=== PATIENT | male | born 1960 | race Caucasian/White ===

== ENCOUNTER → 2016-12-01 | Outpatient (CLI) | payer BC ==
--- NOTE | 2016-12-01 11:49 | US ---
EXAMINATION TYPE: US venous doppler duplex LE DATE OF EXAM: 12/01/2016 11:38 AM COMPARISON: NONE CLINICAL HISTORY: Swelling R22.41,R22.42 R79.1 Elevated D Dimer. large habitus, sob, states prior dvt yrs ago in left leg, no prev here SIDE PERFORMED: bilateral TECHNIQUE: The lower extremity deep venous system is examined utilizing real time linear array sonog amanda with graded compression, doppler sonography and color-flow sonography. VESSELS IMAGED: External Iliac Vein (EIV) Common Femoral Vein Deep Femoral Vein Greater Saphenous Vein * Femoral Vein Popliteal Vein Small Saphenous Vein * Proximal Calf Veins (* superficial vessels) Exam limitations due to pt size and ability to compress deep vns. Right Leg: neg for RLE dvt Left Leg: neg for LLE dvt, no flow seen within left upper gsv/superficial, but otherwise wnl IMPRESSION: Grayscale, color doppler, spectral doppler imaging performed of the deep veins of the lo wer extremities. There is normal flow, compressibility, vascular waveforms bilaterally. The exam is limited technically. No deep venous thrombosis is evident. Possible superficial venous th rombosis within the left upper greater saphenous vein, there is lack of color flow noted
--- NOTE | 2016-12-01 15:34 | XR ---
EXAMINATION TYPE: XR chest 2V DATE OF EXAM: 12/01/2016 HISTORY: R79.1 inc d dimer. REFERENCE: NONE. FINDINGS: The heart is enlarged. There is minimal scarring or atelectasis in the right midlung. Lungs otherwise clear. Pleural spaces are clear. 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 IMPRESSION: 1. CARDIOMEGALY. 2. SCARRING VERSUS ATELECTASIS RIGHT MIDLUNG. 3. FORESTIER'S DISEASE.
--- NOTE | 2016-12-01 16:02 | CT ---
EXAMINATION TYPE: CT chest angio for PE DATE OF EXAM: 12/01/2016 COMPARISON: NONE HISTORY: Leg swelling and elevated d-dimer CT DLP: 764.90 mGycm Automated exposure control for dose reduction was used. CONTRAST: CT Chest for pulmonary embolism performed with IV Contrast, patient injected with 70 mL of Omnipaque 350. FINDINGS: There is a triangular-shaped 9.2 x 5 mm nodule within the right middle lobe, best seen on i mage 57. No other definite nodules are seen. No infiltrate is seen. There is no significant axillary, mediastinal or hilar adenopathy. There is no pleural or pericardial fluid. The heart is mildly enlarged. There is a suboptimal contrast bolus. There are no large pulmonary emboli. The aorta is normal in caliber without evidence of dissection. Within the abdomen, there is a large amount of ascites. There is a lap band in place. There is spleno megaly with the spleen measuring over 18 cm. There is diffuse hypertrophic spondylosis within the spine. IMPRESSION: 1. SUBOPTIMAL EXAMINATION DEMONSTRATING NO LARGE PULMONARY EMBOLI. 2. SOLITARY RIGHT PULMONARY NODULE. 3. MILD CARDIOMEGALY. 4. ASCITES. 5. SPLENOMEGALY. 6. DEGENERATIVE CHANGES WITHIN THE SPINE.
--- NOTE | 2016-12-01 16:08 | NM ---
EXAMINATION TYPE: NM pul vent and perfuse DATE OF EXAM: 12/01/2016 COMPARISON: Chest x-ray 12/01/2016 HISTORY: Elevated d-dimer TECHNIQUE: Utilizing inhalation of 64.5 mCi Tc 99m DTPA aerosol and intravenous injection of 4.85 mC i of Tc 99m MAA, ventilation and perfusion images are acquired post injection in multiple projections . FINDINGS: No moderate or large mismatched defects are evident. There is a large matched defect along the right posterior lateral chest. Smaller matched defects in the posterior lateral left lung base. IMPRESSION: A matched defect posterior right chest. Smaller posterior lateral left chest defect may be present. M ismatch defects not identified. This is a low probability for pulmonary embolism.
== END | disposition home or self-care (01) ==
LOC: RADUSWWP 11:06
PROVIDERS: ATTEND Internal Medicine
DX: I51.7 Cardiomegaly (principal); M95.4 Acquired deformity of chest and rib; M35.3 Polymyalgia rheumatica; R16.1 Splenomegaly, not elsewhere classified; R18.8 Other ascites; R91.1 Solitary pulmonary nodule
CPT/HCPCS: 71020; 93970; 71275; 78582; A9540; A9567; Q9967

== ENCOUNTER → 2019-11-01 | Outpatient (CLI) | payer BC | END | disposition home or self-care (01) | LOC: LABWHC1 11:12 | PROVIDERS: ATTEND Internal Medicine Gastroenterology | DX: Z11.59 Encounter for screening for other viral diseases (principal) | CPT/HCPCS: 87635 ==

== ENCOUNTER 2019-11-03 08:28 | Day surgery (SDC) | payer BC ==
[2019-11-03 09:15] LABS: Mean Platelet Volume 10.6; Platelet Count 162 k/uL (150-450)
[2019-11-03 09:23] LABS: INR 1.3 (<1.2); Prothrombin Time 12.6 sec (9.0-12.0)
[2019-11-03 09:33] VITALS: TEMP 98.1
[2019-11-03] MEDS: ALBUMIN HUMAN 25% 50 ML in EMPTY BAG 1 BAG IVPB SCH ×4 (10:50→11:37)
[2019-11-03 11:19] VITALS: RESP 14
[2019-11-03 12:37] VITALS: BP 120/58; PULSE 80
--- NOTE | 2019-11-03 13:06 | US ---
EXAMINATION TYPE: US paracentesis abd w/image DATE OF EXAM: 11/03/2019 COMPARISON: NONE HISTORY: Ascites. PROCEDURE: Maximal barrier technique was utilized. The skin overlying a suitable pocket of fluid was localized with ultrasound and the overlying skin was prepped and draped. Ultrasound was utilized with sterile technique. Lidocaine was used for local anesthesia and a skin felisa made with a scalpel. Catheter was advanced under direct ultrasound guidance into a suitable pocket of fluid and approximately 12.2 lite rs of serous fluid were removed. Catheter was withdrawn and hemostasis achieved. There is no immedi ate complication; the patient is discharged in stable condition. IMPRESSION: STATUS POST ULTRASOUND GUIDED PARACENTESIS FOR PALLIATION OF ASCITES. THIS PROCEDURE WA S PERFORMED BY THE UNDERSIGNED.
== END 2019-11-03 12:15 | disposition home or self-care (01) ==
LOC: RADPROMAIN 08:28 → MERGE 09:30 → RADPROMAIN 12:15
PROVIDERS: ATTEND Internal Medicine Gastroenterology
DX: R18.8 Other ascites (principal)
CPT/HCPCS: 82565; 82947; 85049; 85610; 36415; 49083; P9047

== ENCOUNTER → 2019-11-03 | Day surgery (SDC) | payer BC ==
[2019-11-02 10:17] VITALS: BMI 51.2
[~2019-11-03] MED LIST: KETAMINE 10 MG/ML 20 ML VIAL ONE; LACTATED RINGERS 1,000 ML IV SCH; LIDOCAINE 1% (10MG/ML) FOR IV START INTRADERMA PRN; LIDOCAINE 1% INJ 10MG/ML (20 ML MDV) ONE; MIDAZOLAM 2 MG/2 ML VIAL ONE; PROPOFOL 10 MG/ML 20 ML VIAL IV ONE
[2019-11-03 12:39] LABS: Glucose,Whole Blood 140 mg/dL (75-99)
[2019-11-03 12:40] VITALS: RESP 17; TEMP 97
--- NOTE | 2019-11-03 13:17 | P.PCN ---
Date of Procedure: 11/03/19 Procedure(s) Performed: BRIEF HISTORY: Patient is a 56-year-old, pleasant, white male with history of liver cirrhosis/nonalcoholic fatty liver disease is scheduled for an upper endoscopy as a part of evaluation of melena for the last 1 week duration. Last hemoglobin was 10 g/dL. PROCEDURE PERFORMED: Esophagogastroduodenoscopy. PREOPERATIVE DIAGNOSIS: Non alcoholic cirrhosis of the liver/melena. IV sedation per anesthesia. PROCEDURE: After informed consent was obtained, the patient was brought into the endoscopy unit. IV sedation was administered by Anesthesia under continuous monitoring. Initially the Olympus GIF-140 video endoscope was inserted into the mouth. Esophagus intubated without any difficulty. It was gradually advanced into the stomach and duodenum and carefully examined. The bulb and the second part of the duodenum appeared normal. The scope at this time was withdrawn to the stomach, adequately insufflated with air, and upon careful examination, mucosa of the antrum, body, cardia and the fundus had changes consistent with portal hypertensive gastropathy. No active bleeding seen. The scope was then withdrawn into the esophagus. The GE junction was located at 39 cm from the incisors. The esophagus appeared normal. There were no erosions or ulcerations seen . There where large mid/distal esophageal varices identified and the patient tolerated the procedure well. IMPRESSION: 1.. Mild portal hypertensive gastropathy 2. Large distal esophageal varices. RECOMMENDATIONS: The findings of this examination were discussed with the patient as well as his family. He'll be seen in office in 2 we Will consider starting him on nonselective beta giuseppe with Inderal 10 mg twice daily..
[2019-11-03 13:33] VITALS: BP 114/62; PULSE 79
== END ==
LOC: ORWHC2ENDO 12:14 → MERGE 12:30
PROVIDERS: ATTEND Internal Medicine Gastroenterology
DX: K74.69 Other cirrhosis of liver (principal); I85.10 Secondary esophageal varices without bleeding; K76.0 Fatty (change of) liver, not elsewhere classified; K76.6 Portal hypertension; K31.89 Other diseases of stomach and duodenum; E11.9 Type 2 diabetes mellitus without complications; E66.9 Obesity, unspecified; Z68.43 Body mass index [BMI] 50.0-59.9, adult; N28.9 Disorder of kidney and ureter, unspecified; Z79.84 Long term (current) use of oral hypoglycemic drugs; Z98.84 Bariatric surgery status; Z98.890 Other specified postprocedural states; Z88.2 Allergy status to sulfonamides
CPT/HCPCS: 43235; J2250; J2001; J2704

== ENCOUNTER 2019-11-20 08:16 | Inpatient (IN) | payer BC ==
[2019-11-20] MEDS ORDERED: SODIUM CHLORIDE 0.9% 1,000 ML IV STA (08:37)
[2019-11-20] MEDS ORDERED: MORPHINE SULFATE 4 MG/ML SYRINGE IV STA (08:37)
[2019-11-20] MEDS ORDERED: PANTOPRAZOLE 40 MG/10 ML VIAL IVP STA (08:37)
--- NOTE | 2019-11-20 08:40 | ED ---
Abdominal Pain HPI - General Source: patient, RN notes reviewed, old records reviewed Mode of arrival: wheelchair Limitations: no limitations <Malena Mccauley - Last Filed: 11/20/19 10:10> <Vince Gamble - Last Filed: 11/20/19 11:10> - General Chief Complaint: Abdominal Pain Stated Complaint: Recheck Time Seen by Provider: 11/20/19 08:24 - History of Present Illness Initial Comments: Patient is a 58-year-old male who presents emergency Department today for abdominal distention, difficulty in breathing was short distances and generalized weakness. He was sent by his PCP. Patient reports that he has history of ascites and had 12 L removed from his abdomen 2 weeks ago. He is scheduled for another paracentesis on the however he could not wait any longer. He reports lower extremity edema which is worsening. Patient states that he has had no recorded fevers or chills. He states is extremely winded w ith walking short distances. Patient also reports that he's been having dark tarry appearing stools for the past few weeks. He states that he's had some normal stools over the past 2 days. He states that he does see Dr. Rebolledo from GI. (Malena Mccauley) - Related Data Home Medications Medication Instructions Recorded Confirmed Furosemide [Lasix] 40 mg PO BID 11/20/19 11/20/19 Pioglitazone [Actos] 15 mg PO DAILY 11/20/19 11/20/19 Spironolactone [Aldactone] 25 mg PO BID-W/MEALS 11/20/19 11/20/19 Allergies Allergy/AdvReac Type Severity Reaction Status Date / Time Sulfa (Sulfonamide Allergy Unknown Verified 11/20/19 11:05 Antibiotics) Review of Systems ROS Other: All systems not noted in ROS Statement are negative. <Malena Mccauley - Last Filed: 11/20/19 10:10> ROS Other: All systems not noted in ROS Statement are negative. <Vince Gamble - Last Filed: 11/20/19 11:10> ROS Statement: Those systems with pertinent positive or pertinent negative responses have been documented in the HPI. Past Medical History Past Medical History: Diabetes Mellitus, Deep Vein Thrombosis (DVT) Additional Past Medical History / Comment(s): Pt states he has had increased abdominal size x 1.5 weeks. states has had 30lbs weight gain. DVT L leg, SOB with walking, ascites-states cause unknown History of Any Multi-Drug Resistant Organisms: None Reported Past Surgical History: Orthopedic Surgery Additional Past Surgical History / Comment(s): Rt club foot surgery as child, colonoscopy, paracentesis Past Anesthesia/Blood Transfusion Reactions: No Reported Reaction Past Psychological History: No Psychological Hx Reported Smoking Status: Never smoker Past Alcohol Use History: Occasional Past Drug Use History: None Reported - Past Family History Mother Family Medical History: No Reported History Additional Family Medical History / Comment(s): . Father History Unknown: Yes Additional Family Medical History / Comment(s): Pt does not know father's medical history. Father in his 60's. Brother(s) Family Medical History: Cancer <Malena Mccauley - Last Filed: 11/20/19 10:10> General Exam Limitations: no limitations General appearance: alert, in no apparent distress Head exam: Present: normocephalic Eye exam: Present: normal appearance, PERRL, EOMI. Absent: scleral icterus, conjunctival injection, periorbital swelling ENT exam: Present: normal exam, mucous membranes moist Neck exam: Present: normal inspection. Absent: tenderness, meningismus, lymphad enopathy Respiratory exam: Present: normal lung sounds bilaterally. Absent: respiratory distress, wheezes, rales, rhonchi, stridor Cardiovascular Exam: Present: regular rate, normal rhythm, normal heart sounds. Absent: systolic murmur, diastolic murmur, rubs, gallop, clicks GI/Abdominal exam: Present: distended (Asians abdomen is extremely distended.), normal bowel sounds. Absent: soft, tenderness, guarding, rebound, rigid Rectal exam: Present: heme (+) stool, black stool Extremities exam: Present: normal inspection, full ROM, normal capillary refill, pedal edema, other (Peripheral edema bilaterally.). Absent: tenderness, joint swelling, calf tenderness Back exam: Present: normal inspection, full ROM Neurological exam: Present: alert, oriented X3, CN II-XII intact Psychiatric exam: Present: normal affect, normal mood Skin exam: Present: warm, dry, intact, normal color. Absent: rash <Malena Mccauley - Last Filed: 11/20/19 10:10> - General Exam Comments Initial Comments: 58-year-old male. Morbidly obese. (Kiah Mccauleyily) Course Vital Signs 11/20/19 11/20/19 11/20/19 08:19 08:23 08:35 Temperature 97.9 F Pulse Rate 88 Respiratory 18 20 20 Rate Blood Pressure 136/88 O2 Sat by Pulse 100 Oximetry 11/20/19 11/20/19 09:23 10:23 Temperature Pulse Rate 69 Respiratory 20 20 Rate Blood Pressure 116/69 O2 Sat by Pulse 99 Oximetry Medical Decision Making - Lab Data Result diagrams: 11/20/19 08:45 11/20/19 08:45 <Malena Mccauley - Last Filed: 11/20/19 10:10> - Lab Data Result diagrams: 11/20/19 08:45 11/20/19 08:45 <Vince Gamble - Last Filed: 11/20/19 11:10> - Medical Decision Making Patient is a 58-year-old male history of cirrhosis and ascites presents today for abdominal distention and shortness of breath with exertion. Patient also reported he had a history of dark tarry stools for a few weeks but this is recently subsided became normal. Patient also reports at 12 L of fluid removed a few weeks ago and is scheduled to have paracentesis on the . At this ilda e patient's labwork was reviewed. His evidence of anemia with hemoglobin of 5.9. This is a dramatic change from last hemoglobin at 10. Discusses is likely from GI bleed. His occult is positive. Patient's is elevated BUN/creatinine with acute kidney injury. I discussed case with Dr. Gamble whom discussed case with Dr. Kimbrough. With having consultations GI and nephrology. (Malena Mccauley) Patient reevaluated and reexamined by myself, Dr. Gamble. Patient resting comfor tably in bed. No respiratory distress. Abdomen is distended. Results reviewed. Patient and family updated. Case discussed in detail with Dr. kimbrough, covering for Dr. Oconnell, who will admit. Consult for GI and nephrology. I do agree with the findings. This includes diagnostic interpretation and treatment plan. Case again discussed with Dr. Kimbrough who is reporting octreotide drip. Case al so discussed with Dr. Bolanos, who will consult for critical care. (Vince Gamble) - Lab Data Lab Results 11/20/19 11/20/19 11/20/19 Range/Units 08:45 08:45 08:45 WBC 7.0 (3.8-10.6) k/uL RBC 2.05 L (4.30-5.90) m/uL Hgb 5.9 L* D (13.0-17.5) gm/dL Hct 19.8 L* (39.0-53.0) % MCV 96.6 (80.0-100.0) fL MCH 28.8 (25.0-35.0) pg MCHC 29.8 L (31.0-37.0) g/dL RDW 17.1 H (11.5-15.5) % Plt Count 301 (150-450) k/uL Neutrophils % 80 % Lymphocytes % 9 % Monocytes % 9 % Eosinophils % 1 % Basophils % 0 % Neutrophils # 5.6 (1.3-7.7) k/uL Lymphocytes # 0.6 L (1.0-4.8) k/uL Monocytes # 0.6 (0-1.0) k/uL Eosinophils # 0.1 (0-0.7) k/uL Basophils # 0.0 (0-0.2) k/uL Hypochromasia Marked Poikilocytosis Slight Anisocytosis Slight Macrocytosis Slight PT (9.0-12.0) sec INR (<1.2) APTT (22.0-30.0) sec Sodium 134 L (137-145) mmol/L Potassium 5.2 H (3.5-5.1) mmol/L Chloride 100 (98-107) mmol/L Carbon Dioxide 20 L (22-30) mmol/L Anion Gap 14 mmol/L BUN 84 H (9-20) mg/dL Creatinine 6.73 H (0.66-1.25) mg/dL Est GFR (CKD-EPI)AfAm 10 (>60 ml/min/1.73 sqM) Est GFR (CKD-EPI)NonAf 8 (>60 ml/min/1.73 sqM) Glucose 186 H (74-99) mg/dL Plasma Lactic Acid Chun 3.9 H* (0.7-2.0) mmol/L Calcium 8.5 (8.4-10.2) mg/dL Total Bilirubin 1.2 (0.2-1.3) mg/dL AST 44 (17-59) U/L ALT 23 (4-49) U/L Alkaline Phosphatase 143 H (38-126) U/L Troponin I (0.000-0.034) ng/mL Total Protein 7.6 (6.3-8.2) g/dL Albumin 3.1 L (3.5-5.0) g/dL Amylase 65 (30-110) U/L Lipase 281 (23-300) U/L Stool Occult Blood (Negative) Serum Alcohol <10 mg/dL Blood Type Blood Type Confirm Blood Type Recheck Bld Type Recheck Status Antibody Screen Crossmatch Spec Expiration Date 11/20/19 11/20/19 11/20/19 Range/Units 08:45 09:37 09:37 WBC (3.8-10.6) k/uL RBC (4.30-5.90) m/uL Hgb (13.0-17.5) gm/dL Hct (39.0-53.0) % MCV (80.0-100.0) fL MCH (25.0-35.0) pg MCHC (31.0-37.0) g/dL RDW (11.5-15.5) % Plt Count (150-450) k/uL Neutrophils % % Lymphocytes % % Monocytes % % Eosinophils % % Basophils % % Neutrophils # (1.3-7.7) k/uL Lymphocytes # (1.0-4.8) k/uL Monocytes # (0-1.0) k/uL Eosinophils # (0-0.7) k/uL Basophils # (0-0.2) k/uL Hypochromasia Poikilocytosis Anisocytosis Macrocytosis PT 11.6 (9.0-12.0) sec INR 1.1 (<1.2) APTT 21.1 L (22.0-30.0) sec Sodium (137-145) mmol/L Potassium (3.5-5.1) mmol/L Chloride (98-107) mmol/L Carbon Dioxide (22-30) mmol/L Anion Gap mmol/L BUN (9-20) mg/dL Creatinine (0.66-1.25) mg/dL Est GFR (CKD-EPI)AfAm (>60 ml/min/1.73 sqM) Est GFR (CKD-EPI)NonAf (>60 ml/min/1.73 sqM) Glucose (74-99) mg/dL Plasma Lactic Acid Chun (0.7-2.0) mmol/L Calcium (8.4-10.2) mg/dL Total Bilirubin (0.2-1.3) mg/dL AST (17-59) U/L ALT (4-49) U/L Alkaline Phosphatase (38-126) U/L Troponin I <0.012 (0.000-0.034) ng/mL Total Protein (6.3-8.2) g/dL Albumin (3.5-5.0) g/dL Amylase (30-110) U/L Lipase (23-300) U/L Stool Occult Blood (Negative) Serum Alcohol mg/dL Blood Type A Positive Blood Type Confirm Blood Type Recheck No Previous Record Bld Type Recheck Status CABO Indicated Antibody Screen NEGATIVE Crossmatch See Detail Spec Expiration Date 11/23/2019 - 233611/20/19 11/20/19 Range/Units 09:50 10:10 WBC (3.8-10.6) k/uL RBC (4.30-5.90) m/uL Hgb (13.0-17.5) gm/dL Hct (39.0-53.0) % MCV (80.0-100.0) fL MCH (25.0-35.0) pg MCHC (31.0-37.0) g/dL RDW (11.5-15.5) % Plt Count (150-450) k/uL Neutrophils % % Lymphocytes % % Monocytes % % Eosinophils % % Basophils % % Neutrophils # (1.3-7.7) k/uL Lymphocytes # (1.0-4.8) k/uL Monocytes # (0-1.0) k/uL Eosinophils # (0-0.7) k/uL Basophils # (0-0.2) k/uL Hypochromasia Poikilocytosis Anisocytosis Macrocytosis PT (9.0-12.0) sec INR (<1.2) APTT (22.0-30.0) sec Sodium (137-145) mmol/L Potassium (3.5-5.1) mmol/L Chloride (98-107) mmol/L Carbon Dioxide (22-30) mmol/L Anion Gap mmol/L BUN (9-20) mg/dL Creatinine (0.66-1.25) mg/dL Est GFR (CKD-EPI)AfAm (>60 ml/min/1.73 sqM) Est GFR (CKD-EPI)NonAf (>60 ml/min/1.73 sqM) Glucose (74-99) mg/dL Plasma Lactic Acid Chun (0.7-2.0) mmol/L Calcium (8.4-10.2) mg/dL Total Bilirubin (0.2-1.3) mg/dL AST (17-59) U/L ALT (4-49) U/L Alkaline Phosphatase (38-126) U/L Troponin I (0.000-0.034) ng/mL Total Protein (6.3-8.2) g/dL Albumin (3.5-5.0) g/dL Amylase (30-110) U/L Lipase (23-300) U/L Stool Occult Blood Positive (Negative) Serum Alcohol mg/dL Blood Type Blood Type Confirm A Positive Blood Type Recheck Bld Type Recheck Status Antibody Screen Crossmatch Spec Expiration Date Disposition Is patient prescribed a controlled substance at d/c from ED?: No Time of Disposition: 10:14 <Malena Mccauley - Last Filed: 11/20/19 10:10> <Vince Gamble - Last Filed: 11/20/19 11:10> Clinical Impression: Ascites, Cirrhosis, GI bleed, Anemia, ANISH (acute kidney injury) Disposition: ADMITTED IP TO THIS HOSP Condition: Stable Referrals: Stephen Muñoz MD [Primary Care Provider] - 1-2 days
[2019-11-20 09:11] LABS: Anisocytosis Slight; Basophils % (A) 0 %; Eosinophils # (A) 0.1 k/uL (0-0.7); Eosinophils % (A) 1 %; Hypochromasia Marked; Lymphocytes # (A) 0.6 k/uL (1.0-4.8); Lymphocytes % (A) 9 %; MCH 28.8 pg (25.0-35.0); MCHC 29.8 g/dL (31.0-37.0); MCV 96.6 fL (80.0-100.0); Macrocytosis Slight; Mean Platelet Volume 8.5; Monocytes # (A) 0.6 k/uL (0-1.0); Monocytes % (A) 9 %; Neutrophils # (A) 5.6 k/uL (1.3-7.7); Neutrophils % (A) 80 %; Platelet Count 301 k/uL (150-450); Poikilocytosis Slight; RBC 2.05 m/uL (4.30-5.90); RDW 17.1 % (11.5-15.5)
--- NOTE | 2019-11-20 09:16 | XR ---
EXAMINATION TYPE: XR chest 2V DATE OF EXAM: 11/20/2019 COMPARISON: 12/07/2016 HISTORY: Abdominal pain and shortness of breath TECHNIQUE: Frontal and lateral views of the chest are obtained. FINDINGS: There are low lung volumes. There is no focal air space opacity, pleural effusion, or pneum othorax seen. The cardiac silhouette size is enlarged. The osseous structures are intact. Moderate m ultilevel degenerative change of the spine. IMPRESSION: Low lung volumes and persistently enlarged cardiomediastinal silhouette. No acute cardio pulmonary process.
[2019-11-20 09:22] LABS: ALT 23 U/L (4-49); AST 44 U/L (17-59); African American GFR (CKD) 10 (>60 ml/min/1.73 sqM); Albumin 3.1 g/dL (3.5-5.0); Alcohol <10 mg/dL; Alkaline Phosphatase 143 U/L (38-126); Amylase 65 U/L (30-110); Anion Gap 14 mmol/L; Blood Urea Nitrogen 84 mg/dL (9-20); Calcium 8.5 mg/dL (8.4-10.2); Carbon Dioxide 20 mmol/L (22-30); Chloride 100 mmol/L (98-107); Glucose 186 mg/dL (74-99); Non-African American GFR(CKD) 8 (>60 ml/min/1.73 sqM); Potassium 5.2 mmol/L (3.5-5.1); Sodium 134 mmol/L (137-145); Total Bilirubin 1.2 mg/dL (0.2-1.3); Total Protein 7.6 g/dL (6.3-8.2)
[2019-11-20 09:23] LABS: HCT 19.8 % (39.0-53.0); HGB 5.9 gm/dL (13.0-17.5)
[2019-11-20] MEDS ORDERED: SODIUM CHLORIDE 0.9% 1,000 ML IV ONE (09:41)
[2019-11-20 10:06] LABS: INR 1.1 (<1.2); Prothrombin Time 11.6 sec (9.0-12.0)
[2019-11-20 10:08] LABS: Partial Thromboplastin Time 21.1 sec (22.0-30.0)
[2019-11-20] MEDS ORDERED: NALOXONE 0.4 MG/ML 1 ML VIAL IV PRN (10:45)
[2019-11-20] MEDS ORDERED: MELATONIN 3 MG TABLET PO PRN (11:28)
[2019-11-20] MEDS ORDERED: ONDANSETRON 4 MG/2 ML VIAL IVP PRN (11:28)
[2019-11-20] MEDS ORDERED: ACETAMINOPHEN TAB 325 MG TAB PO PRN (11:28)
[2019-11-20] MEDS: OCTREOTIDE 500 MCG in SODIUM CHLORIDE 0.9% 250 ML IV SCH (11:30)
--- NOTE | 2019-11-20 11:34 | US ---
EXAMINATION TYPE: US abdomen limited DATE OF EXAM: 11/20/2019 COMPARISON: EXAMINATION TYPE: US abdomen limited DATE OF EXAM: 11/20/2019 COMPARISON: Paracentesis dated 11/03/2019 CLINICAL HISTORY: Ascites . Ascites TECHNIQUE/FINDINGS: Targeted grayscale ultrasound was performed of the abdomen and evaluation for asc ites only. Ascites visualized in the left upper quadrant, left lower quadrant, right upper quadrant a nd right lower quadrant. IMPRESSION: Ascites visualized in all 4 quadrants sufficient for paracentesis.
[2019-11-20 11:53] LABS: Glucose,Whole Blood 172 mg/dL (75-99)
--- NOTE | 2019-11-20 11:55 | P.NPCON ---
History of Present Illness - Reason for Consult acute renal failure - History of Present Illness Reason for consultation: Acute kidney injury History of present illness: Patient is a 58-year-old male seen in consultation for acute kidney injury. Patient has history of liver cirrhosis secondary to fatty liver. Patient's creatinine recently has been in the range of 1-1.2. However in October his renal function had worsened and his diuretics were discontinued. Patient states he had paracentesis done on 11/02/2018 with 12 L drained. I did a virtual visit the patient last week and resumed spironolactone as well as Lasix. However patient states his edema and ascites have been progressively getting worse. He also complains of lower extremity edema. He has been voiding. No hematuria or dysuria. He was having black stools last week but states the last 2-3 days his bowel movements have been normal. He did have episode of severe emesis about 2 weeks ago but none since. He denies use of nonsteroidals. Hemoglobin was 5.9 on admission. Creatinine 6.73. Lactic acid 3.9. Urinary received 1 L of normal saline bolus. He is currently maintained on normal saline at 1 30 mL an hour. Blood pressures controlled. He denies any active bleeding. Vital signs are stable. General: The patient appeared well nourished and normally developed. HEENT: Head exam is unremarkable. Neck is without jugular venous distension. LUNGS: Lungs are clear to auscultation and percussion. Breath sounds decreased. HEART: Rate and Rhythm are regular. ABDOMEN: Severely distended. Nontender. EXTREMITITES: 2+ edema. Past Medical History Past Medical History: Diabetes Mellitus, Deep Vein Thrombosis (DVT), GERD/Reflux, GI Bleed, Liver Disease, Osteoarthritis (OA), Renal Disease Additional Past Medical History / Comment(s): Ascities with paracentesis-last time approximately 2 weeks ago/liver cirrhosis/anasarca/portal htn pt states told d/t fatty liver, renal insuffiiciency, lower GI bleed, esophageal varices, gastritis, NIDDM type II but pt states taken off diabetic medication one week ago, DVT L leg, recent R foot 2nd/3rd toe fractured pt states are now healed, arthritis R foot History of Any Multi-Drug Resistant Organisms: None Reported Past Surgical History: Orthopedic Surgery Additional Past Surgical History / Comment(s): 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 Smoking Status: Light tobacco smoker Past Alcohol Use History: Occasional Additional Past Alcohol Use History / Comment(s): Pt states he will on rare occasion, smoke a cigar during [place]. He has never been much of a drinker Past Drug Use History: None Reported - Past Family History Mother Family Medical History: No Reported History Additional Family Medical History / Comment(s): Mother is healthy and is 85 yrs old. Father History Unknown: Yes Additional Family Medical History / Comment(s): Pt does not know father's medical history. Father in his 60's. Brother(s) Family Medical History: Cancer Additional Family Medical History / Comment(s): Prostate cancer. Medications and Allergies Home Medications Medication Instructions Recorded Confirmed Type Furosemide [Lasix] 40 mg PO BID 11/20/19 11/20/19 History Pioglitazone [Actos] 15 mg PO DAILY 11/20/19 11/20/19 History Spironolactone [Aldactone] 25 mg PO BID-W/MEALS 11/20/19 11/20/19 History Allergies Allergy/AdvReac Type Severity Reaction Status Date / Time Sulfa (Sulfonamide Allergy Unknown Verified 11/20/19 11:05 Antibiotics) Physical Exam Vitals: Vital Signs Temp Pulse Resp BP Pulse Ox 11/20/19 11:33 83 20 116/66 99 11/20/19 10:23 69 20 116/69 99 11/20/19 09:23 20 11/20/19 08:35 20 11/20/19 08:23 20 11/20/19 08:19 97.9 F 88 18 136/88 100 Intake and Output 11/19/19 11/20/19 11/20/19 22:59 06:59 14:59 Other: Weight 172.365 kg Results - Lab Results Most recent lab results Calcium 8.5 mg/dL (8.4-10.2) 11/20/19 08:45 11/20/19 08:45 11/20/19 08:45 Assessment and Plan Plan: Assessment: 1. Acute kidney injury secondary to ATN secondary to acute blood loss anemia. Also concern for hepatorenal syndrome as well as abdominal compartment syndrome due to the severe distention and ascites. Creatinine 6.73 today. 2. Metabolic acidosis secondary to acute kidney injury as well as lactic acidosis. 3. Acute GI bleed. Hemoglobin 5.9. Maintained on octreotide drip. 4. Hypervolemic hyponatremia. 5. Liver cirrhosis. 6. Volume overload. Plan: Hep-Lock IV fluids. Scheduled to receive blood transfusion today. I will also give him a dose of IV DDAVP. Insert Argueta catheter. Check bladder pressure. IR consulted for paracentesis - patient to receive 37-1/2 g of albumin pre-and post-paracentesis. Add lasix 80 mg bid. Check urinalysis and renal ultrasound. Continue to monitor renal function and urine output closely. Patient will be going to the intensive care unit. Thank you for the consultation. I will continue to follow the patient with you during his hospital stay.
--- NOTE | 2019-11-20 12:34 | P.HPIM ---
History of Present Illness H&P Date: 11/20/19 Chief Complaint: abdominal distension Patient is a 58-year-old with non-alcoholic cirrhosis requiring paracentesis, obesity, diabetes, GERD, prior blood clots, osteoarthritis, and newly developed renal disease who presented to the emergency department at the direction of Dr. Muñoz due to abdominal distention. On arrival to the ER he is noted to have gross abdominal distention. His initial vital signs were within normal limits. Laboratory analysis showed a hemoglobin of 5.9, hematocrit 19.8, sodium 134, potassium 5.2, carbon dioxide 20, anion gap 14, BUN 84, creatinine 6.73, lactic acid 3.9, and liver enzymes were within normal limits. Albumin was noted to be 3.1. Serum alcohol was negative and fecal occult blood was positive. In the ER he received IV fluids and Protonix. Arrangements are made for admission. Of note the patient began experiencing renal insufficiency at the beginning of October. He also at that time was having dark tarry looking stools as well as persistent nausea and vomiting. On 11/02 he underwent a paracentesis with removal of 12.3 L of fluid (his last before that was in August 2019). At that point in time he also underwent an EGD which showed large esophageal varices. His creatinine on 11/02 was 3.04. He was referred to Dr. Brady and had a telephone visit approximately 2 days ago. Initially GI had held his diuretics. However Dr. Brady had had him resume his Aldactone at half a tablet and Lasix once daily. He states he has been compliant with this regimen. Patient seen and examined at bedside. He reports progressive abdominal distention over the last several weeks. He is not having any overt pain but just feels like his fluid is pushing on his abdomen. He reports that he has had decreased exercise tolerance and can only be up for 1-2 hours before needing to lay flat. He reports increasing lower extremity edema. He also reports exertional dyspnea. He is no longer able to ambulate to his mailbox or do activ ities of daily living without taking significant rest. He denies any current nausea or vomiting, but had severe episode approximately 3 weeks ago requiring an EGD with Dr. Bonds. He is also been having intermittent dark tarry stools. He states her severe up until about 5 days ago and has sense lessened somewhat, however there is some debate between him and his brother as to whether his stools have returned to normal or whether they continue to be dark and tarry. He reports he has been seeing Dr. Bonds for the last 2 years. Apparently his [id number]-puo who was a nurse have been helping him with all of his appointments and medications however she in July 2019 and he has been having difficulties since that time. He denies any difficulty with concentration, he states he is not sleeping more but is laying flat often due to shortness of breath and cramping. Review of Systems Pertinent positives and negatives as discussed in HPI, a complete review of systems was performed and all other systems are negative. Past Medical History Past Medical History: Diabetes Mellitus, Deep Vein Thrombosis (DVT), GERD/Reflux, GI Bleed, Liver Disease, Osteoarthritis (OA), Renal Disease Additional Past Medical History / Comment(s): Ascities with paracentesis-last time approximately 2 weeks ago/liver cirrhosis/anasarca/portal htn pt states told d/t fatty liver, renal insuffiiciency, lower GI bleed, esophageal varices, gastritis, NIDDM type II but pt states taken off diabetic medication one week ago, DVT L leg, recent R foot 2nd/3rd toe fractured pt states are now healed, arthritis R foot History of Any Multi-Drug Resistant Organisms: None Reported Past Surgical History: Orthopedic Surgery Additional Past Surgical History / Comment(s): 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 Smoking Status: Light tobacco smoker Past Alcohol Use History: Occasional Additional Past Alcohol Use History / Comment(s): Pt states he will on rare occasion, smoke a cigar during bear/deer camp. He has never been much of a drinker Past Drug Use History: None Reported - Past Family History Mother Family Medical History: No Reported History Additional Family Medical History / Comment(s): Mother is healthy and is 85 yrs old. Father History Unknown: Yes Additional Family Medical History / Comment(s): Pt does not know father's m edical history. Father in his 60's. Brother(s) Family Medical History: Cancer Additional Family Medical History / Comment(s): Prostate cancer. Medications and Allergies Home Medications Medication Instructions Recorded Confirmed Type Furosemide [Lasix] 40 mg PO BID 11/20/19 11/20/19 History Pioglitazone [Actos] 15 mg PO DAILY 11/20/19 11/20/19 History Spironolactone [Aldactone] 25 mg PO BID-W/MEALS 11/20/19 11/20/19 History Allergies Allergy/AdvReac Type Severity Reaction Status Date / Time Sulfa (Sulfonamide Allergy Unknown Verified 11/20/19 11:05 Antibiotics) Physical Exam Osteopathic Statement: *. No significant issues noted on an osteopathic structural exam other than those noted in the History and Physical/Consult. Vitals: Vital Signs Temp Pulse Resp BP Pulse Ox 11/20/19 11:33 83 20 116/66 99 11/20/19 10:23 69 20 116/69 99 11/20/19 09:23 20 11/20/19 08:35 20 11/20/19 08:23 20 11/20/19 08:19 97.9 F 88 18 136/88 100 Intake and Output 11/19/19 11/20/19 11/20/19 22:59 06:59 14:59 Other: Weight 172.365 kg General: ill appearing , Moderate distress, appears at stated age, Obese Derm: no unusual rashes/lesions no unusual ecchymoses, warm, dry Head: atraumatic, normocephalic, symmetric Eyes: EOMI, no lid lag, anicteric sclera, pupils equal round reactive to light ENT: Nose and ears atraumatic, no thrush, no pharyngeal erythema Neck: No thyromegaly, no cervical lymphadenopathy, trachea midline, supple Mouth: no lip lesion, mucus membranes moist Cardiovascular: S1S2 reg, no murmur, positive posterior tibial pulse bilateral, 2+ pitting edema, capillary refill less than 2 seconds Lungs: Decreased bs bilateral, no rhonchi, no rales , no accessory muscle use Abdominal: soft, nontender to palpation, no guarding, no appreciable organomegaly, normal bowel sounds Ext: no gross muscle atrophy, muscle strength 4 out of 5 in all 4 extremities grossly, no contractures, Neuro: CN II-XI grossly intact, light touch intact all 4 extremities, Psych: Alert, oriented, appropriate affect Results CBC & Chem 7: 11/20/19 08:45 11/20/19 08:45 Labs: Abnormal Lab Results - Last 24 Hours (Table) 11/20/19 11/20/19 11/20/19 Range/Units 08:45 08:45 08:45 RBC 2.05 L (4.30-5.90) m/uL Hgb 5.9 L* D (13.0-17.5) gm/dL Hct 19.8 L* (39.0-53.0) % MCHC 29.8 L (31.0-37.0) g/dL RDW 17.1 H (11.5-15.5) % Lymphocytes # 0.6 L (1.0-4.8) k/uL APTT (22.0-30.0) sec Sodium 134 L (137-145) mmol/L Potassium 5.2 H (3.5-5.1) mmol/L Carbon Dioxide 20 L (22-30) mmol/L BUN 84 H (9-20) mg/dL Creatinine 6.73 H (0.66-1.25) mg/dL Glucose 186 H (74-99) mg/dL Plasma Lactic Acid Chun 3.9 H* (0.7-2.0) mmol/L Alkaline Phosphatase 143 H (38-126) U/L Albumin 3.1 L (3.5-5.0) g/dL Crossmatch 11/20/19 11/20/19 Range/Units 09:37 09:37 RBC (4.30-5.90) m/uL Hgb (13.0-17.5) gm/dL Hct (39.0-53.0) % MCHC (31.0-37.0) g/dL RDW (11.5-15.5) % Lymphocytes # (1.0-4.8) k/uL APTT 21.1 L (22.0-30.0) sec Sodium (137-145) mmol/L Potassium (3.5-5.1) mmol/L Carbon Dioxide (22-30) mmol/L BUN (9-20) mg/dL Creatinine (0.66-1.25) mg/dL Glucose (74-99) mg/dL Plasma Lactic Acid Chun (0.7-2.0) mmol/L Alkaline Phosphatase (38-126) U/L Albumin (3.5-5.0) g/dL Crossmatch See Detail Chest x-ray: report reviewed US - abdomen: report reviewed Thrombosis Risk Factor Assmnt - DVT/VTE Prophylaxis DVT/VTE Prophylaxis: Pharmacologic Prophylaxis ordered Assessment and Plan Assessment: Decompensated hepatic cirrhosis, nonalcoholic -Concern for possible abdominal compartment syndrome leading to acute renal failure secondary to amount of ascites. Plan is for paracentesis today. Will need albumin prior and post procedure. -Lasix (as ordered by GI). No potassium sparing diuretic secondary To potassium 5.2. -After paracentesis low salt diet -Consult GI Acute renal failure with anion gap metabolic acidosis and mild hyperkalemia -Possible abdominal compartment syndrome versus hepatorenal syndrome versus acute kidney injury secondary to prerenal causes such as acute blood loss -Nephrology recommendations appreciated -Lasix -Ensure albumin prior to paracentesis -Avoid additional nephrotoxic agents- repeat BMP in AM Acute blood loss anemia likely secondary to GI bleed -Patient with history of esophageal varices as seen on EGD 11/03/2019. We will proceed with octreotide drip. -IV Protonix twice daily -GI consultation -Nothing by mouth -DDAVP ordered by nephrology -With a history of esophageal varices, cirrhosis with ascites, and GI bleed will order Rocephin 1 g daily as prophylaxis Diabetes mellitus type 2 -Had already been taken off of metformin prior to admission -Sliding-scale insulin -Check hemoglobin A1c The patient is admitted with an anticipated greater than 2 midnight stay for evaluation of abdominal distension. Surrogate decision-maker: Sister in law CODE STATUS:Full DVT prophylaxis: SCDs Discussed with: Patient, nursing, ED physician, Dr. Brady, Vilma Skelton, SCARLET Anticipated discharge date: 5-[address]: Home health VS SNF A total of 65 minutes was spent on the care of this complex patient more than 50% of the time was spent in counseling and care coordination.
[2019-11-20] MEDS: FUROSEMIDE 10 MG/ML 10 ML VIAL IV SCH ×2 (12:54→20:44)
[2019-11-20] MEDS ORDERED: DESMOPRESSIN ACETATE IVPB ONE (13:00)
[2019-11-20] MEDS ORDERED: SODIUM CHLORIDE 0.9% IVPB ONE (13:00)
[2019-11-20 13:26] LABS: Glucose,Whole Blood 174 mg/dL (75-99)
[2019-11-20] MEDS: INSULIN ASPART (NovoLOG) 100 UNIT/ML VIAL SQ SCH ×3 (13:40→20:41)
--- NOTE | 2019-11-20 13:46 | P.CNPUL ---
History of Present Illness Consult date: 11/20/19 Requesting physician: Maggi Carlson Reason for consult: other (Severe anemia and ascites) Chief complaint: Abdominal distention History of present illness: This is a 58-year-old white male with history of nonalcoholic liver cirrhosis., Recent paracentesis on 11/03/19, this was done by interventional radiology, and 12.2 L of fluid was drained from the peritoneal cavity. Over the last few we eks, the patient has been gradually developing increased abdominal girth and abdominal distention. Patient was brought into the ER, and workup revealed a low hemoglobin of 5.9. Elevated BUN of 84. Creatinine 6.73, elevated lactic acid, hence the patient was advised to be admitted to the hospital, he will require blood transfusion, paracentesis and further workup of his nonalcoholic liver cirrhosis, I was asked to see the patient on consultation to admit to the intensive care unit. Patient is now scheduled for repeat paracentesis by interventional radiology, and he would be seen by gastroenterology for possible EGD. In the meantime I have recommended transfusing the patient to a hemoglobin of above 7. Patient has been complaining of black tarry stools and intermittent episodes of nausea and vomiting, but no hematemesis. Recent EGD on this patient showed this large esophageal varices, but no active bleeding. Patient was seen by a different consultants while in the ER, and he was placed on diuretics in the form of Aldactone and Lasix he will be seen by interventional radiology for paracentesis. Patient denies any shortness of breath, no cough, no wheezing. He does have some dyspnea on exertion only. Review of Systems Constitutional: Denies fever, chills, sweats, weight gain, or loss. HEENT: Negative for migraines, blurred vision or loss, earaches, drainage, tinnitus, oral mucosal lesions, dysphagia, or odynophagia. Cardiac: Negative for chest pain, arrhythmias, or palpitation. Respiratory: Negative for shortness of breath, hemoptysis, cough, or sputum production. Patient has some dyspnea on exertion. Gastrointestinal: As noted in HPI. Mostly increased abdominal girth, and dark stools. Genitourinary: Negative for hematuria, urgency, frequency, polyuria, dysuria, or penile discharge. Musculoskeletal: Negative for muscle aches, swelling, arthritis, and arthralgias. Neurologic: Negative for stroke or TIA. Endocrine: Diabetes. Negative for thyroid problems. Hematologic: History of DVT. Skin: Negative for rash or itching. Psychiatric: Negative history for depression and anxietyle Past Medical History Past Medical History: Diabetes Mellitus, Deep Vein Thrombosis (DVT), GERD/Reflux, GI Bleed, Liver Disease, Osteoarthritis (OA), Renal Disease Additional Past Medical History / Comment(s): Ascities with paracentesis-last time approximately 2 weeks ago/liver cirrhosis/anasarca/portal htn pt states told d/t fatty liver, renal insuffiiciency, lower GI bleed, esophageal varices, gastritis, NIDDM type II but pt states taken off diabetic medication one week ago, DVT L leg, recent R foot 2nd/3rd toe fractured pt states are now healed, arthritis R foot History of Any Multi-Drug Resistant Organisms: None Reported Past Surgical History: Orthopedic Surgery Additional Past Surgical History / Comment(s): 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 Smoking Status: Light tobacco smoker Past Alcohol Use History: Occasional Additional Past Alcohol Use History / Comment(s): Pt states he will on rare occasion, smoke a cigar during bear/deer camp. He has never been much of a drinker Past Drug Use History: None Reported - Past Family History Mother Family Medical History: No Reported History Additional Family Medical History / Comment(s): Mother is healthy and is 85 yrs old. Father History Unknown: Yes Additional Family Medical History / Comment(s): Pt does not know father's medical history. Father in his 60's. Brother(s) Family Medical History: Cancer Additional Family Medical History / Comment(s): Prostate cancer. Medications and Allergies Home Medications Medication Instructions Recorded Confirmed Type Furosemide [Lasix] 40 mg PO BID 11/20/19 11/20/19 History Pioglitazone [Actos] 15 mg PO DAILY 11/20/19 11/20/19 History Spironolactone [Aldactone] 25 mg PO BID-W/MEALS 11/20/19 11/20/19 History Allergies Allergy/AdvReac Type Severity Reaction Status Date / Time Sulfa (Sulfonamide Allergy Unknown Verified 11/20/19 11:05 Antibiotics) Physical Exam Vitals: Vital Signs Temp Pulse Resp BP Pulse Ox 11/20/19 13:19 97.7 F 82 16 102/51 96 11/20/19 11:33 83 20 116/66 99 11/20/19 10:23 69 20 116/69 99 11/20/19 09:23 20 11/20/19 08:35 20 11/20/19 08:23 20 11/20/19 08:19 97.9 F 88 18 136/88 100 Intake and Output 11/19/19 11/20/19 11/20/19 22:59 06:59 14:59 Intake Total 0 Balance 0 Intake: Blood Product 0 Rc As-1 Unit 0 [id number] Other: Weight 172.365 kg General appearance: The patient is alert, oriented, in no acute distress. HET: Head is normocephalic and atraumatic. Pupils are equal and reactive. Hilda pharynx is clear without lesions. Neck: Supple without lymphadenopathy. Trachea midline. Heart: S1 S2. Regular rate and rhythm. Lungs: No crackles or wheezes are heard. Abdomen: Soft, distended difficult to assess ascites secondary to large abdominal girth with bowel sounds. No peritoneal signs. No palpable organomegaly or masses. Extremities: +3 bilateral lower extremity edema. Neurological: No focal deficits. Strength and sensation are grossly intact. Psychiatric: Normal mood, affect and normal mental status examination. Results - Laboratory Findings CBC and BMP: 11/20/19 08:45 11/20/19 08:45 PT/INR, D-dimer PT 11.6 sec (9.0-12.0) 11/20/19 09:37 INR 1.1 (<1.2) 11/20/19 09:37 Abnormal lab findings: Abnormal Labs 11/20/19 11/20/19 11/20/19 08:45 08:45 08:45 RBC 2.05 L Hgb 5.9 L* D Hct 19.8 L* MCHC 29.8 L RDW 17.1 H Lymphocytes # 0.6 L APTT Sodium 134 L Potassium 5.2 H Carbon Dioxide 20 L BUN 84 H Creatinine 6.73 H Glucose 186 H POC Glucose (mg/dL) Plasma Lactic Acid Chun 3.9 H* Alkaline Phosphatase 143 H Albumin 3.1 L Crossmatch 11/20/19 11/20/19 11/20/19 09:37 09:37 11:51 RBC Hgb Hct MCHC RDW Lymphocytes # APTT 21.1 L Sodium Potassium Carbon Dioxide BUN Creatinine Glucose POC Glucose (mg/dL) 172 H Plasma Lactic Acid Chun Alkaline Phosphatase Albumin Crossmatch See Detail 11/20/19 13:25 RBC Hgb Hct MCHC RDW Lymphocytes # APTT Sodium Potassium Carbon Dioxide BUN Creatinine Glucose POC Glucose (mg/dL) 174 H Plasma Lactic Acid Chun Alkaline Phosphatase Albumin Crossmatch - Diagnostic Findings Chest x-ray: image reviewed (Low lung volumes and enlarged cardiomediastinal silhouette. No acute process otherwise) Additional studies: Ultrasound of abdomen showed significant ascites. Assessment and Plan Assessment: Impression: Severe ascites secondary to nonalcoholic hepatic cirrhosis. Anasarca secondary to above. Acute blood loss anemia suspect underlying upper GI bleeding, possibly esophageal varices. Acute kidney injury, being addressed by nephrology. Type 2 diabetes. Recommendation: Agree with the present treatment plan including diuretics, GI consultation Interventional radiology evaluation for paracentesis Low-salt diet Close monitoring of renal profile Avoid nephrotoxic agents. Transfused to a hemoglobin of over 7. Empiric antibiotics/Rocephin, for possible spontaneous bacterial peritonitis. Monitor sugars closely and treat accordingly. We'll continue to follow in the ICU. Time with Patient: Greater than 30
[2019-11-20] MEDS: ALBUMIN HUMAN 25% 50 ML in EMPTY BAG 1 BAG IVPB SCH ×6 (15:30→17:54)
[2019-11-20] MEDS: HYDROmorphone 0.5 MG/0.5 ML SYRINGE IVP PRN (16:30)
[2019-11-20 17:23] LABS: Appearance,Urine Cloudy (Clear); Bacteria,Urine Few /hpf; Bilirubin,Urine Negative (Negative); Blood,Urine Moderate (Negative); Color,Urine Yellow; Glucose,Urine (UA) Negative (Negative); Hyaline Casts,Urine 15 /lpf (0-2); Ketones,Urine Negative (Negative); Leukocyte Esterase,Urine Large (Negative); Mucus,Urine Rare /hpf; Nitrite,Urine Negative (Negative); Protein,Urine Trace (Negative); RBC,Urine 176 /hpf (0-5); Specific Gravity,Urine 1.013 (1.001-1.035); Squamous Epithelial Cell,Urine <1 /hpf (0-4); Urobilinogen,Urine <2.0 mg/dL (<2.0); WBC,Urine >182 /hpf (0-5)
[2019-11-20 17:31] LABS: Glucose,Whole Blood 163 mg/dL (75-99)
--- NOTE | 2019-11-20 19:49 | CONS ---
CONSULTATION DATE OF DICTATION: November 20, 2019. REQUESTING PHYSICIAN: Dr. Muñoz REASON FOR CONSULTATION: Severe symptomatic anemia and dark-colored stools. HISTORY OF PRESENT ILLNESS: The patient is a 58-year-old pleasant white male with history of nonalcoholic cirrhosis of the liver diagnosed approximately 3 years ago with gradual decompensation in the last few weeks. He has been requiring frequent paracentesis in the last one month. Last paracentesis was on November 02, approximately 10 L of fluid was removed at that time. The patient is being followed on an outpatient basis with me and he was complaining of intermittent black tarry stools and hence he underwent an upper endoscopy on November 02 that showed evidence of portal hypertensive gastropathy and large esophageal varices. After the procedure, the patient states that he continued to have intermittent dark- colored stools, but never had any coffee-grounds emesis or hematemesis. In fact for the last 2 weeks, he was having dark colored stools. He was noted to have elevated BUN and creatinine on outpatient basis and on November 02, creatinine was 3. Lasix and Aldactone was stopped and he was referred to Dr. Fletcher and he had televisit with him about 2 days ago. He was advised to restart back on Aldactone and Lasix at half the dose. In the meantime, he continues to have progressive abdominal distention and was feeling weak and tired with increasing lower extremity edema. Hence, came to the emergency room and was noted to have a hemoglobin of 5.9, admitted to the hospital for further evaluation. Also, his creatinine is up to 6.8. Presently in the intensive care unit. PAST MEDICAL HISTORY: Significant for CAD, diabetes mellitus, hypertension, hyperlipidemia, chronic kidney disease, gastroesophageal reflux disease and nonalcoholic cirrhosis of the liver diagnosed 3 years ago, history of recurrent ascites in the last one month requiring 2 paracentesis. PAST SURGICAL HISTORY: Recent EGD 2 weeks ago. MEDICATIONS: At home include Lasix 40 mg twice daily, Actos 50 mg daily and Aldactone 25 mg twice daily. ALLERGIES: SULFA. SOCIAL HISTORY: No smoking. No alcohol use. FAMILY HISTORY: Mother healthy. Father in his 50s. REVIEW OF SYSTEMS: CARDIOPULMONARY: No chest pain, shortness of breath. no dysuria or hematuria. MUSCULOSKELETAL unremarkable. SKIN unremarkable. ENDOCRINE unremarkable. PSYCHIATRIC unremarkable. NEUROLOGY unremarkable. ENT/VISION: Unremarkable. CONSTITUTIONAL: Overall weakness and fatigue. Worsening abdominal distention. No weight loss. PHYSICAL EXAMINATION: Appears comfortable in no apparent distress. Vital signs stable. Blood pressure is 102/51, pulse rate 80, temperature 97.7. HEENT examination unremarkable. Conjunctivae pink. Sclerae anicteric. Oral cavity no lesions. NECK no JVD or lymph node enlargement. CHEST was clear auscultation. HEART: Regular rate and rhythm. ABDOMEN was very distended. There was significant amount of free fluid noted. EXTREMITIES 2+ pedal edema. SKIN no rashes. NEURO he is awake, oriented x 3. LABS: From today WBC 7, hemoglobin 5.9, platelets normal. Basic metabolic panel, BUN is 84, creatinine 6.73, sodium 134, potassium 5.2, chloride 100, CO2 20. Stool occult blood is positive. Last hemoglobin on October 15 was 10.3 g/dL. IMPRESSION: 1. Severe symptomatic anemia and intermittent dark-colored stools. No significant active gastrointestinal bleed. He did have an upper endoscopy for melena on an outpatient basis on November 07 that showed large esophageal varices and mild portal hypertensive gastropathy. Anemia is multifactorial in etiology. Part of it from occult gastrointestinal blood loss but part of it could be related to chronic kidney disease and history of chronic liver disease. 2. Refractory ascites requiring frequent large volume paracentesis. Last one was November 02. 3. Acute kidney injury superimposed on chronic kidney injury. Nephrology has been consulted. RECOMMENDATIONS: 1. Agree with PRBC transfusion. 2. Monitor CBC on a close basis. 3. Continue with symptomatic and supportive care. 4. Appreciate Nephrology input. 5. Based on his clinical symptoms, I will consider proceeding with an upper endoscopy if he has any active bleeding. 6. We will follow with you closely. Thank you for this consultation. MMODL / IJN: [id number] /
[2019-11-20 20:11] LABS: Anisocytosis Slight; Hypochromasia Marked; MCH 28.8 pg (25.0-35.0); MCHC 29.9 g/dL (31.0-37.0); MCV 96.4 fL (80.0-100.0); Macrocytosis Slight; Mean Platelet Volume 8.4; Poikilocytosis Slight; RBC 1.92 m/uL (4.30-5.90); RDW 16.9 % (11.5-15.5); WBC 4.2 k/uL (3.8-10.6)
[2019-11-20 20:17] LABS: HCT 18.5 % (39.0-53.0); HGB 5.5 gm/dL (13.0-17.5); Platelet Count 137 k/uL (150-450)
[2019-11-20 20:39] LABS: Glucose,Whole Blood 133 mg/dL (75-99)
[2019-11-20] MEDS: PANTOPRAZOLE 40 MG/10 ML VIAL IVP SCH (20:44)
--- NOTE | 2019-11-20 21:17 | US ---
EXAMINATION TYPE: US renals and bladder DATE OF EXAM: 11/20/2019 COMPARISON: CT 2017 CLINICAL HISTORY: ascites. ANISH, history of kidney stones. EXAM MEASUREMENTS: Right Kidney: 10.0 x 4.8 x 5.1 cm Left Kidney: Approximately 6.0 cm in width Very limited exam diagnostically due to large patient body habitus, ascites, and bowel gas. Right Kidney: Limited. Free fluid seen. Left Kidney: Limited. Bladder: Not seen. FF seen. Patient has catheter in place. Bilateral Jets seen: No IMPRESSION: There is abdominal ascites. Limited visualization of the kidneys shows no sign of hydronephrosis. Uri nary bladder was not seen. The patient has a catheter in the bladder.
--- NOTE | 2019-11-20 21:53 | P.GSCN ---
History of Present Illness Consult date: 11/20/19 Reason for Consult: Urinary retention and difficult callahan placement History of present illness: Mr Casas is a 58 yo male with history of liver cirrhosis secondary to fatty liver. He is admitted to the hospital with GI bleed and ANISH. Urology is consulted for callahan placement. Multiple attempts to place a callahan catheter were unsuccessful secondary to resistance at the urethra. Callahan placement was required secondary to ANISH, and for accurate I/O. Additionally patient has not voided since admission, of note he has significant ascites thus bladder scan could not be obtained. Denies any voiding symptoms at baseline. Denies any previous hx of urinary retention, previous callahan placement or any voiding issues at baseline. No previous surgeries. He indicates there is positive family hx of prostate cancer Review of Systems - Constitutional Denies chills, Denies fatigue, Denies fever - Cardiovascular Reports edema, Denies chest pain - Respiratory Denies cough, Denies dyspnea - Gastrointestinal Denies abdominal pain, Denies nausea, Denies vomiting - Genitourinary Reports urinary retention, Denies dysuria, Denies flank pain Past Medical History Past Medical History: Diabetes Mellitus, Deep Vein Thrombosis (DVT), GERD/Reflux, GI Bleed, Liver Disease, Osteoarthritis (OA), Renal Disease Additional Past Medical History / Comment(s): Ascities with paracentesis-last time approximately 2 weeks ago/liver cirrhosis/anasarca/portal htn pt states told d/t fatty liver, renal insuffiiciency, lower GI bleed, esophageal varices, gastritis, NIDDM type II but pt states taken off diabetic medication one week ago, DVT L leg, recent R foot 2nd/3rd toe fractured pt states are now healed, arthritis R foot History of Any Multi-Drug Resistant Organisms: None Reported Past Surgical History: Orthopedic Surgery Additional Past Surgical History / Comment(s): 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 Smoking Status: Light tobacco smoker Past Alcohol Use History: Occasional Additional Past Alcohol Use History / Comment(s): Pt states he will on rare occasion, smoke a cigar during [place]. He has never been much of a drinker Past Drug Use History: None Reported - Past Family History Mother Family Medical History: No Reported History Additional Family Medical History / Comment(s): Mother is healthy and is 85 yrs old. Father History Unknown: Yes Additional Family Medical History / Comment(s): Pt does not know father's medical history. Father in his 60's. Brother(s) Family Medical History: Cancer Additional Family Medical History / Comment(s): Prostate cancer. Medications and Allergies Home Medications Medication Instructions Recorded Confirmed Type Furosemide [Lasix] 40 mg PO BID 11/20/19 11/20/19 History Pioglitazone [Actos] 15 mg PO DAILY 11/20/19 11/20/19 History Spironolactone [Aldactone] 25 mg PO BID-W/MEALS 11/20/19 11/20/19 History Allergies Allergy/AdvReac Type Severity Reaction Status Date / Time Sulfa (Sulfonamide Allergy Unknown Verified 11/20/19 11:05 Antibiotics) Surgical - Exam Vital Signs Temp Pulse Resp BP Pulse Ox 97.9 F 88 18 136/88 100 11/20/19 08:19 11/20/19 08:19 11/20/19 08:19 11/20/19 08:19 11/20/19 08:19 - General moderate distress, no pain - Respiratory normal expansion, normal respiratory effort - Abdomen Abdomen: soft, non tender, distended - Genitourinary uncircumcised phallus, narrowing at the meatus (+) scrotal edema testicles non-tender - Neurologic no combative, no confused - Psychiatric oriented to time, oriented to person, oriented to place, speech is normal Results - Labs 11/20/19 19:43 11/20/19 08:45 Abnormal Lab Results - Last 24 Hours (Table) 11/20/19 11/20/19 11/20/19 Range/Units 08:45 08:45 08:45 RBC 2.05 L (4.30-5.90) m/uL Hgb 5.9 L* D (13.0-17.5) gm/dL Hct 19.8 L* (39.0-53.0) % MCHC 29.8 L (31.0-37.0) g/dL RDW 17.1 H (11.5-15.5) % Plt Count (150-450) k/uL Lymphocytes # 0.6 L (1.0-4.8) k/uL APTT (22.0-30.0) sec Sodium 134 L (137-145) mmol/L Potassium 5.2 H (3.5-5.1) mmol/L Carbon Dioxide 20 L (22-30) mmol/L BUN 84 H (9-20) mg/dL Creatinine 6.73 H (0.66-1.25) mg/dL Glucose 186 H (74-99) mg/dL POC Glucose (mg/dL) (75-99) mg/dL Plasma Lactic Acid Chun 3.9 H* (0.7-2.0) mmol/L Alkaline Phosphatase 143 H (38-126) U/L Albumin 3.1 L (3.5-5.0) g/dL Urine Protein (Negative) Urine Blood (Negative) Ur Leukocyte Esterase (Negative) Urine RBC (0-5) /hpf Urine WBC (0-5) /hpf Urine WBC Clumps (None) /hpf Urine Bacteria (None) /hpf Hyaline Casts (0-2) /lpf Urine Mucus (None) /hpf Crossmatch 11/20/19 11/20/19 11/20/19 Range/Units 09:37 09:37 11:51 RBC (4.30-5.90) m/uL Hgb (13.0-17.5) gm/dL Hct (39.0-53.0) % MCHC (31.0-37.0) g/dL RDW (11.5-15.5) % Plt Count (150-450) k/uL Lymphocytes # (1.0-4.8) k/uL APTT 21.1 L (22.0-30.0) sec Sodium (137-145) mmol/L Potassium (3.5-5.1) mmol/L Carbon Dioxide (22-30) mmol/L BUN (9-20) mg/dL Creatinine (0.66-1.25) mg/dL Glucose (74-99) mg/dL POC Glucose (mg/dL) 172 H (75-99) mg/dL Plasma Lactic Acid Chun (0.7-2.0) mmol/L Alkaline Phosphatase (38-126) U/L Albumin (3.5-5.0) g/dL Urine Protein (Negative) Urine Blood (Negative) Ur Leukocyte Esterase (Negative) Urine RBC (0-5) /hpf Urine WBC (0-5) /hpf Urine WBC Clumps (None) /hpf Urine Bacteria (None) /hpf Hyaline Casts (0-2) /lpf Urine Mucus (None) /hpf Crossmatch See Detail 11/20/19 11/20/19 11/20/19 Range/Units 13:03 13:25 17:03 RBC (4.30-5.90) m/uL Hgb (13.0-17.5) gm/dL Hct (39.0-53.0) % MCHC (31.0-37.0) g/dL RDW (11.5-15.5) % Plt Count (150-450) k/uL Lymphocytes # (1.0-4.8) k/uL APTT (22.0-30.0) sec Sodium (137-145) mmol/L Potassium (3.5-5.1) mmol/L Carbon Dioxide (22-30) mmol/L BUN (9-20) mg/dL Creatinine (0.66-1.25) mg/dL Glucose (74-99) mg/dL POC Glucose (mg/dL) 174 H (75-99) mg/dL Plasma Lactic Acid Chun 2.6 H* (0.7-2.0) mmol/L Alkaline Phosphatase (38-126) U/L Albumin (3.5-5.0) g/dL Urine Protein Trace H (Negative) Urine Blood Moderate H (Negative) Ur Leukocyte Esterase Large H (Negative) Urine RBC 176 H (0-5) /hpf Urine WBC >182 H (0-5) /hpf Urine WBC Clumps Few H (None) /hpf Urine Bacteria Few H (None) /hpf Hyaline Casts 15 H (0-2) /lpf Urine Mucus Rare H (None) /hpf Crossmatch 11/20/19 11/20/19 11/20/19 Range/Units 17:29 19:43 20:37 RBC 1.92 L (4.30-5.90) m/uL Hgb 5.5 L* (13.0-17.5) gm/dL Hct 18.5 L* (39.0-53.0) % MCHC 29.9 L (31.0-37.0) g/dL RDW 16.9 H (11.5-15.5) % Plt Count 137 L D (150-450) k/uL Lymphocytes # (1.0-4.8) k/uL APTT (22.0-30.0) sec Sodium (137-145) mmol/L Potassium (3.5-5.1) mmol/L Carbon Dioxide (22-30) mmol/L BUN (9-20) mg/dL Creatinine (0.66-1.25) mg/dL Glucose (74-99) mg/dL POC Glucose (mg/dL) 163 H 133 H (75-99) mg/dL Plasma Lactic Acid Chun (0.7-2.0) mmol/L Alkaline Phosphatase (38-126) U/L Albumin (3.5-5.0) g/dL Urine Protein (Negative) Urine Blood (Negative) Ur Leukocyte Esterase (Negative) Urine RBC (0-5) /hpf Urine WBC (0-5) /hpf Urine WBC Clumps (None) /hpf Urine Bacteria (None) /hpf Hyaline Casts (0-2) /lpf Urine Mucus (None) /hpf Crossmatch Diabetes panel 11/20/19 Range/Units 08:45 Sodium 134 L (137-145) mmol/L Potassium 5.2 H (3.5-5.1) mmol/L Chloride 100 (98-107) mmol/L Carbon Dioxide 20 L (22-30) mmol/L BUN 84 H (9-20) mg/dL Creatinine 6.73 H (0.66-1.25) mg/dL Glucose 186 H (74-99) mg/dL Calcium 8.5 (8.4-10.2) mg/dL AST 44 (17-59) U/L ALT 23 (4-49) U/L Alkaline Phosphatase 143 H (38-126) U/L Total Protein 7.6 (6.3-8.2) g/dL Albumin 3.1 L (3.5-5.0) g/dL Calcium panel 11/20/19 Range/Units 08:45 Calcium 8.5 (8.4-10.2) mg/dL Albumin 3.1 L (3.5-5.0) g/dL Pituitary panel 11/20/19 Range/Units 08:45 Sodium 134 L (137-145) mmol/L Potassium 5.2 H (3.5-5.1) mmol/L Chloride 100 (98-107) mmol/L Carbon Dioxide 20 L (22-30) mmol/L BUN 84 H (9-20) mg/dL Creatinine 6.73 H (0.66-1.25) mg/dL Glucose 186 H (74-99) mg/dL Calcium 8.5 (8.4-10.2) mg/dL Adrenal panel 11/20/19 Range/Units 08:45 Sodium 134 L (137-145) mmol/L Potassium 5.2 H (3.5-5.1) mmol/L Chloride 100 (98-107) mmol/L Carbon Dioxide 20 L (22-30) mmol/L BUN 84 H (9-20) mg/dL Creatinine 6.73 H (0.66-1.25) mg/dL Glucose 186 H (74-99) mg/dL Calcium 8.5 (8.4-10.2) mg/dL Total Bilirubin 1.2 (0.2-1.3) mg/dL AST 44 (17-59) U/L ALT 23 (4-49) U/L Alkaline Phosphatase 143 H (38-126) U/L Total Protein 7.6 (6.3-8.2) g/dL Albumin 3.1 L (3.5-5.0) g/dL Assessment and Plan Assessment: Mr Casas is a 58 yo male He is admitted to the hospital with GI bleed and ANISH. Urology is consulted for callahan placement. Multiple attempts to place a callahan catheter were unsuccessful secondary to resistance at the urethra. Callahan placement was required secondary to ANISH, and for accurate I/O. Additionally patient has not voided since admission, of note he has significant ascites thus bladder scan could not be obtained Plan: -I attempted to placed catheter using 16 Fr and 18fr coude were unsuccessful. Catheter was placed over glidewire using the cystoscope. Signifcant false passage along the dorsal aspect of the bulbar urethra,narrowing of the true lumen. Catheter should stay in for 10 days to allow for false passage to heal. please call Urology prior to callahan removal. -Can f/u as an outpatient in 10 days for TOV Time with Patient: Greater than 30 (1 hour)
[2019-11-20 22:58] LABS: Appearance,BF Clear; Color,BF Yellow; Nucleated Cells, Body Fluid 93 /uL; RBC, Body Fluid 210 /uL
[2019-11-20 22:59] LABS: Mononuclear WBC,Body Fluid 96 %; Polynuclear WBC,Body Fluid 4 %; Total Cells Counted,Body Fluid 100
[2019-11-21 01:45] LABS: Anisocytosis Slight; Basophils % (A) 0 %; Eosinophils # (A) 0.1 k/uL (0-0.7); Eosinophils % (A) 1 %; HCT 20.9 % (39.0-53.0); Hypochromasia Marked; Lymphocytes # (A) 0.4 k/uL (1.0-4.8); Lymphocytes % (A) 6 %; MCH 29.3 pg (25.0-35.0); MCHC 30.8 g/dL (31.0-37.0); MCV 95.1 fL (80.0-100.0); Mean Platelet Volume 8.5; Monocytes # (A) 0.5 k/uL (0-1.0); Monocytes % (A) 8 %; Neutrophils % (A) 83 %; Platelet Count 125 k/uL (150-450); Poikilocytosis Slight; RBC 2.19 m/uL (4.30-5.90); RDW 16.8 % (11.5-15.5)
[2019-11-21 01:53] LABS: HGB 6.4 gm/dL (13.0-17.5)
[2019-11-21 04:35] LABS: Total Protein, Body Fluid 1180 mg/dL
[2019-11-21] MEDS: OCTREOTIDE 500 MCG in SODIUM CHLORIDE 0.9% 250 ML IV SCH (05:04)
[2019-11-21 07:00] LABS: Glucose,Whole Blood 160 mg/dL (75-99)
[2019-11-21] MEDS: INSULIN ASPART (NovoLOG) 100 UNIT/ML VIAL SQ SCH ×4 (07:01→21:39)
--- NOTE | 2019-11-21 08:00 | US ---
Ultrasound-guided paracentesis. DATE OF EXAM: 11/20/2019 CLINICAL HISTORY: Ascites The procedure was discussed with the patient. The risks, complications, benefits, and alternatives we re discussed and any questions were answered. Informed consent was obtained. The patient was placed s upine on the ultrasound table and prepped and draped in the usual sterile fashion. All elements of maximal barrier technique were utilized. Under ultrasound guidance, access into the right lower quadrant was obtained, via the paracentesis catheter system and direct ultrasound guidanc e. Approximately 12.2 liters of straw-colored fluid was removed. The patient was stable throughout the p rocedure and remained stable upon discharge from Department of Radiology. IMPRESSION: Successful paracentesis under ultrasound guidance.
[2019-11-21] MEDS: FUROSEMIDE 10 MG/ML 10 ML VIAL IV SCH ×2 (08:28→21:42)
[2019-11-21] MEDS: PANTOPRAZOLE 40 MG/10 ML VIAL IVP SCH ×2 (08:29→21:43)
[2019-11-21 09:01] LABS: INR 1.2 (<1.2); Prothrombin Time 12.5 sec (9.0-12.0)
[2019-11-21 09:04] LABS: Albumin 3.1 g/dL (3.5-5.0); Calcium 8.7 mg/dL (8.4-10.2); Potassium 5.4 mmol/L (3.5-5.1); Total Bilirubin 2.7 mg/dL (0.2-1.3); Total Protein 6.9 g/dL (6.3-8.2)
[2019-11-21 09:37] LABS: Anisocytosis Slight; Basophils % (A) 0 %; Eosinophils % (A) 0 %; HCT 24.5 % (39.0-53.0); HGB 7.4 gm/dL (13.0-17.5); Hypochromasia Marked; Lymphocytes # (A) 0.4 k/uL (1.0-4.8); Lymphocytes % (A) 8 %; MCH 28.6 pg (25.0-35.0); MCHC 30.3 g/dL (31.0-37.0); MCV 94.5 fL (80.0-100.0); Mean Platelet Volume 9.2; Monocytes # (A) 0.4 k/uL (0-1.0); Monocytes % (A) 6 %; Neutrophils # (A) 4.7 k/uL (1.3-7.7); Neutrophils % (A) 84 %; Platelet Count 121 k/uL (150-450); Poikilocytosis Moderate; RBC 2.59 m/uL (4.30-5.90); RDW 16.6 % (11.5-15.5); WBC 5.7 k/uL (3.8-10.6)
--- NOTE | 2019-11-21 10:10 | P.PN ---
Subjective Patient is seen in follow for acute kidney injury. Feels better today. Denies vomiting or diarrhea. No active bleeding. Hemoglobin 7.4 today. No chest pain or shortness of breath. Urine output 10-20 mL an hour. He is maintained on IV Lasix 80 mg twice daily. Vital signs are stable. General: The patient appeared well nourished and normally developed. HEENT: Head exam is unremarkable. Neck is without jugular venous distension. LUNGS: Lungs are clear to auscultation and percussion. Breath sounds decreased. HEART: Rate and Rhythm are regular. ABDOMEN: Soft, obese. Nontender. EXTREMITITES: 2+ edema. Objective - Vital Signs Vital signs: Vital Signs Temp 97.9 F 11/21/19 08:00 Pulse 70 11/21/19 08:00 Resp 15 11/21/19 08:00 BP 117/61 11/21/19 08:00 Pulse Ox 96 11/21/19 08:00 Intake & Output 11/20/19 11/21/19 11/21/19 18:59 06:59 18:59 Intake Total 1160.0 852.083 50 Output Total 60 205 45 Balance 1100.0 647.083 5 Weight 172.365 kg 164 kg Intake: IV 50 cefTRIAXone 1 gm In 50 Sodium Chloride 0.9% 50 ml @ 100 mls/hr IVPB Q24HR [facility] Rx#:[id number] Intake, IV Titration 230.0 232.083 Amount Albumin Human 25% 50 ml 150 In Empty Bag 1 bag @ 200 mls/hr IVPB Q15M [facility] Rx#: [id number] Desmopressin Acetate 52 5 mcg In Sodium Chloride 0. 9% 50 ml @ 200 mls/hr IVPB ONCE ONE Rx#: [id number] Octreotide 500 mcg In 25.0 232.083 Sodium Chloride 0.9% 250 ml @ 25 MCG/HR 12.5 mls/ hr IV .Q20H [facility] Rx#: [id number] cefTRIAXone 1 gm In 50 Sodium Chloride 0.9% 50 ml @ 100 mls/hr IVPB Q24HR [facility]IAN Rx#:[id number] Blood Product 930 620 Rc As-1 Unit 310 [id number] Rc As-1 Unit 310 [id number] Rc As-1 Unit 310 [id number] Rc As-1 Unit 310 [id number] Output: Urine 60 205 45 Other: Voiding Method Indwelling Catheter Indwelling Catheter - Labs CBC & Chem 7: 11/21/19 08:22 11/21/19 08:22 Labs: Abnormal Lab Results - Last 24 Hours (Table) 11/20/19 11/20/19 11/20/19 Range/Units 09:37 09:37 11:51 RBC (4.30-5.90) m/uL Hgb (13.0-17.5) gm/dL Hct (39.0-53.0) % MCHC (31.0-37.0) g/dL RDW (11.5-15.5) % Plt Count (150-450) k/uL Lymphocytes # (1.0-4.8) k/uL PT (9.0-12.0) sec INR (<1.2) APTT 21.1 L (22.0-30.0) sec Sodium (137-145) mmol/L Potassium (3.5-5.1) mmol/L BUN (9-20) mg/dL Creatinine (0.66-1.25) mg/dL Glucose (74-99) mg/dL POC Glucose (mg/dL) 172 H (75-99) mg/dL Plasma Lactic Acid Chun (0.7-2.0) mmol/L Total Bilirubin (0.2-1.3) mg/dL Albumin (3.5-5.0) g/dL Urine Protein (Negative) Urine Blood (Negative) Ur Leukocyte Esterase (Negative) Urine RBC (0-5) /hpf Urine WBC (0-5) /hpf Urine WBC Clumps (None) /hpf Urine Bacteria (None) /hpf Hyaline Casts (0-2) /lpf Urine Mucus (None) /hpf Crossmatch See Detail 11/20/19 11/20/19 11/20/19 Range/Units 13:03 13:25 17:03 RBC (4.30-5.90) m/uL Hgb (13.0-17.5) gm/dL Hct (39.0-53.0) % MCHC (31.0-37.0) g/dL RDW (11.5-15.5) % Plt Count (150-450) k/uL Lymphocytes # (1.0-4.8) k/uL PT (9.0-12.0) sec INR (<1.2) APTT (22.0-30.0) sec Sodium (137-145) mmol/L Potassium (3.5-5.1) mmol/L BUN (9-20) mg/dL Creatinine (0.66-1.25) mg/dL Glucose (74-99) mg/dL POC Glucose (mg/dL) 174 H (75-99) mg/dL Plasma Lactic Acid Chun 2.6 H* (0.7-2.0) mmol/L Total Bilirubin (0.2-1.3) mg/dL Albumin (3.5-5.0) g/dL Urine Protein Trace H (Negative) Urine Blood Moderate H (Negative) Ur Leukocyte Esterase Large H (Negative) Urine RBC 176 H (0-5) /hpf Urine WBC >182 H (0-5) /hpf Urine WBC Clumps Few H (None) /hpf Urine Bacteria Few H (None) /hpf Hyaline Casts 15 H (0-2) /lpf Urine Mucus Rare H (None) /hpf Crossmatch 11/20/19 11/20/19 11/20/19 Range/Units 17:29 19:43 20:37 RBC 1.92 L (4.30-5.90) m/uL Hgb 5.5 L* (13.0-17.5) gm/dL Hct 18.5 L* (39.0-53.0) % MCHC 29.9 L (31.0-37.0) g/dL RDW 16.9 H (11.5-15.5) % Plt Count 137 L D (150-450) k/uL Lymphocytes # (1.0-4.8) k/uL PT (9.0-12.0) sec INR (<1.2) APTT (22.0-30.0) sec Sodium (137-145) mmol/L Potassium (3.5-5.1) mmol/L BUN (9-20) mg/dL Creatinine (0.66-1.25) mg/dL Glucose (74-99) mg/dL POC Glucose (mg/dL) 163 H 133 H (75-99) mg/dL Plasma Lactic Acid Chun (0.7-2.0) mmol/L Total Bilirubin (0.2-1.3) mg/dL Albumin (3.5-5.0) g/dL Urine Protein (Negative) Urine Blood (Negative) Ur Leukocyte Esterase (Negative) Urine RBC (0-5) /hpf Urine WBC (0-5) /hpf Urine WBC Clumps (None) /hpf Urine Bacteria (None) /hpf Hyaline Casts (0-2) /lpf Urine Mucus (None) /hpf Crossmatch 11/21/19 11/21/19 11/21/19 Range/Units 01:34 06:59 08:22 RBC 2.19 L (4.30-5.90) m/uL Hgb 6.4 L* (13.0-17.5) gm/dL Hct 20.9 L (39.0-53.0) % MCHC 30.8 L (31.0-37.0) g/dL RDW 16.8 H (11.5-15.5) % Plt Count 125 L (150-450) k/uL Lymphocytes # 0.4 L (1.0-4.8) k/uL PT 12.5 H (9.0-12.0) sec INR 1.2 H (<1.2) APTT (22.0-30.0) sec Sodium (137-145) mmol/L Potassium (3.5-5.1) mmol/L BUN (9-20) mg/dL Creatinine (0.66-1.25) mg/dL Glucose (74-99) mg/dL POC Glucose (mg/dL) 160 H (75-99) mg/dL Plasma Lactic Acid Chun (0.7-2.0) mmol/L Total Bilirubin (0.2-1.3) mg/dL Albumin (3.5-5.0) g/dL Urine Protein (Negative) Urine Blood (Negative) Ur Leukocyte Esterase (Negative) Urine RBC (0-5) /hpf Urine WBC (0-5) /hpf Urine WBC Clumps (None) /hpf Urine Bacteria (None) /hpf Hyaline Casts (0-2) /lpf Urine Mucus (None) /hpf Crossmatch 11/21/19 11/21/19 Range/Units 08:22 08:22 RBC 2.59 L (4.30-5.90) m/uL Hgb 7.4 L (13.0-17.5) gm/dL Hct 24.5 L (39.0-53.0) % MCHC 30.3 L (31.0-37.0) g/dL RDW 16.6 H (11.5-15.5) % Plt Count 121 L (150-450) k/uL Lymphocytes # 0.4 L (1.0-4.8) k/uL PT (9.0-12.0) sec INR (<1.2) APTT (22.0-30.0) sec Sodium 134 L (137-145) mmol/L Potassium 5.4 H (3.5-5.1) mmol/L BUN 83 H (9-20) mg/dL Creatinine 6.85 H (0.66-1.25) mg/dL Glucose 144 H (74-99) mg/dL POC Glucose (mg/dL) (75-99) mg/dL Plasma Lactic Acid Chun (0.7-2.0) mmol/L Total Bilirubin 2.7 H (0.2-1.3) mg/dL Albumin 3.1 L (3.5-5.0) g/dL Urine Protein (Negative) Urine Blood (Negative) Ur Leukocyte Esterase (Negative) Urine RBC (0-5) /hpf Urine WBC (0-5) /hpf Urine WBC Clumps (None) /hpf Urine Bacteria (None) /hpf Hyaline Casts (0-2) /lpf Urine Mucus (None) /hpf Crossmatch Microbiology - Last 24 Hours (Table) 11/20/19 17:03 Urine Culture - Preliminary Urine,Voided Assessment and Plan Plan: Assessment: 1. Acute kidney injury secondary to ATN secondary to acute blood loss anemia. Also concern for hepatorenal syndrome. No improvement in renal function. Creatinine 6.85 today. Trace proteinuria on UA. No hydronephrosis noted on kidney ultrasound. 2. Metabolic acidosis secondary to acute kidney injury as well as lactic acidosis. Better. 3. Acute GI bleed. Status post 4 units of blood. Hemoglobin 7.4 today. Maintained on octreotide drip. Status post IV DDAVP yesterday. Scheduled for EGD this afternoon. 4. Hypervolemic hyponatremia. Stable. 5. Liver cirrhosis. 6. Volume overload. 7. Ascites status post paracentesis on November 19 with 12.2 L drained. He did receive albumin pre-and post procedure. Plan: Maintain IV Lasix 80 mg twice daily. Add midodrine 10 mg 3 times daily. To hold if systolic blood pressure greater than 120. Due to volume overload and oliguria, start renal replacement therapy. Consult vascular surgery for dialysis catheter placement. First treatment of hemodialysis today and second treatment tomorrow. Continue to monitor renal function and urine output. Patient in agreement with the above plan.
[2019-11-21 11:15] LABS: Appearance,Urine Cloudy (Clear); Bacteria,Urine Many /hpf; Bilirubin,Urine Negative (Negative); Blood,Urine Moderate (Negative); Color,Urine Yellow; Glucose,Urine (UA) Negative (Negative); Hyaline Casts,Urine 10 /lpf (0-2); Ketones,Urine Negative (Negative); Leukocyte Esterase,Urine Large (Negative); Mucus,Urine Rare /hpf; Nitrite,Urine Negative (Negative); Protein,Urine 1+ (Negative); RBC,Urine 73 /hpf (0-5); Specific Gravity,Urine 1.011 (1.001-1.035); Squamous Epithelial Cell,Urine <1 /hpf (0-4); Urobilinogen,Urine <2.0 mg/dL (<2.0); WBC,Urine >182 /hpf (0-5)
--- NOTE | 2019-11-21 11:26 | P.PN ---
Subjective Progress Note Date: 11/21/19 Principal diagnosis: GI bleeding Patient has not had any black or tarry stools since coming in. He still feeling weak. Argueta catheter was inserted by urology yesterday. He was transfused total of 4 units of blood, currently feeling stronger. No shortness of breath or chest pain. Objective - Vital Signs Vital signs: Vital Signs Temp 97.9 F 11/21/19 08:00 Pulse 66 11/21/19 10:00 Resp 14 11/21/19 10:00 BP 100/51 11/21/19 10:00 Pulse Ox 93 L 11/21/19 10:00 Intake & Output 11/20/19 11/21/19 11/21/19 18:59 06:59 18:59 Intake Total 1160.0 852.083 50 Output Total 60 205 45 Balance 1100.0 647.083 5 Weight 172.365 kg 164 kg Intake: IV 50 cefTRIAXone 1 gm In 50 Sodium Chloride 0.9% 50 ml @ 100 mls/hr IVPB Q24HR [facility] Rx#:[id number] Intake, IV Titration 230.0 232.083 Amount Albumin Human 25% 50 ml 150 In Empty Bag 1 bag @ 200 mls/hr IVPB Q15M [facility] Rx#: [id number] Desmopressin Acetate 52 5 mcg In Sodium Chloride 0. 9% 50 ml @ 200 mls/hr IVPB ONCE ONE Rx#: [id number] Octreotide 500 mcg In 25.0 232.083 Sodium Chloride 0.9% 250 ml @ 25 MCG/HR 12.5 mls/ hr IV .Q20H [facility] Rx#: [id number] cefTRIAXone 1 gm In 50 Sodium Chloride 0.9% 50 ml @ 100 mls/hr IVPB Q24HR [facility] Rx#:[id number] Blood Product 930 620 Rc As-1 Unit 310 [id number] Rc As-1 Unit 310 [id number] Rc As-1 Unit 310 [id number] Rc As-1 Unit 310 [id number] Output: Urine 60 205 45 Other: Voiding Method Indwelling Catheter Indwelling Catheter - Exam General: ill appearing , no acute distress, appears at stated age, Obese Derm: no unusual rashes/lesions no unusual ecchymoses, warm, dry Head: atraumatic, normocephalic, symmetric Eyes: EOMI, no lid lag, anicteric sclera, pupils equal round reactive to light ENT: Nose and ears atraumatic, no thrush, no pharyngeal erythema Neck: No thyromegaly, no cervical lymphadenopathy, trachea midline, supple Mouth: no lip lesion, mucus membranes moist Cardiovascular: S1S2 reg, no murmur, positive posterior tibial pulse bilateral, 2+ pitting edema, capillary refill less than 2 seconds Lungs: Decreased bs bilateral, no rhonchi, no rales , no accessory muscle use Abdominal: soft, nontender to palpation, no guarding, no appreciable organom egaly, normal bowel sounds Ext: no gross muscle atrophy, muscle strength 4 out of 5 in all 4 extremities grossly, no contractures, Neuro: CN II-XI grossly intact, light touch intact all 4 extremities, Psych: Alert, oriented, appropriate affect - Labs CBC & Chem 7: 11/21/19 08:22 11/21/19 08:22 Labs: Abnormal Lab Results - Last 24 Hours (Table) 11/20/19 11/20/19 11/20/19 Range/Units 09:37 11:51 13:03 RBC (4.30-5.90) m/uL Hgb (13.0-17.5) gm/dL Hct (39.0-53.0) % MCHC (31.0-37.0) g/dL RDW (11.5-15.5) % Plt Count (150-450) k/uL Lymphocytes # (1.0-4.8) k/uL PT (9.0-12.0) sec INR (<1.2) Sodium (137-145) mmol/L Potassium (3.5-5.1) mmol/L BUN (9-20) mg/dL Creatinine (0.66-1.25) mg/dL Glucose (74-99) mg/dL POC Glucose (mg/dL) 172 H (75-99) mg/dL Plasma Lactic Acid Chun 2.6 H* (0.7-2.0) mmol/L Total Bilirubin (0.2-1.3) mg/dL Albumin (3.5-5.0) g/dL Urine Protein (Negative) Urine Blood (Negative) Ur Leukocyte Esterase (Negative) Urine RBC (0-5) /hpf Urine WBC (0-5) /hpf Urine WBC Clumps (None) /hpf Urine Bacteria (None) /hpf Hyaline Casts (0-2) /lpf Urine Mucus (None) /hpf Crossmatch See Detail 11/20/19 11/20/19 11/20/19 Range/Units 13:25 17:03 17:29 RBC (4.30-5.90) m/uL Hgb (13.0-17.5) gm/dL Hct (39.0-53.0) % MCHC (31.0-37.0) g/dL RDW (11.5-15.5) % Plt Count (150-450) k/uL Lymphocytes # (1.0-4.8) k/uL PT (9.0-12.0) sec INR (<1.2) Sodium (137-145) mmol/L Potassium (3.5-5.1) mmol/L BUN (9-20) mg/dL Creatinine (0.66-1.25) mg/dL Glucose (74-99) mg/dL POC Glucose (mg/dL) 174 H 163 H (75-99) mg/dL Plasma Lactic Acid Chun (0.7-2.0) mmol/L Total Bilirubin (0.2-1.3) mg/dL Albumin (3.5-5.0) g/dL Urine Protein Trace H (Negative) Urine Blood Moderate H (Negative) Ur Leukocyte Esterase Large H (Negative) Urine RBC 176 H (0-5) /hpf Urine WBC >182 H (0-5) /hpf Urine WBC Clumps Few H (None) /hpf Urine Bacteria Few H (None) /hpf Hyaline Casts 15 H (0-2) /lpf Urine Mucus Rare H (None) /hpf Crossmatch 11/20/19 11/20/19 11/21/19 Range/Units 19:43 20:37 01:34 RBC 1.92 L 2.19 L (4.30-5.90) m/uL Hgb 5.5 L* 6.4 L* (13.0-17.5) gm/dL Hct 18.5 L* 20.9 L (39.0-53.0) % MCHC 29.9 L 30.8 L (31.0-37.0) g/dL RDW 16.9 H 16.8 H (11.5-15.5) % Plt Count 137 L D 125 L (150-450) k/uL Lymphocytes # 0.4 L (1.0-4.8) k/uL PT (9.0-12.0) sec INR (<1.2) Sodium (137-145) mmol/L Potassium (3.5-5.1) mmol/L BUN (9-20) mg/dL Creatinine (0.66-1.25) mg/dL Glucose (74-99) mg/dL POC Glucose (mg/dL) 133 H (75-99) mg/dL Plasma Lactic Acid Chun (0.7-2.0) mmol/L Total Bilirubin (0.2-1.3) mg/dL Albumin (3.5-5.0) g/dL Urine Protein (Negative) Urine Blood (Negative) Ur Leukocyte Esterase (Negative) Urine RBC (0-5) /hpf Urine WBC (0-5) /hpf Urine WBC Clumps (None) /hpf Urine Bacteria (None) /hpf Hyaline Casts (0-2) /lpf Urine Mucus (None) /hpf Crossmatch 11/21/19 11/21/19 11/21/19 Range/Units 06:59 08:22 08:22 RBC (4.30-5.90) m/uL Hgb (13.0-17.5) gm/dL Hct (39.0-53.0) % MCHC (31.0-37.0) g/dL RDW (11.5-15.5) % Plt Count (150-450) k/uL Lymphocytes # (1.0-4.8) k/uL PT 12.5 H (9.0-12.0) sec INR 1.2 H (<1.2) Sodium 134 L (137-145) mmol/L Potassium 5.4 H (3.5-5.1) mmol/L BUN 83 H (9-20) mg/dL Creatinine 6.85 H (0.66-1.25) mg/dL Glucose 144 H (74-99) mg/dL POC Glucose (mg/dL) 160 H (75-99) mg/dL Plasma Lactic Acid Chun (0.7-2.0) mmol/L Total Bilirubin 2.7 H (0.2-1.3) mg/dL Albumin 3.1 L (3.5-5.0) g/dL Urine Protein (Negative) Urine Blood (Negative) Ur Leukocyte Esterase (Negative) Urine RBC (0-5) /hpf Urine WBC (0-5) /hpf Urine WBC Clumps (None) /hpf Urine Bacteria (None) /hpf Hyaline Casts (0-2) /lpf Urine Mucus (None) /hpf Crossmatch 11/21/19 11/21/19 Range/Units 08:22 10:24 RBC 2.59 L (4.30-5.90) m/uL Hgb 7.4 L (13.0-17.5) gm/dL Hct 24.5 L (39.0-53.0) % MCHC 30.3 L (31.0-37.0) g/dL RDW 16.6 H (11.5-15.5) % Plt Count 121 L (150-450) k/uL Lymphocytes # 0.4 L (1.0-4.8) k/uL PT (9.0-12.0) sec INR (<1.2) Sodium (137-145) mmol/L Potassium (3.5-5.1) mmol/L BUN (9-20) mg/dL Creatinine (0.66-1.25) mg/dL Glucose (74-99) mg/dL POC Glucose (mg/dL) (75-99) mg/dL Plasma Lactic Acid Chun (0.7-2.0) mmol/L Total Bilirubin (0.2-1.3) mg/dL Albumin (3.5-5.0) g/dL Urine Protein 1+ H (Negative) Urine Blood Moderate H (Negative) Ur Leukocyte Esterase Large H (Negative) Urine RBC 73 H (0-5) /hpf Urine WBC >182 H (0-5) /hpf Urine WBC Clumps Many H (None) /hpf Urine Bacteria Many H (None) /hpf Hyaline Casts 10 H (0-2) /lpf Urine Mucus Rare H (None) /hpf Crossmatch Microbiology - Last 24 Hours (Table) 11/20/19 17:03 Urine Culture - Preliminary Urine,Voided Assessment and Plan Plan: Decompensated hepatic cirrhosis, nonalcoholic -Concern for possible abdominal compartment syndrome leading to acute renal failure secondary to amount of ascites. Plan is for paracentesis today. Will need albumin prior and post procedure. -Lasix 80 mg IV twice a day. No potassium sparing diuretic secondary To potassium 5.2. Acute renal failure with anion gap metabolic acidosis and mild hyperkalemia -Possible abdominal compartment syndrome versus hepatorenal syndrome versus acute kidney injury secondary to prerenal causes such as acute blood loss -Check urine sodium -Discussed with nephrology -Lasix -Ensure albumin prior to paracentesis -Avoid additional nephrotoxic agents- repeat BMP in AM Acute blood loss anemia likely secondary to GI bleed -IV Protonix twice daily, octreotide drip -EGD today -Nothing by mouth -DDAVP ordered by nephrology -With a history of esophageal varices, cirrhosis with ascites, continue on Rocephin 1 g daily as prophylaxis Diabetes mellitus type 2 -Sliding-scale insulin -Check hemoglobin A1c Surrogate decision-maker: Sister in law CODE STATUS:Full DVT prophylaxis: SCDs Discussed with: Patient, nursing, Dr. Brady Anticipated discharge date: 5-[address]: Home health VS SNF
[2019-11-21] MEDS: HYDROmorphone 0.5 MG/0.5 ML SYRINGE IVP PRN (11:34)
--- NOTE | 2019-11-21 13:05 | P.GSCN ---
History of Present Illness History of present illness: 58-year-old gentleman, consulted for urgent placement dialysis catheter. Patient has history of 40 obesity, history of liver disease, history of diabetes, patient has developed ascites and had a abdominal paracentesis done [place]hen has high BUN/creatinine. Patient was seen in his room neck is supple trachea central Chest chest is clear first and second sound present Abdomen abdomen is distended bowel sounds are present Vascular examination brachial radial femoral pulses are palpable Plan is placement for dialysis catheter risk and complete dictation discussed Past Medical History Past Medical History: Diabetes Mellitus, Deep Vein Thrombosis (DVT), GERD/Reflux, GI Bleed, Liver Disease, Osteoarthritis (OA), Renal Disease Additional Past Medical History / Comment(s): Ascities with paracentesis-last time approximately 2 weeks ago/liver cirrhosis/anasarca/portal htn pt states told d/t fatty liver, renal insuffiiciency, lower GI bleed, esophageal varices, gastritis, NIDDM type II but pt states taken off diabetic medication one week ago, DVT L leg, recent R foot 2nd/3rd toe fractured pt states are now healed, a rthritis R foot History of Any Multi-Drug Resistant Organisms: None Reported Past Surgical History: Orthopedic Surgery Additional Past Surgical History / Comment(s): 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 Smoking Status: Light tobacco smoker Past Alcohol Use History: Occasional Additional Past Alcohol Use History / Comment(s): Pt states he will on rare occasion, smoke a cigar during [place]. He has never been much of a drinker Past Drug Use History: None Reported - Past Family History Mother Family Medical History: No Reported History Additional Family Medical History / Comment(s): Mother is healthy and is 85 yrs old. Father History Unknown: Yes Additional Family Medical History / Comment(s): Pt does not know father's medic al history. Father in his 60's. Brother(s) Family Medical History: Cancer Additional Family Medical History / Comment(s): Prostate cancer. Medications and Allergies Home Medications Medication Instructions Recorded Confirmed Type Furosemide [Lasix] 40 mg PO BID 11/20/19 11/20/19 History Pioglitazone [Actos] 15 mg PO DAILY 11/20/19 11/20/19 History Spironolactone [Aldactone] 25 mg PO BID-W/MEALS 11/20/19 11/20/19 History Allergies Allergy/AdvReac Type Severity Reaction Status Date / Time Sulfa (Sulfonamide Allergy Unknown Verified 11/20/19 11:05 Antibiotics) Surgical - Exam Vital Signs Temp Pulse Resp BP Pulse Ox 97.9 F 88 18 136/88 100 11/20/19 08:19 11/20/19 08:19 11/20/19 08:19 11/20/19 08:19 11/20/19 08:19 Results - Labs 11/21/19 08:22 11/21/19 08:22 Abnormal Lab Results - Last 24 Hours (Table) 11/20/19 11/20/19 11/20/19 Range/Units 09:37 13:03 13:25 RBC (4.30-5.90) m/uL Hgb (13.0-17.5) gm/dL Hct (39.0-53.0) % MCHC (31.0-37.0) g/dL RDW (11.5-15.5) % Plt Count (150-450) k/uL Lymphocytes # (1.0-4.8) k/uL PT (9.0-12.0) sec INR (<1.2) Sodium (137-145) mmol/L Potassium (3.5-5.1) mmol/L BUN (9-20) mg/dL Creatinine (0.66-1.25) mg/dL Glucose (74-99) mg/dL POC Glucose (mg/dL) 174 H (75-99) mg/dL Plasma Lactic Acid Chun 2.6 H* (0.7-2.0) mmol/L Total Bilirubin (0.2-1.3) mg/dL Albumin (3.5-5.0) g/dL Urine Protein (Negative) Urine Blood (Negative) Ur Leukocyte Esterase (Negative) Urine RBC (0-5) /hpf Urine WBC (0-5) /hpf Urine WBC Clumps (None) /hpf Urine Bacteria (None) /hpf Hyaline Casts (0-2) /lpf Urine Mucus (None) /hpf Crossmatch See Detail 11/20/19 11/20/19 11/20/19 Range/Units 17:03 17:29 19:43 RBC 1.92 L (4.30-5.90) m/uL Hgb 5.5 L* (13.0-17.5) gm/dL Hct 18.5 L* (39.0-53.0) % MCHC 29.9 L (31.0-37.0) g/dL RDW 16.9 H (11.5-15.5) % Plt Count 137 L D (150-450) k/uL Lymphocytes # (1.0-4.8) k/uL PT (9.0-12.0) sec INR (<1.2) Sodium (137-145) mmol/L Potassium (3.5-5.1) mmol/L BUN (9-20) mg/dL Creatinine (0.66-1.25) mg/dL Glucose (74-99) mg/dL POC Glucose (mg/dL) 163 H (75-99) mg/dL Plasma Lactic Acid Chun (0.7-2.0) mmol/L Total Bilirubin (0.2-1.3) mg/dL Albumin (3.5-5.0) g/dL Urine Protein Trace H (Negative) Urine Blood Moderate H (Negative) Ur Leukocyte Esterase Large H (Negative) Urine RBC 176 H (0-5) /hpf Urine WBC >182 H (0-5) /hpf Urine WBC Clumps Few H (None) /hpf Urine Bacteria Few H (None) /hpf Hyaline Casts 15 H (0-2) /lpf Urine Mucus Rare H (None) /hpf Crossmatch 11/20/19 11/21/19 11/21/19 Range/Units 20:37 01:34 06:59 RBC 2.19 L (4.30-5.90) m/uL Hgb 6.4 L* (13.0-17.5) gm/dL Hct 20.9 L (39.0-53.0) % MCHC 30.8 L (31.0-37.0) g/dL RDW 16.8 H (11.5-15.5) % Plt Count 125 L (150-450) k/uL Lymphocytes # 0.4 L (1.0-4.8) k/uL PT (9.0-12.0) sec INR (<1.2) Sodium (137-145) mmol/L Potassium (3.5-5.1) mmol/L BUN (9-20) mg/dL Creatinine (0.66-1.25) mg/dL Glucose (74-99) mg/dL POC Glucose (mg/dL) 133 H 160 H (75-99) mg/dL Plasma Lactic Acid Chun (0.7-2.0) mmol/L Total Bilirubin (0.2-1.3) mg/dL Albumin (3.5-5.0) g/dL Urine Protein (Negative) Urine Blood (Negative) Ur Leukocyte Esterase (Negative) Urine RBC (0-5) /hpf Urine WBC (0-5) /hpf Urine WBC Clumps (None) /hpf Urine Bacteria (None) /hpf Hyaline Casts (0-2) /lpf Urine Mucus (None) /hpf Crossmatch 11/21/19 11/21/19 11/21/19 Range/Units 08:22 08:22 08:22 RBC 2.59 L (4.30-5.90) m/uL Hgb 7.4 L (13.0-17.5) gm/dL Hct 24.5 L (39.0-53.0) % MCHC 30.3 L (31.0-37.0) g/dL RDW 16.6 H (11.5-15.5) % Plt Count 121 L (150-450) k/uL Lymphocytes # 0.4 L (1.0-4.8) k/uL PT 12.5 H (9.0-12.0) sec INR 1.2 H (<1.2) Sodium 134 L (137-145) mmol/L Potassium 5.4 H (3.5-5.1) mmol/L BUN 83 H (9-20) mg/dL Creatinine 6.85 H (0.66-1.25) mg/dL Glucose 144 H (74-99) mg/dL POC Glucose (mg/dL) (75-99) mg/dL Plasma Lactic Acid Chun (0.7-2.0) mmol/L Total Bilirubin 2.7 H (0.2-1.3) mg/dL Albumin 3.1 L (3.5-5.0) g/dL Urine Protein (Negative) Urine Blood (Negative) Ur Leukocyte Esterase (Negative) Urine RBC (0-5) /hpf Urine WBC (0-5) /hpf Urine WBC Clumps (None) /hpf Urine Bacteria (None) /hpf Hyaline Casts (0-2) /lpf Urine Mucus (None) /hpf Crossmatch 11/21/19 Range/Units 10:24 RBC (4.30-5.90) m/uL Hgb (13.0-17.5) gm/dL Hct (39.0-53.0) % MCHC (31.0-37.0) g/dL RDW (11.5-15.5) % Plt Count (150-450) k/uL Lymphocytes # (1.0-4.8) k/uL PT (9.0-12.0) sec INR (<1.2) Sodium (137-145) mmol/L Potassium (3.5-5.1) mmol/L BUN (9-20) mg/dL Creatinine (0.66-1.25) mg/dL Glucose (74-99) mg/dL POC Glucose (mg/dL) (75-99) mg/dL Plasma Lactic Acid Chun (0.7-2.0) mmol/L Total Bilirubin (0.2-1.3) mg/dL Albumin (3.5-5.0) g/dL Urine Protein 1+ H (Negative) Urine Blood Moderate H (Negative) Ur Leukocyte Esterase Large H (Negative) Urine RBC 73 H (0-5) /hpf Urine WBC >182 H (0-5) /hpf Urine WBC Clumps Many H (None) /hpf Urine Bacteria Many H (None) /hpf Hyaline Casts 10 H (0-2) /lpf Urine Mucus Rare H (None) /hpf Crossmatch Microbiology - Last 24 Hours (Table) 11/20/19 17:03 Urine Culture - Preliminary Urine,Voided Diabetes panel 11/21/19 Range/Units 08:22 Sodium 134 L (137-145) mmol/L Potassium 5.4 H (3.5-5.1) mmol/L Chloride 101 (98-107) mmol/L Carbon Dioxide 22 (22-30) mmol/L BUN 83 H (9-20) mg/dL Creatinine 6.85 H (0.66-1.25) mg/dL Glucose 144 H (74-99) mg/dL Calcium 8.7 (8.4-10.2) mg/dL AST 29 (17-59) U/L ALT 18 (4-49) U/L Alkaline Phosphatase 91 (38-126) U/L Total Protein 6.9 (6.3-8.2) g/dL Albumin 3.1 L (3.5-5.0) g/dL Calcium panel 11/21/19 Range/Units 08:22 Calcium 8.7 (8.4-10.2) mg/dL Albumin 3.1 L (3.5-5.0) g/dL Pituitary panel 11/21/19 Range/Units 08:22 Sodium 134 L (137-145) mmol/L Potassium 5.4 H (3.5-5.1) mmol/L Chloride 101 (98-107) mmol/L Carbon Dioxide 22 (22-30) mmol/L BUN 83 H (9-20) mg/dL Creatinine 6.85 H (0.66-1.25) mg/dL Glucose 144 H (74-99) mg/dL Calcium 8.7 (8.4-10.2) mg/dL Adrenal panel 11/21/19 Range/Units 08:22 Sodium 134 L (137-145) mmol/L Potassium 5.4 H (3.5-5.1) mmol/L Chloride 101 (98-107) mmol/L Carbon Dioxide 22 (22-30) mmol/L BUN 83 H (9-20) mg/dL Creatinine 6.85 H (0.66-1.25) mg/dL Glucose 144 H (74-99) mg/dL Calcium 8.7 (8.4-10.2) mg/dL Total Bilirubin 2.7 H (0.2-1.3) mg/dL AST 29 (17-59) U/L ALT 18 (4-49) U/L Alkaline Phosphatase 91 (38-126) U/L Total Protein 6.9 (6.3-8.2) g/dL Albumin 3.1 L (3.5-5.0) g/dL
--- NOTE | 2019-11-21 13:09 | P.PCN ---
Description of Procedure: Preoperative diagnoses is acute chronic renal failure with ascites Procedure left groin was prepped and draped applied sterile manner. 1% lidocaine for infected and ultrasound-guided micropuncture introducer number vein and guidewires were passed after that we passed a regular guidewire without any resistance. Then weaned advanced the dilator on the top the guidewire after that we placed a 20 same dialysis catheter on the top of guidewire guidewire was removed flushed with heparin saline and Hep-Lock secured with 3-0 nylon dressing applied patient are to the procedure well
--- NOTE | 2019-11-21 13:23 | P.PN ---
Subjective Progress Note Date: 11/21/19 Principal diagnosis: Severe ascites secondary to nonalcoholic hepatic cirrhosis This is a 58-year-old white male with history of nonalcoholic liver cirrhosis., Recent paracentesis on 11/03/19, this was done by interventional radiology, and 12.2 L of fluid was drained from the peritoneal cavity. Over the last few weeks, the patient has been gradually developing increased abdominal girth and abdominal distention. Patient was brought into the ER, and workup revealed a low hemoglobin of 5.9. Elevated BUN of 84. Creatinine 6.73, elevated lactic acid, hence the patient was advised to be admitted to the hospital, he will require blood transfusion, paracentesis and further workup of his nonalcoholic liver cirrhosis, I was asked to see the patient on consultation to admit to the intensive care unit. Patient is now scheduled for repeat paracentesis by interventional radiology, and he would be seen by gastroenterology for possible EGD. In the meantime I have recommended transfusing the patient to a hemoglobin of above 7. Patient has been complaining of black tarry stools and intermittent episodes of nausea and vomiting, but no hematemesis. Recent EGD on this patient showed this large esophageal varices, but no active bleeding. Patient was seen by a different consultants while in the ER, and he was placed on diuretics in the form of Aldactone and Lasix he will be seen by interventional radiology for paracentesis. Patient denies any shortness of breath, no cough, no wheezing. He does have some dyspnea on exertion only. Patient was reevaluated today on 11/21/19. Remains in the ICU, patient is awaiting placement of a dialysis catheter since nephrology is deciding to start hemodialysis on this patient. Patient is also scheduled to have EGD today. And that is yet to be done sometime later today. Since admission the patient received a total of 4 units of packed RBCs. And his hemoglobin this morning is 7.4. No issues related to bleeding overnight. Patient had his paracentesis done yesterday, and over 12 L of fluid were drained. The fluid seems to be transudate of in nature. Total protein is 1180. No significant WBC count as noted in the fluid, it is likely not infected. Clinically the patient is feeling better, he is quite pleased that the fluid was drained from his abdominal cavity, and he is to undergo hemodialysis later today. And scheduled to have EGD. Objective - Vital Signs Vital signs: Vital Signs Temp 97.9 F 11/21/19 08:00 Pulse 66 11/21/19 10:00 Resp 14 11/21/19 10:00 BP 100/51 11/21/19 10:00 Pulse Ox 93 L 11/21/19 10:00 Intake & Output 11/20/19 11/21/19 11/21/19 18:59 06:59 18:59 Intake Total 1160.0 852.083 50 Output Total 60 205 45 Balance 1100.0 647.083 5 Weight 172.365 kg 164 kg Intake: IV 50 cefTRIAXone 1 gm In 50 Sodium Chloride 0.9% 50 ml @ 100 mls/hr IVPB Q24HR [facility] Rx#:[id number] Intake, IV Titration 230.0 232.083 Amount Albumin Human 25% 50 ml 150 In Empty Bag 1 bag @ 200 mls/hr IVPB Q15M [facility] Rx#: [id number] Desmopressin Acetate 52 5 mcg In Sodium Chloride 0. 9% 50 ml @ 200 mls/hr [facility] Rx#: [id number] Octreotide 500 mcg In 25.0 232.083 Sodium Chloride 0.9% 250 ml @ 25 MCG/HR 12.5 mls/ hr IV .Q20H [facility] Rx#: [id number] cefTRIAXone 1 gm In 50 Sodium Chloride 0.9% 50 ml @ 100 mls/hr IVPB Q24HR [facility] Rx#:[id number] Blood Product 930 620 Rc As-1 Unit 310 [id number] Rc As-1 Unit 310 [id number] As-1 Unit 310 [id number] As-1 Unit 310 [id number] Output: Urine 60 205 45 Other: Voiding Method Indwelling Catheter Indwelling Catheter - Exam General appearance: The patient is alert, oriented, in no acute distress. HET: Head is normocephalic and atraumatic. Pupils are equal and reactive. Oropharynx is clear without lesions. Neck: Supple without lymphadenopathy. Trachea midline. Heart: S1 S2. Regular rate and rhythm. Lungs: No crackles or wheezes are heard. Abdomen: Soft, less distended today. No rebound no guarding. Extremities: +2 bilateral lower extremity edema. Neurological: No focal deficits. Strength and sensation are grossly intact. Psychiatric: Normal mood, affect and normal mental status examination. - Labs CBC & Chem 7: 11/21/19 08:22 11/21/19 08:22 Labs: Abnormal Lab Results - Last 24 Hours (Table) 11/20/19 11/20/19 11/20/19 Range/Units 09:37 13:03 13:25 RBC (4.30-5.90) m/uL Hgb (13.0-17.5) gm/dL Hct (39.0-53.0) % MCHC (31.0-37.0) g/dL RDW (11.5-15.5) % Plt Count (150-450) k/uL Lymphocytes # (1.0-4.8) k/uL PT (9.0-12.0) sec INR (<1.2) Sodium (137-145) mmol/L Potassium (3.5-5.1) mmol/L BUN (9-20) mg/dL Creatinine (0.66-1.25) mg/dL Glucose (74-99) mg/dL POC Glucose (mg/dL) 174 H (75-99) mg/dL Plasma Lactic Acid Chun 2.6 H* (0.7-2.0) mmol/L Total Bilirubin (0.2-1.3) mg/dL Albumin (3.5-5.0) g/dL Urine Protein (Negative) Urine Blood (Negative) Ur Leukocyte Esterase (Negative) Urine RBC (0-5) /hpf Urine WBC (0-5) /hpf Urine WBC Clumps (None) /hpf Urine Bacteria (None) /hpf Hyaline Casts (0-2) /lpf Urine Mucus (None) /hpf Crossmatch See Detail 11/20/19 11/20/19 11/20/19 Range/Units 17:03 17:29 19:43 RBC 1.92 L (4.30-5.90) m/uL Hgb 5.5 L* (13.0-17.5) gm/dL Hct 18.5 L* (39.0-53.0) % MCHC 29.9 L (31.0-37.0) g/dL RDW 16.9 H (11.5-15.5) % Plt Count 137 L D (150-450) k/uL Lymphocytes # (1.0-4.8) k/uL PT (9.0-12.0) sec INR (<1.2) Sodium (137-145) mmol/L Potassium (3.5-5.1) mmol/L BUN (9-20) mg/dL Creatinine (0.66-1.25) mg/dL Glucose (74-99) mg/dL POC Glucose (mg/dL) 163 H (75-99) mg/dL Plasma Lactic Acid Chun (0.7-2.0) mmol/L Total Bilirubin (0.2-1.3) mg/dL Albumin (3.5-5.0) g/dL Urine Protein Trace H (Negative) Urine Blood Moderate H (Negative) Ur Leukocyte Esterase Large H (Negative) Urine RBC 176 H (0-5) /hpf Urine WBC >182 H (0-5) /hpf Urine WBC Clumps Few H (None) /hpf Urine Bacteria Few H (None) /hpf Hyaline Casts 15 H (0-2) /lpf Urine Mucus Rare H (None) /hpf Crossmatch 11/20/19 11/21/19 11/21/19 Range/Units 20:37 01:34 06:59 RBC 2.19 L (4.30-5.90) m/uL Hgb 6.4 L* (13.0-17.5) gm/dL Hct 20.9 L (39.0-53.0) % MCHC 30.8 L (31.0-37.0) g/dL RDW 16.8 H (11.5-15.5) % Plt Count 125 L (150-450) k/uL Lymphocytes # 0.4 L (1.0-4.8) k/uL PT (9.0-12.0) sec INR (<1.2) Sodium (137-145) mmol/L Potassium (3.5-5.1) mmol/L BUN (9-20) mg/dL Creatinine (0.66-1.25) mg/dL Glucose (74-99) mg/dL POC Glucose (mg/dL) 133 H 160 H (75-99) mg/dL Plasma Lactic Acid Chun (0.7-2.0) mmol/L Total Bilirubin (0.2-1.3) mg/dL Albumin (3.5-5.0) g/dL Urine Protein (Negative) Urine Blood (Negative) Ur Leukocyte Esterase (Negative) Urine RBC (0-5) /hpf Urine WBC (0-5) /hpf Urine WBC Clumps (None) /hpf Urine Bacteria (None) /hpf Hyaline Casts (0-2) /lpf Urine Mucus (None) /hpf Crossmatch 11/21/19 11/21/19 11/21/19 Range/Units 08:22 08:22 08:22 RBC 2.59 L (4.30-5.90) m/uL Hgb 7.4 L (13.0-17.5) gm/dL Hct 24.5 L (39.0-53.0) % MCHC 30.3 L (31.0-37.0) g/dL RDW 16.6 H (11.5-15.5) % Plt Count 121 L (150-450) k/uL Lymphocytes # 0.4 L (1.0-4.8) k/uL PT 12.5 H (9.0-12.0) sec INR 1.2 H (<1.2) Sodium 134 L (137-145) mmol/L Potassium 5.4 H (3.5-5.1) mmol/L BUN 83 H (9-20) mg/dL Creatinine 6.85 H (0.66-1.25) mg/dL Glucose 144 H (74-99) mg/dL POC Glucose (mg/dL) (75-99) mg/dL Plasma Lactic Acid Chun (0.7-2.0) mmol/L Total Bilirubin 2.7 H (0.2-1.3) mg/dL Albumin 3.1 L (3.5-5.0) g/dL Urine Protein (Negative) Urine Blood (Negative) Ur Leukocyte Esterase (Negative) Urine RBC (0-5) /hpf Urine WBC (0-5) /hpf Urine WBC Clumps (None) /hpf Urine Bacteria (None) /hpf Hyaline Casts (0-2) /lpf Urine Mucus (None) /hpf Crossmatch 11/21/19 Range/Units 10:24 RBC (4.30-5.90) m/uL Hgb (13.0-17.5) gm/dL Hct (39.0-53.0) % MCHC (31.0-37.0) g/dL RDW (11.5-15.5) % Plt Count (150-450) k/uL Lymphocytes # (1.0-4.8) k/uL PT (9.0-12.0) sec INR (<1.2) Sodium (137-145) mmol/L Potassium (3.5-5.1) mmol/L BUN (9-20) mg/dL Creatinine (0.66-1.25) mg/dL Glucose (74-99) mg/dL POC Glucose (mg/dL) (75-99) mg/dL Plasma Lactic Acid Chun (0.7-2.0) mmol/L Total Bilirubin (0.2-1.3) mg/dL Albumin (3.5-5.0) g/dL Urine Protein 1+ H (Negative) Urine Blood Moderate H (Negative) Ur Leukocyte Esterase Large H (Negative) Urine RBC 73 H (0-5) /hpf Urine WBC >182 H (0-5) /hpf Urine WBC Clumps Many H (None) /hpf Urine Bacteria Many H (None) /hpf Hyaline Casts 10 H (0-2) /lpf Urine Mucus Rare H (None) /hpf Crossmatch Microbiology - Last 24 Hours (Table) 11/20/19 17:03 Urine Culture - Preliminary Urine,Voided Assessment and Plan Assessment: Impression: Severe ascites secondary to nonalcoholic hepatic cirrhosis. Anasarca secondary to above. Acute blood loss anemia suspect underlying upper GI bleeding, possibly esophageal varices. Awaiting EGD will be done today supposedly. Acute kidney injury, being addressed by nephrology. Patient is scheduled to start hemodialysis today. Type 2 diabetes. Recommendation: Agree with the present treatment plan including diuretics, Agree with plans for hemodialysis. Agree with EGD. Patient is status post paracentesis. Continue Low-salt diet Discussed his condition with nephrology on the case. Avoid nephrotoxic agents. Transfused to a hemoglobin of over 7. Empiric antibiotics/Rocephin, for possible spontaneous bacterial peritonitis. Initial preliminary report on the operative area fluid is reassuring. We'll continue to follow in the ICU. Time with Patient: Less than 30
[2019-11-21 13:36] LABS: Glucose,Whole Blood 152 mg/dL (75-99)
[2019-11-21] MEDS ORDERED: PROPOFOL 10 MG/ML 20 ML VIAL IV ONE (14:32)
[2019-11-21] MEDS ORDERED: SODIUM CHLORIDE 0.9% 500 ML 500 ML IV ONE (14:35)
--- NOTE | 2019-11-21 14:51 | P.PCN ---
Date of Procedure: 11/21/19 Procedure(s) Performed: BRIEF HISTORY: Patient is a 58-year-old, pleasant, white male with history of nonalcoholic cirrhosis of the liver diagnosed 2 years ago admitted hospital with hemoglobin of 5.6 g/dL. He received total of 4 units of transfusion and the last hemoglobin was 7.4 g/dL. His been having intermittent black tarry stools. He had an upper endoscopy to the that showed large esophageal varices. His and scheduled for an upper endoscopy for variceal ligation today. PROCEDURE PERFORMED: Esophagogastroduodenoscopy with variceal ligation PREOPERATIVE DIAGNOSIS: Severe symptomatic anemia and intermittent dark as well as. IV sedation per anesthesia. PROCEDURE: After informed consent was obtained, the patient was brought into the endoscopy unit. IV sedation was administered by Anesthesia under continuous monitoring. Initially the Olympus GIF-140 video endoscope was inserted into the mouth. Esophagus intubated without any difficulty. It was gradually advanced into the stomach and duodenum and carefully examined. The bulb and the second part of the duodenum appeared normal. The scope at this time was withdrawn to the stomach, adequately insufflated with air, and upon careful examination, mucosa of the antrum, body, cardia and the fundus had changes consistent with moderate portal hypertensive gastropathy but no active bleeding noted.. The scope was then withdrawn into the esophagus. The GE junction was located at 39 cm from the incisors. A very large distal esophageal varices seen. The esophagus appeared normal. There were no erosions or ulcerations seen. At this time the scope was removed esophageal variceal ligation equipment was introduced as the scope and esophagus reintubated without any difficulty and was gradually advanced into the distal esophagus and in a spiral fashion total of 5 bands were deployed in the distal and mid esophageal varices and the patient tolerated the procedure well. IMPRESSION: 1. Large mid and distal esophagus with no active bleeding status post variceal ligation as described above. 2. To moderate portal hypertensive gastropathy. RECOMMENDATIONS: The findings of this examination were discussed with the patient . He will remain on a liquid diet today. Monitor CBC on a daily basis..
[2019-11-21] MEDS: MIDODRINE 5 MG TAB PO SCH ×2 (15:20→17:37)
[2019-11-21 16:54] LABS: Glucose,Whole Blood 117 mg/dL (75-99)
[2019-11-21 18:39] LABS: Anisocytosis Slight; HCT 23.5 % (39.0-53.0); HGB 7.1 gm/dL (13.0-17.5); Hypochromasia Marked; MCH 29.1 pg (25.0-35.0); MCHC 30.3 g/dL (31.0-37.0); MCV 95.8 fL (80.0-100.0); Mean Platelet Volume 8.7; Platelet Count 104 k/uL (150-450); Poikilocytosis Moderate; RBC 2.45 m/uL (4.30-5.90); RDW 16.7 % (11.5-15.5); WBC 6.2 k/uL (3.8-10.6)
[2019-11-21 18:54] LABS: Hemoglobin A1C 5.1 % (4.0-6.0)
[2019-11-21 21:23] LABS: Glucose,Whole Blood 130 mg/dL (75-99)
[2019-11-22 00:38] LABS: Hepatitis B Surface AB- Quant 31.6 mIU/mL; Hepatitis B Surface Antibody Reactive (Non-Reactive); Hepatitis B Surface Antigen Non-Reactive (Non-Reactive)
[2019-11-22 05:24] LABS: Anisocytosis Slight; HGB 7.3 gm/dL (13.0-17.5); Hypochromasia Marked; MCH 29.4 pg (25.0-35.0); MCHC 30.6 g/dL (31.0-37.0); MCV 95.9 fL (80.0-100.0); Mean Platelet Volume 9.2; Platelet Count 100 k/uL (150-450); Poikilocytosis Slight; RDW 16.3 % (11.5-15.5); WBC 5.6 k/uL (3.8-10.6)
[2019-11-22 05:43] LABS: Calcium 8.3 mg/dL (8.4-10.2); Potassium 5.2 mmol/L (3.5-5.1)
[2019-11-22 07:06] LABS: Glucose,Whole Blood 167 mg/dL (75-99)
[2019-11-22] MEDS: INSULIN ASPART (NovoLOG) 100 UNIT/ML VIAL SQ SCH ×4 (07:06→21:19)
[2019-11-22] MEDS: MIDODRINE 5 MG TAB PO SCH ×3 (08:23→17:43)
[2019-11-22] MEDS: PANTOPRAZOLE 40 MG/10 ML VIAL IVP SCH ×2 (08:23→21:18)
[2019-11-22] MEDS: FUROSEMIDE 10 MG/ML 10 ML VIAL IV SCH ×2 (08:23→21:18)
[2019-11-22 12:37] LABS: Glucose,Whole Blood 131 mg/dL (75-99)
--- NOTE | 2019-11-22 13:48 | P.PN ---
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 Over the last few weeks, the patient has been gradually developing increased abdominal girth and abdominal distention. Patient was brought into the ER, and workup revealed a low hemoglobin of 5.9. Elevated BUN of 84. Creatinine 6.73, elevated lactic acid, hence the patient was advised to be admitted to the hospital, he will require blood transfusion, paracentesis and further workup of his nonalcoholic liver cirrhosis, I was asked to see the patient on consultation to admit to the intensive care unit. Patient is now scheduled for repeat paracentesis by interventional radiology, and he would be seen by gastroenterology for possible EGD. In the meantime I have recommended transfusing the patient to a hemoglobin of above 7. Patient has been complaining of black tarry stools and intermittent episodes of nausea and vomiting, but no hematemesis. Recent EGD on this patient showed this large esophageal varices, but no active bleeding. Patient was seen by a different consultants while in the ER, and he was placed on diuretics in the form of Aldactone and Lasix he will be seen by interventional radiology for paracentesis. Patient denies any shortness of breath, no cough, no wheezing. He does have some dyspnea on exertion only. Patient was reevaluated today on 11/21/19. Remains in the ICU, patient is awaiting placement of a dialysis catheter since nephrology is deciding to start hemodialysis on this patient. Patient is also scheduled to have EGD today. And that is yet to be done sometime later today. Since admission the patient received a total of 4 units of packed RBCs. And his hemoglobin this morning is 7.4. No issues related to bleeding overnight. Patient had his paracentesis done yesterday, and over 12 L of fluid were drained. The fluid seems to be transudate of in nature. Total protein is 1180. No significant WBC count as noted in the fluid, it is likely not infected. Clinically the patient is feeling better, he is quite pleased that the fluid was drained from his abdominal cavity, and he is to undergo hemodialysis later today. And scheduled to have EGD. The patient was seen and evaluated on 11/22/2019 in follow-up in the intensive care unit. He is currently awake and alert in no acute distress. He did undergo paracentesis this admission with 12.2 L of straw colored fluid removed. He is also undergone EGD with variceal ligation yesterday as well. He was found to have a large mid and distal esophagus with no active bleeding status post variceal ligation. Moderate portal hypertensive gastropathy. He is status post 4 units of packed red blood cells this admission. Current hemoglobin 7.3. He also received hemodialysis yesterday with 1.8 L removed. He is receiving dialysis again today. Creatinine 6.01. BUN 74. Potassium 5.2. Sodium 131. White count 5.6. Urine culture positive for gram-negative bacilli. He is currently on ceftriaxone. He remains on IV Lasix 80 mg every 12 hours. Protonix 40 mg IV P twice a day. Octreotide was discontinued. He denies any worsening shortness of breath cough or congestion. He's been maintaining O2 saturations in the 90s on room air. He's afebrile. Hemodynamically stable. Objective - Vital Signs Vital signs: Vital Signs Temp 97.8 F 11/22/19 13:24 Pulse 60 11/22/19 13:24 Resp 16 11/22/19 13:24 BP 130/52 11/22/19 13:24 Pulse Ox 98 11/22/19 12:00 Intake & Output 11/21/19 11/22/19 11/22/19 18:59 06:59 18:59 Intake Total 1130 180.417 590 Output Total 2019 259 2380 Balance -890 -78.583 -1790 Intake: IV 650 50 Sodium Chloride 0.9% 500 500 ml 500 ml @ 0 mls/hr IV . [facility] Rx#: [id number] cefTRIAXone 1 gm In 50 50 Sodium Chloride 0.9% 50 ml @ 100 mls/hr IVPB Q24HR [facility] Rx#:[id number] Intake, IV Titration 180.417 Amount Octreotide 500 mcg In 180.417 Sodium Chloride 0.9% 250 ml @ 25 MCG/HR 12.5 mls/ hr IV .Q20H [facility] Rx#: [id number] Oral 480 240 Hemodialysis 300 Output: Urine 220 259 80 Hemodialysis 1800 2300 Other: Voiding Method Indwelling Catheter Indwelling Catheter Indwelling Catheter - Exam GENERAL EXAM: Alert, active, pleasant 58-year-old gentleman, on room air, comfortable in no apparent distress. HEAD: Normocephalic. EYES: Normal reaction of pupils, equal size. NOSE: Clear with pink turbinates. THROAT: No erythema or exudates. NECK: No masses, no JVD. CHEST: No chest wall deformity. LUNGS: Equal air entry with no crackles, wheeze, rhonchi or dullness. CVS: S1 and S2 normal with no audible murmur, regular rhythm. ABDOMEN: Soft, less distended, normal bowel sounds, no guarding or rigidity. SPINE: No scoliosis or deformity SKIN: No rashes CENTRAL NERVOUS SYSTEM: No focal deficits, tone is normal in all 4 extremities. EXTREMITIES: Temporary hemodialysis catheter in the left groin. There is no peripheral edema. No clubbing, no cyanosis. Peripheral pulses are intact. - Labs CBC & Chem 7: 11/22/19 04:55 11/22/19 04:55 Labs: Abnormal Lab Results - Last 24 Hours (Table) 11/21/19 11/21/19 11/21/19 Range/Units 08:22 13:34 16:53 RBC (4.30-5.90) m/uL Hgb (13.0-17.5) gm/dL Hct (39.0-53.0) % MCHC (31.0-37.0) g/dL RDW (11.5-15.5) % Plt Count (150-450) k/uL Sodium (137-145) mmol/L Potassium (3.5-5.1) mmol/L BUN (9-20) mg/dL Creatinine (0.66-1.25) mg/dL Glucose (74-99) mg/dL POC Glucose (mg/dL) 152 H 117 H (75-99) mg/dL Calcium (8.4-10.2) mg/dL Hep Bs Antibody Reactive H (Non-Reactive) 11/21/19 11/21/19 11/22/19 Range/Units 18:20 21:22 04:55 RBC 2.45 L 2.50 L (4.30-5.90) m/uL Hgb 7.1 L 7.3 L (13.0-17.5) gm/dL Hct 23.5 L 24.0 L (39.0-53.0) % MCHC 30.3 L 30.6 L (31.0-37.0) g/dL RDW 16.7 H 16.3 H (11.5-15.5) % Plt Count 104 L 100 L (150-450) k/uL Sodium (137-145) mmol/L Potassium (3.5-5.1) mmol/L BUN (9-20) mg/dL Creatinine (0.66-1.25) mg/dL Glucose (74-99) mg/dL POC Glucose (mg/dL) 130 H (75-99) mg/dL Calcium (8.4-10.2) mg/dL Hep Bs Antibody (Non-Reactive) 11/22/19 11/22/19 11/22/19 Range/Units 04:55 07:04 12:36 RBC (4.30-5.90) m/uL Hgb (13.0-17.5) gm/dL Hct (39.0-53.0) % MCHC (31.0-37.0) g/dL RDW (11.5-15.5) % Plt Count (150-450) k/uL Sodium 131 L (137-145) mmol/L Potassium 5.2 H (3.5-5.1) mmol/L BUN 74 H (9-20) mg/dL Creatinine 6.01 H (0.66-1.25) mg/dL Glucose 139 H (74-99) mg/dL POC Glucose (mg/dL) 167 H 131 H (75-99) mg/dL Calcium 8.3 L (8.4-10.2) mg/dL Hep Bs Antibody (Non-Reactive) Microbiology - Last 24 Hours (Table) 11/20/19 17:03 Urine Culture - Preliminary Urine,Voided Gram Neg Bacilli Assessment and Plan Assessment: Severe ascites secondary to nonalcoholic hepatic cirrhosis. Status post paracentesis with 12.2 L of straw-colored fluid returned on 12/01/2019 Anasarca secondary to above. Acute blood loss anemia, status post 4 units of packed red blood cells this admission. Current hemoglobin 7.3. Status post EGD and found to have a large mid and distal esophagus with no active bleeding status post variceal ligation with 5 bands deployed. Moderate pulmonary hypertensive gastropathy. Acute kidney injury, received hemodialysis via left groin temporary catheter yesterday with 1.8 L of fluid removed and plans for hemodialysis again today. Current creatinine 6.0 Type 2 diabetes Plan: The patient was seen and evaluated by Dr. Bolanos He is status post variceal ligation Status post paracentesis No pulmonary complaints, on room air Continue to monitor hemoglobin Transfer out of the intensive care unit later today We will continue to follow I, the cosigning physician, performed a history & physical examination of the patient. Lungs sounds are clear. Maintaining good O2 saturations in the 90s on room air. I discussed the assessment and plan of care with my nurse practitioner, Karina Tinsley. I attest to the above note as dictated by her.
--- NOTE | 2019-11-22 14:24 | P.PN ---
Subjective Patient is seen in follow for acute kidney injury. Feels tired. Completed hemodialysis this morning with near 2 L ultrafiltration. Denies vomiting or diarrhea. No active bleeding. Hemoglobin 7.3 today. No chest pain or shortness of breath. Urine output 20-30 mL an hour. He is maintained on IV Lasix 80 mg twice daily. Vital signs are stable. General: The patient appeared well nourished and normally developed. HEENT: Head exam is unremarkable. Neck is without jugular venous distension. LUNGS: Lungs are clear to auscultation and percussion. Breath sounds decreased. HEART: Rate and Rhythm are regular. ABDOMEN: Soft, obese. Nontender. EXTREMITITES: 2+ edema. Objective - Vital Signs Vital signs: Vital Signs Temp 97.8 F 11/22/19 13:24 Pulse 60 11/22/19 13:24 Resp 16 11/22/19 13:24 BP 130/52 11/22/19 13:24 Pulse Ox 98 11/22/19 12:00 Intake & Output 11/21/19 11/22/19 11/22/19 18:59 06:59 18:59 Intake Total 1130 180.417 590 Output Total 2020 259 2380 Balance -890 -78.583 -1790 Intake: IV 650 50 Sodium Chloride 0.9% 500 500 ml 500 ml @ 0 mls/hr IV . [facility] Rx#: [id number] cefTRIAXone 1 gm In 50 50 Sodium Chloride 0.9% 50 ml @ 100 mls/hr IVPB Q24HR [facility] Rx#:[id number] Intake, IV Titration 180.417 Amount Octreotide 500 mcg In 180.417 Sodium Chloride 0.9% 250 ml @ 25 MCG/HR 12.5 mls/ hr IV .Q20H [facility] Rx#: [id number] Oral 480 240 Hemodialysis 300 Output: Urine 220 259 80 Hemodialysis 1800 2300 Other: Voiding Method Indwelling Catheter Indwelling Catheter Indwelling Catheter - Labs CBC & Chem 7: 11/22/19 04:55 11/22/19 04:55 Labs: Abnormal Lab Results - Last 24 Hours (Table) 11/21/19 11/21/19 11/21/19 Range/Units 08:22 16:53 18:20 RBC 2.45 L (4.30-5.90) m/uL Hgb 7.1 L (13.0-17.5) gm/dL Hct 23.5 L (39.0-53.0) % MCHC 30.3 L (31.0-37.0) g/dL RDW 16.7 H (11.5-15.5) % Plt Count 104 L (150-450) k/uL Sodium (137-145) mmol/L Potassium (3.5-5.1) mmol/L BUN (9-20) mg/dL Creatinine (0.66-1.25) mg/dL Glucose (74-99) mg/dL POC Glucose (mg/dL) 117 H (75-99) mg/dL Calcium (8.4-10.2) mg/dL Hep Bs Antibody Reactive H (Non-Reactive) 11/21/19 11/22/19 11/22/19 Range/Units 21:22 04:55 04:55 RBC 2.50 L (4.30-5.90) m/uL Hgb 7.3 L (13.0-17.5) gm/dL Hct 24.0 L (39.0-53.0) % MCHC 30.6 L (31.0-37.0) g/dL RDW 16.3 H (11.5-15.5) % Plt Count 100 L (150-450) k/uL Sodium 131 L (137-145) mmol/L Potassium 5.2 H (3.5-5.1) mmol/L BUN 74 H (9-20) mg/dL Creatinine 6.01 H (0.66-1.25) mg/dL Glucose 139 H (74-99) mg/dL POC Glucose (mg/dL) 130 H (75-99) mg/dL Calcium 8.3 L (8.4-10.2) mg/dL Hep Bs Antibody (Non-Reactive) 11/22/19 11/22/19 Range/Units 07:04 12:36 RBC (4.30-5.90) m/uL Hgb (13.0-17.5) gm/dL Hct (39.0-53.0) % MCHC (31.0-37.0) g/dL RDW (11.5-15.5) % Plt Count (150-450) k/uL Sodium (137-145) mmol/L Potassium (3.5-5.1) mmol/L BUN (9-20) mg/dL Creatinine (0.66-1.25) mg/dL Glucose (74-99) mg/dL POC Glucose (mg/dL) 167 H 131 H (75-99) mg/dL Calcium (8.4-10.2) mg/dL Hep Bs Antibody (Non-Reactive) Microbiology - Last 24 Hours (Table) 11/20/19 17:03 Urine Culture - Preliminary Urine,Voided Gram Neg Bacilli Assessment and Plan Plan: Assessment: 1. Acute kidney injury secondary to ATN secondary to acute blood loss anemia. Also concern for hepatorenal syndrome. Started on hemodialysis on November 20. Trace proteinuria on UA. No hydronephrosis noted on kidney ultrasound. 2. Metabolic acidosis secondary to acute kidney injury as well as lactic acidosis. Better. 3. Acute GI bleed. Status post 4 units of blood. Hemoglobin 7.3 today. S/p octreotide drip. Also received IV DDAVP on admission. He underwent EGD on November 20 with variceal ligation. 4. Hypervolemic hyponatremia. Stable. 5. Liver cirrhosis. 6. Volume overload. Improving with ultrafiltration. 7. Ascites status post paracentesis on November 19 with 12.2 L drained. He did receive albumin pre-and post procedure. Plan: Maintain IV Lasix 80 mg twice daily. Continue midodrine 10 mg 3 times daily. To hold if systolic blood pressure greater than 120. Hemodialysis again tomorrow. Continue to monitor renal function and urine output. Monitor hemoglobin.
--- NOTE | 2019-11-22 14:24 | P.PN ---
Subjective Progress Note Date: 11/22/19 Principal diagnosis: GI bleeding Patient has not had any bowel movement since he came in. He is on liquid diet. He just had varices banding yesterday. Has not been sleeping well. No pain, no nausea or vomiting. Objective - Vital Signs Vital signs: Vital Signs Temp 97.9 F 11/22/19 12:00 Pulse 60 11/22/19 12:00 Resp 12 11/22/19 12:00 BP 124/56 11/22/19 12:00 Pulse Ox 98 11/22/19 12:00 Intake & Output 11/21/19 11/22/19 11/22/19 18:59 06:59 18:59 Intake Total 1130 180.417 290 Output Total 2020 259 80 Balance -890 -78.583 210 Intake: IV 650 50 Sodium Chloride 0.9% 500 500 ml 500 ml @ 0 mls/hr IV . [facility] Rx#: [id number] cefTRIAXone 1 gm In 50 50 Sodium Chloride 0.9% 50 ml @ 100 mls/hr IVPB Q24HR [facility] Rx#:[id number] Intake, IV Titration 180.417 Amount Octreotide 500 mcg In 180.417 Sodium Chloride 0.9% 250 ml @ 25 MCG/HR 12.5 mls/ hr IV .Q20H [facility] Rx#: [id number] Oral 480 240 Output: Urine 220 259 80 Hemodialysis 1800 Other: Voiding Method Indwelling Catheter Indwelling Catheter Indwelling Catheter - Exam General: ill appearing , no acute distress, appears at stated age, Obese Derm: no unusual rashes/lesions no unusual ecchymoses, warm, dry Head: atraumatic, normocephalic, symmetric Eyes: EOMI, no lid lag, anicteric sclera, pupils equal round reactive to light ENT: Nose and ears atraumatic, no thrush, no pharyngeal erythema Neck: No thyromegaly, no cervical lymphadenopathy, trachea midline, supple Mouth: no lip lesion, mucus membranes moist Cardiovascular: S1S2 reg, no murmur, positive posterior tibial pulse bilateral, 2+ pitting edema, capillary refill less than 2 seconds Lungs: Decreased bs bilateral, no rhonchi, no rales , no accessory muscle use Abdominal: soft, nontender to palpation, no guarding, no appreciable organomegaly, normal bowel sounds Ext: no gross muscle atrophy, muscle strength 4 out of 5 in all 4 extremities grossly, no contractures, Neuro: CN II-XI grossly intact, light touch intact all 4 extremities, Psych: Alert, oriented, appropriate affect - Labs CBC & Chem 7: 11/22/19 04:55 11/22/19 04:55 Labs: Abnormal Lab Results - Last 24 Hours (Table) 11/21/19 11/21/19 11/21/19 Range/Units 08:22 13:34 16:53 RBC (4.30-5.90) m/uL Hgb (13.0-17.5) gm/dL Hct (39.0-53.0) % MCHC (31.0-37.0) g/dL RDW (11.5-15.5) % Plt Count (150-450) k/uL Sodium (137-145) mmol/L Potassium (3.5-5.1) mmol/L BUN (9-20) mg/dL Creatinine (0.66-1.25) mg/dL Glucose (74-99) mg/dL POC Glucose (mg/dL) 152 H 117 H (75-99) mg/dL Calcium (8.4-10.2) mg/dL Hep Bs Antibody Reactive H (Non-Reactive) 11/21/19 11/21/19 11/22/19 Range/Units 18:20 21:22 04:55 RBC 2.45 L 2.50 L (4.30-5.90) m/uL Hgb 7.1 L 7.3 L (13.0-17.5) gm/dL Hct 23.5 L 24.0 L (39.0-53.0) % MCHC 30.3 L 30.6 L (31.0-37.0) g/dL RDW 16.7 H 16.3 H (11.5-15.5) % Plt Count 104 L 100 L (150-450) k/uL Sodium (137-145) mmol/L Potassium (3.5-5.1) mmol/L BUN (9-20) mg/dL Creatinine (0.66-1.25) mg/dL Glucose (74-99) mg/dL POC Glucose (mg/dL) 130 H (75-99) mg/dL Calcium (8.4-10.2) mg/dL Hep Bs Antibody (Non-Reactive) 11/22/19 11/22/19 11/22/19 Range/Units 04:55 07:04 12:36 RBC (4.30-5.90) m/uL Hgb (13.0-17.5) gm/dL Hct (39.0-53.0) % MCHC (31.0-37.0) g/dL RDW (11.5-15.5) % Plt Count (150-450) k/uL Sodium 131 L (137-145) mmol/L Potassium 5.2 H (3.5-5.1) mmol/L BUN 74 H (9-20) mg/dL Creatinine 6.01 H (0.66-1.25) mg/dL Glucose 139 H (74-99) mg/dL POC Glucose (mg/dL) 167 H 131 H (75-99) mg/dL Calcium 8.3 L (8.4-10.2) mg/dL Hep Bs Antibody (Non-Reactive) Microbiology - Last 24 Hours (Table) 11/20/19 17:03 Urine Culture - Preliminary Urine,Voided Gram Neg Bacilli Assessment and Plan Plan: Decompensated hepatic cirrhosis, nonalcoholic -S/p paracentesis. Albumin given. Acute renal failure with anion gap metabolic acidosis and mild hyperkalemia -Possible abdominal compartment syndrome versus hepatorenal syndrome versus ac three affiliated kidney injury secondary to prerenal causes such as acute blood loss -Started on dialysis as he got edematous and not making enough urine -Lasix -Ensure albumin prior to paracentesis -Avoid additional nephrotoxic agents- repeat BMP in AM Acute blood loss anemia likely secondary to GI bleed -IV Protonix twice daily, -EGD on 11/20, s/p banding of varices -On clears -DDAVP given -Continue on Rocephin 1 g daily as prophylaxis Diabetes mellitus type 2 -Sliding-scale insulin -Check hemoglobin A1c Surrogate decision-maker: Sister in law CODE STATUS:Full DVT prophylaxis: SCDs Discussed with: Patient, nursing, Anticipated discharge date: [address]: Home health VS SNF
[2019-11-22 17:11] LABS: Glucose,Whole Blood 177 mg/dL (75-99)
--- NOTE | 2019-11-22 17:59 | P.PCN ---
Date of Procedure: 11/20/19 Preoperative Diagnosis: Urinary retention Postoperative Diagnosis: same Procedure(s) Performed: Cystoscopy, with catheter placement over wire Anesthesia: none Surgeon: Ayden Koch Estimated Blood Loss (ml): 5 Pathology: none sent Condition: stable Disposition: ICU Indications for Procedure: 58 yo male admitted to the hospital with GI bleed and ANISH. Urology is consulted for callahan placement. Multiple attempts to place a callahan catheter were unsuccessful secondary to resistance at the urethra. Callahan placement was required secondary to ANISH, and for accurate I/O. Additionally patient has not voided since admission, of note he has significant ascites thus bladder scan could not be obtained. Attempted callahan were unsuccessful at bedside Operative Findings: large false passage in dorsal aspect of bulbar urethra Description of Procedure: Flexible cystoscope was inserted per urethra, the scope was advanced up to the bulbar urethra. At this time a large false passage was noticed along the dorsal aspect of the bulbar urethra. A true lumen was visualized underneath the false passage. I attempted to pass the scope through the true lumen but was not able to. At this time a Glidewire was advanced through the scope and into the bladder. The scope was withdrawn with the wire in place. A 16-Luxembourger catheter was advanced over the wire moderate resistance was met at the bulbar urethra but then was able to advance the catheter up into the bladder with return of clear urine. The patient tolerated the procedure well, no complication during the procedure
[2019-11-22 20:42] LABS: Glucose,Whole Blood 134 mg/dL (75-99)
--- NOTE | 2019-11-23 03:45 | PN ---
PROGRESS NOTE DATE OF DICTATION: 11/22/2019 This patient is a 58-year-old pleasant white male with history of nonalcoholic cirrhosis of the liver, admitted to the hospital with severe symptomatic anemia and acute kidney injury and was started on hemodialysis yesterday. He is feeling much better today. He underwent large-volume paracentesis 2 days ago and 12 L of fluid were removed and he underwent an EGD yesterday and was noted to have large esophageal varices for which he underwent variceal ligation. No active bleeding noted. He is feeling much better. He still complains of abdominal distention. He denies any chest pain. No nausea, vomiting. PHYSICAL EXAMINATION: On physical examination, appears comfortable, in no apparent distress. Vital signs are stable. Blood pressure is 107/70, pulse rate 63, temperature 98.1. HEENT EXAMINATION: Unremarkable. Conjunctivae pink. Sclerae anicteric. Oral cavity, no lesions. NECK: No JVD or lymph node enlargement. CHEST: Clear to auscultation. HEART: Regular rate and rhythm. ABDOMEN: Soft. Bowel sounds are positive. It was distended. There was free fluid noted . EXTREMITIES: 2+ pedal edema SKIN: No rashes. NEURO: He is alert and oriented x3. No focal deficits. LABS: Labs from today: WBC 5.6, hemoglobin 7.3, platelets 100. BUN 74, creatinine 6.01. Potassium is 5.2. IMPRESSION: 1. Severe symptomatic anemia with intermittent black-colored stools, status post EGD yesterday that showed large nonbleeding esophageal varices, status post variceal ligation. 2. Acute kidney injury, possible hepatorenal syndrome. Patient started on hemodialysis yesterday. He is feeling much better. 3. Refractory ascites, status post large-volume paracentesis 2 days ago, 12 L removed. We will obtain repeat ultrasound of the abdomen and on paracentesis based on the findings. 4. History of diabetes mellitus. 5. Cirrhosis of the liver with gradual decompensation. RECOMMENDATIONS: 1. Continue with Protonix 40 mg twice daily. 2. Agree with stopping the Sandostatin. 3. Monitor CBC on a daily basis. 4. Monitor LFTs and kidney parameters. 5. Continue ceftriaxone 1 gram every 24 hours. 6. We will follow with you closely. Thank you for this consultation. MMODL / IJN: [id number] /
[2019-11-23 05:51] LABS: Albumin 2.5 g/dL (3.5-5.0); Calcium 8.3 mg/dL (8.4-10.2); Potassium 4.5 mmol/L (3.5-5.1); Total Bilirubin 1.3 mg/dL (0.2-1.3); Total Protein 5.9 g/dL (6.3-8.2)
[2019-11-23 06:31] LABS: Anisocytosis Slight; Basophils % (A) 0 %; Eosinophils # (A) 0.1 k/uL (0-0.7); Eosinophils % (A) 1 %; HCT 25.9 % (39.0-53.0); HGB 7.9 gm/dL (13.0-17.5); Hypochromasia Marked; Lymphocytes # (A) 0.6 k/uL (1.0-4.8); Lymphocytes % (A) 8 %; MCH 29.6 pg (25.0-35.0); MCHC 30.5 g/dL (31.0-37.0); MCV 97.1 fL (80.0-100.0); Macrocytosis Slight; Mean Platelet Volume 9.9; Monocytes # (A) 0.6 k/uL (0-1.0); Monocytes % (A) 8 %; Neutrophils # (A) 5.4 k/uL (1.3-7.7); Neutrophils % (A) 81 %; Poikilocytosis Slight; RBC 2.67 m/uL (4.30-5.90); RDW 16.1 % (11.5-15.5); WBC 6.7 k/uL (3.8-10.6)
[2019-11-23 06:32] LABS: Platelet Count 92 k/uL (150-450)
[2019-11-23 06:44] LABS: INR 1.3 (<1.2); Prothrombin Time 12.9 sec (9.0-12.0)
[2019-11-23 07:04] LABS: Glucose,Whole Blood 156 mg/dL (75-99)
[2019-11-23] MEDS: MIDODRINE 5 MG TAB PO SCH ×3 (07:09→18:33)
[2019-11-23] MEDS: INSULIN ASPART (NovoLOG) 100 UNIT/ML VIAL SQ SCH ×4 (07:09→21:44)
[2019-11-23] MEDS: PANTOPRAZOLE 40 MG/10 ML VIAL IVP SCH ×2 (09:42→21:43)
[2019-11-23] MEDS: FUROSEMIDE 10 MG/ML 10 ML VIAL IV SCH ×3 (09:42→20:37)
--- NOTE | 2019-11-23 10:26 | P.PN ---
Subjective Patient is seen in follow for acute kidney injury. Denies vomiting or diarrhea. Did complain of discoloration in his sputum this morning. No active bleeding. Hemoglobin 7.9 today. No chest pain or shortness of breath. Urine output still on the lower side. He is maintained on IV Lasix 80 mg twice daily. Tolerated 2.3 L ultrafiltration yesterday. Scheduled for another paracentesis today. Vital signs are stable. General: The patient appeared well nourished and normally developed. HEENT: Head exam is unremarkable. Neck is without jugular venous distension. LUNGS: Lungs are clear to auscultation and percussion. Breath sounds decreased. HEART: Rate and Rhythm are regular. ABDOMEN: Soft, obese. Nontender. EXTREMITITES: 2+ edema. Objective - Vital Signs Vital signs: Vital Signs Temp 98.4 F 11/23/19 07:00 Pulse 53 L 11/23/19 07:00 Resp 20 11/23/19 07:00 BP 104/55 11/23/19 07:00 Pulse Ox 95 11/23/19 07:00 Intake & Output 11/22/19 11/23/19 11/23/19 18:59 06:59 18:59 Intake Total 590 Output Total 2480 480 Balance -1890 -480 Weight 161.3 kg Intake: IV 50 cefTRIAXone 1 gm In 50 Sodium Chloride 0.9% 50 ml @ 100 mls/hr IVPB Q24HR [facility] Rx#:[id number] Oral 240 Hemodialysis 300 Output: Urine 180 480 Hemodialysis 2300 Other: Voiding Method Indwelling Catheter Indwelling Catheter - Labs CBC & Chem 7: 11/23/19 04:46 11/23/19 04:46 Labs: Abnormal Lab Results - Last 24 Hours (Table) 11/22/19 11/22/19 11/22/19 Range/Units 12:36 17:08 20:41 RBC (4.30-5.90) m/uL Hgb (13.0-17.5) gm/dL Hct (39.0-53.0) % MCHC (31.0-37.0) g/dL RDW (11.5-15.5) % Plt Count (150-450) k/uL Lymphocytes # (1.0-4.8) k/uL PT (9.0-12.0) sec INR (<1.2) Sodium (137-145) mmol/L BUN (9-20) mg/dL Creatinine (0.66-1.25) mg/dL Glucose (74-99) mg/dL POC Glucose (mg/dL) 131 H 177 H 134 H (75-99) mg/dL Calcium (8.4-10.2) mg/dL Total Protein (6.3-8.2) g/dL Albumin (3.5-5.0) g/dL 11/23/19 11/23/19 11/23/19 Range/Units 04:46 04:46 04:46 RBC 2.67 L (4.30-5.90) m/uL Hgb 7.9 L (13.0-17.5) gm/dL Hct 25.9 L (39.0-53.0) % MCHC 30.5 L (31.0-37.0) g/dL RDW 16.1 H (11.5-15.5) % Plt Count 92 L (150-450) k/uL Lymphocytes # 0.6 L (1.0-4.8) k/uL PT 12.9 H (9.0-12.0) sec INR 1.3 H (<1.2) Sodium 131 L (137-145) mmol/L BUN 57 H (9-20) mg/dL Creatinine 5.47 H (0.66-1.25) mg/dL Glucose 133 H (74-99) mg/dL POC Glucose (mg/dL) (75-99) mg/dL Calcium 8.3 L (8.4-10.2) mg/dL Total Protein 5.9 L (6.3-8.2) g/dL Albumin 2.5 L (3.5-5.0) g/dL 11/23/19 Range/Units 07:02 RBC (4.30-5.90) m/uL Hgb (13.0-17.5) gm/dL Hct (39.0-53.0) % MCHC (31.0-37.0) g/dL RDW (11.5-15.5) % Plt Count (150-450) k/uL Lymphocytes # (1.0-4.8) k/uL PT (9.0-12.0) sec INR (<1.2) Sodium (137-145) mmol/L BUN (9-20) mg/dL Creatinine (0.66-1.25) mg/dL Glucose (74-99) mg/dL POC Glucose (mg/dL) 156 H (75-99) mg/dL Calcium (8.4-10.2) mg/dL Total Protein (6.3-8.2) g/dL Albumin (3.5-5.0) g/dL Microbiology - Last 24 Hours (Table) 11/20/19 17:03 Urine Culture - Final Urine,Voided Escherichia coli Assessment and Plan Plan: Assessment: 1. Acute kidney injury secondary to ATN secondary to acute blood loss anemia. Also concern for hepatorenal syndrome. Started on hemodialysis on November 20. Trace proteinuria on UA. No hydronephrosis noted on kidney ultrasound. 2. Metabolic acidosis secondary to acute kidney injury as well as lactic acidosis. Better. 3. Acute GI bleed. Status post 4 units of blood. Hemoglobin 7.9 today. S/p octreotide drip. Also received IV DDAVP on admission. He underwent EGD on November 20 with variceal ligation. 4. Hypervolemic hyponatremia. Stable. 5. Liver cirrhosis. 6. Volume overload. Improving with ultrafiltration. 7. Ascites status post paracentesis on November 19 with 12.2 L drained. He did receive albumin pre-and post procedure. Potentially another paracentesis today. Plan: Currently seen while undergoing hemodialysis. Another treatment tomorrow. Maintain IV Lasix 80 mg twice daily. Add Aldactone 25 mg twice daily. Continue midodrine 10 mg 3 times daily. To hold if systolic blood pressure greater than 120. Continue to monitor renal function and urine output. Monitor hemoglobin. I will give him 37.5 g of albumin pre-and post paracentesis.
[2019-11-23] MEDS ORDERED: ALBUMIN HUMAN 25% 50 ML in EMPTY BAG 1 BAG IVPB SCH ×2 (10:30→16:00)
[2019-11-23] MEDS: SPIRONOLACTONE 25 MG TAB PO SCH ×2 (11:30→21:48)
[2019-11-23 11:50] LABS: Glucose,Whole Blood 112 mg/dL (75-99)
[2019-11-23] MEDS: ALBUMIN HUMAN 25% 50 ML in EMPTY BAG 1 BAG IVPB SCH ×6 (12:38→17:14)
--- NOTE | 2019-11-23 12:39 | P.PN ---
Subjective Progress Note Date: 11/23/19 Principal diagnosis: GI bleeding Patient had a small cup of coffee ground emesis this morning. Is currently feeling okay. No significant pain, no shortness of breath. No fevers or chills. Currently undergoing dialysis. Objective - Vital Signs Vital signs: Vital Signs Temp 98.1 F 11/23/19 11:51 Pulse 53 L 11/23/19 07:00 Resp 18 11/23/19 11:51 BP 117/61 11/23/19 11:51 Pulse Ox 95 11/23/19 07:00 Intake & Output 11/22/19 11/23/19 11/23/19 18:59 06:59 18:59 Intake Total 590 Output Total 2480 480 2500 Balance -1890 -480 -2500 Weight 161.3 kg Intake: IV 50 cefTRIAXone 1 gm In 50 Sodium Chloride 0.9% 50 ml @ 100 mls/hr IVPB Q24HR [facility] Rx#:[id number] Oral 240 Hemodialysis 300 Output: Urine 180 480 Hemodialysis 2300 2500 Other: Voiding Method Indwelling Catheter Indwelling Catheter Indwelling Catheter - Exam General: ill appearing , no acute distress, appears at stated age, Obese Derm: no unusual rashes/lesions no unusual ecchymoses, warm, dry Head: atraumatic, normocephalic, symmetric Eyes: EOMI, no lid lag, anicteric sclera, pupils equal round reactive to light ENT: Nose and ears atraumatic, no thrush, no pharyngeal erythema Neck: No thyromegaly, no cervical lymphadenopathy, trachea midline, supple Mouth: no lip lesion, mucus membranes moist Cardiovascular: S1S2 reg, no murmur, positive posterior tibial pulse bilateral, 2+ pitting edema, capillary refill less than 2 seconds Lungs: Decreased bs bilateral, no rhonchi, no rales , no accessory muscle use Abdominal: soft, nontender to palpation, no guarding, no appreciable organomegaly, normal bowel sounds Ext: no gross muscle atrophy, muscle strength 4 out of 5 in all 4 extremities grossly, no contractures, Neuro: CN II-XI grossly intact, light touch intact all 4 extremities, Psych: Alert, oriented, appropriate affect - Labs CBC & Chem 7: 11/23/19 04:46 11/23/19 04:46 Labs: Abnormal Lab Results - Last 24 Hours (Table) 11/22/19 11/22/1911/21/20 Range/Units 12:36 17:08 20:41 RBC (4.30-5.90) m/uL Hgb (13.0-17.5) gm/dL Hct (39.0-53.0) % MCHC (31.0-37.0) g/dL RDW (11.5-15.5) % Plt Count (150-450) k/uL Lymphocytes # (1.0-4.8) k/uL PT (9.0-12.0) sec INR (<1.2) Sodium (137-145) mmol/L BUN (9-20) mg/dL Creatinine (0.66-1.25) mg/dL Glucose (74-99) mg/dL POC Glucose (mg/dL) 131 H 177 H 134 H (75-99) mg/dL Calcium (8.4-10.2) mg/dL Total Protein (6.3-8.2) g/dL Albumin (3.5-5.0) g/dL 11/23/19 11/23/19 11/23/19 Range/Units 04:46 04:46 04:46 RBC 2.67 L (4.30-5.90) m/uL Hgb 7.9 L (13.0-17.5) gm/dL Hct 25.9 L (39.0-53.0) % MCHC 30.5 L (31.0-37.0) g/dL RDW 16.1 H (11.5-15.5) % Plt Count 92 L (150-450) k/uL Lymphocytes # 0.6 L (1.0-4.8) k/uL PT 12.9 H (9.0-12.0) sec INR 1.3 H (<1.2) Sodium 131 L (137-145) mmol/L BUN 57 H (9-20) mg/dL Creatinine 5.47 H (0.66-1.25) mg/dL Glucose 133 H (74-99) mg/dL POC Glucose (mg/dL) (75-99) mg/dL Calcium 8.3 L (8.4-10.2) mg/dL Total Protein 5.9 L (6.3-8.2) g/dL Albumin 2.5 L (3.5-5.0) g/dL 11/23/19 11/23/19 Range/Units 07:02 11:48 RBC (4.30-5.90) m/uL Hgb (13.0-17.5) gm/dL Hct (39.0-53.0) % MCHC (31.0-37.0) g/dL RDW (11.5-15.5) % Plt Count (150-450) k/uL Lymphocytes # (1.0-4.8) k/uL PT (9.0-12.0) sec INR (<1.2) Sodium (137-145) mmol/L BUN (9-20) mg/dL Creatinine (0.66-1.25) mg/dL Glucose (74-99) mg/dL POC Glucose (mg/dL) 156 H 112 H (75-99) mg/dL Calcium (8.4-10.2) mg/dL Total Protein (6.3-8.2) g/dL Albumin (3.5-5.0) g/dL Microbiology - Last 24 Hours (Table) 11/20/19 17:03 Urine Culture - Final Urine,Voided Escherichia coli Assessment and Plan Plan: Decompensated hepatic cirrhosis, nonalcoholic -S/p paracentesis. Albumin given. -Continue lasix and aldactone Acute renal failure with anion gap metabolic acidosis and mild hyperkalemia -Possible abdominal compartment syndrome versus hepatorenal syndrome versus acute kidney injury secondary to prerenal causes such as acute blood loss -Started on dialysis as he got edematous and not making enough urine -Lasix -Ensure albumin prior to paracentesis -Avoid additional nephrotoxic agents- repeat BMP in AM Acute blood loss anemia likely secondary to GI bleed -IV Protonix twice daily, -EGD on 11/20, s/p banding of varices -Diet advanced -DDAVP given -Continue on Rocephin 1 g daily as prophylaxis -Monitor hgb daily. UTI On ceftriaxone as above Growing e.coli in the urine Diabetes mellitus type 2 -Sliding-scale insulin Surrogate decision-maker: Sister in law CODE STATUS:Full DVT prophylaxis: SCDs Discussed with: Patient, nursing, Anticipated discharge date: [address]: Home health VS SNF
--- NOTE | 2019-11-23 13:08 | P.PN ---
Subjective Progress Note Date: 11/23/19 Principal diagnosis: Severe ascites secondary to nonalcoholic hepatic cirrhosis This is a 58-year-old white male with history of nonalcoholic liver cirrhosis., Recent paracentesis on 11/03/19, this was done by interventional radiology, and 12.2 L of fluid was drained from the peritoneal cavity. Over the last few weeks, the patient has been gradually developing increased abdominal girth and abdominal distention. Patient was brought into the ER, and workup revealed a low hemoglobin of 5.9. Elevated BUN of 84. Creatinine 6.73, elevated lactic acid, hence the patient was advised to be admitted to the hospital, he will require blood transfusion, paracentesis and further workup of his nonalcoholic liver cirrhosis, I was asked to see the patient on consultation to admit to the intensive care unit. Patient is now scheduled for repeat paracentesis by interventional radiology, and he would be seen by gastroenterology for possible EGD. In the meantime I have recommended transfusing the patient to a hemoglobin of above 7. Patient has been complaining of black tarry stools and intermittent episodes of nausea and vomiting, but no hematemesis. Recent EGD on this patient showed this large esophageal varices, but no active bleeding. Patient was seen by a different consultants while in the ER, and he was placed on diuretics in the form of Aldactone and Lasix he will be seen by interventional radiology for paracentesis. Patient denies any shortness of breath, no cough, no wheezing. He does have some dyspnea on exertion only. Patient was reevaluated today on 11/21/19. Remains in the ICU, patient is awaiting placement of a dialysis catheter since nephrology is deciding to start hemodialysis on this patient. Patient is also scheduled to have EGD today. And that is yet to be done sometime later today. Since admission the patient received a total of 4 units of packed RBCs. And his hemoglobin this morning is 7.4. No issues related to bleeding overnight. Patient had his paracentesis done yesterday, and over 12 L of fluid were drained. The fluid seems to be transudate of in nature. Total protein is 1180. No significant WBC count as noted in the fluid, it is likely not infected. Clinically the patient is feeling better, he is quite pleased that the fluid was drained from his abdominal cavity, and he is to undergo hemodialysis later today. And scheduled to have EGD. Patient was reevaluated today on 11/23/19, remains in the ICU, patient is unde rgoing hemodialysis today. Since admission the patient received a total of 4 units of packed RBCs for upper GI bleeding. To be related to dysphagia varices, status post banding by gastroenterology. Patient is having recurrent ascites, and he may undergo another paracentesis today. The plan is to remove 2 L of fluid today from hemodialysis, and the plan is to have paracentesis again today. Already-kennedy the patient is doing well, denies any cough wheezing or shortness of breath. However the patient continues to have recurrent ascites, and clearly has underlying acute kidney injury requiring hemodialysis. Hemoglobin today is 7.9. BUN is 57 creatinine 5.47 Objective - Vital Signs Vital signs: Vital Signs Temp 98.1 F 11/23/19 11:51 Pulse 53 L 11/23/19 07:00 Resp 18 11/23/19 11:51 BP 117/61 11/23/19 11:51 Pulse Ox 95 11/23/19 07:00 Intake & Output 11/22/19 11/23/19 11/23/19 18:59 06:59 18:59 Intake Total 590 Output Total 2480 480 2500 Balance -1890 -480 -2500 Weight 161.3 kg Intake: IV 50 [id number] 1 gm In 50 Sodium Chloride 0.9% 50 ml @ 100 mls/hr IVPB Q24HR [facility] Rx#:[id number] Oral 240 Hemodialysis 300 Output: Urine 180 480 Hemodialysis 2300 2500 Other: Voiding Method Indwelling Catheter Indwelling Catheter Indwelling Catheter - Exam General appearance: The patient is alert, oriented, in no acute distress. Very pleasant person. On room air. HET: Head is normocephalic and atraumatic. Neck: Supple without lymphadenopathy. Trachea midline. Heart: S1 S2. Regular rate and rhythm. Lungs: No crackles or wheezes are heard. Abdomen: Soft, positive distention and ascites noted. Extremities: +2 bilateral lower extremity edema. Neurological: No focal deficits. Strength and sensation are grossly intact. Psychiatric: Normal mood, affect and normal mental status examination. - Labs CBC & Chem 7: 11/23/19 04:46 11/23/19 04:46 Labs: Abnormal Lab Results - Last 24 Hours (Table) 11/22/19 11/22/19 11/23/19 Range/Units 17:08 20:41 04:46 RBC 2.67 L (4.30-5.90) m/uL Hgb 7.9 L (13.0-17.5) gm/dL Hct 25.9 L (39.0-53.0) % MCHC 30.5 L (31.0-37.0) g/dL RDW 16.1 H (11.5-15.5) % Plt Count 92 L (150-450) k/uL Lymphocytes # 0.6 L (1.0-4.8) k/uL PT (9.0-12.0) sec INR (<1.2) Sodium (137-145) mmol/L BUN (9-20) mg/dL Creatinine (0.66-1.25) mg/dL Glucose (74-99) mg/dL POC Glucose (mg/dL) 177 H 134 H (75-99) mg/dL Calcium (8.4-10.2) mg/dL Total Protein (6.3-8.2) g/dL Albumin (3.5-5.0) g/dL 11/23/19 11/23/19 11/23/19 Range/Units 04:46 04:46 07:02 RBC (4.30-5.90) m/uL Hgb (13.0-17.5) gm/dL Hct (39.0-53.0) % MCHC (31.0-37.0) g/dL RDW (11.5-15.5) % Plt Count (150-450) k/uL Lymphocytes # (1.0-4.8) k/uL PT 12.9 H (9.0-12.0) sec INR 1.3 H (<1.2) Sodium 131 L (137-145) mmol/L BUN 57 H (9-20) mg/dL Creatinine 5.47 H (0.66-1.25) mg/dL Glucose 133 H (74-99) mg/dL POC Glucose (mg/dL) 156 H (75-99) mg/dL Calcium 8.3 L (8.4-10.2) mg/dL Total Protein 5.9 L (6.3-8.2) g/dL Albumin 2.5 L (3.5-5.0) g/dL 11/23/19 Range/Units 11:48 RBC (4.30-5.90) m/uL Hgb (13.0-17.5) gm/dL Hct (39.0-53.0) % MCHC (31.0-37.0) g/dL RDW (11.5-15.5) % Plt Count (150-450) k/uL Lymphocytes # (1.0-4.8) k/uL PT (9.0-12.0) sec INR (<1.2) Sodium (137-145) mmol/L BUN (9-20) mg/dL Creatinine (0.66-1.25) mg/dL Glucose (74-99) mg/dL POC Glucose (mg/dL) 112 H (75-99) mg/dL Calcium (8.4-10.2) mg/dL Total Protein (6.3-8.2) g/dL Albumin (3.5-5.0) g/dL Microbiology - Last 24 Hours (Table) 11/20/19 17:03 Urine Culture - Final Urine,Voided Escherichia coli Assessment and Plan Assessment: Impression: Severe ascites secondary to nonalcoholic hepatic cirrhosis. Anasarca secondary to above. Acute blood loss anemia suspect underlying upper GI bleeding, possibly esophageal varices. Awaiting EGD will be done today supposedly. Acute kidney injury, being addressed by nephrology. Patient is scheduled to start hemodialysis today. Type 2 diabetes. Recommendation: Continue diuretics, Continue hemodialysis. Continue Protonix. Patient is being considered for repeat paracentesis today. Continue Low-salt diet Avoid nephrotoxic agents. Continue to monitor hemoglobin while inpatient. Empiric antibiotics/Rocephin, Transfer to a regular medical floor once a bed is available. Time with Patient: Less than 30
--- NOTE | 2019-11-23 15:55 | US ---
Ultrasound-guided paracentesis. DATE OF EXAM: 11/23/2019 CLINICAL HISTORY: Massive ascites The procedure was discussed with the patient. The risks, complications, benefits, and alternatives we re discussed and any questions were answered. Informed consent was obtained. The patient was placed s upine on the ultrasound table and prepped and draped in the usual sterile fashion. All elements of maximal barrier technique were utilized. Under ultrasound guidance, access into the right lower quadrant was obtained, via the paracentesis catheter system and direct ultrasound guidanc e. Approximately 12 liters of straw-colored fluid was removed. The patient was stable throughout the pro cedure and remained stable upon discharge from Department of Radiology. IMPRESSION: Successful paracentesis under ultrasound guidance.
[2019-11-23 17:20] LABS: Glucose,Whole Blood 178 mg/dL (75-99)
[2019-11-23 20:48] LABS: Glucose,Whole Blood 151 mg/dL (75-99)
--- NOTE | 2019-11-23 21:05 | PN ---
PROGRESS NOTE DATE OF DICTATION: 11/23/2019 This patient is a 58-year-old pleasant white male admitted to the hospital with severe anemia, acute kidney injury and refractory ascites. The patient was transferred from the intensive care unit today. He was started on hemodialysis 2 days ago. He had his third session of dialysis this morning. He is feeling somewhat tired. He also had large-volume paracentesis today, and 12 L of fluid was removed. He had another paracentesis 3 days ago. He underwent an EGD with esophageal variceal ligation yesterday and has been doing well so far. No abdominal pain. No rectal bleeding or melena. PHYSICAL EXAMINATION: Appears comfortable. No apparent distress. Vital signs are stable. Blood pressure 93/55, pulse rate 51, temperature 97.1. HEENT examination unremarkable. Conjunctivae pink. Sclerae anicteric. Oral cavity no lesions. NECK: No JVD or lymph node enlargement. CHEST: Clear to auscultation. HEART: Regular rate and rhythm. ABDOMEN: Soft. It was slightly distended but was . EXTREMITIES: Two plus pedal edema. SKIN: No rashes. NEUROLOGIC: Alert and oriented x3. No focal deficits. LABS: Labs from today show WBC 6.7, hemoglobin 7.9, platelets 92,000. INR 1.3. BUN is down to 57, creatinine 5.47. IMPRESSION: 1. Severe symptomatic anemia with intermittent dark-colored stools, status post esophagogastroduodenoscopy 2 days ago that showed non-bleeding esophageal varices, for which he underwent variceal ligation. Hemoglobin remains stable. Received 4 units of PRBC transfusion. No active bleeding. 2. Acute kidney injury. Nephrology is following the patient closely. Possibility of ATN versus hepatorenal syndrome is being considered. He was started on hemodialysis 3 days ago. He is doing much better. 3. 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 4. Severe metabolic acidosis, improving. RECOMMENDATIONS: 1. Continue with diuretics as per Nephrology. 2. Monitor CBC on a close basis. 3. Continue Protonix daily. 4. Monitor LFTs. 5. Symptomatic supportive care. 6. Will follow with you closely. Thank you for this consultation. MMODL / IJN: [id number] /
[2019-11-24 07:22] LABS: Albumin 2.2 g/dL (3.5-5.0); Magnesium 2.1 mg/dL (1.6-2.3); Potassium 4.3 mmol/L (3.5-5.1); Total Bilirubin 1.1 mg/dL (0.2-1.3); Total Protein 5.5 g/dL (6.3-8.2)
[2019-11-24 07:27] LABS: Glucose,Whole Blood 155 mg/dL (75-99)
[2019-11-24 07:39] LABS: Anisocytosis Slight; Basophils % (A) 0 %; Eosinophils # (A) 0.1 k/uL (0-0.7); Eosinophils % (A) 2 %; HCT 25.8 % (39.0-53.0); Hypochromasia Marked; Lymphocytes # (A) 0.9 k/uL (1.0-4.8); Lymphocytes % (A) 14 %; MCH 29.8 pg (25.0-35.0); MCV 96.4 fL (80.0-100.0); Mean Platelet Volume 10.1; Monocytes # (A) 0.5 k/uL (0-1.0); Monocytes % (A) 8 %; Neutrophils # (A) 4.7 k/uL (1.3-7.7); Neutrophils % (A) 74 %; Poikilocytosis Slight; RBC 2.67 m/uL (4.30-5.90); RDW 16.3 % (11.5-15.5); WBC 6.3 k/uL (3.8-10.6)
[2019-11-24 07:42] LABS: Platelet Count 82 k/uL (150-450)
[2019-11-24] MEDS: INSULIN ASPART (NovoLOG) 100 UNIT/ML VIAL SQ SCH ×4 (07:51→21:36)
[2019-11-24] MEDS: PANTOPRAZOLE 40 MG/10 ML VIAL IVP SCH ×2 (07:52→21:36)
[2019-11-24] MEDS: SPIRONOLACTONE 25 MG TAB PO SCH ×2 (07:52→21:36)
[2019-11-24] MEDS: MIDODRINE 5 MG TAB PO SCH ×3 (08:10→17:34)
[2019-11-24] MEDS: FUROSEMIDE 10 MG/ML 10 ML VIAL IV SCH ×2 (11:00→21:37)
[2019-11-24 11:42] LABS: Glucose,Whole Blood 221 mg/dL (75-99)
--- NOTE | 2019-11-24 11:49 | P.PN ---
Subjective Patient is seen in follow for acute kidney injury. Denies vomiting or diarrhea. No active bleeding. Hemoglobin 8 today. No chest pain or shortness of breath. Urine output still on the lower side. He is maintained on IV Lasix 80 mg twice daily and Aldactone. Tolerated 2.5 L ultrafiltration yesterday. Underwent another paracentesis yesterday with 12 L drained. Vital signs are stable. General: The patient appeared well nourished and normally developed. HEENT: Head exam is unremarkable. Neck is without jugular venous distension. LUNGS: Lungs are clear to auscultation and percussion. Breath sounds decreased. HEART: Rate and Rhythm are regular. ABDOMEN: Soft, obese. Nontender. EXTREMITITES: 2+ edema. Objective - Vital Signs Vital signs: Vital Signs Temp 97 F L 11/24/19 05:00 Pulse 60 11/24/19 11:16 Resp 18 11/24/19 07:52 BP 91/45 11/24/19 11:16 Pulse Ox 97 11/24/19 05:00 Intake & Output 11/23/19 11/24/19 11/24/19 18:59 06:59 18:59 Intake Total 220 Output Total 2500 250 Balance -2500 -30 Weight 144.5 kg Intake: Oral 220 Output: Urine 250 Hemodialysis 2500 Other: Voiding Method Indwelling Catheter Indwelling Catheter Indwelling Catheter # Bowel Movements 1 1 - Labs CBC & Chem 7: 11/24/19 06:27 11/24/19 06:27 Labs: Abnormal Lab Results - Last 24 Hours (Table) 11/23/19 11/23/19 11/23/19 Range/Units 11:48 17:19 20:47 RBC (4.30-5.90) m/uL Hgb (13.0-17.5) gm/dL Hct (39.0-53.0) % RDW (11.5-15.5) % Plt Count (150-450) k/uL Lymphocytes # (1.0-4.8) k/uL Sodium (137-145) mmol/L BUN (9-20) mg/dL Creatinine (0.66-1.25) mg/dL Glucose (74-99) mg/dL POC Glucose (mg/dL) 112 H 178 H 151 H (75-99) mg/dL Calcium (8.4-10.2) mg/dL Phosphorus (2.5-4.5) mg/dL Total Protein (6.3-8.2) g/dL Albumin (3.5-5.0) g/dL 11/24/19 11/24/19 11/24/19 Range/Units 06:27 06:27 07:19 RBC 2.67 L (4.30-5.90) m/uL Hgb 8.0 L (13.0-17.5) gm/dL Hct 25.8 L (39.0-53.0) % RDW 16.3 H (11.5-15.5) % Plt Count 82 L (150-450) k/uL Lymphocytes # 0.9 L (1.0-4.8) k/uL Sodium 132 L (137-145) mmol/L BUN 49 H (9-20) mg/dL Creatinine 5.04 H (0.66-1.25) mg/dL Glucose 143 H (74-99) mg/dL POC Glucose (mg/dL) 155 H (75-99) mg/dL Calcium 8.0 L (8.4-10.2) mg/dL Phosphorus 5.0 H (2.5-4.5) mg/dL Total Protein 5.5 L (6.3-8.2) g/dL Albumin 2.2 L (3.5-5.0) g/dL 11/24/19 Range/Units 11:22 RBC (4.30-5.90) m/uL Hgb (13.0-17.5) gm/dL Hct (39.0-53.0) % RDW (11.5-15.5) % Plt Count (150-450) k/uL Lymphocytes # (1.0-4.8) k/uL Sodium (137-145) mmol/L BUN (9-20) mg/dL Creatinine (0.66-1.25) mg/dL Glucose (74-99) mg/dL POC Glucose (mg/dL) 221 H (75-99) mg/dL Calcium (8.4-10.2) mg/dL Phosphorus (2.5-4.5) mg/dL Total Protein (6.3-8.2) g/dL Albumin (3.5-5.0) g/dL Assessment and Plan Plan: Assessment: 1. Acute kidney injury secondary to ATN secondary to acute blood loss anemia. Also concern for hepatorenal syndrome. Started on hemodialysis on November 20. Trace proteinuria on UA. No hydronephrosis noted on kidney ultrasound. 2. Metabolic acidosis secondary to acute kidney injury as well as lactic acidosis. Better. 3. Acute GI bleed. Status post 4 units of blood. Hemoglobin 8 today. S/p octreotide drip. Also received IV DDAVP on admission. He underwent EGD on November 20 with variceal ligation. 4. Hypervolemic hyponatremia. Stable. 5. Liver cirrhosis. 6. Volume overload. Improving with ultrafiltration. 7. Ascites status post paracentesis on November 19 with 12.2 L drained. Another paracentesis done November 22 with 12 L drained. He did receive albumin pre-and post procedure. Plan: Hemodialysis today and again tomorrow mostly for ultrafiltration. Maintain IV Lasix 80 mg twice daily. Increase Aldactone to 50 mg twice daily. Continue midodrine 10 mg 3 times daily. To hold if systolic blood pressure greater than 120. Continue to monitor renal function and urine output. Monitor hemoglobin. If no improvement in his renal function and urine output over the weekend, will need a permacath placed and outpatient dialysis set up prior to discharge.
[2019-11-24] MEDS ORDERED: HEPARIN SODIUM,PORCINE 5,000 UNIT/ML 1 ML VIAL ONE (12:00)
[2019-11-24] MEDS ORDERED: MIDODRINE 5 MG TAB PO PRN (12:30)
--- NOTE | 2019-11-24 13:47 | P.PN ---
Subjective Progress Note Date: 11/24/19 Patient is doing well today. He does not have any specific complaints or concerns. No acute events overnight. He is scheduled for dialysis later today. Objective - Vital Signs Vital signs: Vital Signs Temp 97 F L 11/24/19 05:00 Pulse 60 11/24/19 11:16 Resp 18 11/24/19 07:52 BP 91/45 11/24/19 11:16 Pulse Ox 97 11/24/19 05:00 Intake & Output 11/23/19 11/24/19 11/24/19 18:59 06:59 18:59 Intake Total 220 Output Total 2500 250 Balance -2500 -30 Weight 144.5 kg Intake: Oral 220 Output: Urine 250 Hemodialysis 2500 Other: Voiding Method Indwelling Catheter Indwelling Catheter Indwelling Catheter # Bowel Movements 1 1 - Exam General: The patient is awake and alert, in no distress Eye: there is normal conjunctiva bilaterally. Neck: The neck is supple, there is no JVD. Cardiovascular: Normal S1-S2, no S3-S4, no murmurs. Respiratory: Lungs clear to auscultation bilaterally Gastrointestinal: Abdomen is soft, nontender Musculoskeletal: There is +2-3 pedal edema. Neurological:. Speech is normal. Skin: Skin is warm and dry - Labs CBC & Chem 7: 11/24/19 06:27 11/24/19 06:27 Labs: Abnormal Lab Results - Last 24 Hours (Table) 11/23/19 11/23/19 11/24/19 Range/Units 17:19 20:47 06:27 RBC 2.67 L (4.30-5.90) m/uL Hgb 8.0 L (13.0-17.5) gm/dL Hct 25.8 L (39.0-53.0) % RDW 16.3 H (11.5-15.5) % Plt Count 82 L (150-450) k/uL Lymphocytes # 0.9 L (1.0-4.8) k/uL Sodium (137-145) mmol/L BUN (9-20) mg/dL Creatinine (0.66-1.25) mg/dL Glucose (74-99) mg/dL POC Glucose (mg/dL) 178 H 151 H (75-99) mg/dL Calcium (8.4-10.2) mg/dL Phosphorus (2.5-4.5) mg/dL Total Protein (6.3-8.2) g/dL Albumin (3.5-5.0) g/dL 11/24/19 11/24/19 11/24/19 Range/Units 06:27 07:19 11:22 RBC (4.30-5.90) m/uL Hgb (13.0-17.5) gm/dL Hct (39.0-53.0) % RDW (11.5-15.5) % Plt Count (150-450) k/uL Lymphocytes # (1.0-4.8) k/uL Sodium 132 L (137-145) mmol/L BUN 49 H (9-20) mg/dL Creatinine 5.04 H (0.66-1.25) mg/dL Glucose 143 H (74-99) mg/dL POC Glucose (mg/dL) 155 H 221 H (75-99) mg/dL Calcium 8.0 L (8.4-10.2) mg/dL Phosphorus 5.0 H (2.5-4.5) mg/dL Total Protein 5.5 L (6.3-8.2) g/dL Albumin 2.2 L (3.5-5.0) g/dL Assessment and Plan Assessment: This is a 58-year-old male with complex past medical history noted below who presented to the emergency room with worsening abdominal distention and ascites. Patient was evaluated in the ER and admitted to the hospital for further management of his medical problems noted below. 1. Large ascites, secondary to underlying liver cirrhosis. Status post paracentesis on 11/20 with approximately 12 L of fluid removed. 2. Acute kidney injury requiring hemodialysis, nephrology following closely. Secondary to ATN, acute blood loss anemia, and possible hepatorenal syndrome. Currently on hemodialysis started on November 20. No hydronephrosis on kidney ultrasound. 3. Variceal bleed, seen and evaluated by GI. Status post EGD with variceal medication 4. Nonalcoholic liver cirrhosis 5. Acute blood loss anemia status post 4 units of blood transfusion during this admission. Hemoglobin currently stable. 6. Anasarca Discharge planning awaiting final recommendation from nephrology regarding dialysis and improvement of kidney function over the weekend.
[2019-11-24 17:23] LABS: Glucose,Whole Blood 138 mg/dL (75-99)
--- NOTE | 2019-11-24 19:35 | PN ---
PROGRESS NOTE DATE OF DICTATION: 11/24/2019 This patient is a 58-year-old pleasant white male admitted to the hospital with acute kidney injury/ATN, on hemodialysis that started 3-4 days ago. He also was noted to have severe anemia, underwent an EGD with variceal ligation. No active bleeding. He denies any symptoms. Overall he is feeling better. He complains of some fatigue and weakness. PHYSICAL EXAMINATION: Appears comfortable. No apparent distress. Vital signs are stable. Blood pressure 117/63, pulse rate 98, and temperature 97.8. HEENT examination unremarkable. Conjunctivae pink. Sclerae anicteric. Oral cavity no lesions. NECK: No JVD or lymph node enlargement. CHEST: Clear to auscultation. HEART: Regular rate and rhythm. ABDOMEN: Soft. Slightly distended. EXTREMITIES: No pedal edema. NEUROLOGIC: Alert and oriented x3. No focal deficits. LABS: Labs done from today show WBC 6.3, hemoglobin 8, platelets 82,000. BUN and creatinine have improved to 49 and 5.04, respectively. IMPRESSION: 1. 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 2. Refractory ascites, status post large-volume paracentesis x2. The last one was 2 days ago and 12 L of fluid was removed. 3. Acute kidney injury/acute tubular necrosis, on hemodialysis . 4. Severe symptomatic anemia, status post esophagogastroduodenoscopy with variceal ligation. No active bleeding. Hemoglobin remains stable. RECOMMENDATIONS: 1. Continue with symptomatic and supportive care. 2. Monitor CBC daily. 3. Continue broad-spectrum antibiotics. 4. Continue diuretics with Lasix and spironolactone as per Nephrology. Will follow with you closely. Thank you for this consultation. MMODL / IJN: [id number] /
[2019-11-24 21:05] LABS: Glucose,Whole Blood 167 mg/dL (75-99)
[2019-11-25 07:30] LABS: Glucose,Whole Blood 134 mg/dL (75-99)
[2019-11-25 07:41] LABS: Calcium 7.9 mg/dL (8.4-10.2); Magnesium 1.9 mg/dL (1.6-2.3); Potassium 3.7 mmol/L (3.5-5.1)
[2019-11-25] MEDS: FUROSEMIDE 10 MG/ML 10 ML VIAL IV SCH ×2 (08:13→21:46)
[2019-11-25] MEDS: INSULIN ASPART (NovoLOG) 100 UNIT/ML VIAL SQ SCH ×4 (08:13→21:47)
[2019-11-25] MEDS: SPIRONOLACTONE 25 MG TAB PO SCH ×2 (08:14→21:47)
[2019-11-25] MEDS: PANTOPRAZOLE 40 MG/10 ML VIAL IVP SCH ×2 (08:15→21:47)
[2019-11-25] MEDS: MIDODRINE 5 MG TAB PO SCH ×3 (11:06→17:17)
[2019-11-25] MEDS ORDERED: SENNOSIDES 8.6 MG TAB PO PRN (11:20)
[2019-11-25 12:40] LABS: Glucose,Whole Blood 186 mg/dL (75-99)
--- NOTE | 2019-11-25 14:29 | P.PN ---
Subjective Progress Note Date: 11/25/19 Follow-up for acute kidney injury on dialysis. Objective - Vital Signs Vital signs: Vital Signs Temp 97.7 F 11/25/19 12:45 Pulse 65 11/25/19 12:45 Resp 16 11/25/19 08:00 BP 110/67 11/25/19 12:35 Pulse Ox 98 11/25/19 07:49 Intake & Output 11/24/19 11/25/19 11/25/19 18:59 06:59 18:59 Output Total 2125 0 Balance -2125 0 Weight 145.8 kg Output: Urine 125 0 Uretheral ([place]) 25 Hemodialysis 1999 Other: Voiding Method Indwelling Catheter Indwelling Catheter Indwelling Catheter # Voids 0 0 - Exam No acute distress S1-S2 heard Decreased breath sounds Abdomen distended Edema - Labs CBC & Chem 7: 11/24/19 06:27 11/25/19 06:51 Labs: Abnormal Lab Results - Last 24 Hours (Table) 11/24/19 11/24/19 11/25/19 Range/Units 17:07 20:54 06:51 Sodium 135 L (137-145) mmol/L BUN 34 H (9-20) mg/dL Creatinine 4.46 H (0.66-1.25) mg/dL Glucose 148 H (74-99) mg/dL POC Glucose (mg/dL) 138 H 167 H (75-99) mg/dL Calcium 7.9 L (8.4-10.2) mg/dL 11/25/19 11/25/19 Range/Units 07:27 12:39 Sodium (137-145) mmol/L BUN (9-20) mg/dL Creatinine (0.66-1.25) mg/dL Glucose (74-99) mg/dL POC Glucose (mg/dL) 134 H 186 H (75-99) mg/dL Calcium (8.4-10.2) mg/dL Assessment and Plan Assessment: #1 oliguric acute kidney injury secondary to ischemic ATN with a concern for HRS #2 metabolic acidosis secondary to acute kidney injury and lactic acidosis #3 acute GI bleed status post PRBC #4 hypervolemic hyponatremia #5 decompensated liver disease #6 volume overload Plan: #1 hemodialysis today for ultrafiltration #2 continue with Lasix 80 mg twice a day and Aldactone 50 mg twice a day. #3 midodrine for hemodynamic support as #4 outpatient dialysis placement after permacath on Wednesday.
--- NOTE | 2019-11-25 15:53 | P.PN ---
Subjective Patient was getting dialysis this morning. There is no acute events overnight. He is feeling well. Objective - Vital Signs Vital signs: Vital Signs Temp 98.2 F 11/25/19 14:30 Pulse 60 11/25/19 15:35 Resp 20 11/25/19 15:35 BP 121/61 11/25/19 14:30 Pulse Ox 98 11/25/19 07:49 Intake & Output 11/24/19 11/25/19 11/25/19 18:59 06:59 18:59 Output Total 2124 3000 Balance -2124 -2999 Weight 145.8 kg Output: Urine 125 0 Uretheral ([place]) 25 Hemodialysis 1999 3000 Other: Voiding Method Indwelling Catheter Indwelling Catheter Indwelling Catheter # Voids 0 0 - Exam General: The patient is awake and alert, in no distress Eye: there is normal conjunctiva bilaterally. Neck: The neck is supple, there is no JVD. Cardiovascular: Normal S1-S2, no S3-S4, no murmurs. Respiratory: Lungs clear to auscultation bilaterally Gastrointestinal: Abdomen is soft, nontender Musculoskeletal: There is +2-3 pedal edema. Neurological:. Speech is normal. Skin: Skin is warm and dry - Labs CBC & Chem 7: 11/24/19 06:27 11/25/19 06:51 Labs: Abnormal Lab Results - Last 24 Hours (Table) 11/24/19 11/24/19 11/25/19 Range/Units 17:07 20:54 06:51 Sodium 135 L (137-145) mmol/L BUN 34 H (9-20) mg/dL Creatinine 4.46 H (0.66-1.25) mg/dL Glucose 148 H (74-99) mg/dL POC Glucose (mg/dL) 138 H 167 H (75-99) mg/dL Calcium 7.9 L (8.4-10.2) mg/dL 11/25/19 11/25/19 Range/Units 07:27 12:39 Sodium (137-145) mmol/L BUN (9-20) mg/dL Creatinine (0.66-1.25) mg/dL Glucose (74-99) mg/dL POC Glucose (mg/dL) 134 H 186 H (75-99) mg/dL Calcium (8.4-10.2) mg/dL Assessment and Plan Assessment: This is a 58-year-old male with complex past medical history noted below who presented to the emergency room with worsening abdominal distention and ascites. Patient was evaluated in the ER and admitted to the hospital for further management of his medical problems noted below. 1. Large ascites, secondary to underlying liver cirrhosis. Status post paracentesis on 11/20 with approximately 12 L of fluid removed. 2. Acute kidney injury requiring hemodialysis, nephrology following closely. Secondary to ATN, acute blood loss anemia, and possible hepatorenal syndrome. Currently on hemodialysis started on November 20. No hydronephrosis on kidney ultrasound. 3. Variceal bleed, seen and evaluated by GI. Status post EGD with variceal medication 4. Nonalcoholic liver cirrhosis 5. Acute blood loss anemia status post 4 units of blood transfusion during this admission. Hemoglobin currently stable. 6. Anasarca Discharge planning awaiting final recommendation from nephrology regarding dialysis and improvement of kidney function over the weekend.
--- NOTE | 2019-11-25 16:52 | PN ---
PROGRESS NOTE DATE OF SERVICE: 11/25/2019 The patient is a 59-year-old pleasant white male with history of cirrhosis of the liver, admitted to the hospital with acute kidney injury and worsening BUN and creatinine as well as severe refractory ascites, undergoing hemodialysis that was started 5 days ago. He also is status post large-volume paracentesis x2. Since admission, he is feeling much better. He reports no new symptoms. No abdominal pain. No nausea, vomiting. PHYSICAL EXAMINATION: Blood pressure is 133/61, pulse rate 60, temperature 98.2. HEENT examination unremarkable. Conjunctivae pink. Sclerae anicteric. Oral cavity, no lesions. NECK: No JVD or lymph node enlargement. CHEST: Clear to auscultation. HEART: Regular rate and rhythm. ABDOMEN: Slightly distended but very soft. Bowel sounds are positive. No organomegaly. EXTREMITIES: No pedal edema. SKIN; No rashes. NEUROLOGIC: Alert and oriented x3. No focal deficits. LAB: BUN is 34, creatinine 4.46. IMPRESSION: 1. Acute renal failure, acute kidney injury secondary to acute tubular necrosis/hepatorenal syndrome. Patient started on dialysis 5 days ago. He is doing much better. 2. Refractory ascites status post large-volume paracentesis x2 over the last 5 days. 3. Anemia status post 4 units of PRBC transfusion. EGD with variceal banding performed 3 days ago. Hemoglobin stable. 4. Nonalcoholic cirrhosis of the liver with gradual decompensation. RECOMMENDATION: 1. Continue with symptomatic and supportive care. 2. Continue dialysis. 3. Monitor labs on a daily basis. 4. Continue diuretics as per Nephrology. 5. Protonix 40 mg q.12 hours. We will follow with you closely. Thank you for this consultation. MMODL / IJN: [id number] /
[2019-11-25 17:01] LABS: Glucose,Whole Blood 140 mg/dL (75-99)
[2019-11-25 20:09] LABS: Glucose,Whole Blood 210 mg/dL (75-99)
[2019-11-26 07:09] LABS: Glucose,Whole Blood 173 mg/dL (75-99)
[2019-11-26 07:16] LABS: Anisocytosis Slight; Basophils % (A) 1 %; Eosinophils # (A) 0.1 k/uL (0-0.7); Eosinophils % (A) 3 %; HCT 25.9 % (39.0-53.0); HGB 8.1 gm/dL (13.0-17.5); Hypochromasia Marked; Lymphocytes # (A) 0.8 k/uL (1.0-4.8); Lymphocytes % (A) 20 %; MCH 30.4 pg (25.0-35.0); MCHC 31.3 g/dL (31.0-37.0); MCV 97.1 fL (80.0-100.0); Macrocytosis Slight; Monocytes # (A) 0.4 k/uL (0-1.0); Monocytes % (A) 9 %; Neutrophils # (A) 2.5 k/uL (1.3-7.7); Neutrophils % (A) 64 %; Poikilocytosis Slight; RBC 2.67 m/uL (4.30-5.90); WBC 3.8 k/uL (3.8-10.6)
[2019-11-26 07:18] LABS: Platelet Count 49 k/uL (150-450)
[2019-11-26 07:24] LABS: Calcium 7.9 mg/dL (8.4-10.2)
[2019-11-26 07:40] LABS: Potassium 4.1 mmol/L (3.5-5.1)
[2019-11-26] MEDS: INSULIN ASPART (NovoLOG) 100 UNIT/ML VIAL SQ SCH ×4 (09:22→20:29)
[2019-11-26] MEDS: MIDODRINE 5 MG TAB PO SCH ×3 (09:23→17:40)
[2019-11-26] MEDS: SPIRONOLACTONE 25 MG TAB PO SCH ×2 (09:23→20:29)
[2019-11-26] MEDS: PANTOPRAZOLE 40 MG/10 ML VIAL IVP SCH ×2 (09:23→20:29)
[2019-11-26] MEDS: FUROSEMIDE 10 MG/ML 10 ML VIAL IV SCH ×2 (09:24→20:51)
[2019-11-26 11:18] LABS: Glucose,Whole Blood 213 mg/dL (75-99)
--- NOTE | 2019-11-26 13:12 | P.PN ---
Subjective Patient is doing well today. There is no acute events overnight. Objective - Vital Signs Vital signs: Vital Signs Temp 98.1 F 11/26/19 11:16 Pulse 71 11/26/19 11:16 Resp 16 11/26/19 11:16 BP 93/52 11/26/19 11:16 Pulse Ox 100 11/26/19 11:16 Intake & Output 11/25/19 11/26/19 11/26/19 18:59 06:59 18:59 Intake Total 240 500 Output Total 3000 75 Balance -2760 425 Weight 145.8 kg 147 kg Intake: Oral 240 500 Output: Urine 0 75 Hemodialysis 3000 Other: Voiding Method Indwelling Catheter Indwelling Catheter Indwelling Catheter # Voids 0 - Exam General: The patient is awake and alert, in no distress Eye: there is normal conjunctiva bilaterally. Neck: The neck is supple, there is no JVD. Cardiovascular: Normal S1-S2, no S3-S4, no murmurs. Respiratory: Lungs clear to auscultation bilaterally Gastrointestinal: Abdomen is soft, nontender Musculoskeletal: There is +2-3 pedal edema. Neurological:. Speech is normal. Skin: Skin is warm and dry - Labs CBC & Chem 7: 11/26/19 06:24 11/26/19 06:24 Labs: Abnormal Lab Results - Last 24 Hours (Table) 11/25/19 11/25/19 11/26/19 Range/Units 16:57 19:57 06:24 RBC 2.67 L (4.30-5.90) m/uL Hgb 8.1 L (13.0-17.5) gm/dL Hct 25.9 L (39.0-53.0) % RDW 17.0 H (11.5-15.5) % Plt Count 49 L (150-450) k/uL Lymphocytes # 0.8 L (1.0-4.8) k/uL Sodium (137-145) mmol/L BUN (9-20) mg/dL Creatinine (0.66-1.25) mg/dL Glucose (74-99) mg/dL POC Glucose (mg/dL) 140 H 210 H (75-99) mg/dL Calcium (8.4-10.2) mg/dL 11/26/19 11/26/19 11/26/19 Range/Units 06:24 07:08 11:16 RBC (4.30-5.90) m/uL Hgb (13.0-17.5) gm/dL Hct (39.0-53.0) % RDW (11.5-15.5) % Plt Count (150-450) k/uL Lymphocytes # (1.0-4.8) k/uL Sodium 132 L (137-145) mmol/L BUN 32 H (9-20) mg/dL Creatinine 4.32 H (0.66-1.25) mg/dL Glucose 156 H (74-99) mg/dL POC Glucose (mg/dL) 173 H 213 H (75-99) mg/dL Calcium 7.9 L (8.4-10.2) mg/dL Assessment and Plan Assessment: This is a 58-year-old male with complex past medical history noted below who presented to the emergency room with worsening abdominal distention and ascites. Patient was evaluated in the ER and admitted to the hospital for further management of his medical problems noted below. 1. Large ascites, secondary to underlying liver cirrhosis. Status post paracentesis on 11/20 with approximately 12 L of fluid removed. 2. Acute kidney injury requiring hemodialysis, nephrology following closely. Secondary to ATN, acute blood loss anemia, and possible hepatorenal syndrome. Currently on hemodialysis started on November 20. No hydronephrosis on kidney ultrasound. 3. Variceal bleed, seen and evaluated by GI. Status post EGD with variceal medication 4. Nonalcoholic liver cirrhosis 5. Acute blood loss anemia status post 4 units of blood transfusion during this admission. Hemoglobin currently stable. 6. Anasarca Discharge planning awaiting final recommendation from nephrology regarding dialysis and improvement of kidney function over the weekend.
--- NOTE | 2019-11-26 14:06 | P.PN ---
Subjective Progress Note Date: 11/26/19 Follow-up for acute kidney injury on dialysis. Objective - Vital Signs Vital signs: Vital Signs Temp 98.1 F 11/26/19 11:16 Pulse 71 11/26/19 11:16 Resp 16 11/26/19 11:16 BP 93/52 11/26/19 11:16 Pulse Ox 100 11/26/19 11:16 Intake & Output 11/25/19 11/26/19 11/26/19 18:59 06:59 18:59 Intake Total 240 500 Output Total 3000 75 Balance -2760 425 Weight 145.8 kg 147 kg Intake: Oral 240 500 Output: Urine 0 75 Hemodialysis 3000 Other: Voiding Method Indwelling Catheter Indwelling Catheter Indwelling Catheter # Voids 0 - Exam No acute distress S1-S2 heard Decreased breath sounds Abdomen distended Edema - Labs CBC & Chem 7: 11/26/19 06:24 11/26/19 06:24 Labs: Abnormal Lab Results - Last 24 Hours (Table) 11/25/19 11/25/19 11/26/19 Range/Units 16:57 19:57 06:24 RBC 2.67 L (4.30-5.90) m/uL Hgb 8.1 L (13.0-17.5) gm/dL Hct 25.9 L (39.0-53.0) % RDW 17.0 H (11.5-15.5) % Plt Count 49 L (150-450) k/uL Lymphocytes # 0.8 L (1.0-4.8) k/uL Sodium (137-145) mmol/L BUN (9-20) mg/dL Creatinine (0.66-1.25) mg/dL Glucose (74-99) mg/dL POC Glucose (mg/dL) 140 H 210 H (75-99) mg/dL Calcium (8.4-10.2) mg/dL 11/26/19 11/26/19 11/26/19 Range/Units 06:24 07:08 11:16 RBC (4.30-5.90) m/uL Hgb (13.0-17.5) gm/dL Hct (39.0-53.0) % RDW (11.5-15.5) % Plt Count (150-450) k/uL Lymphocytes # (1.0-4.8) k/uL Sodium 132 L (137-145) mmol/L BUN 32 H (9-20) mg/dL Creatinine 4.32 H (0.66-1.25) mg/dL Glucose 156 H (74-99) mg/dL POC Glucose (mg/dL) 173 H 213 H (75-99) mg/dL Calcium 7.9 L (8.4-10.2) mg/dL Assessment and Plan Assessment: #1 oliguric acute kidney injury secondary to ischemic ATN with a concern for HRS #2 metabolic acidosis secondary to acute kidney injury and lactic acidosis #3 acute GI bleed status post PRBC #4 hypervolemic hyponatremia #5 decompensated liver disease #6 volume overload Plan: #1 hemodialysis Yesterday for ultrafiltration plan again tomorrow. #2 continue with Lasix 80 mg twice a day and Aldactone 50 mg twice a day. #3 midodrine for hemodynamic support as #4 outpatient dialysis placement after permacath on Wednesday.
--- NOTE | 2019-11-26 17:06 | PN ---
PROGRESS NOTE DATE OF DICTATION: November 26, 2019 Patient is a 59 -year-old white male with history of advanced liver disease with non- alcoholic cirrhosis of the liver, portal hypertension, refractory ascites and acute kidney injury who was started on dialysis a week ago. Patient doing much better. He had 2 episodes of large volume paracentesis performed in the last one week and total of 24 L of fluid was removed. He denies any abdominal pain. No nausea, vomiting. Overall, he is feeling much better. PHYSICAL EXAMINATION: Vital signs are stable. Blood pressure is 112/82, pulse rate 88, afebrile. HEENT examination unremarkable. Conjunctivae pink. Sclerae anicteric. Oral cavity no lesions. NECK: No JVD or lymph node enlargement. CHEST: Clear to auscultation. HEART: Regular rate and rhythm. ABDOMEN: Soft. No free fluid noted. EXTREMITIES no pedal edema. SKIN no rashes. NEUROLOGIC: Alert and oriented x3. No focal deficits. LABS: WBC 2.8, hemoglobin 8.1, platelets 49,000. BUN 34, creatinine 4.32. IMPRESSION: 1. Non-alcoholic cirrhosis of the liver with portal hypertension and refractory ascites, gradual decompensation. LFTs are stable. 2. Acute kidney injury/acute tubular necrosis/hepatorenal syndrome on hemodialysis, doing much better. 3. History of morbid obesity. 4. Severe anemia, status post EGD with variceal ligation. No active bleeding currently. 5. Hyponatremia. RECOMMENDATIONS: 1. Continue with symptomatic and supportive care. 2. Continue dose of IV diuretics as per Nephrology. 3. Monitor CBC daily. 4. If the patient is discharged home tomorrow, he was advised to follow up on an outpatient basis in 2 weeks. Thank you for this consultation. MMODL / IJN: [id number] /
[2019-11-26 17:18] LABS: Glucose,Whole Blood 175 mg/dL (75-99)
[2019-11-26 19:34] LABS: Glucose,Whole Blood 144 mg/dL (75-99)
[2019-11-27 07:35] LABS: Glucose,Whole Blood 184 mg/dL (75-99)
[2019-11-27 08:04] LABS: Calcium 7.9 mg/dL (8.4-10.2); Potassium 4.1 mmol/L (3.5-5.1)
[2019-11-27 08:28] LABS: Anisocytosis Slight; Basophils % (A) 1 %; Eosinophils # (A) 0.2 k/uL (0-0.7); Eosinophils % (A) 4 %; HCT 23.7 % (39.0-53.0); HGB 7.3 gm/dL (13.0-17.5); Hypochromasia Marked; Lymphocytes # (A) 0.6 k/uL (1.0-4.8); Lymphocytes % (A) 16 %; MCH 30.1 pg (25.0-35.0); MCV 97.3 fL (80.0-100.0); Macrocytosis Slight; Mean Platelet Volume 9.6; Monocytes # (A) 0.4 k/uL (0-1.0); Monocytes % (A) 10 %; Neutrophils # (A) 2.3 k/uL (1.3-7.7); Neutrophils % (A) 67 %; Poikilocytosis Slight; RBC 2.43 m/uL (4.30-5.90); RDW 16.9 % (11.5-15.5); WBC 3.4 k/uL (3.8-10.6)
[2019-11-27] MEDS: FUROSEMIDE 10 MG/ML 10 ML VIAL IV SCH ×2 (08:31→20:46)
[2019-11-27] MEDS: PANTOPRAZOLE 40 MG/10 ML VIAL IVP SCH ×2 (08:35→20:46)
[2019-11-27] MEDS: INSULIN ASPART (NovoLOG) 100 UNIT/ML VIAL SQ SCH ×4 (08:35→20:45)
[2019-11-27 08:36] LABS: Platelet Count 40 k/uL (150-450)
[2019-11-27] MEDS: SPIRONOLACTONE 25 MG TAB PO SCH ×2 (08:37→20:46)
[2019-11-27] MEDS: MIDODRINE 5 MG TAB PO SCH ×3 (08:38→18:23)
--- NOTE | 2019-11-27 11:09 | P.PN ---
Subjective Patient is doing well today. There is no acute events overnight. Objective - Vital Signs Vital signs: Vital Signs Temp 97.6 F 11/27/19 05:45 Pulse 70 11/27/19 05:45 Resp 16 11/27/19 05:45 BP 100/62 11/27/19 05:45 Pulse Ox 96 11/27/19 05:45 Intake & Output 11/26/19 11/27/19 11/27/19 18:59 06:59 18:59 Intake Total 340 200 Output Total 225 100 Balance 115 100 Weight 149 kg Intake: IV 100 cefTRIAXone 1 gm In 100 Sodium Chloride 0.9% 50 ml @ 100 mls/hr IVPB Q24HR [facility] Rx#:[id number] Oral 240 200 Output: Urine 225 100 Other: Voiding Method Indwelling Catheter Indwelling Catheter # Voids 0 - Exam General: The patient is awake and alert, in no distress Eye: there is normal conjunctiva bilaterally. Neck: The neck is supple, there is no JVD. Cardiovascular: Normal S1-S2, no S3-S4, no murmurs. Respiratory: Lungs clear to auscultation bilaterally Gastrointestinal: Abdomen is soft, nontender Musculoskeletal: There is +2-3 pedal edema. Neurological:. Speech is normal. Skin: Skin is warm and dry - Labs CBC & Chem 7: 11/27/19 07:27 11/27/19 07:27 Labs: Abnormal Lab Results - Last 24 Hours (Table) 11/26/19 11/26/19 11/26/19 Range/Units 11:16 17:17 19:32 WBC (3.8-10.6) k/uL RBC (4.30-5.90) m/uL Hgb (13.0-17.5) gm/dL Hct (39.0-53.0) % RDW (11.5-15.5) % Plt Count (150-450) k/uL Lymphocytes # (1.0-4.8) k/uL Sodium (137-145) mmol/L BUN (9-20) mg/dL Creatinine (0.66-1.25) mg/dL Glucose (74-99) mg/dL POC Glucose (mg/dL) 213 H 175 H 144 H (75-99) mg/dL Calcium (8.4-10.2) mg/dL 0611/27/19 11/27/19 Range/Units 07:27 07:27 07:34 WBC 3.4 L (3.8-10.6) k/uL RBC 2.43 L (4.30-5.90) m/uL Hgb 7.3 L (13.0-17.5) gm/dL Hct 23.7 L (39.0-53.0) % RDW 16.9 H (11.5-15.5) % Plt Count 40 L (150-450) k/uL Lymphocytes # 0.6 L (1.0-4.8) k/uL Sodium 132 L (137-145) mmol/L BUN 39 H (9-20) mg/dL Creatinine 5.39 H (0.66-1.25) mg/dL Glucose 163 H (74-99) mg/dL POC Glucose (mg/dL) 184 H (75-99) mg/dL Calcium 7.9 L (8.4-10.2) mg/dL Assessment and Plan Assessment: This is a 58-year-old male with complex past medical history noted below who presented to the emergency room with worsening abdominal distention and ascites. Patient was evaluated in the ER and admitted to the hospital for further management of his medical problems noted below. 1. Large ascites, secondary to underlying liver cirrhosis. Status post paracentesis on 11/20 with approximately 12 L of fluid removed. 2. Acute kidney injury requiring hemodialysis, nephrology following closely. Secondary to ATN, acute blood loss anemia, and possible hepatorenal syndrome. Currently on hemodialysis started on November 20. No hydronephrosis on kidney ultrasound. 3. Variceal bleed, seen and evaluated by GI. Status post EGD with variceal medication 4. Nonalcoholic liver cirrhosis 5. Acute blood loss anemia status post 4 units of blood transfusion during this admission. Hemoglobin currently stable. 6. Anasarca Discharge planning tomorrow. Plan for them dialysis catheter today and dialysis treatment.
[2019-11-27 12:22] LABS: Glucose,Whole Blood 152 mg/dL (75-99)
[2019-11-27 14:32] VITALS: BMI 44.5
[2019-11-27] MEDS ORDERED: SODIUM CHLORIDE 0.9% 250 ML IV ONE (16:05)
[2019-11-27] MEDS ORDERED: MIDAZOLAM 2 MG/2 ML VIAL IV ONE ×2 (16:05→16:15)
[2019-11-27] MEDS ORDERED: fentaNYL (PF) 50 MCG/ML 2 ML AMP IV ONE (16:05)
[2019-11-27] MEDS: fentaNYL (PF) 50 MCG/ML 2 ML AMP IV ONE ×2 (16:15→16:30)
[2019-11-27] MEDS ORDERED: LIDOCAINE 1% INJ 10MG/ML (20 ML MDV) SQ ONE (16:17)
--- NOTE | 2019-11-27 17:30 | IR ---
Fluoroscopy HISTORY: Dialysis catheter placement 0.6 minutes fluoroscopy time supplied to the referring clinician. 393 intraoperative C-arm images do cument the procedure. See dictated report from vascular surgery.
--- NOTE | 2019-11-27 17:37 | XR ---
EXAMINATION TYPE: XR chest 1V confirm line cox monett DATE OF EXAM: 11/27/2019 COMPARISON: Prior chest 11/20/2019 HISTORY: Status post central venous catheter placement TECHNIQUE: frontal view of the chest is obtained on 2 images. FINDINGS: There is been placement of a right jugular fissure venous catheter, distal tip is overlyin g the right atrial caval junction. There is no pneumothorax or pleural effusion. Heart size is stable . IMPRESSION: No evident complication status post central venous catheter placement.
[2019-11-27 18:02] LABS: Glucose,Whole Blood 160 mg/dL (75-99)
--- NOTE | 2019-11-27 18:27 | PN ---
PROGRESS NOTE The patient is seen for followup for acute kidney injury, currently hemodialysis dependent. The patient was being dialyzed. However, his catheter was not working. Therefore, he was taken off the machine. He is scheduled for PermCath placement today. This is a left femoral catheter. He will continue with outpatient dialysis. Serum creatinine remains at around 5 mg/dL. Previous creatinine was as low as 1.19 in August of 2019. The patient has good urine output. The patient has fair urine. He currently has an indwelling Argueta catheter and 24 hour output is only about 325 mL. PHYSICAL EXAMINATION: On examination today, blood pressure was 125/68, heart rate 68 per minute. He is afebrile. Examination of the heart S1, S2. Examination of the lungs, decreased breath sounds at bases. Abdomen is morbidly obese, soft, nontender. Examination of lower extremities edema 1+ bilaterally. [employer] exam grossly intact. LABS: Show sodium 132, potassium 4.1, chloride 100, CO2 is 24, hemoglobin 7.3 g/dL. ASSESSMENT: 1. Acute kidney injury, possible hepatorenal versus acute tubular necrosis currently oliguric currently with an indwelling Argueta catheter and dialysis dependent. The patient is scheduled for hemodialysis as outpatient. 2. Metabolic acidosis from renal failure as well as lactic acidosis. 3. Acute gastrointestinal bleed, status post packed RBCs transfusion. 4. Decompensated liver disease. 5. Volume overload currently improved. PLAN: Continue with Lasix. We will arrange for hemodialysis in a.m. after his IJ PermCath is placed and we will DC his left femoral catheter. MMODL / IJN: [id number] /
[2019-11-27 20:38] LABS: Glucose,Whole Blood 166 mg/dL (75-99)
--- NOTE | 2019-11-28 01:31 | PCN ---
PROCEDURE NOTE PREOPERATIVE DIAGNOSIS: Acute chronic renal failure. OPERATIONS: 1. Ultrasound-guided 23 cm dialysis catheter right jugular approach. 2. Removal of the left femoral catheter. SEDATION TIME: 25 minutes. DESCRIPTION OF PROCEDURE: The patient was brought to the labor delivery rn. Right side of the neck and chest was prepped and draped in the usual sterile manner. Ultrasound-guided micropuncture needle introduced in the right jugular vein. Micropuncture guidewire was passed and 4-Frisian dilator advanced on top of the guidewire. After that incision was made in the chest wall. A tunnel created. Through the tunnel we brought the 23 cm dialysis catheter at the neck area. After that, dilator was advanced on the top of the guidewire under fluoroscopy control, then we placed a sheath on top of the guidewire. Through the sheath we introduced the dialysis catheter. Sheath was removed. Tip of the catheter in superior vena cava and atrial junction, flushed with heparin saline and hep-locked. Then left groin incision was prepped and stitches were removed. Left femoral catheter was removed. Pressure applied. Patient tolerated the procedure well. MMODL / IJN: [id number] /
[2019-11-28 07:03] LABS: Glucose,Whole Blood 171 mg/dL (75-99)
--- NOTE | 2019-11-28 08:15 | P.PN ---
Subjective Progress Note Date: 11/27/19 Principal diagnosis: Nonalcoholic cirrhosis of the liver, portal hypertension, refractory ascites Patient is seen lying in bed reporting that he is feeling better. No nausea, vomiting or abdominal pain. He is status post catheter placement for hemodialysis. Objective - Vital Signs Vital signs: Vital Signs Temp 97.7 F 11/27/19 13:00 Pulse 60 11/27/19 13:00 Resp 16 11/27/19 13:00 BP 106/56 11/27/19 13:00 Pulse Ox 98 11/27/19 13:00 Intake & Output 11/26/19 11/27/19 11/27/19 18:59 06:59 18:59 Intake Total 340 200 Output Total 225 100 0 Balance 115 100 0 Weight 149 kg 149 kg Intake: IV 100 cefTRIAXone 1 gm In 100 Sodium Chloride 0.9% 50 ml @ 100 mls/hr IVPB Q24HR [facility] Rx#:[id number] Oral 240 200 Output: Urine 225 100 Hemodialysis 0 Other: Voiding Method Indwelling Catheter Indwelling Catheter Indwelling Catheter # Voids 0 - Exam On physical examination, patient appears comfortable in no apparent distress. HEAD: Normocephalic, atraumatic. EYES: No scleral icterus. No conjunctival injection. MOUTH: No lesions, tongue midline. NECK: Trachea midline, no gross abnormalities, status post catheter placement. ABDOMEN: Soft, obese, mildly distended. Bowel sounds are positive. No organomegaly. No guarding or rigidity. EXTREMITIES: Bilateral pedal edema. SKIN: No rashes, no jaundice. NEUROLOGIC: Alert and oriented x3. No focal deficits. - Labs CBC & Chem 7: 11/27/19 07:27 11/27/19 07:27 Labs: Abnormal Lab Results - Last 24 Hours (Table) 11/26/19 11/26/19 11/27/19 Range/Units 17:17 19:32 07:27 WBC 3.4 L (3.8-10.6) k/uL RBC 2.43 L (4.30-5.90) m/uL Hgb 7.3 L (13.0-17.5) gm/dL Hct 23.7 L (39.0-53.0) % RDW 16.9 H (11.5-15.5) % Plt Count 40 L (150-450) k/uL Lymphocytes # 0.6 L (1.0-4.8) k/uL Sodium (137-145) mmol/L BUN (9-20) mg/dL Creatinine (0.66-1.25) mg/dL Glucose (74-99) mg/dL POC Glucose (mg/dL) 175 H 144 H (75-99) mg/dL Calcium (8.4-10.2) mg/dL 11/27/19 11/27/19 11/27/19 Range/Units 07:27 07:34 12:18 WBC (3.8-10.6) k/uL RBC (4.30-5.90) m/uL Hgb (13.0-17.5) gm/dL Hct (39.0-53.0) % RDW (11.5-15.5) % Plt Count (150-450) k/uL Lymphocytes # (1.0-4.8) k/uL Sodium 132 L (137-145) mmol/L BUN 39 H (9-20) mg/dL Creatinine 5.39 H (0.66-1.25) mg/dL Glucose 163 H (74-99) mg/dL POC Glucose (mg/dL) 184 H 152 H (75-99) mg/dL Calcium 7.9 L (8.4-10.2) mg/dL Assessment and Plan (1) Cirrhosis Narrative/Plan: 59-year-old male with medical history significant for decompensated nonalcoholic cirrhosis of the liver with ascites and portal hypertension. The ascites has been refractory with patient requiring large-volume paracentesis. Currently he is doing well with no acute complaints. Current Visit: Yes Status: Acute Code(s): K74.60 - UNSPECIFIED CIRRHOSIS OF LIVER SNOMED Code(s): 19796678 (2) Ascites Current Visit: Yes Status: Acute Code(s): R18.8 - OTHER ASCITES SNOMED Code(s): 684308806 Plan: Supportive care Okay for sodium restricted diet Continue IV diuretics per nephrology service Continue to monitor CBC, CMP, INR Follow-up with gastroenterology after discharge with consideration for referral to tertiary center for evaluation of transplant Achy for allowing us to participate in the care of the patient
[2019-11-28 08:43] LABS: Anisocytosis Slight; Basophils % (A) 1 %; Eosinophils # (A) 0.1 k/uL (0-0.7); Eosinophils % (A) 3 %; HGB 7.4 gm/dL (13.0-17.5); Hypochromasia Marked; Lymphocytes # (A) 0.6 k/uL (1.0-4.8); Lymphocytes % (A) 17 %; MCH 30.1 pg (25.0-35.0); MCHC 30.9 g/dL (31.0-37.0); MCV 97.6 fL (80.0-100.0); Macrocytosis Slight; Mean Platelet Volume 9.9; Monocytes # (A) 0.4 k/uL (0-1.0); Monocytes % (A) 10 %; Neutrophils # (A) 2.4 k/uL (1.3-7.7); Neutrophils % (A) 65 %; Platelet Count 41 k/uL (150-450); Poikilocytosis Slight; RBC 2.46 m/uL (4.30-5.90); WBC 3.7 k/uL (3.8-10.6)
[2019-11-28 09:38] LABS: Potassium 4.4 mmol/L (3.5-5.1)
[2019-11-28] MEDS: INSULIN ASPART (NovoLOG) 100 UNIT/ML VIAL SQ SCH ×3 (10:16→18:09)
[2019-11-28] MEDS: MIDODRINE 5 MG TAB PO SCH ×3 (10:17→18:10)
[2019-11-28] MEDS: PANTOPRAZOLE 40 MG/10 ML VIAL IVP SCH (10:18)
[2019-11-28] MEDS: SPIRONOLACTONE 25 MG TAB PO SCH (10:19)
[2019-11-28] MEDS: FUROSEMIDE 10 MG/ML 10 ML VIAL IV SCH (10:19)
[2019-11-28 11:52] LABS: Glucose,Whole Blood 202 mg/dL (75-99)
--- NOTE | 2019-11-28 13:05 | P.DS ---
Providers Date of admission: 11/20/19 10:07 Expected date of discharge: 11/28/19 Attending physician: Maggi Carlson DO Consults: 11/20/19 10:45 Consult Physician Stat Consulting Provider: Su Bonds Consult Reason/Comments: GI bleed, ascites Do you want consulting provider notified?: Yes Consult Physician Urgent Consulting Provider: Isaiah Brady Consult Reason/Comments: tawanna Do you want consulting provider notified?: Yes 11/20/19 11:01 Consult Physician Stat Consulting Provider: Patito Bolanos Consult Reason/Comments: ICU mgmt, GI bleed Do you want consulting provider notified?: Yes 11/20/19 15:05 Consult Physician Routine Consulting Provider: Theo Valdez Consult Reason/Comments: Inability to place callahan, renal failure, no urine output Do you want consulting provider notified?: Yes 11/21/19 09:54 Consult Physician Urgent Consulting Provider: Travon Arzola Consult Reason/Comments: temporary dialysis catheter Do you want consulting provider notified?: Yes 11/26/19 13:49 Consult Physician Routine Consulting Provider: Nabor Ruiz Consult Reason/Comments: permanent dialysis cath on Wednesday Do you want consulting provider notified?: Yes Primary care physician: [facility] Course: his is a 58-year-old male with complex past medical history noted below who presented to the emergency room with worsening abdominal distention and ascites. Patient was evaluated in the ER and admitted to the hospital for further management of his medical problems noted below. 1. Large ascites, secondary to underlying liver cirrhosis. Status post paracentesis on 11/20 with approximately 12 L of fluid removed. 2. Acute kidney injury requiring hemodialysis, Secondary to ATN, acute blood loss anemia, and possible hepatorenal syndrome. Currently on hemodialysis started on November 20. No hydronephrosis on kidney ultrasound. Plan to continue dialysis on TTS schedule and follow up with nephrology as directed. 3. Variceal bleed, seen and evaluated by GI. Status post EGD with variceal medication 4. Nonalcoholic liver cirrhosis 5. Acute blood loss anemia status post 4 units of blood transfusion during this admission. Hemoglobin currently stable. 6. Anasarca: Improved with dialysis and diuresis Patient will be discharged home in a stable condition. For further details about this hospitalization please refer to the electronic chart. Patient Condition at Discharge: Stable Plan - Discharge Summary Discharge Rx Participant: No New Discharge Prescriptions: New Spironolactone [Aldactone] 50 mg PO BID #120 tab Midodrine [ProAmatine] 10 mg PO AC-TID #90 tab Continue Furosemide [Lasix] 40 mg PO BID Discontinued Spironolactone [Aldactone] 25 mg PO BID-W/MEALS Pioglitazone [Actos] 15 mg PO DAILY Discharge Medication List Furosemide [Lasix] 40 mg PO BID 11/20/19 [History] Midodrine [ProAmatine] 10 mg PO AC-TID #90 tab 11/28/19 [Rx] Spironolactone [Aldactone] 50 mg PO BID #120 tab 11/28/19 [Rx] Follow up Appointment(s)/Referral(s): Theo Valdez MD [STAFF PHYSICIAN] - 1 Week Su Bonds MD [Family Provider] - 1 Week (1-2 weeks) Stephen Muñoz MD [Primary Care Provider] - 1-2 days Activity/Diet/Wound Care/Special Instructions: pt current chair time is Wednesday, , Wednesday at 7:30 pt is to arrive at 7:15 on for his first appt. Discharge Disposition: HOME SELF-CARE
--- NOTE | 2019-11-28 14:37 | PN ---
PROGRESS NOTE Patient is seen for followup for acute kidney injury, currently hemodialysis dependent. Patient had his IJ PermCath placed. He is currently doing fairly well. No active bleeding noted. He will be scheduled for hemodialysis today following weight following which there are plans for discharge with and patient will continue on a TTS schedule as outpatient. PHYSICAL EXAMINATION: On examination today, blood pressure was 120/50, heart rate 64 per minute, he is afebrile. Examination of the heart S1, S2. Examination of the lungs, decreased breath sounds at the bases. Abdomen is soft, nontender. Morbidly obese. Examination of the lower extremities shows edema 2+ bilaterally. LABS: Show sodium 131, potassium 4.4, BUN of 6 the study, BUN 47, serum creatinine 6.02. ASSESSMENT: 1. Acute kidney injury, currently hemodialysis dependent, nonoliguric, although urine output remains quite low. The patient has an indwelling Argueta catheter which we will leave in place and he will follow up as outpatient with Urology. He will be dialyzed today and patient can be discharged with plans to follow up on a TTS schedule as outpatient at [place]. 2. Chronic liver disease. 3. Morbid obesity. 4. Metabolic acidosis, now resolved. 5. Anemia from GI bleed, currently no active bleeding noted status post packed RBCs transfusion. 6. Hypotension maintained on oral midodrine. PLAN: Continue current medications. Follow up as outpatient for hemodialysis on a Wednesday, , Wednesday schedule. MMJOANL / KEDARN: [id number] /
[2019-11-28 16:50] VITALS: BP 110/56; PULSE 81; RESP 20; TEMP 98
[2019-11-28 17:26] LABS: Glucose,Whole Blood 151 mg/dL (75-99)
--- NOTE | 2019-11-28 21:27 | P.PN ---
Subjective Progress Note Date: 11/28/19 Principal diagnosis: Nonalcoholic cirrhosis of the liver, portal hypertension, refractory ascites Patient is seen lying in bed currently receiving hemodialysis. No acute complaints. He has tolerated a diet. Objective - Vital Signs Vital signs: Vital Signs Temp 97.4 F L 11/28/19 06:06 Pulse 64 11/28/19 06:06 Resp 16 11/28/19 06:06 BP 120/50 11/28/19 06:06 Pulse Ox 97 11/28/19 06:06 Intake & Output 11/27/19 11/28/19 11/28/19 18:59 06:59 18:59 Intake Total 50 120 480 Output Total 50 275 Balance 0 -155 480 Weight 149 kg 153 kg Intake: IV 50 Oral 120 480 Output: Urine 50 275 Hemodialysis 0 Other: Voiding Method Indwelling Catheter Indwelling Catheter - Exam On physical examination, patient appears comfortable in no apparent distress. HEAD: Normocephalic, atraumatic. EYES: No scleral icterus. No conjunctival injection. MOUTH: No lesions, tongue midline. NECK: Trachea midline, no gross abnormalities, status post catheter placement. ABDOMEN: Soft, obese, mildly distended. Bowel sounds are positive. No organomegaly. No guarding or rigidity. EXTREMITIES: Bilateral pedal edema. SKIN: No rashes, no jaundice. NEUROLOGIC: Alert and oriented x3. No focal deficits. - Labs CBC & Chem 7: 11/28/19 07:13 11/28/19 07:13 Labs: Abnormal Lab Results - Last 24 Hours (Table) 11/27/19 11/27/19 11/27/19 Range/Units 12:18 18:00 20:34 WBC (3.8-10.6) k/uL RBC (4.30-5.90) m/uL Hgb (13.0-17.5) gm/dL Hct (39.0-53.0) % MCHC (31.0-37.0) g/dL RDW (11.5-15.5) % Plt Count (150-450) k/uL Lymphocytes # (1.0-4.8) k/uL Sodium (137-145) mmol/L BUN (9-20) mg/dL Creatinine (0.66-1.25) mg/dL Glucose (74-99) mg/dL POC Glucose (mg/dL) 152 H 160 H 166 H (75-99) mg/dL Calcium (8.4-10.2) mg/dL 11/28/19 11/28/19 11/28/19 Range/Units 07:01 07:13 07:13 WBC 3.7 L (3.8-10.6) k/uL RBC 2.46 L (4.30-5.90) m/uL Hgb 7.4 L (13.0-17.5) gm/dL Hct 24.0 L (39.0-53.0) % MCHC 30.9 L (31.0-37.0) g/dL RDW 17.0 H (11.5-15.5) % Plt Count 41 L (150-450) k/uL Lymphocytes # 0.6 L (1.0-4.8) k/uL Sodium 131 L (137-145) mmol/L BUN 47 H (9-20) mg/dL Creatinine 6.02 H (0.66-1.25) mg/dL Glucose 149 H (74-99) mg/dL POC Glucose (mg/dL) 171 H (75-99) mg/dL Calcium 8.0 L (8.4-10.2) mg/dL 11/28/19 Range/Units 11:50 WBC (3.8-10.6) k/uL RBC (4.30-5.90) m/uL Hgb (13.0-17.5) gm/dL Hct (39.0-53.0) % MCHC (31.0-37.0) g/dL RDW (11.5-15.5) % Plt Count (150-450) k/uL Lymphocytes # (1.0-4.8) k/uL Sodium (137-145) mmol/L BUN (9-20) mg/dL Creatinine (0.66-1.25) mg/dL Glucose (74-99) mg/dL POC Glucose (mg/dL) 202 H (75-99) mg/dL Calcium (8.4-10.2) mg/dL Assessment and Plan (1) Cirrhosis Narrative/Plan: 59-year-old male with medical history significant for decompensated nonalcoholic cirrhosis of the liver with ascites and portal hypertension. The ascites has been refractory with patient requiring large-volume paracentesis. Currently he is doing well with no acute complaints. Status: Acute Code(s): K74.60 - UNSPECIFIED CIRRHOSIS OF LIVER SNOMED Code(s): 87683159 (2) Ascites Status: Acute Code(s): R18.8 - OTHER ASCITES SNOMED Code(s): 029827692 Plan: Supportive care Okay for sodium restricted diet Continue IV diuretics per nephrology service Continue to monitor CBC, CMP, INR Follow-up with gastroenterology after discharge with consideration for referral to tertiary center for evaluation of transplant Thank you for allowing us to participate in the care of the patient
== END 2019-11-28 20:53 | disposition home health service (06) | DRG 673 ==
LOC: EC 08:16 → 2SICU 10:07 → 5NMEDONC 11-23 14:46
PROVIDERS: ADMIT Internal Medicine; ATTEND Internal Medicine
PROC: 0T7D8DZ Dilation of Urethra with Intraluminal Device, Via Natural or Artificial Opening Endoscopic (ICD-10-PCS; 2019-11-20)
PROC: 30233N1 Transfusion of Nonautologous Red Blood Cells into Peripheral Vein, Percutaneous Approach (ICD-10-PCS; 2019-11-20)
PROC: 06L38CZ Occlusion of Esophageal Vein with Extraluminal Device, Via Natural or Artificial Opening Endoscopic (ICD-10-PCS; 2019-11-21)
PROC: 0W9G3ZZ Drainage of Peritoneal Cavity, Percutaneous Approach (ICD-10-PCS; 2019-11-21)
PROC: 06HY33Z Insertion of Infusion Device into Lower Vein, Percutaneous Approach (ICD-10-PCS; 2019-11-21)
PROC: 5A1D70Z Performance of Urinary Filtration, Intermittent, Less than 6 Hours Per Day (ICD-10-PCS; principal; 2019-11-21 08:00)
PROC: 0W9G3ZZ Drainage of Peritoneal Cavity, Percutaneous Approach (ICD-10-PCS; 2019-11-23)
PROC: 02HV33Z Insertion of Infusion Device into Superior Vena Cava, Percutaneous Approach (ICD-10-PCS; 2019-11-27)
PROC: 06PY33Z Removal of Infusion Device from Lower Vein, Percutaneous Approach (ICD-10-PCS; 2019-11-27)
PROC: 0JH63XZ Insertion of Tunneled Vascular Access Device into Chest Subcutaneous Tissue and Fascia, Percutaneous Approach (ICD-10-PCS; 2019-11-27)
DX: N17.0 Acute kidney failure with tubular necrosis (principal); I85.11 Secondary esophageal varices with bleeding; K76.7 Hepatorenal syndrome; R18.8 Other ascites; D62 Acute posthemorrhagic anemia; E87.1 Hypo-osmolality and hyponatremia; E87.2 Acidosis; K76.6 Portal hypertension; Z68.42 Body mass index [BMI] 45.0-49.9, adult; I95.9 Hypotension, unspecified; K74.69 Other cirrhosis of liver; E66.01 Morbid (severe) obesity due to excess calories; E78.5 Hyperlipidemia, unspecified; E87.5 Hyperkalemia; F17.290 Nicotine dependence, other tobacco product, uncomplicated; K21.9 Gastro-esophageal reflux disease without esophagitis; K31.89 Other diseases of stomach and duodenum; M19.90 Unspecified osteoarthritis, unspecified site; Z11.59 Encounter for screening for other viral diseases; R33.9 Retention of urine, unspecified; E11.9 Type 2 diabetes mellitus without complications; Z79.84 Long term (current) use of oral hypoglycemic drugs; Z79.899 Other long term (current) drug therapy; Z88.2 Allergy status to sulfonamides; Z86.718 Personal history of other venous thrombosis and embolism; Z80.42 Family history of malignant neoplasm of prostate
CPT/HCPCS: 36415; 36558; 43244; 49083; 71046; 76705; 76770; 76937; 77001; 80048; 80053; 80320; 81001; 82150; 82272; 83036; 83605; 83690; 83735; 84100; 84157; 84300; 84484; 85025; 85027; 85610; 85730; 86706; 86850; 86900; 86901; 86920; 87077; 87086; 87186; 87340; 89050; 90935; 93005; 94760; 96361; 96374; 96375; 99291

== ENCOUNTER 2019-12-02 12:51 | Observation (INO) | payer BC ==
--- NOTE | 2019-12-02 13:11 | ED ---
General Adult HPI - General Chief complaint: Recheck/Abnormal Lab/Rx Stated complaint: needs blood Time Seen by Provider: 12/02/19 12:55 Source: patient, RN notes reviewed, old records reviewed Mode of arrival: wheelchair Limitations: no limitations - History of Present Illness Initial comments: This is a 59-year-old male with a history of liver disease and acute renal disease and has been on dialysis for last few days. Patient states she's also had a history of recent anemia worries had to give 4 units of blood and was just discharged from the hospital was in the last week. Patient states she was sent in today because he went dialysis and they told him his hemoglobin was low. Patient states she's had no black or bloody stools. Patient states she's not vomiting per patient denies any diarrhea. Patient has any fever chills per patient denies any abdominal pain. Patient denies any difficulty breathing shortness of breath or chest pain. Patient denies any lightheadedness or dizziness. - Related Data Home Medications Medication Instructions Recorded Confirmed Furosemide [Lasix] 40 mg PO BID 11/20/19 11/20/19 Previous Rx's Medication Instructions Recorded Midodrine [ProAmatine] 10 mg PO AC-TID #90 tab 11/28/19 Spironolactone [Aldactone] 50 mg PO BID #120 tab 11/28/19 Allergies Allergy/AdvReac Type Severity Reaction Status Date / Time Sulfa (Sulfonamide Allergy Unknown Verified 12/02/19 12:54 Antibiotics) Review of Systems ROS Statement: Those systems with pertinent positive or pertinent negative responses have been documented in the HPI. ROS Other: All systems not noted in ROS Statement are negative. Past Medical History Past Medical History: Diabetes Mellitus, Deep Vein Thrombosis (DVT), GERD/Reflu x, GI Bleed, Liver Disease, Osteoarthritis (OA), Renal Disease Additional Past Medical History / Comment(s): Ascities with paracentesis-last time approximately 2 weeks ago/liver cirrhosis/anasarca/portal htn pt states told d/t fatty liver, renal insuffiiciency, lower GI bleed, esophageal varices, gastritis, NIDDM type II but pt states taken off diabetic medication one week ago, DVT L leg, recent R foot 2nd/3rd toe fractured pt states are now healed, arthritis R foot History of Any Multi-Drug Resistant Organisms: None Reported Past Surgical History: Orthopedic Surgery Additional Past Surgical History / Comment(s): Rt club foot surgery as child, EGD, colonoscopy, paracentesis Past Anesthesia/Blood Transfusion Reactions: No Reported Reaction Past Psychological History: No Psychological Hx Reported Smoking Status: Light tobacco smoker Past Alcohol Use History: Occasional Past Drug Use History: None Reported - Past Family History Mother Family Medical History: No Reported History Additional Family Medical History / Comment(s): Mother is healthy and is 85 yrs old. Father History Unknown: Yes Additional Family Medical History / Comment(s): Pt does not know father's medical history. Father in his 60's. Brother(s) Family Medical History: Cancer Additional Family Medical History / Comment(s): Prostate cancer. General Exam - General Exam Comments Initial Comments: GENERAL: Patient is well-developed and well-nourished. Patient is nontoxic and well- hydrated and is in no acute distress. ENT: Neck is soft and supple. No significant lymphadenopathy is noted. Oropharynx is clear. Moist mucous membranes. Neck has full range of motion without eliciting any pain. EYES: The sclera were anicteric and conjunctiva were pink and moist. Extraocular movements were intact and pupils were equal round and reactive to light. Eyelids were unremarkable. PULMONARY: Unlabored respirations. Good breath sounds bilaterally. No audible rales rhonchi or wheezing was noted. CARDIOVASCULAR: There is a regular rate and rhythm without any murmurs gallops or rubs. ABDOMEN: Soft and nontender with normal bowel sounds. No palpable organomegaly was noted. There is no palpable pulsatile mass. SKIN: Patient's skin is pale NEUROLOGIC: Patient is alert and oriented x3. Cranial nerves II through XII are grossly intact. Motor and sensory are also intact. Normal speech, volume and content. Symmetrical smile. MUSCULOSKELETAL: Normal extremities with adequate strength and full range of motion. LYMPHATICS: No significant lymphadenopathy is noted PSYCHIATRIC: Normal psychiatric evaluation. Limitations: no limitations Course Vital Signs 12/02/19 12:54 Temperature 98.6 F Pulse Rate 88 Respiratory 18 Rate Blood Pressure 105/63 O2 Sat by Pulse 98 Oximetry Medical Decision Making - Medical Decision Making Patient's hemoglobin 7.1 currently at dialysis was 6.[address] Brady wanted the patient to come to the emergency room and receive a unit of blood. But since 7.1 when I spoke with him he stated that we could wait on the blood and follow up blood count overnight. I spoke with some physicians a agreed to admit the patient and wrote admit the patient and write admitting orders. - Lab Data Result diagrams: 12/02/19 13:30 12/02/19 13:30 Lab Results 12/02/19 12/02/19 12/02/19 Range/Units 13:30 13:30 13:30 WBC 5.5 (3.8-10.6) k/uL RBC 2.36 L (4.30-5.90) m/uL Hgb 7.1 L (13.0-17.5) gm/dL Hct 23.3 L (39.0-53.0) % MCV 98.7 (80.0-100.0) fL MCH 30.1 (25.0-35.0) pg MCHC 30.5 L (31.0-37.0) g/dL RDW 17.5 H (11.5-15.5) % Plt Count 37 L (150-450) k/uL Neutrophils % 73 % Lymphocytes % 13 % Monocytes % 10 % Eosinophils % 2 % Basophils % 1 % Neutrophils # 4.0 (1.3-7.7) k/uL Lymphocytes # 0.7 L (1.0-4.8) k/uL Monocytes # 0.6 (0-1.0) k/uL Eosinophils # 0.1 (0-0.7) k/uL Basophils # 0.0 (0-0.2) k/uL Hypochromasia Marked Anisocytosis Slight Macrocytosis Slight PT 11.5 (9.0-12.0) sec INR 1.1 (<1.2) APTT 23.8 (22.0-30.0) sec Sodium 137 (137-145) mmol/L Potassium 3.9 (3.5-5.1) mmol/L Chloride 99 (98-107) mmol/L Carbon Dioxide 29 (22-30) mmol/L Anion Gap 9 mmol/L BUN 21 H (9-20) mg/dL Creatinine 3.38 H (0.66-1.25) mg/dL Est GFR (CKD-EPI)AfAm 22 (>60 ml/min/1.73 sqM) Est GFR (CKD-EPI)NonAf 19 (>60 ml/min/1.73 sqM) Glucose 173 H (74-99) mg/dL Calcium 8.1 L (8.4-10.2) mg/dL Magnesium 1.7 (1.6-2.3) mg/dL Total Bilirubin 2.0 H (0.2-1.3) mg/dL AST 55 (17-59) U/L ALT 26 (4-49) U/L Alkaline Phosphatase 113 (38-126) U/L Troponin I (0.000-0.034) ng/mL Total Protein 6.5 (6.3-8.2) g/dL Albumin 2.8 L (3.5-5.0) g/dL Blood Type Blood Type Recheck Bld Type Recheck Status Antibody Screen Spec Expiration Date 12/02/19 12/02/19 Range/Units 13:30 13:30 WBC (3.8-10.6) k/uL RBC (4.30-5.90) m/uL Hgb (13.0-17.5) gm/dL Hct (39.0-53.0) % MCV (80.0-100.0) fL MCH (25.0-35.0) pg MCHC (31.0-37.0) g/dL RDW (11.5-15.5) % Plt Count (150-450) k/uL Neutrophils % % Lymphocytes % % Monocytes % % Eosinophils % % Basophils % % Neutrophils # (1.3-7.7) k/uL Lymphocytes # (1.0-4.8) k/uL Monocytes # (0-1.0) k/uL Eosinophils # (0-0.7) k/uL Basophils # (0-0.2) k/uL Hypochromasia Anisocytosis Macrocytosis PT (9.0-12.0) sec INR (<1.2) APTT (22.0-30.0) sec Sodium (137-145) mmol/L Potassium (3.5-5.1) mmol/L Chloride (98-107) mmol/L Carbon Dioxide (22-30) mmol/L Anion Gap mmol/L BUN (9-20) mg/dL Creatinine (0.66-1.25) mg/dL Est GFR (CKD-EPI)AfAm (>60 ml/min/1.73 sqM) Est GFR (CKD-EPI)NonAf (>60 ml/min/1.73 sqM) Glucose (74-99) mg/dL Calcium (8.4-10.2) mg/dL Magnesium (1.6-2.3) mg/dL Total Bilirubin (0.2-1.3) mg/dL AST (17-59) U/L ALT (4-49) U/L Alkaline Phosphatase (38-126) U/L Troponin I <0.012 (0.000-0.034) ng/mL Total Protein (6.3-8.2) g/dL Albumin (3.5-5.0) g/dL Blood Type A Positive Blood Type Recheck A Pos Bld Type Recheck Status No Antibody Screen NEGATIVE Spec Expiration Date 12/05/20192329 Disposition Clinical Impression: Anemia Disposition: ADMITTED IP TO THIS HOSP Referrals: Stephen Muñoz MD [Primary Care Provider] - 1-2 days Time of Disposition: 15:13
[2019-12-02 13:49] LABS: Anisocytosis Slight; Basophils % (A) 1 %; Eosinophils # (A) 0.1 k/uL (0-0.7); Eosinophils % (A) 2 %; HCT 23.3 % (39.0-53.0); HGB 7.1 gm/dL (13.0-17.5); Hypochromasia Marked; Lymphocytes # (A) 0.7 k/uL (1.0-4.8); Lymphocytes % (A) 13 %; MCH 30.1 pg (25.0-35.0); MCHC 30.5 g/dL (31.0-37.0); MCV 98.7 fL (80.0-100.0); Macrocytosis Slight; Mean Platelet Volume 11.3; Monocytes # (A) 0.6 k/uL (0-1.0); Monocytes % (A) 10 %; Neutrophils % (A) 73 %; RBC 2.36 m/uL (4.30-5.90); RDW 17.5 % (11.5-15.5); WBC 5.5 k/uL (3.8-10.6)
[2019-12-02 13:54] LABS: INR 1.1 (<1.2); Partial Thromboplastin Time 23.8 sec (22.0-30.0); Prothrombin Time 11.5 sec (9.0-12.0)
[2019-12-02 13:55] LABS: Platelet Count 37 k/uL (150-450)
[2019-12-02 14:06] LABS: Albumin 2.8 g/dL (3.5-5.0); Calcium 8.1 mg/dL (8.4-10.2); Magnesium 1.7 mg/dL (1.6-2.3); Potassium 3.9 mmol/L (3.5-5.1); Total Protein 6.5 g/dL (6.3-8.2)
[2019-12-02] MEDS ORDERED: SODIUM CHLORIDE 0.9% 1,000 ML IV ONE (15:14)
[2019-12-02] MEDS ORDERED: NALOXONE 0.4 MG/ML 1 ML VIAL IV PRN (16:12)
--- NOTE | 2019-12-02 16:26 | P.HPIM ---
History of Present Illness H&P Date: 12/02/19 Chief Complaint: low Hgb 59-year-old male with a history of nonalcoholic liver cirrhosis, recently diagnosed end-stage renal disease, currently on hemodialysis, recent variceal bleeding requiring hospitalization a few weeks ago presented to the emergency department from the dialysis center after he was found to have low hemoglobin. In the ER his hemoglobin was 7.1. Symptomatically patient has been feeling great, he has noticed that his energy is coming back. He has not had any dizziness. No shortness of breath, no black stools, no hematochezia, no nausea or vomiting. No abdominal pain. During the recent hospitalization he did require a total of 4 units of packed red blood cell transfusion. Review of Systems Complete review of system performed, pertinent positives per HPI, otherwise negative Past Medical History Past Medical History: Diabetes Mellitus, Deep Vein Thrombosis (DVT), GERD/Ref lux, GI Bleed, Liver Disease, Osteoarthritis (OA), Renal Disease Additional Past Medical History / Comment(s): Ascities with paracentesis-last time approximately 2 weeks ago/liver cirrhosis/anasarca/portal htn pt states told d/t fatty liver, renal insuffiiciency, lower GI bleed, esophageal varices, gastritis, NIDDM type II but pt states taken off diabetic medication one week ago, DVT L leg, recent R foot 2nd/3rd toe fractured pt states are now healed, arthritis R foot History of Any Multi-Drug Resistant Organisms: None Reported Past Surgical History: Orthopedic Surgery Additional Past Surgical History / Comment(s): Rt club foot surgery as child, EGD, colonoscopy, paracentesis Past Anesthesia/Blood Transfusion Reactions: No Reported Reaction Past Psychological History: No Psychological Hx Reported Smoking Status: Light tobacco smoker Past Alcohol Use History: Occasional Past Drug Use History: None Reported - Past Family History Mother Family Medical History: No Reported History Additional Family Medical History / Comment(s): Mother is healthy and is 85 yrs old. Father History Unknown: Yes Additional Family Medical History / Comment(s): Pt does not know father's medical history. Father in his 60's. Brother(s) Family Medical History: Cancer Additional Family Medical History / Comment(s): Prostate cancer. Medications and Allergies Home Medications Medication Instructions Recorded Confirmed Type Spironolactone [Aldactone] 50 mg PO BID #120 tab 11/28/19 12/02/19 Rx Midodrine [ProAmatine] 5 mg PO AC-TID 12/02/19 12/02/19 History Allergies Allergy/AdvReac Type Severity Reaction Status Date / Time Sulfa (Sulfonamide Allergy Unknown Verified 12/02/19 15:29 Antibiotics) Physical Exam Vitals: Vital Signs Temp Pulse Resp BP Pulse Ox 12/02/19 12:54 98.6 F 88 18 105/63 98 Intake and Output 12/02/19 12/02/19 12/02/19 06:59 14:59 22:59 Other: Weight 157.85 kg Constitutional: No acute distress, conversant, pleasant Eyes:Anicteric sclerae, moist conjunctiva, no lid-lag, PERRLA, ENMT: Oropharynx clear, no erythema, exudates Neck: Supple, FROM, no masses, or JVD, No carotid bruits, No thyromegaly Lungs: Clear to auscultation, Clear to percussion, Normal respiratory effort, no accessory muscle use Cardiovascular: Heart regular in rate and rhythm, No murmurs, gallops, or rubs, 1+ peripheral edema Abdominal: Soft, distended, no guarding, rebound or rigidity, Normoactive bowel sounds, No hepatomegaly, No splenomegaly, No palpable mass Skin: Normal temperature, tone, texture, turgor, no induration, No subcutaneous nodules, No rash, lesions, No ulcers Extremities: No digital cyanosis, No clubbing, Pedal pulses intact and symmetrical, Radial pulses intact and symmetrical, No calf tenderness Psychiatric: Alert and oriented to person, place and time, appropriate affect, intact judgement Neuro: Muscles Strength 5/5 in all 4 extremities, Sensation to light touch grossly present throughout, Cranial nerves II-XII grossly intact, no focal sensory deficits Results CBC & Chem 7: 12/02/19 13:30 12/02/19 13:30 Labs: Abnormal Lab Results - Last 24 Hours (Table) 12/02/19 12/02/19 Range/Units 13:30 13:30 RBC 2.36 L (4.30-5.90) m/uL Hgb 7.1 L (13.0-17.5) gm/dL Hct 23.3 L (39.0-53.0) % MCHC 30.5 L (31.0-37.0) g/dL RDW 17.5 H (11.5-15.5) % Plt Count 37 L (150-450) k/uL Lymphocytes # 0.7 L (1.0-4.8) k/uL BUN 21 H (9-20) mg/dL Creatinine 3.38 H (0.66-1.25) mg/dL Glucose 173 H (74-99) mg/dL Calcium 8.1 L (8.4-10.2) mg/dL Total Bilirubin 2.0 H (0.2-1.3) mg/dL Albumin 2.8 L (3.5-5.0) g/dL Assessment and Plan Plan: Acute on chronic anemia Patient was discharged from the hospital last time with hemoglobin of 7.4. He seems to have a big component of anemia of chronic disease. Rule out bleeding Cycle hemoglobin Monitor for black stools or hematochezia. Also monitor for hematemesis. ESRD On TTS dialysis schedule Consult nephro Large ascites, Stable according to patient Continue aldactone No paracentesis indicated currently Chronic problems Non alcoholic liver cirrhosis. Hypotension sec to liver disease Continue midodrine Admitted to observation with anticipated length of stay less than 2 midnights
[2019-12-02] MEDS: MIDODRINE 5 MG TAB PO SCH (17:33)
[2019-12-02] MEDS: SPIRONOLACTONE 25 MG TAB PO SCH (17:33)
[2019-12-02 20:44] LABS: Glucose,Whole Blood 170 mg/dL (75-99)
[2019-12-03 08:19] LABS: Albumin 2.5 g/dL (3.5-5.0); Anisocytosis Slight; Basophils % (A) 1 %; Eosinophils # (A) 0.1 k/uL (0-0.7); Eosinophils % (A) 4 %; HCT 21.1 % (39.0-53.0); Hypochromasia Marked; Lymphocytes # (A) 0.6 k/uL (1.0-4.8); Lymphocytes % (A) 18 %; MCHC 29.4 g/dL (31.0-37.0); MCV 98.6 fL (80.0-100.0); Macrocytosis Slight; Magnesium 1.8 mg/dL (1.6-2.3); Mean Platelet Volume 10.4; Monocytes # (A) 0.4 k/uL (0-1.0); Monocytes % (A) 11 %; Neutrophils # (A) 2.1 k/uL (1.3-7.7); Neutrophils % (A) 63 %; Phosphorus 3.8 mg/dL (2.5-4.5); Potassium 4.3 mmol/L (3.5-5.1); RBC 2.14 m/uL (4.30-5.90); Total Bilirubin 0.9 mg/dL (0.2-1.3); WBC 3.3 k/uL (3.8-10.6)
[2019-12-03 08:23] LABS: HGB 6.2 gm/dL (13.0-17.5); Platelet Count 41 k/uL (150-450)
[2019-12-03] MEDS: SPIRONOLACTONE 25 MG TAB PO SCH ×2 (08:47→17:16)
[2019-12-03] MEDS: MIDODRINE 5 MG TAB PO SCH ×3 (08:48→17:17)
--- NOTE | 2019-12-03 10:36 | P.PN ---
Subjective Progress Note Date: 12/03/19 Principal diagnosis: anemia Patient is feeling okay, does not have any shortness of breath or any pain. He just had a big bowel movement last night which was brown in color. Objective - Vital Signs Vital signs: Vital Signs Temp 98.3 F 12/03/19 10:29 Pulse 79 12/03/19 10:29 Resp 18 12/03/19 10:29 BP 118/69 12/03/19 10:29 Pulse Ox 95 12/03/19 10:29 Intake & Output 12/02/19 12/03/19 12/03/19 18:59 06:59 18:59 Intake Total 0 Output Total 150 Balance -150 0 Weight 157.85 kg Intake: Blood Product 0 Rc As-1 Unit 0 [id number] Output: Urine 150 Other: Voiding Method Indwelling Catheter Indwelling Catheter Indwelling Catheter # Bowel Movements 1 - Exam Constitutional: No acute distress, conversant, pleasant Eyes:Anicteric sclerae, moist conjunctiva, no lid-lag, PERRLA, ENMT: Oropharynx clear, no erythema, exudates Neck: Supple, FROM, no masses, or JVD, No carotid bruits, No thyromegaly Lungs: Clear to auscultation, Clear to percussion, Normal respiratory effort, no accessory muscle use Cardiovascular: Heart regular in rate and rhythm, No murmurs, gallops, or rubs, 1+ peripheral edema Abdominal: Soft, distended, no guarding, rebound or rigidity, Normoactive bowel sounds, No hepatomegaly, No splenomegaly, No palpable mass Skin: Normal temperature, tone, texture, turgor, no induration, No subcutaneous nodules, No rash, lesions, No ulcers Extremities: No digital cyanosis, No clubbing, Pedal pulses intact and symmetrical, Radial pulses intact and symmetrical, No calf tenderness Psychiatric: Alert and oriented to person, place and time, appropriate affect, i ntact judgement Neuro: Muscles Strength 5/5 in all 4 extremities, Sensation to light touch grossly present throughout, Cranial nerves II-XII grossly intact, no focal sensory deficits - Labs CBC & Chem 7: 12/03/19 07:11 12/03/19 07:11 Labs: Abnormal Lab Results - Last 24 Hours (Table) 12/02/19 12/02/19 12/02/19 Range/Units 13:30 13:30 13:30 WBC (3.8-10.6) k/uL RBC 2.36 L (4.30-5.90) m/uL Hgb 7.1 L (13.0-17.5) gm/dL Hct 23.3 L (39.0-53.0) % MCHC 30.5 L (31.0-37.0) g/dL RDW 17.5 H (11.5-15.5) % Plt Count 37 L (150-450) k/uL Lymphocytes # 0.7 L (1.0-4.8) k/uL Sodium (137-145) mmol/L BUN 21 H (9-20) mg/dL Creatinine 3.38 H (0.66-1.25) mg/dL Glucose 173 H (74-99) mg/dL POC Glucose (mg/dL) (75-99) mg/dL Calcium 8.1 L (8.4-10.2) mg/dL Total Bilirubin 2.0 H (0.2-1.3) mg/dL Total Protein (6.3-8.2) g/dL Albumin 2.8 L (3.5-5.0) g/dL Crossmatch See Detail 12/02/19 12/03/19 12/03/19 Range/Units 20:43 07:11 07:11 WBC 3.3 L (3.8-10.6) k/uL RBC 2.14 L (4.30-5.90) m/uL Hgb 6.2 L* (13.0-17.5) gm/dL Hct 21.1 L (39.0-53.0) % MCHC 29.4 L (31.0-37.0) g/dL RDW 18.0 H (11.5-15.5) % Plt Count 41 L (150-450) k/uL Lymphocytes # 0.6 L (1.0-4.8) k/uL Sodium 135 L (137-145) mmol/L BUN 30 H (9-20) mg/dL Creatinine 4.68 H (0.66-1.25) mg/dL Glucose 152 H (74-99) mg/dL POC Glucose (mg/dL) 170 H (75-99) mg/dL Calcium 8.0 L (8.4-10.2) mg/dL Total Bilirubin (0.2-1.3) mg/dL Total Protein 6.0 L (6.3-8.2) g/dL Albumin 2.5 L (3.5-5.0) g/dL Crossmatch Assessment and Plan Plan: Acute on chronic anemia with hemoglobin this morning 6.2. No evidence of blood loss so far, We'll transfuse 1 unit packed red blood cells today. Repeat hemoglobin in a.m. Will discuss with nephrology the need to start Procrit ESRD On TTS dialysis schedule Nephro following Large ascites, Stable Continue aldactone No paracentesis indicated currently Chronic problems Non alcoholic liver cirrhosis. Hypotension sec to liver disease Continue midodrine
[2019-12-03] MEDS ORDERED: DARBEPOETIN ALFA 60 MCG/0.3 ML SYRINGE SQ SCH (16:00)
--- NOTE | 2019-12-04 05:09 | CONS ---
CONSULTATION REASON FOR CONSULT: Renal failure, hemodialysis dependent. HISTORY OF PRESENT ILLNESS: Patient is a 59-year-old male who has an underlying history of chronic liver disease. He had developed acute kidney injury and was recently started on dialysis on his last admission earlier part of November. His previous creatinine had been about 1 to 1.2 mg/dL prior to dialysis and then subsequently serum creatinine had been as high as 6.8 mg/dL and since then patient has been on dialysis for about 4 weeks now. He was admitted to the hospital as his hemoglobin was noted to be low as outpatient. He denied any active bleeding. Patient does have history of esophageal varices, status post cauterization by Dr. Bonds previously. No bleeding noted per patient. His hemoglobin has dropped to 6.2 from 7.1 yesterday. Patient is maintained on a Wednesday, , Wednesday schedule for hemodialysis. He did have his dialysis on Wednesday. He has an indwelling Argueta catheter. Urine output has been on the lower side. PAST MEDICAL HISTORY: Chronic liver disease, recent acute kidney injury, currently hemodialysis dependent, DVT, type 2 diabetes, gastroesophageal reflux disease, GI bleed, osteoarthritis, ascites, fatty liver, DVT right leg. PAST SURGICAL HISTORY: Orthopedic surgery, right club foot surgery, EGD, colonoscopy, paracentesis. SOCIAL HISTORY: Patient is an active smoker. No history of drug abuse or alcohol abuse. MEDICATIONS: Medications at home prior to admission include Aldactone, midodrine. ALLERGIES: Allergies Include SULFA. REVIEW OF SYSTEMS: As per HPI. Other systems negative. PHYSICAL EXAMINATION: Patient is comfortable, awake, alert, oriented x3, not in any acute distress. Blood pressure is 116/77, heart rate 81 per minute. He is afebrile. EXAMINATION OF THE HEART: S1, S2. EXAMINATION OF THE LUNGS: Bilateral breath sounds are heard. ABDOMEN: Soft, nontender, obese, with ascites. Examination of the lower extremities shows edema 2+ bilaterally. MOVIE EXTRA EXAM: Grossly intact. LABS: Labs show hemoglobin 6.2, white cell count 3.3, platelet count 41,000. Sodium 135, potassium 4.3, BUN 30, serum creatinine 4.68. ASSESSMENT: 1. Acute kidney injury, currently hemodialysis dependent. Maintain patient on dialysis. He is on a Wednesday, , Wednesday schedule and will be dialyzed again tomorrow for an extra treatment for volume overload. The patient can be discharged tomorrow and he will follow up as outpatient for his regular treatment on Wednesday as outpatient. 2. Anemia, no active bleeding noted. The patient is being transfused one unit packed RBCs. He will be maintained on Aranesp. He does get Mircera as outpatient. There is history of gastrointestinal bleed and esophageal varices previously. 3. Chronic liver disease secondary to non-alcoholic liver cirrhosis. 4. Hypotension secondary to chronic liver disease. 5. Volume overload. PLAN: Transfuse one unit packed RBCs. Maintain patient on Aranesp and hemodialysis in a.m. mainly for volume overload. The patient can be discharged tomorrow and follow up as outpatient for his next treatment on Wednesday. Thank you for this consultation. We will continue to follow the patient with you during his hospitalization. KAYLEE / SALENA: [id number] /
[2019-12-04] MEDS: MIDODRINE 5 MG TAB PO SCH ×3 (07:52→16:46)
[2019-12-04] MEDS: SPIRONOLACTONE 25 MG TAB PO SCH ×2 (07:52→16:46)
[2019-12-04 09:47] LABS: Anisocytosis Slight; HCT 22.8 % (39.0-53.0); Hypochromasia Marked; MCH 30.8 pg (25.0-35.0); MCHC 30.7 g/dL (31.0-37.0); MCV 100.5 fL (80.0-100.0); Macrocytosis Slight; Mean Platelet Volume 10.2; RBC 2.27 m/uL (4.30-5.90); RDW 17.3 % (11.5-15.5); WBC 3.6 k/uL (3.8-10.6)
[2019-12-04 09:53] LABS: Calcium 8.2 mg/dL (8.4-10.2); Potassium 5.2 mmol/L (3.5-5.1)
[2019-12-04 09:56] LABS: Platelet Count 51 k/uL (150-450)
--- NOTE | 2019-12-04 10:29 | P.PN ---
Subjective patient is seen in follow-up for acute kidney injury, currently hemodialysis dependent. He did receive a unit of blood yesterday. Hemoglobin this morning is 7.0. Denies any active bleeding. Vital signs are stable. General: The patient appeared well nourished and normally developed. HEENT: Head exam is unremarkable. Neck is without jugular venous distension. LUNGS: Breath sounds decreased. HEART: Rate and Rhythm are regular. ABDOMEN: soft, obese. Distention noted. EXTREMITITES: 1+ edema. Objective - Vital Signs Vital signs: Vital Signs Temp 98.2 F 12/04/19 07:01 Pulse 79 12/04/19 07:01 Resp 16 12/04/19 07:01 BP 112/57 12/04/19 07:01 Pulse Ox 97 12/04/19 07:01 Intake & Output 12/03/19 12/04/19 12/04/19 18:59 06:59 18:59 Intake Total 640 Output Total 30 50 Balance 610 -50 Intake: Oral 20 Blood Product 620 Rc As-1 Unit 310 [id number] Output: Urine 30 50 Other: Voiding Method Indwelling Catheter Indwelling Catheter Indwelling Catheter # Bowel Movements 0 - Labs CBC & Chem 7: 12/04/19 08:45 12/04/19 08:45 Labs: Abnormal Lab Results - Last 24 Hours (Table) 12/02/19 12/04/19 12/04/19 Range/Units 13:30 08:45 08:45 WBC 3.6 L (3.8-10.6) k/uL RBC 2.27 L (4.30-5.90) m/uL Hgb 7.0 L (13.0-17.5) gm/dL Hct 22.8 L (39.0-53.0) % MCV 100.5 H (80.0-100.0) fL MCHC 30.7 L (31.0-37.0) g/dL RDW 17.3 H (11.5-15.5) % Plt Count 51 L (150-450) k/uL Sodium 134 L (137-145) mmol/L Potassium 5.2 H (3.5-5.1) mmol/L BUN 40 H (9-20) mg/dL Creatinine 5.57 H (0.66-1.25) mg/dL Glucose 166 H (74-99) mg/dL Calcium 8.2 L (8.4-10.2) mg/dL Crossmatch See Detail Assessment and Plan Plan: assessment: 1. Acute kidney injury currently hemodialysis dependent. Etiology is hepatorenal syndrome. 2. Acute blood loss anemia status post blood transfusion. Better. Patient underwent endoscopy with intervention earlier this month. also on Aranesp. 3. Liver cirrhosis. 4. Volume overload. Improving with UF. 5. Hypotension secondary to underlying cirrhosis maintained on midodrine. Plan: Hemodialysis today and again tomorrow per his outpatient schedule. Transfuse another unit of blood with dialysis today. Follow-up with GI outpatient. Also scheduled for paracentesis every 2 weeks outpatient. Potential discharge after dialysis today. Maintain Aldactone. Resume Lasix.
[2019-12-04] MEDS ORDERED: MIDODRINE 5 MG TAB PO PRN (15:20)
[2019-12-04 15:33] VITALS: RESP 18
[2019-12-04] MEDS ORDERED: FUROSEMIDE 80 MG TAB PO SCH (16:00)
[2019-12-04 17:59] VITALS: BP 121/73; PULSE 86; TEMP 98.4
--- NOTE | 2019-12-04 18:02 | P.DS ---
Providers Date of admission: 12/02/19 15:26 Expected date of discharge: 12/04/19 Attending physician: Manuela Benavidez MD Consults: 12/02/19 16:13 Consult Physician Routine Consulting Provider: Isaiah Brady Consult Reason/Comments: esrd Do you want consulting provider notified?: Yes Primary care physician: Stephen Muñoz [facility] Hospital Course: 59-year-old male with a history of nonalcoholic liver cirrhosis, recently diagnosed end-stage renal disease, currently on hemodialysis, recent variceal bleeding requiring hospitalization a few weeks ago presented to the emergency department from the dialysis center after he was found to have low hemoglobin. In the ER his hemoglobin was 7.1. Symptomatically patient has been feeling great, he has noticed that his energy is coming back. He has not had any dizziness. No shortness of breath, no black stools, no hematochezia, no nausea or vomiting. No abdominal pain. During the recent hospitalization he did require a total of 4 units of packed red blood cell transfusion. Patient was admitted for further monitoring and treatment. He was given a total of 2 units during the hospitalization as when he was given one unit his hgb only came up to 7.1. He was dialysed today by nephro. He did not show any signs of bleeding. His bowel movements were brown in color and he was not throwing up any blood either. His anemia was deemed sec to chronic renal disease. He was treated with procrit as well and is currently getting that with dialysis. He will be discharged home in a stable condition. Patient Condition at Discharge: Fair Plan - Discharge Summary Discharge Rx Participant: No New Discharge Prescriptions: New Furosemide [Lasix] 80 mg PO BID@0900,1600 30 Days #60 tab Continue Spironolactone [Aldactone] 50 mg PO BID #120 tab Midodrine [ProAmatine] 5 mg PO AC-TID Discharge Medication List Spironolactone [Aldactone] 50 mg PO BID #120 tab 11/28/19 [Rx] Midodrine [ProAmatine] 5 mg PO AC-TID 12/02/19 [History] Furosemide [Lasix] 80 mg PO BID@0900,1600 30 Days #60 tab 12/04/19 [Rx] Follow up Appointment(s)/Referral(s): Stephen Muñoz MD [Primary Care Provider] - 12/11/19 3:15 pm Patient Instructions/Handouts: Anemia (DC) Activity/Diet/Wound Care/Special Instructions: MAINTAIN FOLLOW UP APPOINTMENT WITH GI SPECIALIST Discharge Disposition: HOME SELF-CARE
== END 2019-12-04 17:58 | disposition home or self-care (01) ==
LOC: EC 12:51 → 4SSUR 15:26
PROVIDERS: ADMIT Internal Medicine; ATTEND Internal Medicine
DX: E11.22 Type 2 diabetes mellitus with diabetic chronic kidney disease (principal); N18.6 End stage renal disease; D63.1 Anemia in chronic kidney disease; Z99.2 Dependence on renal dialysis; D63.8 Anemia in other chronic diseases classified elsewhere; N17.9 Acute kidney failure, unspecified; E87.70 Fluid overload, unspecified; R18.8 Other ascites; K76.7 Hepatorenal syndrome; K76.9 Liver disease, unspecified; Z86.718 Personal history of other venous thrombosis and embolism; K21.9 Gastro-esophageal reflux disease without esophagitis; Z87.19 Personal history of other diseases of the digestive system; M19.90 Unspecified osteoarthritis, unspecified site; Z98.890 Other specified postprocedural states; K76.0 Fatty (change of) liver, not elsewhere classified; Z87.81 Personal history of (healed) traumatic fracture; E66.9 Obesity, unspecified; Z68.42 Body mass index [BMI] 45.0-49.9, adult; Z80.42 Family history of malignant neoplasm of prostate; K74.69 Other cirrhosis of liver; K76.6 Portal hypertension; F17.200 Nicotine dependence, unspecified, uncomplicated; Z79.899 Other long term (current) drug therapy; Z88.2 Allergy status to sulfonamides
CPT/HCPCS: 90935; 96360; 96361; 96372; 99285; 36415; 86900; 86901; 80053 ×2; 80048; 83735 ×2; 84100; 84484; 85025 ×2; 85027; 85610; 85730; 86850; 86920; G0378 ×3; P9016 ×2; J0881

== ENCOUNTER 2019-12-14 12:39 | Day surgery (SDC) | payer BC ==
[2019-12-14 13:19] LABS: INR 1.2 (<1.2); Prothrombin Time 11.9 sec (9.0-12.0)
[2019-12-14 13:24] LABS: Mean Platelet Volume 9.5
[2019-12-14 13:41] LABS: Platelet Count 140 k/uL (150-450)
[2019-12-14 13:58] VITALS: TEMP 98
[2019-12-14] MEDS: ALBUMIN HUMAN 25% 50 ML in EMPTY BAG 1 BAG IVPB SCH ×4 (14:10→14:48)
[2019-12-14 15:48] VITALS: BP 104/52; PULSE 80; RESP 16
--- NOTE | 2019-12-15 07:32 | US ---
EXAMINATION TYPE: US paracentesis abd w/image DATE OF EXAM: 12/14/2019 COMPARISON: NONE HISTORY: Ascites. PROCEDURE: Maximal barrier technique was utilized. The skin overlying a suitable pocket of fluid was localized with ultrasound and the overlying skin was prepped and draped. Ultrasound was utilized with sterile technique. Lidocaine was used for local anesthesia and a skin felisa made with a scalpel. Catheter was advanced under direct ultrasound guidance into a suitable pocket of fluid and approximately 12.1 lite rs of serous fluid were removed. Catheter was withdrawn and hemostasis achieved. There is no immedi ate complication; the patient is discharged in stable condition. IMPRESSION: STATUS POST ULTRASOUND GUIDED PARACENTESIS FOR PALLIATION OF ASCITES. THIS PROCEDURE WA S PERFORMED BY THE UNDERSIGNED.
== END 2019-12-14 15:49 | disposition home or self-care (01) ==
LOC: RADPROMAIN 12:39
PROVIDERS: ATTEND Internal Medicine Gastroenterology
DX: R18.8 Other ascites (principal)
CPT/HCPCS: 82565; 82947; 85049; 85610; 36415; 49083; P9047

== ENCOUNTER → 2020-01-05 | Day surgery (SDC) | payer BC ==
[2020-01-05 12:37] LABS: Platelet Count 103 k/uL (150-450)
[2020-01-05 12:40] VITALS: TEMP 98.4
[2020-01-05 12:50] LABS: INR 1.2 (<1.2); Prothrombin Time 11.9 sec (9.0-12.0)
[2020-01-05] MEDS: ALBUMIN HUMAN 25% 50 ML in EMPTY BAG 1 BAG IVPB SCH ×4 (13:35→14:28)
[2020-01-05 15:14] VITALS: BP 111/55; PULSE 78; RESP 16
--- NOTE | 2020-01-05 17:56 | US ---
Ultrasound-guided paracentesis. DATE OF EXAM: 01/05/2020 CLINICAL HISTORY: Ascites The procedure was discussed with the patient. The risks, complications, benefits, and alternatives we re discussed and any questions were answered. Informed consent was obtained. The patient was placed s upine on the ultrasound table and prepped and draped in the usual sterile fashion. All elements of maximal barrier technique were utilized. Under ultrasound guidance, access into the right lower quadrant was obtained, via the paracentesis catheter system and direct ultrasound guidanc e. Approximately 12.2 liters of straw-colored fluid was removed. The patient was stable throughout the p rocedure and remained stable upon discharge from Department of Radiology. IMPRESSION: Successful paracentesis under ultrasound guidance.
== END ==
LOC: RADPROMAIN 12:02
PROVIDERS: ATTEND Internal Medicine Gastroenterology
DX: R18.8 Other ascites (principal)
CPT/HCPCS: 82565; 82947; 85049; 85610; 36415; 49083; P9047

== ENCOUNTER 2020-01-17 11:59 | Day surgery (SDC) | payer BC ==
[2020-01-17 12:29] VITALS: TEMP 98.5
[2020-01-17 12:48] LABS: Mean Platelet Volume 8.5; Platelet Count 205 k/uL (150-450)
[2020-01-17 12:49] LABS: INR 1.2 (<1.2); Prothrombin Time 11.7 sec (9.0-12.0)
[2020-01-17] MEDS: ALBUMIN HUMAN 25% 50 ML in EMPTY BAG 1 BAG IVPB SCH ×4 (14:49→15:49)
[2020-01-17 15:08] VITALS: RESP 18
[2020-01-17 16:12] VITALS: BP 105/64; PULSE 80
--- NOTE | 2020-01-17 17:24 | US ---
EXAMINATION TYPE: US paracentesis abd w/image DATE OF EXAM: 01/17/2020 CLINICAL HISTORY: Ascites The procedure was discussed with the patient. The risks, complications, benefits, and alternatives we re discussed and any questions were answered. Informed consent was obtained. The patient was placed s upine on the ultrasound table and prepped and draped in the usual sterile fashion. Preprocedure preliminary imaging demonstrates large volume ascites. All elements of maximal barrier technique were utilized. Under ultrasound guidance, access into the right lower quadrant was obtained with a 5 Czech one-step centesis catheter. Approximately 12 liters of clear serous fluid was removed. Catheter was removed and sterile bandage w as applied. Albumin was transfused with departmental protocol. The patient was stable throughout the procedure and remained stable upon discharge from Department of Radiology. IMPRESSION: Successful ultrasound-guided paracentesis, with removal of 12 liters of clear serous fluid.
== END 2020-01-17 16:34 | disposition home or self-care (01) ==
LOC: RADPROMAIN 11:59
PROVIDERS: ATTEND Internal Medicine Gastroenterology
DX: R18.8 Other ascites (principal)
CPT/HCPCS: 82565; 82947; 85049; 85610; 36415; 49083; P9047

== ENCOUNTER 2020-01-19 06:55 | Day surgery (SDC) | payer BC ==
[2020-01-17 09:56] VITALS: BMI 42.7
[~2020-01-19 06:55] MED LIST changes: -KETAMINE 10 MG/ML 20 ML VIAL ONE; -LIDOCAINE 1% INJ 10MG/ML (20 ML MDV) ONE; -MIDAZOLAM 2 MG/2 ML VIAL ONE; -PROPOFOL 10 MG/ML 20 ML VIAL IV ONE
[2020-01-19 07:20] VITALS: TEMP 97.4
[2020-01-19 07:35] LABS: Glucose,Whole Blood 155 mg/dL (75-99)
[2020-01-19] MEDS ORDERED: GLYCOPYRROLATE 0.2 MG/ML 2 ML VIAL ONE (08:19)
[2020-01-19] MEDS ORDERED: LIDOCAINE 1% INJ 10MG/ML (20 ML MDV) ONE (08:19)
[2020-01-19] MEDS ORDERED: PROPOFOL 10 MG/ML 20 ML VIAL IV ONE (08:19)
--- NOTE | 2020-01-19 08:32 | P.PCN ---
Date of Procedure: 01/19/20 Procedure(s) Performed: BRIEF HISTORY: Patient is a 59-year-old, pleasant, white male with cirrhosis related to nonalcoholic fatty liver disease, is scheduled for an upper endoscopy with esophageal variceal ligation as a part of follow-up of esophageal varices.. PROCEDURE PERFORMED: Esophagogastroduodenoscopy with variceal ligation. PREOPERATIVE DIAGNOSIS: Follow-up esophageal varices. IV sedation per anesthesia. PROCEDURE: After informed consent was obtained, the patient was brought into the endoscopy unit. IV sedation was administered by Anesthesia under continuous monitoring. Initially the Olympus GIF-140 video endoscope was inserted into the mouth. Esophagus intubated without any difficulty. It was gradually advanced into the stomach and duodenum and carefully examined. The bulb and the second part of the duodenum appeared normal. The scope at this time was withdrawn to the stomach, adequately insufflated with air, and upon careful examination, mucosa of the antrum, body, cardia and the fundus had changes consistent with [id number]: Hypertensive gastropathy. The scope was then withdrawn into the esophagus. The GE junction was located at 39 cm from the incisors. There were small distal esophageal varices noted. The rest of esophagus appeared normal. There were no erosions or ulcerations seen. At this time the scope was removed and esophageal achalasia ligation equipment was introduced and esophagus were and esophagus reintubated without any difficulty. It was gradually advanced into the distal esophagus and using suction 3 bands were deployed in the distal esophageal varices. No other esophageal varices seen and the patient tolerated the procedure well. IMPRESSION: 1. Small esophageal varices status post variceal ligation as described above. 2. Mild to moderate portal hypertensive gastropathy. RECOMMENDATIONS: The findings of this examination were discussed with the patient as well as his family. He was advised to have a repeat upper endoscopy with variceal ligation in 6 months..
[2020-01-19 09:26] VITALS: BP 116/63; PULSE 74; RESP 18
== END 2020-01-19 09:35 | disposition home or self-care (01) ==
LOC: ORWHC2ENDO 06:55
PROVIDERS: ATTEND Internal Medicine Gastroenterology
DX: I85.10 Secondary esophageal varices without bleeding (principal); K76.6 Portal hypertension; K31.89 Other diseases of stomach and duodenum; K76.0 Fatty (change of) liver, not elsewhere classified; K74.60 Unspecified cirrhosis of liver; E11.9 Type 2 diabetes mellitus without complications; N19 Unspecified kidney failure; R18.8 Other ascites; E66.01 Morbid (severe) obesity due to excess calories; Z68.39 Body mass index [BMI] 39.0-39.9, adult; Z79.899 Other long term (current) drug therapy; Z88.2 Allergy status to sulfonamides; Z86.718 Personal history of other venous thrombosis and embolism
CPT/HCPCS: 43244; J2001; J2704

== ENCOUNTER 2020-01-24 13:03 | Day surgery (SDC) | payer BC ==
[2020-01-24 13:52] LABS: INR 1.1 (<1.2); Prothrombin Time 11.5 sec (9.0-12.0)
[2020-01-24 14:01] LABS: Mean Platelet Volume 8.9; Platelet Count 226 k/uL (150-450)
[2020-01-24] MEDS: ALBUMIN HUMAN 25% 50 ML in EMPTY BAG 1 BAG IVPB SCH ×4 (14:28→15:48)
[2020-01-24 15:01] VITALS: TEMP 98.3
--- NOTE | 2020-01-24 17:04 | US ---
EXAMINATION TYPE: US paracentesis abd w/image DATE OF EXAM: 01/24/2020 BINDER FIXER: Dr. Danelle Hartman D.O. CLINICAL HISTORY: Ascites Preprocedure preliminary ultrasound imaging demonstrates large volume ascites bilaterally. The procedure was discussed with the patient. The risks, complications, benefits, and alternatives we re discussed and any questions were answered. Informed consent was obtained. The patient was placed s upine on the ultrasound table and prepped and draped in the usual sterile fashion. All elements of maximal barrier technique were utilized. Under ultrasound guidance, access into the right lower quadrant was obtained with a 5 Montenegrin one-step centesis catheter. Approximately 11.4 liters of clear serous fluid was removed. Catheter was removed and sterile bandage was applied. The patient was stable throughout the procedure and remained stable upon discharge from Department of Radiology. IMPRESSION: Successful ultrasound-guided paracentesis, with removal of 11.4 liters of clear serous fluid.
[2020-01-24 17:19] VITALS: BP 97/52; PULSE 72; RESP 18
== END 2020-01-24 17:10 | disposition home or self-care (01) ==
LOC: RADPROMAIN 13:03
PROVIDERS: ATTEND Internal Medicine Gastroenterology
DX: R18.8 Other ascites (principal)
CPT/HCPCS: 82565; 82947; 85049; 85610; 36415; 49083; P9047

== ENCOUNTER 2020-01-31 12:16 | Day surgery (SDC) | payer BC ==
[2020-01-31 12:56] LABS: Mean Platelet Volume 8.7; Platelet Count 170 k/uL (150-450)
[2020-01-31 13:09] LABS: INR 1.1 (<1.2); Prothrombin Time 11.3 sec (9.0-12.0)
[2020-01-31] MEDS: ALBUMIN HUMAN 25% 50 ML in EMPTY BAG 1 BAG IVPB SCH ×4 (13:45→14:32)
[2020-01-31 15:24] VITALS: RESP 16
--- NOTE | 2020-01-31 16:02 | US ---
Ultrasound-guided paracentesis. DATE OF EXAM: 01/31/2020 CLINICAL HISTORY: Ascites The procedure was discussed with the patient. The risks, complications, benefits, and alternatives we re discussed and any questions were answered. Informed consent was obtained. The patient was placed s upine on the ultrasound table and prepped and draped in the usual sterile fashion. All elements of maximal barrier technique were utilized. Under ultrasound guidance, access into the right lower quadrant was obtained, via the paracentesis catheter system and direct ultrasound guidanc e. Approximately 10.2 liters of straw-colored fluid was removed. The patient was stable throughout the p rocedure and remained stable upon discharge from Department of Radiology. IMPRESSION: Successful paracentesis under ultrasound guidance.
[2020-01-31 16:40] VITALS: BP 105/53; PULSE 68
== END 2020-01-31 16:15 | disposition home or self-care (01) ==
LOC: RADPROMAIN 12:16
PROVIDERS: ATTEND Internal Medicine Gastroenterology
DX: R18.8 Other ascites (principal)
CPT/HCPCS: 82565; 82947; 85049; 85610; 36415; 49083; P9047

== ENCOUNTER 2020-02-07 12:06 | Day surgery (SDC) | payer BC ==
[2020-02-07 12:58] LABS: Mean Platelet Volume 8.3; Platelet Count 148 k/uL (150-450)
[2020-02-07 13:11] VITALS: RESP 16; TEMP 98.7
[2020-02-07 13:28] LABS: INR 1.2 (<1.2); Prothrombin Time 11.8 sec (9.0-12.0)
[2020-02-07] MEDS: ALBUMIN HUMAN 25% 50 ML in EMPTY BAG 1 BAG IVPB SCH ×4 (14:03→14:40)
[2020-02-07 14:45] VITALS: PULSE 72
[2020-02-07 15:09] VITALS: BP 98/60
--- NOTE | 2020-02-07 16:32 | US ---
EXAMINATION TYPE: US paracentesis abd w/image DATE OF EXAM: 02/07/2020 CLINICAL HISTORY: Ascites Preprocedure preliminary ultrasound imaging demonstrates large volume ascites. The procedure was discussed with the patient. The risks, complications, benefits, and alternatives we re discussed and any questions were answered. Informed consent was obtained. The patient was placed s upine on the ultrasound table and prepped and draped in the usual sterile fashion. All elements of maximal barrier technique were utilized. Under ultrasound guidance, access into the right lower quadrant was obtained with a 5 Yakut one-step centesis catheter. Approximately 9.0 liters of clear serous fluid was removed. Catheter was removed and sterile bandage was applied. The patient was stable throughout the procedure and remained stable upon discharge from Department of Radiology. IMPRESSION: Successful ultrasound-guided paracentesis, with removal of 9.0 liters of clear serous fluid.
== END 2020-02-07 15:35 | disposition home or self-care (01) ==
LOC: RADPROMAIN 12:06
PROVIDERS: ATTEND Internal Medicine Gastroenterology
DX: R18.8 Other ascites (principal)
CPT/HCPCS: 82565; 82947; 85049; 85610; 36415; 49083; P9047

== ENCOUNTER 2020-02-14 08:35 | Day surgery (SDC) | payer BC ==
[2020-02-14 09:01] VITALS: TEMP 98.1
[2020-02-14 09:05] LABS: Mean Platelet Volume 8.7; Platelet Count 149 k/uL (150-450)
[2020-02-14 09:17] LABS: INR 1.1 (<1.2); Prothrombin Time 11.6 sec (9.0-12.0)
[2020-02-14] MEDS: ALBUMIN HUMAN 25% 50 ML in EMPTY BAG 1 BAG IVPB SCH ×4 (10:15→10:59)
[2020-02-14 10:53] VITALS: RESP 16
[2020-02-14 12:02] VITALS: BP 102/56; PULSE 78
--- NOTE | 2020-02-14 12:31 | US ---
EXAMINATION TYPE: US paracentesis abd w/image DATE OF EXAM: 02/14/2020 CLINICAL HISTORY: Ascites COMPARISON: Ultrasound Paracentesis 02/07/2020 FISHING WORKER: Dr. Danelle Hartman PROCEDURE: Preprocedure preliminary ultrasound imaging demonstrates large volume ascites. The procedure was discussed with the patient. The risks, complications, benefits, and alternatives we re discussed and any questions were answered. Informed consent was obtained. The patient was placed s upine on the ultrasound table and prepped and draped in the usual sterile fashion. All elements of maximal barrier technique were utilized. Under ultrasound guidance, access into the right lower quadrant was obtained with a 5 Greenlandic one-step centesis catheter. Approximately 8.6 liters of clear serous fluid was removed. Catheter was removed and sterile bandage was applied. The patient was stable throughout the procedure and remained stable upon discharge from Department of Radiology. IMPRESSION: Successful ultrasound-guided paracentesis, with removal of 8.6 liters of clear serous fluid.
== END 2020-02-14 11:50 | disposition home or self-care (01) ==
LOC: RADPROMAIN 08:35
PROVIDERS: ATTEND Internal Medicine Gastroenterology
DX: R18.8 Other ascites (principal)
CPT/HCPCS: 82565; 82947; 85049; 85610; 36415; 49083; P9047

== ENCOUNTER 2020-02-21 11:43 | Day surgery (SDC) | payer BC ==
[2020-02-21 12:30] VITALS: TEMP 97.9
[2020-02-21 12:50] LABS: Mean Platelet Volume 8.7; Platelet Count 137 k/uL (150-450)
[2020-02-21 13:16] LABS: INR 1.2 (<1.2); Prothrombin Time 12.2 sec (9.0-12.0)
[2020-02-21 13:41] VITALS: RESP 18
[2020-02-21] MEDS: ALBUMIN HUMAN 25% 50 ML in EMPTY BAG 1 BAG IVPB SCH ×4 (13:46→16:03)
[2020-02-21 15:35] VITALS: BP 95/52; PULSE 79
--- NOTE | 2020-02-21 17:22 | US ---
EXAMINATION TYPE: US paracentesis abd w/image DATE OF EXAM: 02/21/2020 CLINICAL HISTORY: Ascites COMPARISON: 02/14/2020 ultrasound paracentesis MILL MANAGER: Dr. Danelle Hartman PROCEDURE: Preprocedure preliminary ultrasound imaging demonstrates large volume ascites. The procedure was discussed with the patient. The risks, complications, benefits, and alternatives we re discussed and any questions were answered. Informed consent was obtained. The patient was placed s upine on the ultrasound table and prepped and draped in the usual sterile fashion. All elements of maximal barrier technique were utilized. Under ultrasound guidance, access into the right lower quadrant was obtained with a 5 Spanish one-step centesis catheter. Approximately 7.75 liters of clear serous fluid was removed. Catheter was removed and sterile bandage was applied. The patient was stable throughout the procedure and remained stable upon discharge from Department of Radiology. IMPRESSION: Successful ultrasound-guided paracentesis, with removal of 7.75 liters of clear serous fluid.
== END 2020-02-21 15:45 | disposition home or self-care (01) ==
LOC: RADPROMAIN 11:43
PROVIDERS: ATTEND Internal Medicine Gastroenterology
DX: R18.8 Other ascites (principal)
CPT/HCPCS: 82565; 82947; 85049; 85610; 36415; 49083; P9047

== ENCOUNTER 2020-02-27 09:57 | Observation (INO) | payer BC ==
[2020-02-27] MEDS ORDERED: SODIUM CHLORIDE 0.9% 500 ML 500 ML IV STA (10:43)
[2020-02-27] MEDS ORDERED: SODIUM CHLORIDE 0.9% 1,000 ML IV STA (10:43)
[2020-02-27 11:15] LABS: Albumin 2.3 g/dL (3.5-5.0); Calcium 7.9 mg/dL (8.4-10.2); Total Bilirubin 3.1 mg/dL (0.2-1.3); Total Protein 6.1 g/dL (6.3-8.2)
[2020-02-27 11:21] LABS: Anisocytosis Slight; Basophils % (A) 0 %; Eosinophils % (A) 0 %; HCT 34.4 % (39.0-53.0); HGB 10.5 gm/dL (13.0-17.5); Hypochromasia Slight; Lymphocytes % (A) 4 %; MCHC 30.6 g/dL (31.0-37.0); MCV 104.7 fL (80.0-100.0); Macrocytosis Moderate; Mean Platelet Volume 8.8; Monocytes # (A) 1.6 k/uL (0-1.0); Monocytes % (A) 7 %; Neutrophils # (A) 21.4 k/uL (1.3-7.7); Neutrophils % (A) 88 %; Platelet Count 193 k/uL (150-450); RBC 3.29 m/uL (4.30-5.90); RDW 16.3 % (11.5-15.5); WBC 24.3 k/uL (3.8-10.6)
--- NOTE | 2020-02-27 11:27 | XR ---
EXAMINATION TYPE: XR chest 1V portable DATE OF EXAM: 02/27/2020 Comparison: 11/27/2019 Clinical History: 59-year-old male Hypertension Findings: Right-sided double-lumen hemodialysis catheter with tips at the mid SVC level. Heart borderline enlar ged. Aorta and pulmonary vasculature within normal limits. No consolidation or pleural effusion. Impression: Borderline heart size. No definite acute process.
[2020-02-27 11:28] LABS: Potassium 4.7 mmol/L (3.5-5.1)
[2020-02-27] MEDS ORDERED: SODIUM CHLORIDE 0.9% 500 ML 500 ML IV ONE (12:19)
--- NOTE | 2020-02-27 12:55 | ED ---
General Adult HPI - General Chief complaint: Recheck/Abnormal Lab/Rx Stated complaint: Low BP Time Seen by Provider: 02/27/20 10:00 Source: patient, RN notes reviewed, old records reviewed Mode of arrival: wheelchair Limitations: no limitations - History of Present Illness Initial comments: This is a 51-year-old male with a history of renal failure and dialysis who was about one hour to his dialysis today when he started developing hypotension. He was noted have a blood pressure 70 systolic. He was sent here for further evaluation of the feeling somewhat weak he help with transfer he denies any fevers chills nausea vomiting sweats dysuria hematuria any other symptoms. He states she's had this happen before with dialysis. No other complaints or modifying factors at this time other than he is apparently scheduled for a paracentesis tomorrow. - Related Data Home Medications Medication Instructions Recorded Confirmed Calcium Acetate [Phoslo] 667 mg PO BID 01/24/20 02/27/20 Acetaminophen Tab [Tylenol] 650 mg PO Q6H 02/27/20 02/27/20 Furosemide [Lasix] 80 mg PO BID 02/27/20 02/27/20 Midodrine HCl [ProAmatine] 10 mg PO TID 02/27/20 02/27/20 Pioglitazone [Actos] 15 mg PO DAILY 02/27/20 02/27/20 Spironolactone [Aldactone] 25 mg PO BID 02/27/20 02/27/20 Allergies Allergy/AdvReac Type Severity Reaction Status Date / Time Sulfa (Sulfonamide Allergy Rash/Hives Verified 02/27/20 10:26 Antibiotics) Review of Systems ROS Statement: Those systems with pertinent positive or pertinent negative responses have been documented in the HPI. ROS Other: All systems not noted in ROS Statement are negative. Past Medical History Past Medical History: Renal Disease Additional Past Medical History / Comment(s): ascites. DVT L leg, kidney disease on dialysis Wednesday, , Wednesday, non-alcoholic liver cirrhosis History of Any Multi-Drug Resistant Organisms: None Reported Past Surgical History: Orthopedic Surgery Additional Past Surgical History / Comment(s): R club foot surgery as child, colonoscopy-normal. multiple paracentesis, hemodialysis catheter with dialysis , , Sat, EGD Past Anesthesia/Blood Transfusion Reactions: No Reported Reaction Past Psychological History: No Psychological Hx Reported Smoking Status: Never smoker Past Alcohol Use History: Rare Past Drug Use History: None Reported - Past Family History Mother Family Medical History: No Reported History Additional Family Medical History / Comment(s): . Father History Unknown: Yes Additional Family Medical History / Comment(s): Pt does not know father's medical history. Father in his 60's. Brother(s) Family Medical History: Cancer Additional Family Medical History / Comment(s): Prostate cancer. General Exam - General Exam Comments Initial Comments: This is a well-developed well-nourished awake alert oriented 3 male Limitations: no limitations General appearance: alert, in no apparent distress Head exam: Present: atraumatic, normocephalic, normal inspection Eye exam: Present: normal appearance, PERRL, EOMI. Absent: scleral icterus, conjunctival injection, periorbital swelling ENT exam: Present: normal exam, mucous membranes moist Neck exam: Present: normal inspection. Absent: tenderness, meningismus, lymphadenopathy Respiratory exam: Present: decreased breath sounds. Absent: respiratory distress, wheezes, rales, rhonchi, stridor Cardiovascular Exam: Present: regular rate, normal rhythm, normal heart sounds. Absent: systolic murmur, diastolic murmur, rubs, gallop, clicks GI/Abdominal exam: Present: soft, distended (Consistent with ascites), normal bowel sounds. Absent: tenderness, guarding, rebound, rigid Extremities exam: Present: normal inspection, full ROM, normal capillary refill. Absent: tenderness, pedal edema, joint swelling, calf tenderness Back exam: Present: normal inspection Neurological exam: Present: alert, oriented X3, CN II-XII intact Psychiatric exam: Present: normal affect, normal mood Skin exam: Present: warm, dry, intact, normal color. Absent: rash Course Vital Signs 02/27/20 02/27/20 02/27/20 10:02 11:15 11:30 Temperature 98.1 F Pulse Rate 89 84 80 Respiratory 18 17 17 Rate Blood Pressure 71/48 93/52 76/46 O2 Sat by Pulse 100 98 99 Oximetry 02/27/20 02/27/20 02/27/20 11:31 11:45 12:00 Temperature Pulse Rate 79 84 82 Respiratory 16 19 16 Rate Blood Pressure 84/49 87/53 86/50 O2 Sat by Pulse 98 99 99 Oximetry 02/27/20 02/27/20 02/27/20 12:15 12:30 12:45 Temperature Pulse Rate 84 81 82 Respiratory 20 18 19 Rate Blood Pressure 86/49 77/50 93/53 O2 Sat by Pulse 97 98 97 Oximetry - Reevaluation(s) Reevaluation #1: 02/27/20 12:54 50 require fluids. His blood pressure hasn't vacillating between the 80s and 90s systolic. He has no chest pain shortness of breath no dizziness lightheadedness or palpitations. Reevaluation #2: 02/27/20 13:02 Did discuss case with Dr. Fields. Patient will be started on midodrine 10 mg twice a day. Also one dose of antibiotics. Medical Decision Making - Medical Decision Making Reevaluation patient reveals no change in blood pressure in the 87 systolic range. I did discuss case with Dr. Lynch . Patient be admitted with consultation by Dr. Motley. The patient's elevated troponin likely on the basis of his renal status. - Lab Data Result diagrams: 02/27/20 10:44 02/27/20 10:44 Lab Results 02/27/20 02/27/20 02/27/20 Range/Units 10:44 10:44 10:44 WBC 24.3 H (3.8-10.6) k/uL RBC 3.29 L (4.30-5.90) m/uL Hgb 10.5 L (13.0-17.5) gm/dL Hct 34.4 L (39.0-53.0) % MCV 104.7 H (80.0-100.0) fL MCH 32.0 (25.0-35.0) pg MCHC 30.6 L (31.0-37.0) g/dL RDW 16.3 H (11.5-15.5) % Plt Count 193 (150-450) k/uL Neutrophils % 88 % Lymphocytes % 4 % Monocytes % 7 % Eosinophils % 0 % Basophils % 0 % Neutrophils # 21.4 H (1.3-7.7) k/uL Lymphocytes # 1.0 (1.0-4.8) k/uL Monocytes # 1.6 H (0-1.0) k/uL Eosinophils # 0.0 (0-0.7) k/uL Basophils # 0.0 (0-0.2) k/uL Hypochromasia Slight Anisocytosis Slight Macrocytosis Moderate Sodium 126 L (137-145) mmol/L Potassium 4.7 (3.5-5.1) mmol/L Chloride 93 L (98-107) mmol/L Carbon Dioxide 19 L (22-30) mmol/L Anion Gap 14 mmol/L BUN 61 H (9-20) mg/dL Creatinine 6.24 H (0.66-1.25) mg/dL Est GFR (CKD-EPI)AfAm 10 (>60 ml/min/1.73 sqM) Est GFR (CKD-EPI)NonAf 9 (>60 ml/min/1.73 sqM) Glucose 209 H (74-99) mg/dL Calcium 7.9 L (8.4-10.2) mg/dL Magnesium 2.0 (1.6-2.3) mg/dL Total Bilirubin 3.1 H (0.2-1.3) mg/dL AST 63 H (17-59) U/L ALT 34 (4-49) U/L Alkaline Phosphatase 156 H (38-126) U/L Creatine Kinase 35 L (55-170) U/L Troponin I 0.037 H* (0.000-0.034) ng/mL Total Protein 6.1 L (6.3-8.2) g/dL Albumin 2.3 L (3.5-5.0) g/dL - EKG Data -: EKG Interpreted by Vt EKG Comments: EKG shows sinus rhythm 84. Interval 158 QRS 92 QT since QTC 400/472 nonspecific anterior configuration. - Radiology Data Radiology results: report reviewed (Imaging reviewed no acute findings.), image reviewed Disposition Clinical Impression: Hypotensive episode, Chronic renal failure syndrome, Leukocytosis, Weakness Disposition: ADMITTED IP TO THIS HOSP Condition: Fair Referrals: Rob Whalen [Primary Care Provider] - 1-2 days
[2020-02-27] MEDS ORDERED: MIDODRINE 5 MG TAB PO STA (13:00)
[2020-02-27] MEDS ORDERED: cefTRIAXone IN SWFI 1,000 MG/10 ML SYRINGE IVP STA (13:03)
[2020-02-27] MEDS ORDERED: NALOXONE 0.4 MG/ML 1 ML VIAL IV PRN (13:05)
[2020-02-27] MEDS: ACETAMINOPHEN TAB 325 MG TAB PO SCH ×2 (14:09→20:24)
[2020-02-27] MEDS ORDERED: FUROSEMIDE 80 MG TAB PO SCH (16:00)
[2020-02-27] MEDS ORDERED: NON FORMULARY DRUG (Midodrine Hcl [Proamatine] 10 MG Tablet) PO SCH (16:00)
[2020-02-27] MEDS ORDERED: VANCOMYCIN IV PER PHARMACY 1 EACH MISC MISCELLANE PRN (16:30)
--- NOTE | 2020-02-27 16:39 | P.HPIM ---
History of Present Illness H&P Date: 02/27/20 Chief Complaint: Hypotenstion during dialysis Patient is a 59 yo M with a significant past medical history of nonalcoholic liver cirrhosis with ascites with paracentesis every Wednesday and esophageal varices with recent EGD status post variceal ligation, end-stage renal disease on hemodialysis and GI bleed who was sent in from the dialysis center for blood pressure of 70 systolic. Patient states that normally at the beginning of dialysis his blood pressure is low however it has never been as low as in the 70s. He says that he has had dialysis for only and hour and half. She does not think that they removed too much fluid. Patient denies any fever or chills nausea vomiting. Patient denies any abdominal pain. Patient states that he has decreased urine output since he is a liver cirrhosis and end-stage renal disease patient. He states that his urine is usually dark colored. Patient denies any cough. He states that he is scheduled for paracentesis tomorrow. In the ED patient systolic blood pressures was in the 70s on arrival. He was given 2 u nits normosaline boluses after which his blood pressure improved to 90 systolically and has been stable. Patient is also found to have a WBC count of 24. He was given 1 dose of IV ceftriaxone. Patient was then referred for admission. Also patient states that he recently fractured his right shoulder. He states he went to the ED at [facility] and was given a sling and told to follow-up with orthopedic surgery. However patient was not given any contact information for who to make appointment and so he has not seen an orthopedic surgeon yet. Review of Systems 10 ROS reviewed and are negative except as noted in HPI Past Medical History Past Medical History: Diabetes Mellitus, GERD/Reflux, GI Bleed, Liver Disease, Osteoarthritis (OA), Renal Disease Additional Past Medical History / Comment(s): ESRD with hemodialysis on //Wed, anasarca, ascities with multiple paracentesis (last time 02/21/20-seven liters removed), pt states he has a current either R shoulder or R clavicle fracture/in sling-pt has been unable to follow up with orthopedic physician, pt is R handed, currently has increased weakness with difficulty rising from chairs/getting into vehicles/showering, fatty liver, nonalcoholic liver cirrhosis, esophageal varicies/variceal bleed, lower GI bleed, DVT L leg, NIDDM type II-diet controlled, arthritis R foot. 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 Father History Unknown: Yes Additional Family Medical History / Comment(s): Pt does not know father's medical history. Father in his 60's. Brother(s) Family Medical History: Cancer Additional Family Medical History / Comment(s): Prostate cancer. Medications and Allergies Home Medications Medication Instructions Recorded Confirmed Type Calcium Acetate [Phoslo] 667 mg PO BID 01/24/20 02/27/20 History Acetaminophen Tab [Tylenol] 650 mg PO Q6H 02/27/20 02/27/20 History Furosemide [Lasix] 80 mg PO BID 02/27/20 02/27/20 History Midodrine HCl [ProAmatine] 10 mg PO TID 02/27/20 02/27/20 History Pioglitazone [Actos] 15 mg PO DAILY 02/27/20 02/27/20 History Spironolactone [Aldactone] 25 mg PO BID 02/27/20 02/27/20 History Allergies Allergy/AdvReac Type Severity Reaction Status Date / Time Sulfa (Sulfonamide Allergy Rash/Hives Verified 02/27/20 10:26 Antibiotics) Physical Exam Osteopathic Statement: *. No significant issues noted on an osteopathic structural exam other than those noted in the History and Physical/Consult. Vitals: Vital Signs Temp Pulse Resp BP Pulse Ox 02/27/20 14:58 86 19 94/58 98 02/27/20 14:20 83 18 75/52 97 02/27/20 14:14 84 18 85/58 98 02/27/20 12:45 82 19 93/53 97 02/27/20 12:30 81 18 77/50 98 02/27/20 12:15 84 20 86/49 97 02/27/20 12:00 82 16 86/50 99 02/27/20 11:45 84 19 87/53 99 02/27/20 11:31 79 16 84/49 98 02/27/20 11:30 80 17 76/46 99 02/27/20 11:15 84 17 93/52 98 02/27/20 10:02 98.1 F 89 18 71/48 100 Intake and Output 02/27/20 02/27/20 02/27/20 06:59 14:59 22:59 Other: Weight 120.202 kg General: [Alert and oriented, well nourished, no acute distress]. Eye: [PERRL, EOMI, normal conjunctiva]. HENT: [Normocephalic, clear tympanic membranes, normal hearing, moist oral mucosa, no scleral icterus, no sinus tenderness]. Neck: [Supple, non-tender, no carotid bruits, no JVD, no lymphadenopathy]. Lungs: [Clear to auscultation and percussion, non-labored respiration]. Heart: [Normal rate, regular rhythm, no murmur, gallop or edema]. Abdomen: [Soft, non-tender, distended, normal bowel sounds, no masses]. Musculoskeletal: [Right arm in sling, no tenderness or swelling]. Skin: [Skin is warm, dry and pink, no rashes or lesions]. Neurologic: [Awake, alert, and oriented X3, CN II-XII intact]. Psychiatric: [Cooperative, appropriate mood and affect]. Results CBC & Chem 7: 02/27/20 10:44 02/27/20 10:44 Labs: Abnormal Lab Results - Last 24 Hours (Table) 02/27/20 02/27/20 02/27/20 Range/Units 10:44 10:44 10:44 WBC 24.3 H (3.8-10.6) k/uL RBC 3.29 L (4.30-5.90) m/uL Hgb 10.5 L (13.0-17.5) gm/dL Hct 34.4 L (39.0-53.0) % MCV 104.7 H (80.0-100.0) fL MCHC 30.6 L (31.0-37.0) g/dL RDW 16.3 H (11.5-15.5) % Neutrophils # 21.4 H (1.3-7.7) k/uL Monocytes # 1.6 H (0-1.0) k/uL Sodium 126 L (137-145) mmol/L Chloride 93 L (98-107) mmol/L Carbon Dioxide 19 L (22-30) mmol/L BUN 61 H (9-20) mg/dL Creatinine 6.24 H (0.66-1.25) mg/dL Glucose 209 H (74-99) mg/dL Calcium 7.9 L (8.4-10.2) mg/dL Total Bilirubin 3.1 H (0.2-1.3) mg/dL AST 63 H (17-59) U/L Alkaline Phosphatase 156 H (38-126) U/L Creatine Kinase 35 L (55-170) U/L Troponin I 0.037 H* (0.000-0.034) ng/mL Total Protein 6.1 L (6.3-8.2) g/dL Albumin 2.3 L (3.5-5.0) g/dL Thrombosis Risk Factor Assmnt - Choose All That Apply Any of the Below Risk Factors Present?: Yes Each Factor Represents 1 point: Age 41-60 years, Obesity (BMI >25) Other Risk Factors: Yes Each Risk Factor Represents 3 Points: History of DVT/PE Other congenital or acquired thrombophilia - If yes, enter type in comment: No Thrombosis Risk Factor Assessment Total Risk Factor Score: 5 Thrombosis Risk Factor Assessment Level: High Risk Assessment and Plan Assessment: #Hypotension likely due to fluid removal during dialysis -Blood pressure improved with fluid -Rule out sepsis; patient given 2 L fluid boluses in the ED and has been started on maintenance fluids. We'll monitor the patient for volume overload -Hold his home dose diuretics -Resume midodrine -Check urine culture -Follow up blood culture -We'll order for diagnostic paracentesis tomorrow -Chest x-ray shows no acute process -We'll start patient on IV vancomycin and cefepime and discontinue if all cultures are negative for 48 hours and patient remains afebrile and WBC trending down #Neutrophilic leukocytosis -Rule out sepsis see above #Diabetes -Hold Pioglitazone -Sliding-scale insulin #End-stage renal disease -Nephrology consult for dialysis #Nonalcoholic Cirrhosis -Holding diuretics (see above) #Recent fracture right shoulder -Check right shoulder x-ray -Consult orthopedic surgery CODE STATUS:full code DVT prophylaxis: Heparin Discussed with: Patient, ER, rn Anticipated length of stay > than [address]: home A total of 75 minutes was spent on the care of this complex patient more than 50% of the time was spent in counseling and care coordination.
[2020-02-27] MEDS ORDERED: VANCOMYCIN 2,000 MG in SODIUM CHLORIDE 0.9% 500 ML 500 ML IVPB ONE (17:00)
--- NOTE | 2020-02-27 17:01 | XR ---
EXAMINATION TYPE: XR humerus RT DATE OF EXAM: 02/27/2020 COMPARISON: NONE HISTORY: Pain TECHNIQUE: 2 views FINDINGS: There is transverse fracture of the neck of the right humeral head. There is no dislocation . Elbow joint appears intact. IMPRESSION: Acute or subacute nondisplaced right humeral neck fracture.
[2020-02-27 18:22] LABS: Glucose,Whole Blood 191 mg/dL (75-99)
[2020-02-27] MEDS: CALCIUM ACETATE 667 MG TAB PO SCH (18:23)
[2020-02-27] MEDS: INSULIN ASPART (NovoLOG) 100 UNIT/ML VIAL SQ SCH ×2 (18:24→20:24)
[2020-02-27] MEDS: MIDODRINE 5 MG TAB PO SCH (18:24)
[2020-02-27 20:01] LABS: Glucose,Whole Blood 213 mg/dL (75-99)
[2020-02-27] MEDS: CEFEPIME 1 GM in SODIUM CHLORIDE 0.9% 50 ML IVPB SCH (20:23)
[2020-02-27] MEDS: HEPARIN SODIUM,PORCINE 5,000 UNIT/ML 1 ML VIAL SQ SCH (20:23)
[2020-02-27] MEDS ORDERED: SPIRONOLACTONE 25 MG TAB PO SCH (21:00)
[2020-02-28] MEDS: ACETAMINOPHEN TAB 325 MG TAB PO SCH ×4 (02:59→17:46)
[2020-02-28 05:51] LABS: Glucose,Whole Blood 224 mg/dL (75-99)
[2020-02-28] MEDS: CALCIUM ACETATE 667 MG TAB PO SCH ×2 (06:40→16:57)
[2020-02-28] MEDS: MIDODRINE 5 MG TAB PO SCH ×3 (06:40→16:57)
[2020-02-28] MEDS: INSULIN ASPART (NovoLOG) 100 UNIT/ML VIAL SQ SCH ×4 (06:41→21:07)
[2020-02-28 07:42] LABS: Anisocytosis Slight; HCT 30.2 % (39.0-53.0); HGB 9.2 gm/dL (13.0-17.5); Hypochromasia Moderate; MCH 32.6 pg (25.0-35.0); MCHC 30.6 g/dL (31.0-37.0); MCV 106.5 fL (80.0-100.0); Macrocytosis Marked; Platelet Count 108 k/uL (150-450); RBC 2.84 m/uL (4.30-5.90); RDW 16.4 % (11.5-15.5); WBC 12.7 k/uL (3.8-10.6)
[2020-02-28 08:06] LABS: ALT 28 U/L (4-49); AST 53 U/L (17-59); African American GFR (CKD) 9 (>60 ml/min/1.73 sqM); Albumin 2.1 g/dL (3.5-5.0); Alkaline Phosphatase 142 U/L (38-126); Anion Gap 13 mmol/L; Blood Urea Nitrogen 74 mg/dL (9-20); Carbon Dioxide 21 mmol/L (22-30); Chloride 94 mmol/L (98-107); Glucose 224 mg/dL (74-99); Magnesium 2.1 mg/dL (1.6-2.3); Non-African American GFR(CKD) 7 (>60 ml/min/1.73 sqM); Potassium 4.6 mmol/L (3.5-5.1); Sodium 128 mmol/L (137-145); Total Bilirubin 1.5 mg/dL (0.2-1.3); Total Protein 5.3 g/dL (6.3-8.2)
[2020-02-28 09:11] LABS: Vancomycin,Random <5.0 ug/mL
[2020-02-28] MEDS: ALBUMIN HUMAN 25% 50 ML in EMPTY BAG 1 BAG IVPB SCH ×4 (09:28→15:15)
[2020-02-28] MEDS: HEPARIN SODIUM,PORCINE 5,000 UNIT/ML 1 ML VIAL SQ SCH ×2 (09:30→21:07)
[2020-02-28] MEDS: PIOGLITAZONE 15 MG TAB PO SCH (09:30)
[2020-02-28] MEDS: CEFEPIME 1 GM in SODIUM CHLORIDE 0.9% 50 ML IVPB SCH ×2 (09:30→21:06)
[2020-02-28] MEDS ORDERED: VANCOMYCIN 2,000 MG in SODIUM CHLORIDE 0.9% 500 ML 500 ML IVPB ONE (10:00)
--- NOTE | 2020-02-28 11:36 | P.PN ---
Subjective Progress Note Date: 02/28/20 Principal diagnosis: CC: Hypotensive during dialysis Patient is a 59 yo M with a significant past medical history of nonalcoholic liver cirrhosis with ascites with paracentesis every Wednesday and esophageal varices with recent EGD status post variceal ligation, end-stage renal disease on hemodialysis and GI bleed who was sent in from the dialysis center for blood pressure of 70 systolic. Patient states that normally at the beginning of dialysis his blood pressure is low however it has never been as low as in the 70s. He says that he has had dialysis for only and hour and half. She does not think that they removed too much fluid. Patient denies any fever or chills nausea vomiting. Patient denies any abdominal pain. Patient states that he has decreased urine output since he is a liver cirrhosis and end-stage renal disease patient. He states that his urine is usually dark colored. Patient denies any cough. He states that he is scheduled for paracentesis tomorrow. In the ED patient systolic blood pressures was in the 70s on arrival. He was given 2 units normosaline boluses after which his blood pressure improved to 90 systolically and has been stable. Patient is also found to have a WBC count of 24. He was given 1 dose of IV ceftriaxone. Patient was then referred for admission. Also patient states that he recently fractured his right shoulder. He states he went to the ED at [facility] and was given a sling and told to follow-up with orthopedic surgery. However patient was not given any contact information for who to make appointment and so he has not seen an orthopedic surgeon yet. Today patient denies any acute complaints. His blood pressure was stable last night with systolic blood pressure in the 90s. However this morning patient's blood pressure was systolically in the 70s. Patient was given IV albumin after which his blood pressure improved. Patient denies any fever chills nausea vomiting cough. Patient states that he was only able to produce a small amount of urine for the UA sample. Objective - Vital Signs Vital signs: Vital Signs Temp 97.8 F 02/28/20 08:17 Pulse 79 02/28/20 08:17 Resp 20 02/28/20 08:17 BP 87/51 02/28/20 11:29 Pulse Ox 96 02/28/20 08:17 Intake & Output 02/27/20 02/28/20 02/28/20 18:59 06:59 18:59 Intake Total 100 120 Output Total 50 Balance 50 120 Weight 120.202 kg 130.3 kg Intake: Oral 100 120 Output: Urine 50 - Exam General examination - Alert and Oriented 3 in NAD Heart - + S1S2 no murmurs Lungs - Clear to auscultation Abdomen soft NT DISTENDED +ve BS Extremities - No edema, right arm in sling STILL PHOTOGRAPHER - Moving all 4 extremities spontaneously Psych - Calm and cooperative - Labs CBC & Chem 7: 02/28/20 07:04 02/28/20 07:04 Labs: Abnormal Lab Results - Last 24 Hours (Table) 02/27/20 02/27/20 02/27/20 Range/Units 10:44 18:20 18:51 WBC (3.8-10.6) k/uL RBC (4.30-5.90) m/uL Hgb (13.0-17.5) gm/dL Hct (39.0-53.0) % MCV (80.0-100.0) fL MCHC (31.0-37.0) g/dL RDW (11.5-15.5) % Plt Count (150-450) k/uL Macrocytosis Sodium (137-145) mmol/L Chloride (98-107) mmol/L Carbon Dioxide (22-30) mmol/L BUN (9-20) mg/dL Creatinine (0.66-1.25) mg/dL Glucose (74-99) mg/dL POC Glucose (mg/dL) 191 H (75-99) mg/dL Calcium (8.4-10.2) mg/dL Total Bilirubin (0.2-1.3) mg/dL Alkaline Phosphatase (38-126) U/L Troponin I 0.037 H* 0.037 H* (0.000-0.034) ng/mL Total Protein (6.3-8.2) g/dL Albumin (3.5-5.0) g/dL 02/27/20 02/27/20 02/28/20 Range/Units 20:00 21:00 05:50 WBC (3.8-10.6) k/uL RBC (4.30-5.90) m/uL Hgb (13.0-17.5) gm/dL Hct (39.0-53.0) % MCV (80.0-100.0) fL MCHC (31.0-37.0) g/dL RDW (11.5-15.5) % Plt Count (150-450) k/uL Macrocytosis Sodium (137-145) mmol/L Chloride (98-107) mmol/L Carbon Dioxide (22-30) mmol/L BUN (9-20) mg/dL Creatinine (0.66-1.25) mg/dL Glucose (74-99) mg/dL POC Glucose (mg/dL) 213 H 224 H (75-99) mg/dL Calcium (8.4-10.2) mg/dL Total Bilirubin (0.2-1.3) mg/dL Alkaline Phosphatase (38-126) U/L Troponin I 0.037 H* (0.000-0.034) ng/mL Total Protein (6.3-8.2) g/dL Albumin (3.5-5.0) g/dL 02/28/20 02/28/20 Range/Units 07:04 07:04 WBC 12.7 H (3.8-10.6) k/uL RBC 2.84 L (4.30-5.90) m/uL Hgb 9.2 L (13.0-17.5) gm/dL Hct 30.2 L (39.0-53.0) % MCV 106.5 H (80.0-100.0) fL MCHC 30.6 L (31.0-37.0) g/dL RDW 16.4 H (11.5-15.5) % Plt Count 108 L (150-450) k/uL Macrocytosis Marked A Sodium 128 L (137-145) mmol/L Chloride 94 L (98-107) mmol/L Carbon Dioxide 21 L (22-30) mmol/L BUN 74 H (9-20) mg/dL Creatinine 7.30 H* (0.66-1.25) mg/dL Glucose 224 H (74-99) mg/dL POC Glucose (mg/dL) (75-99) mg/dL Calcium 8.0 L (8.4-10.2) mg/dL Total Bilirubin 1.5 H (0.2-1.3) mg/dL Alkaline Phosphatase 142 H (38-126) U/L Troponin I (0.000-0.034) ng/mL Total Protein 5.3 L (6.3-8.2) g/dL Albumin 2.1 L (3.5-5.0) g/dL Assessment and Plan Assessment: #Hypotension likely due to fluid removal during dialysis; rule out sepsis -Patient was hypotensive this morning with systolic blood pressure in the 70s. It improved with IV albumin -Rule out sepsis; follow-up blood culture. Unable to obtain UA as patient produces minimal urine -Hold his home dose diuretics -Increase midodrine to 10 mg 3 times a day -Paracentesis today -Chest x-ray shows no acute process -We'll start patient on IV vancomycin and cefepime and discontinue if all cultures are negative for 48 hours and patient remains afebrile and WBC trending down -> in 24 hours patient has remained afebrile and WBC trending down #Neutrophilic leukocytosis -WBC 24 on admission -Rule out sepsis see above. Improving #Diabetes -Hold Pioglitazone -Sliding-scale insulin #End-stage renal disease -Nephrology consult for dialysis #Nonalcoholic Cirrhosis -Holding diuretics (see above) #Recent fracture right shoulder -right shoulder x-ray shows acute or subacute nondisplaced right humeral neck fracture -Consult orthopedic surgery Disposition: Anticipate patient will be ready for discharge in the next 24 hours blood pressure is stable
[2020-02-28 11:39] LABS: Glucose,Whole Blood 231 mg/dL (75-99)
[2020-02-28 11:43] LABS: INR 1.4 (<1.2); Prothrombin Time 13.6 sec (9.0-12.0)
--- NOTE | 2020-02-28 14:30 | US ---
Ultrasound-guided paracentesis. DATE OF EXAM: 02/28/2020 CLINICAL HISTORY: Ascites The procedure was discussed with the patient. The risks, complications, benefits, and alternatives we re discussed and any questions were answered. Informed consent was obtained. The patient was placed s upine on the ultrasound table and prepped and draped in the usual sterile fashion. All elements of maximal barrier technique were utilized. Under ultrasound guidance, access into the right lower quadrant was obtained, via the paracentesis catheter system and direct ultrasound guidanc e. Approximately 4 liters of straw-colored fluid was removed. The patient was stable throughout the proc edure and remained stable upon discharge from Department of Radiology. Sample obtained and sent to devyn muller for analysis. IMPRESSION: Successful paracentesis under ultrasound guidance.
[2020-02-28 16:43] LABS: Glucose,Whole Blood 224 mg/dL (75-99)
--- NOTE | 2020-02-28 16:47 | CONS ---
CONSULTATION REASON FOR CONSULT: End-stage renal disease. HISTORY OF PRESENT ILLNESS: Patient is a 59-year-old male with end-stage renal disease, mostly for acute kidney injury which did not recover. Currently patient is on hemodialysis. He was transferred to the hospital yesterday for continued hypotension. The patient also has underlying chronic liver disease, liver cirrhosis and recurring ascites. He runs low blood pressure and is maintained on midodrine. However, his pressure was significantly low with systolic in the 70s and did not improve with fluid boluses at the outpatient dialysis center. Therefore he was transferred to the hospital. The patient is currently maintained on midodrine. His blood pressure had improved to some degree; however, it dropped again to about 80 systolic this morning. The patient is scheduled for paracentesis today. He did have close to 2 hours of treatment yesterday and at this time we will hold off on dialysis today and plan for a treatment tomorrow. PAST MEDICAL HISTORY: 1. Chronic liver disease with portal hypertension, recurrent ascites and liver cirrhosis. 2. Dialysis-dependent acute kidney injury with no recovery, maintained on a Wednesday, , Wednesday schedule for dialysis. 3. Esophageal varices. 4. History of DVT. 5. History of GI bleed. PAST SURGICAL HISTORY: Surgery on the right foot, EGDs, colonoscopies, dialysis catheter placement. SOCIAL HISTORY: Positive for smoking. No history of drug abuse or alcohol abuse. MEDICATIONS: Medications at home included PhosLo, Tylenol, Lasix, midodrine, Actos, Aldactone. ALLERGIES: ALLERGIES include SULFA, which caused rash and hives. REVIEW OF SYSTEMS: As per HPI. Other systems negative. No fever, chills, nausea, vomiting, abdominal pain or diarrhea. PHYSICAL EXAMINATION: Patient is comfortable, awake, not in any acute distress. Blood pressure 87/51, heart rate of 79 per minute. Patient is afebrile. EXAMINATION OF THE HEART: S1 and S2. EXAMINATION OF LUNGS: Bilateral breath sounds are heard. Decreased breath sounds at bases. ABDOMEN: Soft, non-tender. Distended with ascites. Examination of lower extremities shows chronic skin changes, trace edema 1+ bilaterally. DIRECT CARE WORKER exam is grossly intact. LABS: Labs show sodium of 128, potassium 4.6, chloride 94. CO2 is 21, BUN 74, creatinine 7.3, hemoglobin 9.2 g/dL. Troponin 0.037. ASSESSMENT: 1. End-stage renal disease, on hemodialysis. Mostly it was acute kidney injury which did not recover. Patient remains hemodialysis-dependent on a Wednesday, , Wednesday schedule. He had close to half of his treatment yesterday. We will hold off on dialysis today and plan for a treatment tomorrow. 2. Hypotension, mostly associated with advanced liver disease, liver cirrhosis, maintained on midodrine. Patient has had cortisol level checked previously. I will reorder it while he is in the hospital. 3. Liver cirrhosis with recurrent ascites, scheduled for paracentesis today. 4. Hyponatremia, hypervolemic and associated with underlying liver disease. 5. Chronic kidney disease mineral bone disorder. PLAN: Hold hemodialysis today. We will plan for a treatment tomorrow. Proceed with paracentesis. Continue with midodrine. Check random cortisol level. Thank you for this consultation. Will continue to follow the patient with you during his hospitalization. MMJOANL / KEDARN: [id number] /
[2020-02-28 19:59] LABS: Glucose,Whole Blood 239 mg/dL (75-99)
[2020-02-28 20:15] LABS: Hemoglobin A1C 4.7 % (4.0-6.0)
[2020-02-28 21:28] LABS: Amorphous Sediment,Urine Rare /hpf; Appearance,Urine Cloudy (Clear); Bacteria,Urine Rare /hpf; Bilirubin,Urine Negative (Negative); Blood,Urine Moderate (Negative); Color,Urine Yellow; Glucose,Urine (UA) Negative (Negative); Hyaline Casts,Urine 3 /lpf (0-2); Ketones,Urine Trace (Negative); Leukocyte Esterase,Urine Large (Negative); Mucus,Urine Rare /hpf; Nitrite,Urine Negative (Negative); Protein,Urine 1+ (Negative); RBC,Urine 64 /hpf (0-5); Specific Gravity,Urine 1.019 (1.001-1.035); Squamous Epithelial Cell,Urine 3 /hpf (0-4); WBC,Urine 46 /hpf (0-5)
[2020-02-28 21:31] LABS: Appearance,BF Hazy; Color,BF Yellow; Nucleated Cells, Body Fluid 2000 /uL; RBC, Body Fluid 2250 /uL
[2020-02-28 21:32] LABS: Mononuclear WBC,Body Fluid 25 %; Polynuclear WBC,Body Fluid 75 %
[2020-02-29] MEDS: ACETAMINOPHEN TAB 325 MG TAB PO SCH ×2 (00:40→07:03)
[2020-02-29 06:50] LABS: Glucose,Whole Blood 250 mg/dL (75-99)
[2020-02-29] MEDS: MIDODRINE 5 MG TAB PO SCH ×2 (07:02→12:29)
[2020-02-29] MEDS: CALCIUM ACETATE 667 MG TAB PO SCH (07:02)
[2020-02-29] MEDS: INSULIN ASPART (NovoLOG) 100 UNIT/ML VIAL SQ SCH ×2 (07:03→12:27)
[2020-02-29 08:39] LABS: Albumin 2.3 g/dL (3.5-5.0); Potassium 4.3 mmol/L (3.5-5.1); Total Bilirubin 1.1 mg/dL (0.2-1.3); Total Protein 5.4 g/dL (6.3-8.2)
[2020-02-29 08:41] LABS: Anisocytosis Slight; HCT 27.5 % (39.0-53.0); HGB 8.6 gm/dL (13.0-17.5); Hypochromasia Slight; MCH 32.6 pg (25.0-35.0); MCHC 31.2 g/dL (31.0-37.0); MCV 104.8 fL (80.0-100.0); Macrocytosis Moderate; Mean Platelet Volume 9.3; RBC 2.63 m/uL (4.30-5.90); RDW 16.4 % (11.5-15.5); WBC 7.8 k/uL (3.8-10.6)
[2020-02-29] MEDS: HEPARIN SODIUM,PORCINE 5,000 UNIT/ML 1 ML VIAL SQ SCH (09:07)
[2020-02-29] MEDS: CEFEPIME 1 GM in SODIUM CHLORIDE 0.9% 50 ML IVPB SCH (09:07)
[2020-02-29] MEDS: PIOGLITAZONE 15 MG TAB PO SCH (09:07)
[2020-02-29 09:10] LABS: Vancomycin,Random 15.7 ug/mL
[2020-02-29 09:58] LABS: Platelet Count 94 k/uL (150-450)
[2020-02-29 12:14] LABS: Glucose,Whole Blood 160 mg/dL (75-99)
--- NOTE | 2020-02-29 12:42 | P.DS ---
Providers Date of admission: 02/27/20 13:05 Expected date of discharge: 02/29/20 Attending physician: Maggi Carlson DO Consults: 02/27/20 13:06 Consult Physician Urgent Consulting Provider: Citlali Fields Consult Reason/Comments: Dialysis, hypertension Do you want consulting provider notified?: Already Contacted 02/27/20 16:35 Consult Physician Routine Consulting Provider: Armando Lopez Consult Reason/Comments: Right should fracture Do you want consulting provider notified?: Yes 02/28/20 21:22 Consult Physician Urgent Consulting Provider: Ayden Koch Consult Reason/Comments: retention, not emptying Do you want consulting provider notified?: Already Contacted Primary care physician: [facility] Course: Patient is a 59 yo M with a significant past medical history of nonalcoholic liver cirrhosis with ascites with paracentesis every Wednesday and esophageal varices with recent EGD status post variceal ligation, end-stage renal disease on hemodialysis and GI bleed who was sent in from the dialysis center for blood pressure of 70 systolic. Patient states that normally at the beginning of dialysis his blood pressure is low however it has never been as low as in the 70s. Patient was evaluated in the ER and admitted to the hospital for further management. There was no evidence of infection. His midodrine dose was increased to 10 mg 3 times a day. His hypotension on presentation is probably secondary to his blood pressure being on the lower side normally secondary to underlying liver disease and probably got worse with dialysis secondary to volume depletion. His blood pressure remained within acceptable range during this hospital stay. Blood culture remained negative. Patient underwent paracentesis on 02/27 with 4 L of fluid removed. He received IV albumin after the procedure. Patient was started on broad-spectrum antibiotic on presentation with IV vancomycin and cefepime. Antibiotic will be discontinued as there is no source of infection identified. Patient will be discharged home in a stable condition. For further details about this hospitalization please refer to the electronic chart. Patient Condition at Discharge: Fair Plan - Discharge Summary Discharge Rx Participant: No New Discharge Prescriptions: Continue Calcium Acetate [PhosLo] 667 mg PO BID Furosemide [Lasix] 80 mg PO BID Pioglitazone [Actos] 15 mg PO DAILY Acetaminophen Tab [Tylenol] 650 mg PO Q6H Spironolactone [Aldactone] 25 mg PO BID Midodrine HCl [ProAmatine] 10 mg PO TID #90 tab Discharge Medication List Calcium Acetate [PhosLo] 667 mg PO BID 01/24/20 [History] Acetaminophen Tab [Tylenol] 650 mg PO Q6H 02/27/20 [History] Furosemide [Lasix] 80 mg PO BID 02/27/20 [History] Pioglitazone [Actos] 15 mg PO DAILY 02/27/20 [History] Spironolactone [Aldactone] 25 mg PO BID 02/27/20 [History] Midodrine HCl [ProAmatine] 10 mg PO TID #90 tab 02/29/20 [Rx] Follow up Appointment(s)/Referral(s): Rob Whalen [Primary Care Provider] - 1-2 days Discharge Disposition: HOME SELF-CARE
[2020-02-29 14:05] VITALS: BP 97/49; PULSE 76; RESP 14; TEMP 97.8
--- NOTE | 2020-02-29 14:27 | P.GSCN ---
History of Present Illness Consult date: 02/29/20 Reason for Consult: Elevated PVR History of present illness: Mr Patel is a 59 yo M with hx a significant for nonalcoholic liver cirrhosis with ascites with paracentesis. He is admitted to the hospital with hypotension. Bladder scan was obtained which showed 450 mL, he was straight cathed for 30 mL. He denies any voiding hx. He is on HD, but able to make urine, and indicates he voids 4 times a day. Denies any dysuria or gross hematuria. He has hx of false urethral passage and required cystoscope for callahan placement in the past. Review of Systems - Constitutional Denies chills, Denies fever - EENT Ears, nose, mouth and throat: Denies dysphagia, Denies headache - Cardiovascular Reports leg edema, Denies chest pain - Respiratory Denies cough, Denies dyspnea - Gastrointestinal Denies abdominal pain, Denies nausea, Denies vomiting - Genitourinary Denies dysuria, Denies flank pain, Denies hematuria Past Medical History Past Medical History: Diabetes Mellitus, GERD/Reflux, GI Bleed, Liver Disease, Osteoarthritis (OA), Renal Disease Additional Past Medical History / Comment(s): ESRD with hemodialysis on //Wed, anasarca, ascities with multiple paracentesis (last time 02/21/20-seven liters removed), pt states he has a current either R shoulder or R clavicle fracture/in sling-pt has been unable to follow up with orthopedic physician, pt is R handed, currently has increased weakness with difficulty rising from chairs/getting into vehicles/showering, fatty liver, nonalcoholic liver cirrhosis, esophageal varicies/variceal bleed, lower GI bleed, DVT L leg, NIDDM type II-diet controlled, arthritis R foot. 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 Father History Unknown: Yes Additional Family Medical History / Comment(s): Pt does not know father's medical history. Father in his 60's. Brother(s) Family Medical History: Cancer Additional Family Medical History / Comment(s): Prostate cancer. Medications and Allergies Home Medications Medication Instructions Recorded Confirmed Type Calcium Acetate [PhosLo] 667 mg PO BID 01/24/20 02/27/20 History Acetaminophen Tab [Tylenol] 650 mg PO Q6H 02/27/20 02/27/20 History Furosemide [Lasix] 80 mg PO BID 02/27/20 02/27/20 History Pioglitazone [Actos] 15 mg PO DAILY 02/27/20 02/27/20 History Spironolactone [Aldactone] 25 mg PO BID 02/27/20 02/27/20 History Midodrine HCl [ProAmatine] 10 mg PO TID #90 tab 02/29/20 Rx Allergies Allergy/AdvReac Type Severity Reaction Status Date / Time Sulfa (Sulfonamide Allergy Rash/Hives Verified 02/27/20 10:26 Antibiotics) Surgical - Exam Vital Signs Temp Pulse Resp BP Pulse Ox 98.1 F 89 18 71/48 100 02/27/20 10:02 02/27/20 10:02 02/27/20 10:02 02/27/20 10:02 02/27/20 10:02 - General well developed, no distress, no pain - Eyes normal ocular movement, pale - Respiratory normal expansion, normal respiratory effort - Abdomen Abdomen: soft, no rigid, distended - Psychiatric oriented to time, oriented to person, oriented to place Results - Labs 02/29/20 07:50 02/29/20 07:50 Abnormal Lab Results - Last 24 Hours (Table) 02/28/20 02/28/20 02/28/20 Range/Units 16:42 19:57 Unknown RBC (4.30-5.90) m/uL Hgb (13.0-17.5) gm/dL Hct (39.0-53.0) % MCV (80.0-100.0) fL RDW (11.5-15.5) % Plt Count (150-450) k/uL Sodium (137-145) mmol/L Chloride (98-107) mmol/L BUN (9-20) mg/dL Creatinine (0.66-1.25) mg/dL Glucose (74-99) mg/dL POC Glucose (mg/dL) 224 H 239 H (75-99) mg/dL Calcium (8.4-10.2) mg/dL Alkaline Phosphatase (38-126) U/L Total Protein (6.3-8.2) g/dL Albumin (3.5-5.0) g/dL Urine Protein 1+ H (Negative) Urine Ketones Trace H (Negative) Urine Blood Moderate H (Negative) Ur Leukocyte Esterase Large H (Negative) Urine RBC 64 H (0-5) /hpf Urine WBC 46 H (0-5) /hpf Amorphous Sediment Rare H (None) /hpf Urine Bacteria Rare H (None) /hpf Hyaline Casts 3 H (0-2) /lpf Urine Mucus Rare H (None) /hpf 02/29/20 02/29/20 02/29/20 Range/Units 06:46 07:50 07:50 RBC 2.63 L (4.30-5.90) m/uL Hgb 8.6 L (13.0-17.5) gm/dL Hct 27.5 L (39.0-53.0) % MCV 104.8 H (80.0-100.0) fL RDW 16.4 H (11.5-15.5) % Plt Count 94 L (150-450) k/uL Sodium 129 L (137-145) mmol/L Chloride 94 L (98-107) mmol/L BUN 90 H (9-20) mg/dL Creatinine 8.20 H* (0.66-1.25) mg/dL Glucose 200 H (74-99) mg/dL POC Glucose (mg/dL) 250 H (75-99) mg/dL Calcium 8.0 L (8.4-10.2) mg/dL Alkaline Phosphatase 149 H (38-126) U/L Total Protein 5.4 L (6.3-8.2) g/dL Albumin 2.3 L (3.5-5.0) g/dL Urine Protein (Negative) Urine Ketones (Negative) Urine Blood (Negative) Ur Leukocyte Esterase (Negative) Urine RBC (0-5) /hpf Urine WBC (0-5) /hpf Amorphous Sediment (None) /hpf Urine Bacteria (None) /hpf Hyaline Casts (0-2) /lpf Urine Mucus (None) /hpf 02/29/20 Range/Units 11:49 RBC (4.30-5.90) m/uL Hgb (13.0-17.5) gm/dL Hct (39.0-53.0) % MCV (80.0-100.0) fL RDW (11.5-15.5) % Plt Count (150-450) k/uL Sodium (137-145) mmol/L Chloride (98-107) mmol/L BUN (9-20) mg/dL Creatinine (0.66-1.25) mg/dL Glucose (74-99) mg/dL POC Glucose (mg/dL) 160 H (75-99) mg/dL Calcium (8.4-10.2) mg/dL Alkaline Phosphatase (38-126) U/L Total Protein (6.3-8.2) g/dL Albumin (3.5-5.0) g/dL Urine Protein (Negative) Urine Ketones (Negative) Urine Blood (Negative) Ur Leukocyte Esterase (Negative) Urine RBC (0-5) /hpf Urine WBC (0-5) /hpf Amorphous Sediment (None) /hpf Urine Bacteria (None) /hpf Hyaline Casts (0-2) /lpf Urine Mucus (None) /hpf Microbiology - Last 24 Hours (Table) 02/28/20 13:01 Gram Stain - Preliminary Paracentesis Fluid Body Fluid Culture - Preliminary 02/28/20 Unknown Urine Culture - Preliminary Urine,Voided 02/28/20 13:01 Anaerobic Culture - Preliminary Paracentesis Fluid 02/27/20 14:09 Blood Culture - Preliminary Blood No Growth after 24 hours Diabetes panel 02/27/20 02/29/20 Range/Units 10:44 07:50 Sodium 129 L (137-145) mmol/L Potassium 4.3 (3.5-5.1) mmol/L Chloride 94 L (98-107) mmol/L Carbon Dioxide 23 (22-30) mmol/L BUN 90 H (9-20) mg/dL Creatinine 8.20 H* (0.66-1.25) mg/dL Glucose 200 H (74-99) mg/dL Hemoglobin A1c 4.7 (4.0-6.0) % Calcium 8.0 L (8.4-10.2) mg/dL AST 45 (17-59) U/L ALT 28 (4-49) U/L Alkaline Phosphatase 149 H (38-126) U/L Total Protein 5.4 L (6.3-8.2) g/dL Albumin 2.3 L (3.5-5.0) g/dL Calcium panel 02/29/20 Range/Units 07:50 Calcium 8.0 L (8.4-10.2) mg/dL Albumin 2.3 L (3.5-5.0) g/dL Pituitary panel 02/29/20 Range/Units 07:50 Sodium 129 L (137-145) mmol/L Potassium 4.3 (3.5-5.1) mmol/L Chloride 94 L (98-107) mmol/L Carbon Dioxide 23 (22-30) mmol/L BUN 90 H (9-20) mg/dL Creatinine 8.20 H* (0.66-1.25) mg/dL Glucose 200 H (74-99) mg/dL Calcium 8.0 L (8.4-10.2) mg/dL Adrenal panel 02/29/20 Range/Units 07:50 Sodium 129 L (137-145) mmol/L Potassium 4.3 (3.5-5.1) mmol/L Chloride 94 L (98-107) mmol/L Carbon Dioxide 23 (22-30) mmol/L BUN 90 H (9-20) mg/dL Creatinine 8.20 H* (0.66-1.25) mg/dL Glucose 200 H (74-99) mg/dL Calcium 8.0 L (8.4-10.2) mg/dL Total Bilirubin 1.1 (0.2-1.3) mg/dL AST 45 (17-59) U/L ALT 28 (4-49) U/L Alkaline Phosphatase 149 H (38-126) U/L Total Protein 5.4 L (6.3-8.2) g/dL Albumin 2.3 L (3.5-5.0) g/dL Assessment and Plan Assessment: 59 yo male with hx of non-alcoholic liver cirrhosis. He is admitted to the hospital with hypotension. Urology is consulted for elevate bladder scan of 450 mL, he was straight cathed for only 30 mL. His elevated bladder scan is secondary to his ascites, Will recommend to avoid bladder scan given his ascites as the elevated bladder scan are secondary to that. Given that he was straight cathed for only 30 mL. No indication for callahan at this time. Ok for discharge from urology standpoint
--- NOTE | 2020-02-29 16:13 | PN ---
PROGRESS NOTE Patient is seen for followup for end-stage renal disease. He is currently seen on hemodialysis. He is tolerating his treatment well. Patient did at did have paracentesis with about 4 L of fluid removed yesterday. PHYSICAL EXAMINATION: On examination today, blood pressure is 92/50, heart rate 70 per minute, he is afebrile. Examination of the heart S1, S2. Examination of lungs decreased breath sounds at the bases. Abdomen is soft, obese, nontender with ascites. Examination of the of lower extremities shows edema, trace bilaterally. [employer] exam grossly intact. LABS: Show sodium 129, potassium 4.3, BUN 90, serum creatinine 8.2, hemoglobin 8.6 g/dL. ASSESSMENT: 1. End-stage renal disease, on hemodialysis on a Wednesday, , Wednesday schedule, currently seen on dialysis tolerating treatment well. 2. Hypervolemic hyponatremia, now improved. 3. Liver cirrhosis with recurrent ascites, requiring paracentesis on a weekly basis. 4. Hypotension currently improved. No evidence of sepsis or underlying infection. UA showed 46 WBCs. Patient is maintained on empiric antibiotics. PLAN: Okay for discharge post dialysis today. Follow up as outpatient for dialysis on Wednesday. Continue with the midodrine. MMODL / IJN: [id number] /
[2020-03-01] MEDS ORDERED: VANCOMYCIN 2,000 MG in SODIUM CHLORIDE 0.9% 500 ML 500 ML IVPB ONE (14:00)
== END 2020-02-29 15:32 | disposition home or self-care (01) ==
LOC: EC 09:57 → INTOOBSV 13:05 → 3SCARD 13:05 → UNDODISIN 02-29 15:32
PROVIDERS: ADMIT Internal Medicine; ATTEND Internal Medicine
PROC: 0W9G3ZZ Drainage of Peritoneal Cavity, Percutaneous Approach (ICD-10-PCS; principal; 2020-02-28)
PROC: 5A1D70Z Performance of Urinary Filtration, Intermittent, Less than 6 Hours Per Day (ICD-10-PCS; 2020-02-29)
DX: I95.89 Other hypotension (principal); I12.0 Hypertensive chronic kidney disease with stage 5 chronic kidney disease or end stage renal disease; N18.6 End stage renal disease; K74.60 Unspecified cirrhosis of liver; I85.10 Secondary esophageal varices without bleeding; K76.6 Portal hypertension; R18.8 Other ascites; E87.1 Hypo-osmolality and hyponatremia; E83.9 Disorder of mineral metabolism, unspecified; E11.22 Type 2 diabetes mellitus with diabetic chronic kidney disease; K76.0 Fatty (change of) liver, not elsewhere classified; Z99.2 Dependence on renal dialysis; E87.70 Fluid overload, unspecified; E86.9 Volume depletion, unspecified; S42.211D Unspecified displaced fracture of surgical neck of right humerus, subsequent encounter for fracture with routine healing; K21.9 Gastro-esophageal reflux disease without esophagitis; D72.829 Elevated white blood cell count, unspecified; M19.90 Unspecified osteoarthritis, unspecified site; R79.89 Other specified abnormal findings of blood chemistry; E66.9 Obesity, unspecified; Z68.38 Body mass index [BMI] 38.0-38.9, adult; F17.210 Nicotine dependence, cigarettes, uncomplicated; Z79.84 Long term (current) use of oral hypoglycemic drugs; Z79.899 Other long term (current) drug therapy; Z88.2 Allergy status to sulfonamides; Z86.718 Personal history of other venous thrombosis and embolism; Z87.76 Personal history of (corrected) congenital malformations of integument, limbs and musculoskeletal system; Z87.19 Personal history of other diseases of the digestive system; Z98.890 Other specified postprocedural states; Z80.42 Family history of malignant neoplasm of prostate
CPT/HCPCS: 90935; 96361 ×3; 96366 ×3; 96367; 96372 ×3; 96365; 96375; 99285; 36415; 93005; 80053 ×3; 82533; 89050; 82550; 83735 ×2; 84484; 85025; 85027 ×2; 85610; 81001; 87040; 80202 ×2; 87070; 87086; 87205; 87075; 83036; 73060; 71045; 49083; G0378 ×3; J3370 ×2; J1644 ×3; J0692 ×3; J0696; P9047; 96374

== ENCOUNTER 2020-03-06 11:42 | Day surgery (SDC) | payer BC ==
[2020-03-06 12:24] LABS: Mean Platelet Volume 8.6
[2020-03-06 12:28] LABS: Platelet Count 97 k/uL (150-450)
[2020-03-06 12:30] LABS: INR 1.2 (<1.2); Prothrombin Time 12.1 sec (9.0-12.0)
[2020-03-06 12:42] VITALS: TEMP 98.2
[2020-03-06] MEDS: ALBUMIN HUMAN 25% 50 ML in EMPTY BAG 1 BAG IVPB SCH ×4 (13:28→14:21)
[2020-03-06 15:49] VITALS: RESP 16
[2020-03-06 15:51] VITALS: BP 99/53; PULSE 73
--- NOTE | 2020-03-11 08:55 | US ---
Ultrasound-guided paracentesis. DATE OF EXAM: 03/06/2020 CLINICAL HISTORY: Ascites The procedure was discussed with the patient. The risks, complications, benefits, and alternatives we re discussed and any questions were answered. Informed consent was obtained. The patient was placed s upine on the ultrasound table and prepped and draped in the usual sterile fashion. All elements of maximal barrier technique were utilized. Under ultrasound guidance, access into the right lower quadrant was obtained, via the paracentesis catheter system and direct ultrasound guidanc e. Approximately 9.1 liters of straw-colored fluid was removed. The patient was stable throughout the pr ocedure and remained stable upon discharge from Department of Radiology. IMPRESSION: Successful paracentesis under ultrasound guidance.
== END 2020-03-06 15:35 | disposition home or self-care (01) ==
LOC: RADPROMAIN 11:42
PROVIDERS: ATTEND Internal Medicine Gastroenterology
DX: R18.8 Other ascites (principal)
CPT/HCPCS: 82565; 82947; 85049; 85610; 36415; 49083; P9047

== ENCOUNTER 2020-03-13 11:33 | Day surgery (SDC) | payer BC ==
[2020-03-13 12:24] LABS: INR 1.3 (<1.2); Prothrombin Time 12.6 sec (9.0-12.0)
[2020-03-13 12:32] VITALS: TEMP 98
[2020-03-13 12:39] LABS: Mean Platelet Volume 8.6; Platelet Count 105 k/uL (150-450)
[2020-03-13] MEDS: ALBUMIN HUMAN 25% 50 ML in EMPTY BAG 1 BAG IVPB SCH ×4 (13:34→14:23)
[2020-03-13 15:41] VITALS: BP 102/53; PULSE 74; RESP 16
--- NOTE | 2020-03-13 16:14 | US ---
EXAMINATION TYPE: US paracentesis abd w/image DATE OF EXAM: 03/13/2020 COMPARISON: NONE HISTORY: Ascites. PROCEDURE: Maximal barrier technique was utilized. The skin overlying a suitable pocket of fluid was localized with ultrasound and the overlying skin was prepped and draped. Ultrasound was utilized with sterile technique. Lidocaine was used for local anesthesia and a skin felisa made with a scalpel. Catheter was advanced under direct ultrasound guidance into a suitable pocket of fluid and approximately 9.2 liter s of serous fluid were removed. Catheter was withdrawn and hemostasis achieved. There is no immedia te complication; the patient is discharged in stable condition. IMPRESSION: STATUS POST ULTRASOUND GUIDED PARACENTESIS FOR PALLIATION OF ASCITES. THIS PROCEDURE WA S PERFORMED BY THE UNDERSIGNED.
== END 2020-03-13 15:42 | disposition home or self-care (01) ==
LOC: RADPROMAIN 11:33
PROVIDERS: ATTEND Internal Medicine Gastroenterology
DX: R18.8 Other ascites (principal)
CPT/HCPCS: 82565; 82947; 85049; 85610; 36415; 49083; P9047

== ENCOUNTER 2020-03-20 09:36 | Day surgery (SDC) | payer BC ==
--- NOTE | 2020-03-20 10:04 | XR ---
EXAMINATION TYPE: XR chest 1V DATE OF EXAM: 03/20/2020 HISTORY: Shortness of breath. COMPARISON: 02/27/2020 TECHNIQUE: Single view of the chest is submitted. FINDINGS: Demonstrated are scattered senescent parenchymal change. Central venous line with its distal tip over lying the SVC. No evidence for pneumothorax. There is no evidence for focal infiltrate. The heart is stable. Hilar and mediastinal structures are within normal limits. Degenerative changes are seen of the dorsal spine. IMPRESSION: 1. Chronic changes without evidence for acute pulmonary disease.
[2020-03-20 11:29] LABS: Mean Platelet Volume 9.2; Platelet Count 154 k/uL (150-450)
[2020-03-20 11:33] VITALS: RESP 16; TEMP 97.6
[2020-03-20 11:34] LABS: INR 1.3 (<1.2); Prothrombin Time 13.5 sec (9.0-12.0)
[2020-03-20] MEDS: ALBUMIN HUMAN 25% 50 ML in EMPTY BAG 1 BAG IVPB SCH ×4 (12:57→13:46)
[2020-03-20 15:00] VITALS: BP 99/45; PULSE 84
--- NOTE | 2020-03-20 15:26 | US ---
EXAMINATION TYPE: US paracentesis abd w/image DATE OF EXAM: 03/20/2020 CLINICAL HISTORY: Ascites COMPARISON: 03/13/2020 ultrasound guided paracentesis TRAINING DEVELOPMENT DIRECTOR: Dr. Danelle Hartman PROCEDURE: Preprocedure preliminary ultrasound imaging demonstrates large volume ascites. The procedure was discussed with the patient. The risks, complications, benefits, and alternatives we re discussed and any questions were answered. Informed consent was obtained. The patient was placed s upine on the ultrasound table and prepped and draped in the usual sterile fashion. All elements of maximal barrier technique were utilized. Under ultrasound guidance, access into the right lower quadrant was obtained with a 5 Chinese one-step centesis catheter. Approximately 8.0 liters of clear serous fluid was removed. Catheter was removed and sterile bandage was applied. The patient was stable throughout the procedure and remained stable upon discharge from Department of Radiology. IMPRESSION: Successful ultrasound-guided paracentesis, with removal of 8.0 liters of clear serous fluid.
== END 2020-03-20 14:50 | disposition home or self-care (01) ==
LOC: RADPROMAIN 09:36
PROVIDERS: ATTEND Internal Medicine Gastroenterology
DX: R18.8 Other ascites (principal)
CPT/HCPCS: 82565; 82947; 85049; 85610; 36415; 71045; 49083; P9047

== ENCOUNTER → 2020-03-20 | Outpatient (CLI) | payer BC | END | disposition home or self-care (01) | LOC: RADXRMAIN 09:40 | PROVIDERS: ATTEND Nurse Practitioner Family | DX: Z53.9 Procedure and treatment not carried out, unspecified reason (principal) ==

== ENCOUNTER 2020-03-26 09:16 | Inpatient (IN) | payer BC ==
--- NOTE | 2020-03-26 09:42 | ED ---
General Adult HPI - General Chief complaint: Recheck/Abnormal Lab/Rx Stated complaint: Low BP Time Seen by Provider: 03/26/20 09:25 Source: patient, RN notes reviewed, old records reviewed Mode of arrival: wheelchair Limitations: physical limitation - History of Present Illness Initial comments: 59-year-old male end-stage renal disease presenting from the dialysis center for evaluation of hypotension. Patient has no specific complaints, no fever, no cough, no chest pain. He does report abdominal distention and states he is scheduled for paracentesis tomorrow. He does not currently make any urine. He receives hemodialysis through a right chest wall permacath. He was at the dialysis center but was unable to receive hemodialysis secondary to hypotension. He did receive a total of 1 L of fluid given by the dialysis center prior to presenting to the emergency department. He typically receives hemodialysis Wednesday. Patient currently on midodrone, and recently taken off both spironolactone and furosemide. - Related Data Home Medications Medication Instructions Recorded Confirmed Lactulose 10 gm PO DAILY 03/26/20 03/26/20 Previous Rx's Medication Instructions Recorded Midodrine HCl [ProAmatine] 10 mg PO TID #90 tab 02/29/20 Allergies Allergy/AdvReac Type Severity Reaction Status Date / Time Sulfa (Sulfonamide Allergy Rash/Hives Verified 03/26/20 10:46 Antibiotics) Review of Systems ROS Statement: Those systems with pertinent positive or pertinent negative responses have been documented in the HPI. ROS Other: All systems not noted in ROS Statement are negative. Past Medical History Past Medical History: Diabetes Mellitus, GERD/Reflux, GI Bleed, Liver Disease, Osteoarthritis (OA), Renal Disease Additional Past Medical History / Comment(s): ESRD with hemodialysis on //Wed, anasarca, ascities with multiple paracentesis (last time 02/21/20-seven liters removed), pt states he has a current either R shoulder or R clavicle fracture/in sling-pt has been unable to follow up with orthopedic physician, pt is R handed, currently has increased weakness with difficulty rising from chairs/getting into vehicles/showering, fatty liver, nonalcoholic liver cirrhosis, esophageal varicies/variceal bleed, lower GI bleed, DVT L leg, NIDDM type II-diet controlled, arthritis R foot. 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 Father History Unknown: Yes Additional Family Medical History / Comment(s): Pt does not know father's medical history. Father in his 60's. Brother(s) Family Medical History: Cancer Additional Family Medical History / Comment(s): Prostate cancer. General Exam Limitations: physical limitation General appearance: alert Head exam: Present: atraumatic, normocephalic Eye exam: Present: normal appearance, PERRL, scleral icterus ENT exam: Present: normal exam Neck exam: Present: normal inspection. Absent: tenderness, meningismus Respiratory exam: Present: decreased breath sounds. Absent: respiratory distress Cardiovascular Exam: Present: regular rate, normal rhythm GI/Abdominal exam: Present: soft, distended. Absent: tenderness, guarding, rebound Extremities exam: Present: pedal edema, other (Chronic venous stasis) Neurological exam: Present: alert, oriented X3 Psychiatric exam: Present: normal affect, normal mood Skin exam: Present: warm, dry, pallor Course Vital Signs 03/26/20 03/26/20 03/26/20 09:19 09:42 10:49 Temperature 97.5 F L Pulse Rate 97 82 80 Respiratory 18 18 18 Rate Blood Pressure 68/47 83/48 93/54 O2 Sat by Pulse 97 98 98 Oximetry - Reevaluation(s) Reevaluation #1: 03/26/20 11:29 Blood pressure improves without treatment. Stable in the 90 systolic. Reevaluation #2: 03/26/20 11:[address] Fields EKG Findings - EKG Comments: EKG Findings:: EKG: Normal sinus rhythm, prolonged QT, rate of 83, CO interval 146, QRS duration 94, QTC [address] segment elevation Medical Decision Making - Medical Decision Making 59-year-old male presenting with low blood pressure from the dialysis unit. Patient is alert and oriented, with no complaints. He states he's scheduled for paracentesis tomorrow and typically gets hemodialysis on Wednesday. No dialysis was performed today secondary to low blood pressure. Patient does have history of low blood pressure. He denies cough. Denies fever. Denies abdominal pain or chest pain. He does not currently make urine. Chest x-ray negative for focal pneumonia. He has significant laboratory abnormalities including leukocytosis of 31,000 with a differential pending. He has hemoglobin 10.6 which is stable for this patient. He is hyponatremic with a sodium 126 which is also stable. He has a lactic acid of 5.8 which is likely from hypoperfusion as well as chronic liver disease. His bilirubin is 5.3 which is worse from prior. Given this leukocytosis, elevated bilirubin, jaundice, ultrasound of the liver and gallbladder is ordered, this test is pending. He's given IV hydration although large volume resuscitation is withheld secondary to his renal disease and concern for fluid overload. Case is discussed with the admitting physician Dr. Ochoa. Patient will be admitted to internal medicine with nephrology, infectious disease on consult. Likely will require paracentesis tomorrow which is already scheduled. Case discussed with nephrology, Dr. Fields. I did add blood cultures and IV antibiotics. - Lab Data Result diagrams: 03/26/20 10:35 03/26/20 10:35 Lab Results 03/26/20 03/26/20 03/26/20 Range/Units 10:35 10:35 10:35 WBC 31.0 H (3.8-10.6) k/uL RBC 3.38 L (4.30-5.90) m/uL Hgb 10.6 L (13.0-17.5) gm/dL Hct 35.7 L (39.0-53.0) % MCV 105.6 H (80.0-100.0) fL MCH 31.4 (25.0-35.0) pg MCHC 29.7 L (31.0-37.0) g/dL RDW 16.6 H (11.5-15.5) % Plt Count 109 L (150-450) k/uL Hypochromasia Moderate Anisocytosis Slight Macrocytosis Moderate PT 15.0 H (9.0-12.0) sec INR 1.5 H (<1.2) APTT 29.2 (22.0-30.0) sec Sodium 126 L (137-145) mmol/L Potassium 5.2 H (3.5-5.1) mmol/L Chloride 91 L (98-107) mmol/L Carbon Dioxide 20 L (22-30) mmol/L Anion Gap 15 mmol/L BUN 60 H (9-20) mg/dL Creatinine 6.14 H (0.66-1.25) mg/dL Est GFR (CKD-EPI)AfAm 11 (>60 ml/min/1.73 sqM) Est GFR (CKD-EPI)NonAf 9 (>60 ml/min/1.73 sqM) Glucose 148 H (74-99) mg/dL Plasma Lactic Acid Chun (0.7-2.0) mmol/L Calcium 8.2 L (8.4-10.2) mg/dL Phosphorus 6.3 H (2.5-4.5) mg/dL Magnesium 2.4 H (1.6-2.3) mg/dL Total Bilirubin 5.3 H (0.2-1.3) mg/dL AST 121 H (17-59) U/L ALT 42 (4-49) U/L Alkaline Phosphatase 264 H (38-126) U/L Total Protein 5.8 L (6.3-8.2) g/dL Albumin 2.2 L (3.5-5.0) g/dL 03/26/20 Range/Units 10:35 WBC (3.8-10.6) k/uL RBC (4.30-5.90) m/uL Hgb (13.0-17.5) gm/dL Hct (39.0-53.0) % MCV (80.0-100.0) fL MCH (25.0-35.0) pg MCHC (31.0-37.0) g/dL RDW (11.5-15.5) % Plt Count (150-450) k/uL Hypochromasia Anisocytosis Macrocytosis PT (9.0-12.0) sec INR (<1.2) APTT (22.0-30.0) sec Sodium (137-145) mmol/L Potassium (3.5-5.1) mmol/L Chloride (98-107) mmol/L Carbon Dioxide (22-30) mmol/L Anion Gap mmol/L BUN (9-20) mg/dL Creatinine (0.66-1.25) mg/dL Est GFR (CKD-EPI)AfAm (>60 ml/min/1.73 sqM) Est GFR (CKD-EPI)NonAf (>60 ml/min/1.73 sqM) Glucose (74-99) mg/dL Plasma Lactic Acid Hcun 5.8 H* (0.7-2.0) mmol/L Calcium (8.4-10.2) mg/dL Phosphorus (2.5-4.5) mg/dL Magnesium (1.6-2.3) mg/dL Total Bilirubin (0.2-1.3) mg/dL AST (17-59) U/L ALT (4-49) U/L Alkaline Phosphatase (38-126) U/L Total Protein (6.3-8.2) g/dL Albumin (3.5-5.0) g/dL Disposition Clinical Impression: Leukocytosis, Ascites, ESRD (end stage renal disease), Hypotension Disposition: ADMITTED IP TO THIS [facility] Condition: Stable Referrals: None,Stated [Primary Care Provider] - 1-2 days Decision to Admit Reason: Admit from EC Decision Date: 03/26/20 Decision Time: 11:29
--- NOTE | 2020-03-26 10:39 | XR ---
EXAMINATION TYPE: XR chest 2V DATE OF EXAM: 03/26/2020 COMPARISON: 03/20/2020 HISTORY: Shortness of breath TECHNIQUE: Frontal and lateral views of the chest are obtained. FINDINGS: Scattered senescent parenchymal changes noted. Hyperinflation compatible with COPD. No evidence for infiltrate. No evidence for atelectasis. Heart size is stable. Mediastinal structures are stable and grossly unremarkable. No evidence for hilar prominence. Degenerative changes dorsal spine. IMPRESSION: 1. No evidence for acute pulmonary disease.
[2020-03-26 11:11] LABS: Albumin 2.2 g/dL (3.5-5.0); Calcium 8.2 mg/dL (8.4-10.2); INR 1.5 (<1.2); Partial Thromboplastin Time 29.2 sec (22.0-30.0); Total Bilirubin 5.3 mg/dL (0.2-1.3); Total Protein 5.8 g/dL (6.3-8.2)
[2020-03-26] MEDS ORDERED: NALOXONE 0.4 MG/ML 1 ML VIAL IV PRN (11:11)
[2020-03-26 11:13] LABS: Anisocytosis Slight; HCT 35.7 % (39.0-53.0); HGB 10.6 gm/dL (13.0-17.5); Hypochromasia Moderate; MCH 31.4 pg (25.0-35.0); MCHC 29.7 g/dL (31.0-37.0); MCV 105.6 fL (80.0-100.0); Macrocytosis Moderate; Mean Platelet Volume 8.6; Platelet Count 109 k/uL (150-450); RBC 3.38 m/uL (4.30-5.90); RDW 16.6 % (11.5-15.5)
[2020-03-26 11:14] LABS: Magnesium 2.4 mg/dL (1.6-2.3); Phosphorus 6.3 mg/dL (2.5-4.5); Potassium 5.2 mmol/L (3.5-5.1)
[2020-03-26] MEDS ORDERED: VANCOMYCIN IV PER PHARMACY 1 EACH MISC MISCELLANE PRN (11:21)
[2020-03-26] MEDS ORDERED: VANCOMYCIN 2,000 MG in SODIUM CHLORIDE 0.9% 500 ML 500 ML IVPB ONE (11:45)
[2020-03-26 11:47] LABS: Band Neutrophils % 2 %; Lymphocytes # (M) 0.93 k/uL (1.0-4.8); Metamyelocytes # (M) 0.31 k/uL (0); Metamyelocytes % 1 %; Monocytes # (M) 0.62 k/uL (0-1.0); Myelocytes # (M) 0.62 k/uL (0); Myelocytes % 2 %; Neutrophils % (M) 92 %; Nucleated Red Blood Cells 0 /100 WBC (0-0); Total Cells Counted 200
[2020-03-26] MEDS: SODIUM CHLORIDE 0.9% 1,000 ML IV SCH (12:48)
--- NOTE | 2020-03-26 12:51 | US ---
EXAMINATION TYPE: US gallbladder DATE OF EXAM: 03/26/2020 COMPARISON: NONE CLINICAL HISTORY: Hyperbilirubinemia. Known cirrhosis, on dialysis, low bp EXAM MEASUREMENTS: Liver Length: 15.1 cm Gallbladder Wall: 0.6 cm CBD: 0.9 cm Right Kidney: 7.0 x 3.3 x 4.0 cm Pancreas: not seen, bowel gas Liver: very limited views, cirrhotic nodule contour Gallbladder: appearance of internal debris and wall thickening Evidence for sonographic Lopez's sign: no CBD: wnl Right Kidney: limited views, small in size known ascites is still present, pending paracentesis tomorrow palpable at sternum appears to be vein IMPRESSION: 1. Gallbladder wall thickening with intraluminal debris. 2. Hepatic cirrhosis. 3. Ascites.
[2020-03-26] MEDS ORDERED: ALPRAZolam 0.25 MG TAB PO PRN (14:37)
[2020-03-26] MEDS ORDERED: HYDROcodone/APAP 5-325MG 1 EACH TAB PO PRN (14:37)
[2020-03-26] MEDS ORDERED: HYDROmorphone 0.5 MG/0.5 ML SYRINGE IVP PRN (14:37)
--- NOTE | 2020-03-26 17:03 | HP ---
HISTORY AND PHYSICAL DATE OF SERVICE: 03/26/2020 CHIEF COMPLAINT: Hypotension. HISTORY OF PRESENT ILLNESS: This 59-year-old gentleman with a past medical history of multiple medical problems, including diabetes mellitus, history of GERD, history of chronic liver disease, cirrhosis of the liver, history of end-stage renal disease, on hemodialysis, anemia, anasarca, was getting hemodialysis. Usually the patient is able to receive hemodialysis even though blood pressure is low, but today the blood pressure went down into 60 systolic. Dialysis could not be initiated and the patient was sent to [facility] Emergency Room and was admitted for further evaluation and treatment. The patient also has significant weakness at this point. There is no history of any fever, rigor or chills at this time. The patient did receive some fluid boluses one liter at the dialysis center. PAST MEDICAL HISTORY: History of diabetes mellitus, GERD, liver disease, history of DJD. HOME MEDICATIONS: Lactulose and midodrine. ALLERGIES: SULFA. FAMILY HISTORY: No history of heart disease or strokes in the family. SOCIAL HISTORY: Occasional alcohol intake. No history of smoking. REVIEW OF SYSTEMS: ENT: No diminished hearing. No diminished vision. CARDIOVASCULAR SYSTEM: No angina, palpitations. RESPIRATORY SYSTEM: As mentioned earlier. GI: No nausea, vomiting. : As mentioned earlier. NERVOUS SYSTEM: No numbness, weakness. ALLERGY/IMMUNOLOGY: No asthma, hayfever. MUSCULOSKELETAL: As mentioned earlier. HEMATOLOGY/ONCOLOGY: As mentioned earlier. ENDOCRINE: As mentioned earlier. CONSTITUTIONAL: As mentioned earlier. DERMATOLOGY: Negative. RHEUMATOLOGY: Negative. PSYCHIATRY: As mentioned earlier. PHYSICAL EXAMINATION: Patient alert and oriented x3. Pulse 97, blood pressure 68/47, respiration 18, temperature 97.4, pulse ox 97% on room air. HEENT: Conjunctivae normal. Oral mucosa moist. NECK: No jugular venous distention. No carotid bruit. No lymph node enlargement. CARDIOVASCULAR SYSTEM: S1, S2 muffled. RESPIRATORY SYSTEM: Breath sounds diminished at the bases. A few scattered rhonchi. ABDOMEN: Soft, obese. Umbilical hernia present. Otherwise non-tender. No mass palpable. LEGS: No edema. No swelling. NERVOUS SYSTEM: Higher functions as mentioned earlier. Moves all 4 limbs. No focal motor or sensory deficit. LYMPHATICS: No lymph node palpable in neck, axillae or groin. SKIN: No ulcer, rash, bleeding. JOINTS: No active deforming arthropathy. LABS: WBC 31, hemoglobin 10.6, and INR is 1.5. Sodium 126, potassium 5.2, creatinine 6.14. Lactic acid 5.8 and 5.5. ASSESSMENT: 1. Hypotension; rule out sepsis. 2. End-stage renal disease, on hemodialysis. 3. Hyponatremia. 4. Hyperkalemia. 5. Elevated lactic acid, possibly sepsis or dehydration. 6. Increased white count. 7. Anemia, macrocytic. 8. Thrombocytopenia. 9. Hyperbilirubinemia. 10.Increased AST. 11.Hypoalbuminemia with mild protein-calorie malnutrition. 12.Diabetes mellitus, type 2. 13.History of gastroesophageal reflux disease. 14.History of gastrointestinal bleed. 15.History of chronic liver disease. 16.History of renal disease. 17.History of multiple abdominal paracenteses. 18.Gait dysfunction and weakness. 19.Nonalcoholic liver cirrhosis with esophageal varices and variceal bleed. 20.History of degenerative joint disease. 21.Remote history of nicotine dependence. 22.FULL CODE. RECOMMENDATIONS AND DISCUSSION: In this 59-year-old gentleman who presented with multiple complex medical issues, we will monitor the patient closely, continue the current medications, continue with symptomatic treatment. I will initiate empiric antibiotic treatment. The patient is started on vancomycin and Rocephin. Continue the same. IV fluids. Infectious disease evaluation. COVID-19 will be tested. The chest x-ray, which was reviewed personally by me, showed no evidence of any acute pulmonary disease, Gallbladder ultrasound was also requested which showed gallbladder wall thickening with minimal internal debris and ascites. Will continue to monitor. Prognosis guarded. Further recommendations to follow. See orders for further details. MMODL / IJN: [id number] / JERSON
[2020-03-26] MEDS: LACTULOSE 20 GM/30 ML CUP PO SCH (18:30)
[2020-03-26] MEDS: MIDODRINE 5 MG TAB PO SCH (18:30)
[2020-03-26] MEDS: HEPARIN SODIUM,PORCINE 5,000 UNIT/ML 1 ML VIAL SQ SCH (19:37)
--- NOTE | 2020-03-26 22:35 | P.CONS ---
History of Present Illness - Reason for Consult Consult date: 03/26/20 Leukocytosis Requesting physician: Loreto Pfeiffer - Chief Complaint Weakness and low blood pressure during dialysis x one day - History of Present Illness Patient is 59-year-old male with a past medical history significant for end-stage kidney disease on hemodialysis Wednesday through right subclavian permacatheter that was placed in November 2019, patient mentioned he went to his dialysis this morning and he was doing fine with no symptoms with start of dialysis patient did have some chills and he dropped his blood pressure and they did multiple attempts to stabilize his blood pressure however he remains to below for the patient has been transferred to [facility] ER patient denies having any fever or rigors, denies any headache no chest pain shortness of breath or cough no nausea no vomiting no abdominal pain or any diarrhea, on arrival to the ER the patient has been afebrile he did have elevated white count 31,000 he was also noticed to have elevated liver enzymes and ultrasound of the gallbladder has been done which it shows called bladder wall thickening with intraluminal diabetes and ascites, the patient also have liver cirrhosis and patient is scheduled for paracentesis tomorrow, patient has been started on Rocephin and vancomycin and infectious disease was consulted for further management of antibiotic therapy, patient chest x-ray has been negative for any acute infiltrate Review of Systems Positive point has been mentioned in the HPI rest of the systems are negative Past Medical History Past Medical History: Diabetes Mellitus, GERD/Reflux, GI Bleed, Liver Disease, Osteoarthritis (OA), Renal Disease Additional Past Medical History / Comment(s): ESRD with hemodialysis on /Wed, anasarca, ascities with multiple paracentesis (last time 02/21/20-seven liters removed), pt states he has a current either R shoulder or R clavicle fracture/in sling-pt has been unable to follow up with orthopedic physician, pt is R handed, currently has increased weakness with difficulty rising from chairs/getting into vehicles/showering, fatty liver, nonalcoholic liver cirrhosis, esophageal varicies/variceal bleed, lower GI bleed, DVT L leg, NIDDM type II-diet controlled, arthritis R foot. 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 He works for [employer] but is currently on short term disability. He has worked there for 27yrs. He has had issues with increased weakness in his legs and is having difficulty with rising from chairs/showering and getting in/out vehicles. He also has a R shoulder injury/sling and is R handed. He states he would like PT/OT to evaluate what he may need in the home for medical devices. He has been using a crutch at times. Upon discharge, pt will go stay with his brother for some time. Smoking Status: Never smoker Past Alcohol Use History: Rare Additional Past Alcohol Use History / Comment(s): Pt has a rare cigar at [employer]. Past Drug Use History: None Reported - Past Family History Mother Family Medical History: No Reported History Additional Family Medical History / Comment(s): . Father History Unknown: Yes Additional Family Medical History / Comment(s): Pt does not know father's medical history. Father in his 60's. Brother(s) Family Medical History: Cancer Additional Family Medical History / Comment(s): Prostate cancer. Medications and Allergies Home Medications Medication Instructions Recorded Confirmed Type Midodrine HCl [ProAmatine] 10 mg PO TID #90 tab 02/29/20 03/26/20 Rx Lactulose 10 gm PO DAILY 03/26/20 03/26/20 History Allergies Allergy/AdvReac Type Severity Reaction Status Date / Time Sulfa (Sulfonamide Allergy Rash/Hives Verified 03/26/20 10:46 Antibiotics) Physical Exam Vitals: Vital Signs Temp Pulse Pulse Resp BP BP Pulse Ox 03/26/20 18:18 98.2 F 86 16 89/48 97 03/26/20 17:59 98.2 F 86 16 89/48 97 03/26/20 17:19 98.1 F 87 16 107/63 96 03/26/20 12:50 83 20 107/74 96 03/26/20 10:49 80 18 93/54 98 03/26/20 09:42 82 18 83/48 98 03/26/20 09:19 97.5 F L 97 18 68/47 97 Intake and Output 03/26/20 03/26/20 03/26/20 06:59 14:59 22:59 Other: Voiding Method Urinal Urinal # Voids 0 # Bowel Movements 0 Weight 126.4 kg 126.4 kg GENERAL DESCRIPTION: Middle-aged male lying in bed, no distress. No tachypnea or accessory muscle of respiration use. HEENT: Shows Pallor , no scleral icterus. Oral mucous membrane is dry. No pha ryngeal erythema or thrush NECK: Trachea central, no thyromegaly. LUNGS: Unlabored breathing. Decreased breath sounds at the base. No wheeze or crackle. HEART: S1, S2, regular rate and rhythm. No loud murmur ABDOMEN: Soft, no tenderness , guarding or rigidity, no organomegaly EXTREMITIES: No edema of feet. SKIN: No rash, no masses palpable. NEUROLOGICAL: The patient is awake, alert, oriented x3, mood and affect normal. Results CBC & Chem 7: 03/26/20 10:35 03/26/20 10:35 Labs: Abnormal Lab Results - Last 24 Hours (Table) 03/26/20 03/26/20 03/26/20 Range/Units 10:35 10:35 10:35 WBC 31.0 H (3.8-10.6) k/uL RBC 3.38 L (4.30-5.90) m/uL Hgb 10.6 L (13.0-17.5) gm/dL Hct 35.7 L (39.0-53.0) % MCV 105.6 H (80.0-100.0) fL MCHC 29.7 L (31.0-37.0) g/dL RDW 16.6 H (11.5-15.5) % Plt Count 109 L (150-450) k/uL Neutrophils # (Manual) 29.10 H (1.3-7.7) k/uL Lymphocytes # (Manual) 0.93 L (1.0-4.8) k/uL Metamyelocytes # (Man) 0.31 H (0) k/uL Myelocytes # (Manual) 0.62 H (0) k/uL PT 15.0 H (9.0-12.0) sec INR 1.5 H (<1.2) Sodium 126 L (137-145) mmol/L Potassium 5.2 H (3.5-5.1) mmol/L Chloride 91 L (98-107) mmol/L Carbon Dioxide 20 L (22-30) mmol/L BUN 60 H (9-20) mg/dL Creatinine 6.14 H (0.66-1.25) mg/dL Glucose 148 H (74-99) mg/dL Plasma Lactic Acid Chun (0.7-2.0) mmol/L Calcium 8.2 L (8.4-10.2) mg/dL Phosphorus 6.3 H (2.5-4.5) mg/dL Magnesium 2.4 H (1.6-2.3) mg/dL Total Bilirubin 5.3 H (0.2-1.3) mg/dL AST 121 H (17-59) U/L Alkaline Phosphatase 264 H (38-126) U/L Total Protein 5.8 L (6.3-8.2) g/dL Albumin 2.2 L (3.5-5.0) g/dL 03/26/20 03/26/20 03/26/20 Range/Units 10:35 13:53 17:01 WBC (3.8-10.6) k/uL RBC (4.30-5.90) m/uL Hgb (13.0-17.5) gm/dL Hct (39.0-53.0) % MCV (80.0-100.0) fL MCHC (31.0-37.0) g/dL RDW (11.5-15.5) % Plt Count (150-450) k/uL Neutrophils # (Manual) (1.3-7.7) k/uL Lymphocytes # (Manual) (1.0-4.8) k/uL Metamyelocytes # (Man) (0) k/uL Myelocytes # (Manual) (0) k/uL PT (9.0-12.0) sec INR (<1.2) Sodium (137-145) mmol/L Potassium (3.5-5.1) mmol/L Chloride (98-107) mmol/L Carbon Dioxide (22-30) mmol/L BUN (9-20) mg/dL Creatinine (0.66-1.25) mg/dL Glucose (74-99) mg/dL Plasma Lactic Acid Chun 5.8 H* 5.5 H* 4.5 H* (0.7-2.0) mmol/L Calcium (8.4-10.2) mg/dL Phosphorus (2.5-4.5) mg/dL Magnesium (1.6-2.3) mg/dL Total Bilirubin (0.2-1.3) mg/dL AST (17-59) U/L Alkaline Phosphatase (38-126) U/L Total Protein (6.3-8.2) g/dL Albumin (3.5-5.0) g/dL 03/26/20 Range/Units 20:12 WBC (3.8-10.6) k/uL RBC (4.30-5.90) m/uL Hgb (13.0-17.5) gm/dL Hct (39.0-53.0) % MCV (80.0-100.0) fL MCHC (31.0-37.0) g/dL RDW (11.5-15.5) % Plt Count (150-450) k/uL Neutrophils # (Manual) (1.3-7.7) k/uL Lymphocytes # (Manual) (1.0-4.8) k/uL Metamyelocytes # (Man) (0) k/uL Myelocytes # (Manual) (0) k/uL PT (9.0-12.0) sec INR (<1.2) Sodium (137-145) mmol/L Potassium (3.5-5.1) mmol/L Chloride (98-107) mmol/L Carbon Dioxide (22-30) mmol/L BUN (9-20) mg/dL Creatinine (0.66-1.25) mg/dL Glucose (74-99) mg/dL Plasma Lactic Acid Chun 4.7 H* (0.7-2.0) mmol/L Calcium (8.4-10.2) mg/dL Phosphorus (2.5-4.5) mg/dL Magnesium (1.6-2.3) mg/dL Total Bilirubin (0.2-1.3) mg/dL AST (17-59) U/L Alkaline Phosphatase (38-126) U/L Total Protein (6.3-8.2) g/dL Albumin (3.5-5.0) g/dL Assessment and Plan Assessment: 1- patient presented to the hospital with weakness and hypotension this started during dialysis this patient currently getting dialysis through a right subclavian permacatheter patient noticed to have elevated white count with concern for possible permacatheter infection versus abdominal source and will need to cover for both gram-positive skin avis as well as gram-negative pathoge n 2-sulfa ALLERGY (1) Hypotension Current Visit: Yes Status: Acute Code(s): I95.9 - HYPOTENSION, UNSPECIFIED SNOMED Code(s): 16951332 (2) Leukocytosis Current Visit: Yes Status: Acute Code(s): D72.829 - ELEVATED WHITE BLOOD CELL COUNT, UNSPECIFIED SNOMED Code(s): 196460866 Plan: 1-blood cultures should be done from the permacatheter Dialysis As Well As Peripherally 2-we will check a CT of abdominal pelvis with oral contrast 3-paracentesis with ascitic fluid should be sent for cell count and culture 4-Vancomycin pharmacy to dose target trough of 15 while watching kidney function and Vanco trough closely 5-Rocephin 1 g daily We will follow on clinical condition and cultures to further adjust medication if needed Thank you for this consultation will follow this patient with you Time with Patient: Greater than 30
--- NOTE | 2020-03-26 22:39 | CONS ---
CONSULTATION DATE OF DICTATION: 03/26/2020 REASON FOR CONSULTATION: History of cirrhosis of the liver and hypotension. HISTORY OF PRESENT ILLNESS: The patient is a 59-year-old pleasant white male with history of nonalcoholic fatty liver disease with cirrhosis of the liver diagnosed 2 years ago. The patient developed gradual decompensation in August of this year and presented with refractory ascites requiring large-volume paracentesis almost on a weekly basis. He has end-stage renal disease and was started on hemodialysis in October of this year. The patient went for dialysis this morning and he became hypotensive and the dialysis was discontinued. He was sent to the emergency room and subsequently admitted to the hospital for further evaluation. He was resuscitated with some fluid and he is feeling much better. He denies any abdominal pain. No nausea, no vomiting. No rectal bleeding or melena. He was recently seen at [facility] for evaluation of liver transplantation a week ago and workup is in progress. During his visit with them he was told to stop diuretics, as he has been refractory to diuretic therapy. PAST MEDICAL HISTORY: His past medical history is significant for diabetes mellitus, hypertension, hyperlipidemia, cirrhosis of the liver, gastroesophageal reflux disease, history of esophageal varices, refractory ascites. MEDICATIONS: Medications at home include midodrine and lactulose that was started about 3 weeks ago. ALLERGIES: SULFA. SOCIAL HISTORY: No smoking. No alcohol use. FAMILY HISTORY: Brother had prostate cancer. REVIEW OF SYSTEMS: CARDIOPULMONARY: No chest pain or shortness of breath. GENITOURINARY: No dysuria or hematuria. MUSCULOSKELETAL: Unremarkable. SKIN: Unremarkable. ENDOCRINE: Unremarkable. PSYCHIATRIC: Unremarkable. ENT/VISION: Unremarkable. CONSTITUTIONAL: Weight loss of almost 40 pounds since August of this year after he was started on dialysis. No fever, chills, night sweats. PHYSICAL EXAMINATION: He appears comfortable. No apparent distress. Vital signs are stable. Blood pressure is 83/48, pulse rate 82 per minute, temperature 98.1. HEENT examination unremarkable. Conjunctivae pink. Sclerae anicteric. Oral cavity no lesions. NECK: No JVD or lymph node enlargement. CHEST: Clear to auscultation. HEART: Regular rate and rhythm. ABDOMEN: Soft. It was distended. There was some free fluid noted. EXTREMITIES: Trace pedal edema. SKIN: No rashes. NEUROLOGIC: He is alert and oriented x3. No focal deficits. LABS: Labs from today show WBC 31, hemoglobin 10.6, platelets 109. Neutrophils 29,000. PT 15, INR 1.5. BUN 60, creatinine 6.14. T-bilirubin is 5.3. AST 121, ALT 42, alkaline phosphatase 264. Plasma lactic acid 5.8. IMPRESSION: 1. Leukocytosis and hypertension as well as lactic acidosis. Rule out sepsis. Possibility of SBP also needs to be considered. The patient was already started on ceftriaxone and blood cultures were done. 2. Cirrhosis of the liver with gradual decompensation. 3. Refractory ascites requiring large-volume paracentesis on a weekly basis. 4. End-stage renal disease, on hemodialysis since October of this year. 5. Gastroesophageal reflux disease. 6. History of esophageal varices. Last upper endoscopy with esophageal variceal ligation was performed in January of 2020. RECOMMENDATIONS: 1. Agree with broad-spectrum antibiotics with vancomycin and ceftriaxone. 2. Await blood cultures. 3. Hold off on diuretics. 4. Gentle hydration. 5. Continue lactulose 20 grams 3 times daily and titrate so that he has 3-4 bowel movements daily. 6. Paracentesis on a weekly basis. 7. No plans for any endoscopic intervention at the present time, since his last EGD was done in January of 2020. We will plan for this in May of 2020. 8. Will follow with you closely. Thank you for this consultation. MMODL / IJN: [id number] /
[2020-03-27 05:36] LABS: Anisocytosis Slight; HCT 33.2 % (39.0-53.0); HGB 10.3 gm/dL (13.0-17.5); Hypochromasia Marked; MCHC 31.2 g/dL (31.0-37.0); MCV 105.9 fL (80.0-100.0); Macrocytosis Moderate; Platelet Count 101 k/uL (150-450); RBC 3.13 m/uL (4.30-5.90); RDW 16.2 % (11.5-15.5); WBC 28.4 k/uL (3.8-10.6)
[2020-03-27 05:51] LABS: Albumin 2.1 g/dL (3.5-5.0); Total Protein 5.6 g/dL (6.3-8.2)
[2020-03-27] MEDS: MIDODRINE 5 MG TAB PO SCH ×4 (06:28→16:49)
[2020-03-27] MEDS: PANTOPRAZOLE 40 MG TABLET PO SCH (06:28)
[2020-03-27] MEDS: SODIUM CHLORIDE 0.9% 1,000 ML IV SCH (06:30)
[2020-03-27 07:10] LABS: Band Neutrophils % 4 %; Eosinophils # (M) 0.57 k/uL (0-0.7); Lymphocytes # (M) 0.85 k/uL (1.0-4.8); Metamyelocytes # (M) 0.28 k/uL (0); Metamyelocytes % 1 %; Monocytes # (M) 0.57 k/uL (0-1.0); Neutrophils % (M) 89 %; Nucleated Red Blood Cells 0 /100 WBC (0-0); Polychromasia Present; Total Cells Counted 200
[2020-03-27 07:11] LABS: Poikilocytosis (M) Present
[2020-03-27] MEDS: IOPAMIDOL CONTRAST (ORAL USE) VIAL PO PRN ×2 (08:03→09:04)
[2020-03-27] MEDS ORDERED: VANCOMYCIN 2,000 MG in SODIUM CHLORIDE 0.9% 500 ML 500 ML IVPB ONE (09:00)
--- NOTE | 2020-03-27 10:52 | CT ---
EXAMINATION TYPE: CT abdomen pelvis wo con DATE OF EXAM: 03/27/2020 COMPARISON: 12/07/2016 HISTORY: Abd pain and Leukocytosis CT DLP: 2014.2 mGycm Examination of the solid and hollow viscera is limited given the lack of contrast. FINDINGS: LUNG BASES: Right lower lobe infiltrate with pleural effusion and atelectasis. LIVER/GB: Nodular hepatic contour compatible cirrhotic liver disease. There is evidence of cholelithi asis. PANCREAS: No pancreatic mass identified. No inflammatory process seen. SPLEEN: Splenomegaly measuring 16.3 cm craniocaudal dimension. No intrasplenic lesions seen. ADRENALS: No adrenal nodules identified. No evidence for thickening. KIDNEYS: No evidence for renal mass. No nephrolithiasis. No hydronephrosis. BOWEL: Appendix has a normal appearance. No evidence of bowel obstruction. Small bowel wall thickenin g may reflect enteritis. Lymph nodes: No evidence for adenopathy greater than 1 cm. Abdominal aorta: Atheromatous changes seen. No evidence for aneurysm. Genital organs: No significant abnormality. Other: Large amount of ascites throughout the abdomen and pelvis. IMPRESSION: 1. Large right basilar infiltrate and/or atelectasis with underlying pleural effusion. 2. Large amount of ascites. 3. Cirrhotic liver disease. 4. Splenomegaly.
--- NOTE | 2020-03-27 12:55 | CONS ---
CONSULTATION REASON FOR CONSULT: End-stage renal disease. HISTORY OF PRESENT ILLNESS: Patient is a 59-year-old male with end-stage renal disease, on hemodialysis on a Wednesday, , Wednesday schedule. He was admitted to the hospital secondary to ongoing hypotension. He was found to have elevated lactic acid levels as well and was therefore hospitalized. Patient has underlying liver cirrhosis and is trying to get on the list for kidney and liver transplant. He does not have any significant urine output. Blood pressure runs low with systolic in the 90s and 80s as outpatient and patient is maintained on midodrine. He has paracentesis almost once a week as outpatient. PAST MEDICAL HISTORY: Chronic liver disease, portal hypertension and recurrent ascites needing paracentesis, type 2 diabetes, hypertension, gastroesophageal reflux disease, esophageal varices. His liver disease is nonalcoholic fatty liver disease. MEDICATIONS: Prior to admission included midodrine, lactulose. SOCIAL HISTORY: Negative for smoking, drug abuse or alcohol abuse. REVIEW OF SYSTEMS: As per HPI. Other systems negative. PHYSICAL EXAMINATION: Patient is comfortable, awake, not in any acute distress. Blood pressure 92/54, heart rate 100 per minute, he is afebrile. Examination of the heart S1, S2. Examination of the lungs, bilateral breath sounds are heard. Abdomen is soft, distended, obese, nontender. Ascites noted. Examination of the lower extremities shows 2+ edema bilaterally. Chronic skin changes noted. [employer] exam grossly intact. LABS: Show sodium 125, potassium 5.0, BUN 70, creatinine 6.86, hemoglobin at 10.3 g/dL. Lactic acid 4.7. ASSESSMENT: 1. End-stage renal disease, on hemodialysis on a Wednesday, , Wednesday schedule. 2. Ongoing hypotension, maintained on midodrine as outpatient. 3. Lactic acidosis with concern for possible underlying infection. White cell count is significantly elevated at 28.4. Patient does not have any fever. He will be having paracentesis and the fluid will be sent out for cell count. Rule out underlying SABP. 4. Hyponatremia, associated with renal failure and liver cirrhosis. Expect improvement with dialysis. 5. Anemia of chronic disease. 6. CKD mineral bone disorder. PLAN: Continue with midodrine. We will arrange for hemodialysis today, post dialysis. Patient can have his paracentesis if his blood pressure is not too low. He will also receive albumin after his paracentesis. We will dialyze the patient again tomorrow morning as tomorrow is his regular scheduled day. KAYLEE / KEDARN: [id number] /
[2020-03-27] MEDS: LACTULOSE 20 GM/30 ML CUP PO SCH (13:46)
[2020-03-27] MEDS: HEPARIN SODIUM,PORCINE 5,000 UNIT/ML 1 ML VIAL SQ SCH ×2 (13:49→20:05)
--- NOTE | 2020-03-27 16:13 | P.PN ---
Subjective Progress Note Date: 03/27/20 Principal diagnosis: History of cirrhosis of the liver and hypotension This patient is a 51-year-old pleasant white male with a history of nonalcoholic fatty liver disease with cirrhosis of the liver diagnosed 2 years ago. He has had gradual decompensation in August of this year presented with refractory Tory ascites requiring large-volume paracentesis almost on a weekly basis. The patient was scheduled for outpatient paracentesis today. He was getting hemodialysis today. He remains hypotensive. He is denying any abdominal pain, nausea, or vomiting. States he feels distended. He is denying any rectal bleeding or melena. Has had an elevated WBC, today's WBC is 28.4, Hg 10.3, platelets 101, plasma lactic acid of 2.9. He underwent a CT of the abdomen and pelvis without contrast which showed large right basilar infiltrate and/or atelectasis with underlying pleural effusion, large amount of ascites, cirrhotic liver disease, and splenomegaly. Objective - Vital Signs Vital signs: Vital Signs Temp 97.9 F 03/27/20 13:38 Pulse 91 03/27/20 13:38 Resp 16 03/27/20 13:41 BP 93/54 03/27/20 13:41 Pulse Ox 94 L 03/27/20 08:00 Intake & Output 03/26/20 03/27/20 03/27/20 18:59 06:59 18:59 Intake Total 150 290 Output Total 0 1500 Balance 150 -1210 Weight 126.4 kg Intake: IV 50 Sodium Chloride 0.9% 1, 50 000 ml @ 50 mls/hr IV . Q20H [facility] Rx#:[id number] Intake, IV Titration 50 Amount Sodium Chloride 0.9% 1, 50 000 ml @ 50 mls/hr IV . Q20H [facility] Rx#:[id number] Oral 100 240 Output: Urine 0 Hemodialysis 1500 Other: Voiding Method Urinal Bedside Commode Urinal # Voids 0 0 # Bowel Movements 0 0 - Exam General appearance: The patient is alert, oriented, in no acute distress. Morbidly obese HET: Head is normocephalic and atraumatic. Conjunctiva pink. Sclera anicteric. Neck: Supple without lymphadenopathy. Abdomen: Soft, obese, nontender, nondistended with bowel sounds. No guarding or rigidity. Extremities: Normal skin color and turgor. No pedal edema Neurological: No focal deficits. Alert and oriented 3. - Labs CBC & Chem 7: 03/27/20 05:17 03/27/20 05:17 Labs: Abnormal Lab Results - Last 24 Hours (Table) 03/26/20 03/26/20 03/26/20 Range/Units 17:01 20:12 23:35 WBC (3.8-10.6) k/uL RBC (4.30-5.90) m/uL Hgb (13.0-17.5) gm/dL Hct (39.0-53.0) % MCV (80.0-100.0) fL RDW (11.5-15.5) % Plt Count (150-450) k/uL Neutrophils # (Manual) (1.3-7.7) k/uL Lymphocytes # (Manual) (1.0-4.8) k/uL Metamyelocytes # (Man) (0) k/uL Sodium (137-145) mmol/L Chloride (98-107) mmol/L Carbon Dioxide (22-30) mmol/L BUN (9-20) mg/dL Creatinine (0.66-1.25) mg/dL Glucose (74-99) mg/dL Plasma Lactic Acid Chun 4.5 H* 4.7 H* 5.0 H* (0.7-2.0) mmol/L Calcium (8.4-10.2) mg/dL Total Bilirubin (0.2-1.3) mg/dL AST (17-59) U/L Alkaline Phosphatase (38-126) U/L Total Protein (6.3-8.2) g/dL Albumin (3.5-5.0) g/dL 03/27/20 03/27/20 03/27/20 Range/Units 02:31 05:17 05:17 WBC 28.4 H (3.8-10.6) k/uL RBC 3.13 L (4.30-5.90) m/uL Hgb 10.3 L (13.0-17.5) gm/dL Hct 33.2 L (39.0-53.0) % MCV 105.9 H (80.0-100.0) fL RDW 16.2 H (11.5-15.5) % Plt Count 101 L (150-450) k/uL Neutrophils # (Manual) 26.40 H (1.3-7.7) k/uL Lymphocytes # (Manual) 0.85 L (1.0-4.8) k/uL Metamyelocytes # (Man) 0.28 H (0) k/uL Sodium 125 L (137-145) mmol/L Chloride 91 L (98-107) mmol/L Carbon Dioxide 21 L (22-30) mmol/L BUN 70 H (9-20) mg/dL Creatinine 6.86 H (0.66-1.25) mg/dL Glucose 187 H (74-99) mg/dL Plasma Lactic Acid Chun 4.2 H* (0.7-2.0) mmol/L Calcium 8.0 L (8.4-10.2) mg/dL Total Bilirubin 5.0 H (0.2-1.3) mg/dL AST 116 H (17-59) U/L Alkaline Phosphatase 288 H (38-126) U/L Total Protein 5.6 L (6.3-8.2) g/dL Albumin 2.1 L (3.5-5.0) g/dL 03/27/20 03/27/20 03/27/20 Range/Units 05:17 07:54 12:57 WBC (3.8-10.6) k/uL RBC (4.30-5.90) m/uL Hgb (13.0-17.5) gm/dL Hct (39.0-53.0) % MCV (80.0-100.0) fL RDW (11.5-15.5) % Plt Count (150-450) k/uL Neutrophils # (Manual) (1.3-7.7) k/uL Lymphocytes # (Manual) (1.0-4.8) k/uL Metamyelocytes # (Man) (0) k/uL Sodium (137-145) mmol/L Chloride (98-107) mmol/L Carbon Dioxide (22-30) mmol/L BUN (9-20) mg/dL Creatinine (0.66-1.25) mg/dL Glucose (74-99) mg/dL Plasma Lactic Acid Chun 4.1 H* 4.7 H* 2.9 H* (0.7-2.0) mmol/L Calcium (8.4-10.2) mg/dL Total Bilirubin (0.2-1.3) mg/dL AST (17-59) U/L Alkaline Phosphatase (38-126) U/L Total Protein (6.3-8.2) g/dL Albumin (3.5-5.0) g/dL Microbiology - Last 24 Hours (Table) 03/26/20 11:46 Blood Culture - Preliminary Blood No Growth after 24 hours Assessment and Plan Assessment: 1. Leukocytosis and hypotension as well as lactic acid doses. Rule out sepsis. Possibility of SBP also needs to be considered. The patient has been started on ceftriaxone and blood cultures were done. Patient will undergo paracentesis with fluid cell and culture studies. 2. Cirrhosis of the liver with gradual decompensation 3. Refractory ascites requiring large-volume paracentesis on a weekly basis 4. End-stage renal disease on hemodialysis since October of this year 5. Gastroesophageal reflux disease 6. History of esophageal varices. Last upper endoscopy with esophageal variceal ligation performed in January 2020 Plan: 1. Supportive care 2. Agree with broad-spectrum antibiotics with vancomycin and ceftriaxone 3. Await blood cultures 4. Hold off on diuretics 5. Gentle hydration 6. Continue lactulose 20 g 3 times daily and titrate so that he has 3-4 bowel movements daily 7. Paracentesis with fluid cell count and culture studies ordered 8. Continue with weekly paracentesis 9. No plans for any endoscopic intervention at the present time, since his last EGD was done in January 2020. We will plan for a repeat in May 2020. 10. We will follow with you closely The impression and plan of care has been dictated as directed. Dr. Christy Bonds I performed a history and examination of this patient, discussed the same with the dictator. I agree with the dictator's note ,documented as a scribe. Any additional findings or plans will be noted.
--- NOTE | 2020-03-27 20:14 | PN ---
PROGRESS NOTE DATE OF SERVICE: 03/27/2020 This 59-year-old gentleman admitted with hypotension was suspected to have sepsis. The patient was treated with empiric antibiotics. The cultures are negative so far. Blood pressure is improved. A CT scan of the abdomen and pelvis was done which showed large right basilar infiltrate and atelectasis and large amount of ascites and cirrhosis of the liver and splenomegaly. The patient was able to do the hemodialysis today; 1.5 L of fluid has been removed. Past medical history reviewed. REVIEW OF SYSTEMS: CARDIOVASCULAR SYSTEM: As mentioned earlier. RESPIRATORY SYSTEM: As mentioned earlier. GI: As mentioned earlier. : No dysuria or retention. NERVOUS SYSTEM: No numbness, weakness. CURRENT MEDICATIONS: Reviewed. They include [place], Xanax, Rocephin, heparin, Dilaudid, Cephulac, ProAmatine, Narcan, Protonix. PHYSICAL EXAMINATION: Patient is alert, oriented x3. Pulse is 85, blood pressure 88/35, respirations 16, temperature 97.4, pulse ox 94% on room air. HEENT: Conjunctivae normal. NECK: No jugular venous distention. CARDIOVASCULAR SYSTEM: S1, S2 muffled. RESPIRATORY SYSTEM: Breath sounds diminished at the bases. Bilateral scattered rhonchi and crackles. ABDOMEN: Soft, obese. Ascites present. LEGS: No edema. No swelling. NERVOUS SYSTEM: No focal deficit. LABS: WBC 28.4, hemoglobin 10.3. Sodium is 125, lactic acid elevated. COVID-19 is pending at this time. ASSESSMENT: 1. Hypotension and possible sepsis with spontaneous bacterial peritonitis or right lower lobe pneumonia. 2. End-stage renal disease, on hemodialysis. 3. Significant ascites, possibly secondary to chronic liver disease and cirrhosis of the liver. 4. Hyponatremia. 5. Hyperkalemia. 6. Elevated lactic acid, possibly secondary to dehydration or sepsis. 7. Increased white count and leukemoid reaction. 8. Anemia, macrocytic. 9. Thrombocytopenia. 10.Hyperbilirubinemia. 11.Increased AST. 12.Hypoalbuminemia with mild protein-calorie malnutrition. 13.Diabetes mellitus, type 2. 14.History of gastroesophageal reflux disease. 15.History of gastrointestinal bleed. 16.Chronic liver disease. 17.History of renal disease. 18.History of multiple abdominal paracenteses. 19.Gait dysfunction. 20.History of known alcoholic liver cirrhosis and esophageal varices and variceal bleed. 21.History of degenerative joint disease. 22.Remote history of nicotine dependence. 23.FULL CODE. RECOMMENDATIONS AND DISCUSSION: I recommend to continue current medications, continue with the monitoring, symptomatic treatment. Continue with empiric antibiotics. Otherwise, follow with multiple consultants. Follow the cultures. Ascitic fluid aspiration and culture. Otherwise, paracentesis with cell count has been planned by Dr. Greco. Nephrology is following the patient closely. Prognosis is guarded because of multiple complex medical issues. Further recommendations to follow. MMODL / IJN: [id number] /
--- NOTE | 2020-03-28 00:57 | PN ---
PROGRESS NOTE DATE OF SERVICE: 03/27/2020 REASON FOR FOLLOWUP: Leukocytosis, possible abdominal source versus pneumonia. INTERVAL HISTORY: The patient is currently afebrile. The patient's blood pressure is , though the patient denies having any chest pain or shortness of breath. Minimal cough. Complaining of more abdominal distention. No diarrhea though. PHYSICAL EXAMINATION: Blood pressure 93/54 with a pulse of 85, temperature 97.4. He is 98% on room air. General description is a middle-aged male up in the chair in no distress. RESPIRATORY SYSTEM: Unlabored breathing, decreased breath sounds at the bases. No wheeze. HEART: S1, S2. Regular rate and rhythm. ABDOMEN: Soft, mildly distended. No guarding or rigidity. LABS: Hemoglobin is 10.3, white count 28.4, BUN of 70, creatinine 6.86. CT of abdomen and pelvis did show ascites, no other abnormality and shows some right lower lobe infiltrate, question of pneumonia. DIAGNOSTIC IMPRESSION AND PLAN: Patient with leukocytosis and hypotension which is multifactorial in this patient with initial concern for possible line sepsis, though culture has been negative so far. A CT of abdomen and pelvis did show some ascites, but no other acute abnormality and a question of right lower lobe infiltrate/pneumonia. The patient is currently covered with Rocephin and vancomycin to continue while waiting for the culture to finalize. Possible paracentesis with fluid should be sent for cell count and differential and monitor his clinical course closely. MMODL / IJN: [id number] /
[2020-03-28 02:36] LABS: Anisocytosis Slight; HCT 33.9 % (39.0-53.0); HGB 10.8 gm/dL (13.0-17.5); Hypochromasia Moderate; MCH 33.4 pg (25.0-35.0); MCHC 31.8 g/dL (31.0-37.0); MCV 104.8 fL (80.0-100.0); Macrocytosis Moderate; Mean Platelet Volume 9.1; RBC 3.24 m/uL (4.30-5.90); RDW 16.4 % (11.5-15.5); WBC 33.8 k/uL (3.8-10.6)
[2020-03-28 02:57] LABS: Calcium 7.9 mg/dL (8.4-10.2); Potassium 5.1 mmol/L (3.5-5.1); Total Bilirubin 4.8 mg/dL (0.2-1.3); Total Protein 5.6 g/dL (6.3-8.2)
[2020-03-28 02:59] LABS: Platelet Count 93 k/uL (150-450)
[2020-03-28 03:02] LABS: Vancomycin,Random 27.8 ug/mL
[2020-03-28 03:10] LABS: Band Neutrophils % 2 %; Lymphocytes # (M) 2.03 k/uL (1.0-4.8); Metamyelocytes # (M) 0.34 k/uL (0); Metamyelocytes % 1 %; Monocytes # (M) 1.35 k/uL (0-1.0); Myelocytes # (M) 0.34 k/uL (0); Myelocytes % 1 %; Neutrophils % (M) 86 %; Nucleated Red Blood Cells 0 /100 WBC (0-0); Total Cells Counted 100
[2020-03-28] MEDS: PANTOPRAZOLE 40 MG TABLET PO SCH (06:35)
[2020-03-28] MEDS: MIDODRINE 5 MG TAB PO SCH ×3 (06:35→17:21)
[2020-03-28] MEDS: HEPARIN SODIUM,PORCINE 5,000 UNIT/ML 1 ML VIAL SQ SCH ×2 (06:42→22:40)
[2020-03-28] MEDS: SODIUM CHLORIDE 0.9% 1,000 ML IV SCH (08:10)
[2020-03-28] MEDS ORDERED: MIDODRINE 5 MG TAB PO STA (10:02)
[2020-03-28] MEDS: LACTULOSE 20 GM/30 ML CUP PO SCH (11:35)
--- NOTE | 2020-03-28 13:55 | US ---
EXAMINATION TYPE: US paracentesis abd w/image DATE OF EXAM: 03/28/2020 CLINICAL HISTORY: Ascites, leukocytosis COMPARISON: Ultrasound paracentesis 03/20/2020. PASTE UP ARTIST APPRENTICE: Dr. Danelle Hartman PROCEDURE: Preprocedure preliminary ultrasound imaging demonstrates large volume ascites, with increased septati ons and debris. The procedure was discussed with the patient. The risks, complications, benefits, and alternatives we re discussed and any questions were answered. Informed consent was obtained. The patient was placed s upine on the ultrasound table and prepped and draped in the usual sterile fashion. All elements of maximal barrier technique were utilized. Under ultrasound guidance, access into the right lower quadrant was obtained with a 5 Spanish one-step centesis catheter. 5.5 L of nhan color fluid with debris was removed. There was persistent intermittent obstruction of flow from catheter due to debris despite attempts at flushing with sterile saline. Patient was also p ersistently hypotensive despite administration of midodrine. Spoke with ordering team regarding debri s within fluid and hypotension, and decision was made to end procedure and possibly reattempt within the next 3 days. Catheter was removed and sterile bandage was applied. The patient was discharged fro Department of Radiology. IMPRESSION: Diagnostic ultrasound-guided paracentesis, with removal of 5.5 liters of clear nhan-colored fluid wi th debris.
--- NOTE | 2020-03-28 14:32 | P.PN ---
Subjective Progress Note Date: 03/28/20 Principal diagnosis: History of cirrhosis of the liver and hypotension This patient is a 51-year-old pleasant white male with a history of nonalcoholic fatty liver disease with cirrhosis of the liver diagnosed 2 years ago. He has had gradual decompensation in August of this year presented with refractory ascites requiring large-volume paracentesis almost on a weekly basis. He went hemodialysis yesterday and scheduled for another treatment today. He had a paracentesis today, which he was hypotensive and required an additional dose of his [place]. Radiology was able to pull off some fluid for fluid studies. The stated the fluid was turbid with debris. They did not proceed with a full therapeutic paracentesis due to his hypotension. He is denying any abdominal p ain, nausea, or vomiting. He is denying any rectal bleeding or melena. Has had an elevated WBC, today's WBC is 33.8, Hg 10.8, platelets 93, plasma lactic acid of 4.1. Objective - Vital Signs Vital signs: Vital Signs Temp 97.9 F 03/28/20 09:33 Pulse 96 03/28/20 12:55 Resp 18 03/28/20 12:55 BP 104/43 03/28/20 12:55 Pulse Ox 95 03/28/20 11:00 Intake & Output 03/27/20 03/28/20 03/28/20 18:59 06:59 18:59 Intake Total 1010 330 Output Total 1500 Balance -490 330 Weight 129.6 kg Intake: IV 650 100 Sodium Chloride 0.9% 1, 100 000 ml @ 50 mls/hr IV . Q20H [facility] Rx#:[id number] Vancomycin 2,000 mg In 500 Sodium Chloride 0.9% 500 ml 500 ml @ 167 mls/hr IVPB ONCE ONE Rx#: [id number] cefTRIAXone 1 gm In 50 100 Sodium Chloride 0.9% 50 ml @ 100 mls/hr IVPB Q24HR [facility] Rx#:[id number] Oral 360 230 Output: Hemodialysis 1500 Other: Voiding Method Bedside Commode Urinal # Voids 0 3 # Bowel Movements 0 1 - Exam General appearance: The patient is alert, oriented, in no acute distress. Morbidly obese HET: Head is normocephalic and atraumatic. Conjunctiva pink. Sclera anicteric. Neck: Supple without lymphadenopathy. Abdomen: Soft, obese, nontender, nondistended with bowel sounds. No guarding or rigidity. Extremities: Normal skin color and turgor. No pedal edema Neurological: No focal deficits. Alert and oriented 3. - Labs CBC & Chem 7: 03/28/20 02:11 03/28/20 02:11 Labs: Abnormal Lab Results - Last 24 Hours (Table) 03/27/20 03/27/20 03/27/20 Range/Units 16:27 19:12 22:57 WBC (3.8-10.6) k/uL RBC (4.30-5.90) m/uL Hgb (13.0-17.5) gm/dL Hct (39.0-53.0) % MCV (80.0-100.0) fL RDW (11.5-15.5) % Plt Count (150-450) k/uL Neutrophils # (Manual) (1.3-7.7) k/uL Monocytes # (Manual) (0-1.0) k/uL Metamyelocytes # (Man) (0) k/uL Myelocytes # (Manual) (0) k/uL Sodium (137-145) mmol/L Chloride (98-107) mmol/L BUN (9-20) mg/dL Creatinine (0.66-1.25) mg/dL Glucose (74-99) mg/dL Plasma Lactic Acid Chun 4.6 H* 4.8 H* 4.6 H* (0.7-2.0) mmol/L Calcium (8.4-10.2) mg/dL Total Bilirubin (0.2-1.3) mg/dL AST (17-59) U/L ALT (4-49) U/L Alkaline Phosphatase (38-126) U/L Total Protein (6.3-8.2) g/dL Albumin (3.5-5.0) g/dL 03/28/20 03/28/20 03/28/20 Range/Units 02:11 02:11 02:11 WBC 33.8 H (3.8-10.6) k/uL RBC 3.24 L (4.30-5.90) m/uL Hgb 10.8 L (13.0-17.5) gm/dL Hct 33.9 L (39.0-53.0) % MCV 104.8 H (80.0-100.0) fL RDW 16.4 H (11.5-15.5) % Plt Count 93 L (150-450) k/uL Neutrophils # (Manual) 29.70 H (1.3-7.7) k/uL Monocytes # (Manual) 1.35 H (0-1.0) k/uL Metamyelocytes # (Man) 0.34 H (0) k/uL Myelocytes # (Manual) 0.34 H (0) k/uL Sodium 127 L (137-145) mmol/L Chloride 94 L (98-107) mmol/L BUN 58 H (9-20) mg/dL Creatinine 6.48 H (0.66-1.25) mg/dL Glucose 169 H (74-99) mg/dL Plasma Lactic Acid Chun 4.1 H* (0.7-2.0) mmol/L Calcium 7.9 L (8.4-10.2) mg/dL Total Bilirubin 4.8 H (0.2-1.3) mg/dL AST 152 H (17-59) U/L ALT 51 H (4-49) U/L Alkaline Phosphatase 365 H (38-126) U/L Total Protein 5.6 L (6.3-8.2) g/dL Albumin 2.0 L (3.5-5.0) g/dL Microbiology - Last 24 Hours (Table) 03/26/20 11:46 Blood Culture - Preliminary Blood No Growth after 48 hours 03/27/20 05:17 Blood Culture - Preliminary Blood No Growth after 24 hours 03/27/20 05:17 Blood Culture - Preliminary Blood No Growth after 24 hours Assessment and Plan Assessment: 1. Leukocytosis and hypotension as well as lactic acid doses. Rule out sepsis. Possibility of SBP also needs to be considered. The patient has been started on ceftriaxone and blood cultures were done. Patient will undergo paracentesis with fluid cell and culture studies. 2. Cirrhosis of the liver with gradual decompensation 3. Refractory ascites requiring large-volume paracentesis on a weekly basis 4. End-stage renal disease on hemodialysis since October of this year 5. Gastroesophageal reflux disease 6. History of esophageal varices. Last upper endoscopy with esophageal variceal ligation performed in January 2020 Plan: 1. Supportive care 2. Agree with broad-spectrum antibiotics with vancomycin and ceftriaxone 3. Await blood cultures 4. Hold off on diuretics 5. Gentle hydration 6. Continue lactulose 20 g 3 times daily and titrate so that he has 3-4 bowel movements daily 7. Paracentesis with fluid cell count and culture studies ordered 8. Continue with weekly paracentesis, may need another therapeutic paracentesis in the next 1-2 days if hypotension resolved 9. No plans for any endoscopic intervention at the present time, since his last EGD was done in January 2020. We will plan for a repeat in May 2020. 10. We will follow with you closely The impression and plan of care has been dictated as directed. Dr. Christy Bonds I performed a history and examination of this patient, discussed the same with the dictator. I agree with the dictator's note ,documented as a scribe. Any additional findings or plans will be noted.
[2020-03-28 15:24] LABS: Appearance,BF Cloudy; Color,BF Red; Nucleated Cells, Body Fluid 90 /uL; RBC, Body Fluid 2575 /uL
[2020-03-28 15:37] LABS: Mononuclear WBC,Body Fluid 10 %; Polynuclear WBC,Body Fluid 90 %; Total Cells Counted,Body Fluid 100
[2020-03-28] MEDS: FLUDROCORTISONE 0.1 MG TAB PO SCH (18:43)
--- NOTE | 2020-03-28 18:55 | PN ---
PROGRESS NOTE DATE OF SERVICE: 03/28/2020 This 59-year-old gentleman who was admitted with hypotension and possible sepsis had abdominal paracentesis today. The paracentesis was cloudy and mostly RBCs, and 90 nucleated cells were also noted. Cultures are pending at this time. Plasma lactic acid is still elevated. Patient is on broad-spectrum IV antibiotics. The patient also had a CT scan of the abdomen and pelvis which showed significant ascites and cirrhotic disease and splenomegaly. Past medical history reviewed. REVIEW OF SYSTEMS: CARDIOVASCULAR SYSTEM: No angina, palpitations. RESPIRATORY SYSTEM: As mentioned earlier. GI: As mentioned earlier. : No dysuria or retention. NERVOUS SYSTEM: No numbness, weakness. CURRENT MEDICATIONS: Reviewed. They include [place] 5 mg q.6, Xanax, Rocephin, Cephulac, ProAmatine, Narcan, Protonix. PHYSICAL EXAMINATION: Patient is alert, oriented x3. Pulse is 95, blood pressure 83/47, respiration 20, temperature 98 degrees, pulse ox normal. HEENT: Conjunctivae normal. NECK: No jugular venous distention. CARDIOVASCULAR SYSTEM: S1, S2 muffled. RESPIRATORY SYSTEM: Breath sounds diminished at the bases. Bilateral scattered rhonchi and crackles. ABDOMEN: Soft. Ascites present; slightly less compared to pre-paracentesis. NERVOUS SYSTEM: Diffusely weak. LABS: WBC 33.8, hemoglobin 10.8. Sodium 127. Lactic acid 4.1. ASSESSMENT: 1. Hypotension and possible sepsis with spontaneous bacterial peritonitis or right lower lobe pneumonia. 2. End-stage renal disease, on hemodialysis. 3. Significant ascites, probably secondary to chronic liver disease and cirrhosis of the liver, status post diagnostic paracentesis. 4. Hyponatremia. 5. Hyperkalemia. 6. Elevated lactic acid, possibly secondary to dehydration and sepsis. 7. Increased white count and leukemoid reaction. 8. Anemia, macrocytic. 9. Thrombocytopenia. 10.Hyperbilirubinemia. 11.Increased AST. 12.Hypoalbuminemia with mild protein-calorie malnutrition. 13.Diabetes mellitus, type 2. 14.History of gastroesophageal reflux disease. 15.History of gastrointestinal bleed. 16.Chronic liver disease. 17.History of renal disease. 18.History of multiple abdominal paracenteses. 19.History of gait dysfunction. 20.History of known alcoholic liver cirrhosis and esophageal varices and variceal bleeding. 21.History of degenerative joint disease. 22.Remote history of nicotine dependence. 23.FULL CODE. RECOMMENDATIONS AND DISCUSSION: I recommend to continue current medications, continue with the monitoring, symptomatic treatment. The fluid appears to be cloudy, mostly hemorrhagic in nature. Will await the cultures. Broad-spectrum IV antibiotics. Infectious Disease is following the patient closely. I would also recommend a chest x-ray. Usually the patient has significantly more paracentesis. Will continue to monitor. The patient is still having some hypotension. We will start midodrine. I would also add Florinef to the current regimen. Guarded prognosis. Further recommendations to follow. MMODL / IJN: [id number] /
--- NOTE | 2020-03-28 23:16 | PN ---
PROGRESS NOTE DATE OF SERVICE: 03/28/2020 REASON FOR FOLLOWUP: Leukocytosis. INTERVAL HISTORY: The patient is currently afebrile. He is breathing comfortably. He did have some cough, not bringing up any sputum. No chest pain. He has some abdominal discomfort. He was taken for paracentesis but did not have significant fluid drained out. No diarrhea. PHYSICAL EXAMINATION: Blood pressure 104/43 with a pulse of 96, temperature of 98. General description is a middle-aged male lying in bed in no distress. RESPIRATORY SYSTEM: Unlabored breathing with decreased breath sounds at the base. No wheeze. HEART: S1, S2. Regular rate and rhythm. ABDOMEN: Soft. distended. No guarding. No rigidity. LABS: Hemoglobin is 10.8, white count 33.8. BUN of 58, creatinine 6.4. Liver enzymes are elevated. DIAGNOSTIC IMPRESSION AND PLAN: Patient with elevated white count which is multifactorial in this patient with initial concern for possible PermCath infection. However, culture has been negative. CT did not show any acute abnormality except ascitic fluid, which has been drained today, and the fluid is mostly and no significant purulence. Currently covered with vancomycin and Rocephin. Will be switched over to cefepime to cover for more resistant Gram-negative and will monitor his clinical course and white count closely. MMODL / IJN: [id number] /
[2020-03-29] MEDS: SODIUM CHLORIDE 0.9% 1,000 ML IV SCH (05:49)
[2020-03-29] MEDS: PANTOPRAZOLE 40 MG TABLET PO SCH (06:46)
[2020-03-29] MEDS: MIDODRINE 5 MG TAB PO SCH ×3 (06:46→17:13)
[2020-03-29 08:25] LABS: Anisocytosis Slight; HCT 35.3 % (39.0-53.0); HGB 10.5 gm/dL (13.0-17.5); Hypochromasia Marked; MCH 32.3 pg (25.0-35.0); MCHC 29.8 g/dL (31.0-37.0); MCV 108.3 fL (80.0-100.0); Macrocytosis Marked; Mean Platelet Volume 9.2; RBC 3.25 m/uL (4.30-5.90); RDW 16.7 % (11.5-15.5)
[2020-03-29 08:33] LABS: Platelet Count 95 k/uL (150-450); WBC 37.2 k/uL (3.8-10.6)
[2020-03-29] MEDS: LACTULOSE 20 GM/30 ML CUP PO SCH (08:37)
[2020-03-29] MEDS: MULTIVITAMINS, THERA 1 EACH TAB PO SCH (08:37)
[2020-03-29] MEDS: THIAMINE 100 MG TAB PO SCH (08:37)
[2020-03-29] MEDS: FOLIC ACID 1 MG TAB PO SCH (08:37)
[2020-03-29] MEDS: FLUDROCORTISONE 0.1 MG TAB PO SCH ×2 (08:37→19:59)
[2020-03-29 08:58] LABS: Albumin 2.1 g/dL (3.5-5.0); Calcium 8.1 mg/dL (8.4-10.2); Potassium 5.1 mmol/L (3.5-5.1); Total Bilirubin 5.7 mg/dL (0.2-1.3)
[2020-03-29 09:01] LABS: Vancomycin,Random 20.3 ug/mL
[2020-03-29] MEDS: CEFEPIME 1 GM in SODIUM CHLORIDE 0.9% 50 ML IVPB SCH (09:07)
[2020-03-29 09:13] LABS: C Reactive Protein 158.9 mg/L (<10.0)
[2020-03-29] MEDS: HEPARIN SODIUM,PORCINE 5,000 UNIT/ML 1 ML VIAL SQ SCH ×2 (10:45→19:58)
[2020-03-29 10:55] LABS: Band Neutrophils % 2 %; Lymphocytes # (M) 1.12 k/uL (1.0-4.8); Metamyelocytes # (M) 0.37 k/uL (0); Metamyelocytes % 1 %; Monocytes # (M) 1.12 k/uL (0-1.0); Myelocytes # (M) 0.37 k/uL (0); Myelocytes % 1 %; Neutrophils % (M) 92 %; Nucleated Red Blood Cells 0 /100 WBC (0-0); Total Cells Counted 200; Toxic Granulation Present
[2020-03-29 10:56] LABS: Poikilocytosis (M) Present
[2020-03-29] MEDS ORDERED: VANCOMYCIN 2,000 MG in SODIUM CHLORIDE 0.9% 500 ML 500 ML IVPB ONE (11:00)
--- NOTE | 2020-03-29 14:26 | P.GSCN ---
History of Present Illness Consult date: 03/29/20 History of present illness: CHIEF COMPLAINT: Hypotension HISTORY OF PRESENT ILLNESS: This is a 59-year-old male with a known past medical history of alcoholic liver cirrhosis, end-stage renal disease with hemodialysis, diabetes mellitus and prior lap band. Patient came into the hospital due to hypotension and unable to have his hemodialysis. Patient is being treated for possible pneumonia with sepsis. There is also concerns about questionable peritonitis. Infectious disease is following. Patient had 5.5 L removed with paracentesis. Patient denies any abdominal pain.Patient had abdominal ultrasound Completed showing gallbladder wall thickening with intraluminal debris, hepatic cirrhosis and ascites. Patient is afebrile. Denies any abdominal pain. Denies any nausea or vomiting. Tolerating diet. PAST MEDICAL HISTORY: See list. PAST SURGICAL HISTORY: See list. MEDICATIONS: See list. ALLERGIES: See list. SOCIAL HISTORY: No illicit drug use. REVIEW OF SYSTEMS: CONSTITUTIONAL: Denies fever or chills. HEENT: Denies blurred vision, vision changes, or eye pain. Denies hemoptysis CARDIOVASCULAR: Denies chest pain or pressure. RESPIRATORY: No shortness of breath. GASTROINTESTINAL: See HPI for pertinent findings HEMATOLOGIC: Denies bleeding disorders. GENITOURINARY: Denies any blood in urine or increased urinary frequency. SKIN: Denies pruitis. Denies rash. PHYSICAL EXAM: VITAL SIGNS: Reviewed GENERAL: Well-developed in no acute distress. HEENT: No sclera icterus. Extraocular movements grossly intact. Moist buccal mucosa. Head is atraumatic, normocephalic. No nasal drainage. ABDOMEN: Soft. Obese. Nondistended. Nontender with palpation NEUROLOGIC: Alert and oriented. Cranial nerves II through XII grossly intact. LABORATORY DATA: WBC 37.2 hemoglobin 10.5 AST 189 ALT 63 total bili 5.7 IMAGING: abdominal ultrasound Completed showing gallbladder wall thickening with intraluminal debris, hepatic cirrhosis and ascites ASSESSMENT: 1. Chronic cholecystitis 2. Hypotension and possible sepsis with spontaneous bacterial peritonitis or pneumonia. Followed by medicine and infectious disease 3. History of alcoholic liver cirrhosis 4. End-stage renal disease on hemodialysis 5. Diabetes mellitus type 2 PLAN: -No plan for surgical intervention Thank you for this consultation Physician Software Trainer note has been reviewed by physician. Signing provider agrees with the documented findings, assessment, and plan of care. Past Medical History Past Medical History: Diabetes Mellitus, GERD/Reflux, GI Bleed, Liver Disease, Osteoarthritis (OA), Renal Disease Additional Past Medical History / Comment(s): ESRD with hemodialysis on //Wed, anasarca, ascities with multiple paracentesis (last time 02/21/20-seven liters removed), pt states he has a current either R shoulder or R clavicle fracture/in sling-pt has been unable to follow up with orthopedic physician, pt is R handed, currently has increased weakness with difficulty rising from chairs/getting into vehicles/showering, fatty liver, nonalcoholic liver cirrhosis, esophageal varicies/variceal bleed, lower GI bleed, DVT L leg, NIDDM type II-diet controlled, arthritis R foot. 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 He works for [employer] but is currently on short term disability. He has worked there for 27yrs. He has had issues with increased weakness in his legs and is having difficulty with rising from chairs/showering and getting in/out vehicles. He also has a R shoulder injury/sling and is R handed. He states he would like PT/OT to evaluate what he may need in the home for medical devices. He has been using a crutch at times. Upon discharge, pt will go stay with his brother for some time. Smoking Status: Never smoker Past Alcohol Use History: Rare Additional Past Alcohol Use History / Comment(s): Pt has a rare cigar at [employer]. Past Drug Use History: None Reported - Past Family History Mother Family Medical History: No Reported History Additional Family Medical History / Comment(s): . Father History Unknown: Yes Additional Family Medical History / Comment(s): Pt does not know father's medical history. Father in his 60's. Brother(s) Family Medical History: Cancer Additional Family Medical History / Comment(s): Prostate cancer. Medications and Allergies Home Medications Medication Instructions Recorded Confirmed Type Midodrine HCl [ProAmatine] 10 mg PO TID #90 tab 02/29/20 03/26/20 Rx Lactulose 10 gm PO DAILY 03/26/20 03/26/20 History Allergies Allergy/AdvReac Type Severity Reaction Status Date / Time Sulfa (Sulfonamide Allergy Rash/Hives Verified 03/26/20 10:46 Antibiotics) Surgical - Exam Vital Signs Temp Pulse Resp BP Pulse Ox 97.5 F L 97 18 68/47 97 03/26/20 09:19 03/26/20 09:19 03/26/20 09:19 03/26/20 09:19 03/26/20 09:19 Results - Labs 03/29/20 07:27 03/29/20 07:36 Abnormal Lab Results - Last 24 Hours (Table) 03/29/20 03/29/20 Range/Units 07:27 07:36 WBC 37.2 H (3.8-10.6) k/uL RBC 3.25 L (4.30-5.90) m/uL Hgb 10.5 L (13.0-17.5) gm/dL Hct 35.3 L (39.0-53.0) % MCV 108.3 H (80.0-100.0) fL MCHC 29.8 L (31.0-37.0) g/dL RDW 16.7 H (11.5-15.5) % Plt Count 95 L (150-450) k/uL Neutrophils # (Manual) 34.90 H (1.3-7.7) k/uL Monocytes # (Manual) 1.12 H (0-1.0) k/uL Metamyelocytes # (Man) 0.37 H (0) k/uL Myelocytes # (Manual) 0.37 H (0) k/uL Macrocytosis Marked A Sodium 130 L (137-145) mmol/L Chloride 97 L (98-107) mmol/L Carbon Dioxide 19 L (22-30) mmol/L BUN 51 H (9-20) mg/dL Creatinine 6.06 H (0.66-1.25) mg/dL Glucose 163 H (74-99) mg/dL Calcium 8.1 L (8.4-10.2) mg/dL Total Bilirubin 5.7 H (0.2-1.3) mg/dL AST 189 H (17-59) U/L ALT 63 H (4-49) U/L Alkaline Phosphatase 426 H (38-126) U/L C-Reactive Protein 158.9 H (<10.0) mg/L Total Protein 6.0 L (6.3-8.2) g/dL Albumin 2.1 L (3.5-5.0) g/dL Microbiology - Last 24 Hours (Table) 03/26/20 11:46 Blood Culture - Preliminary Blood No Growth after 72 hours 03/28/20 09:46 Gram Stain - Preliminary Paracentesis Fluid Body Fluid Culture - Preliminary 03/27/20 05:17 Blood Culture - Preliminary Blood No Growth after 48 hours 03/27/20 05:17 Blood Culture - Preliminary Blood No Growth after 48 hours 03/28/20 09:46 Anaerobic Culture - Preliminary Paracentesis Fluid Diabetes panel 03/29/20 Range/Units 07:36 Sodium 130 L (137-145) mmol/L Potassium 5.1 (3.5-5.1) mmol/L Chloride 97 L (98-107) mmol/L Carbon Dioxide 19 L (22-30) mmol/L BUN 51 H (9-20) mg/dL Creatinine 6.06 H (0.66-1.25) mg/dL Glucose 163 H (74-99) mg/dL Calcium 8.1 L (8.4-10.2) mg/dL AST 189 H (17-59) U/L ALT 63 H (4-49) U/L Alkaline Phosphatase 426 H (38-126) U/L Total Protein 6.0 L (6.3-8.2) g/dL Albumin 2.1 L (3.5-5.0) g/dL Calcium panel 03/29/20 Range/Units 07:36 Calcium 8.1 L (8.4-10.2) mg/dL Albumin 2.1 L (3.5-5.0) g/dL Pituitary panel 03/29/20 Range/Units 07:36 Sodium 130 L (137-145) mmol/L Potassium 5.1 (3.5-5.1) mmol/L Chloride 97 L (98-107) mmol/L Carbon Dioxide 19 L (22-30) mmol/L BUN 51 H (9-20) mg/dL Creatinine 6.06 H (0.66-1.25) mg/dL Glucose 163 H (74-99) mg/dL Calcium 8.1 L (8.4-10.2) mg/dL Adrenal panel 03/29/20 Range/Units 07:36 Sodium 130 L (137-145) mmol/L Potassium 5.1 (3.5-5.1) mmol/L Chloride 97 L (98-107) mmol/L Carbon Dioxide 19 L (22-30) mmol/L BUN 51 H (9-20) mg/dL Creatinine 6.06 H (0.66-1.25) mg/dL Glucose 163 H (74-99) mg/dL Calcium 8.1 L (8.4-10.2) mg/dL Total Bilirubin 5.7 H (0.2-1.3) mg/dL AST 189 H (17-59) U/L ALT 63 H (4-49) U/L Alkaline Phosphatase 426 H (38-126) U/L Total Protein 6.0 L (6.3-8.2) g/dL Albumin 2.1 L (3.5-5.0) g/dL
--- NOTE | 2020-03-29 14:35 | PN ---
PROGRESS NOTE DATE OF SERVICE: 03/29/2020 This is a 59-year-old gentleman who was admitted with hypotension and possibly sepsis. Also had suspected spontaneous bacterial peritonitis and right lower pneumonia. The patient will be closely monitored. Patient has end-stage renal hemodialysis. Patient continues to be hypotensive. Paracentesis could not be repeated because of the hypotension, multiple consultants are following the patient closely. Patient is on broad-spectrum IV antibiotics. All the cultures are negative so far. Surgical evaluation also has been sought. PAST MEDICAL HISTORY: Reviewed. REVIEW OF SYSTEMS: CARDIOVASCULAR SYSTEM: No angina or palpitations. RESPIRATORY: As mentioned earlier. GI: As mentioned earlier. : As mentioned earlier. NERVOUS SYSTEM: No numbness or weakness. CURRENT MEDICATIONS: Reviewed include [place] 5 mg. Xanax, Florinef, Dilaudid, Cephulac, multivitamin, multivitamin, and vitamin B1, vancomycin. PHYSICAL EXAM: Patient is alert, oriented x3. Pulse 80, blood pressure 77/40, respiration 18, temperature 98.7, pulse ox normal at 97%. HEENT: Conjunctivae normal. NECK: No jugular venous distension. CARDIOVASCULAR SYSTEM: S1, S2, muffled. RESPIRATION: Breath sounds diminished at the bases, a few scattered rhonchi, no crackles. ABDOMEN: Soft. It is distended and ascites present, nontender. No guarding, no mass palpable. LEGS: No edema. No swelling. NERVOUS SYSTEM: No focal deficits. LABS: WBC 37.2, hemoglobin is 10.5 market macrocytic. Sodium 130, otherwise creatinine 6.06 and lactic acid 4.1. Total bilirubin is 5.7, AST is 189, ALT is 63. Cultures are negative so far. ASSESSMENT: 1. Hypotension with possible sepsis and spontaneous bacterial peritonitis or right lower pneumonia. 2. History of renal disease, on hemodialysis. 3. Significant ascites, probably secondary to chronic liver disease and cirrhosis of the liver, status post diagnostic paracentesis. 4. Hyponatremia. 5. Hyperkalemia. 6. Elevated lactic acid, possibly secondary to dehydration, sepsis. 7. Increased WBC, leukemoid reaction, persistent. 8. Anemia macrocytic. 9. Thrombocytopenia. 10.Hyperbilirubinemia. 11.Increased AST. 12.Hypoalbuminemia with mild protein calorie malnutrition. 13.Diabetes mellitus type 2. 14.History of GERD. 15.History of gastrointestinal bleed. 16.Chronic liver disease. 17.History of renal disease. 18.History of multiple abdominal paracentesis. 19.History of gait dysfunction. 20.History of known alcoholic liver cirrhosis and as well as esophageal varices and variceal bleeding. 21.History of degenerative joint disease. 22.Remote history of nicotine dependence. 23.FULL CODE. RECOMMENDATION: Recommend to continue current management and continue with symptomatic treatment. Continue with antibiotics. Infectious disease evaluation appreciated. I would recommend bilateral thigh-high ELIU's and also had Florinef to the current regimen. I would also recommend a random cortisol level. Repeat labs. Prognosis guarded because of multiple complex medical issues. Further recommendations to follow. Vancomycin levels are checked. MMODL / IJN: [id number] /
--- NOTE | 2020-03-29 15:06 | P.PN ---
Subjective Progress Note Date: 03/29/20 Principal diagnosis: History of cirrhosis of the liver and hypotension She was seen and examined the bedside. He states he is feeling better today after his paracentesis. He denies any fever, however states he has been chilled since he's been in the hospital. He has had dialysis for the last 2 days and is scheduled again tomorrow. He had a paracentesis yesterday with with reported findings from the radiologist that there was debris in his fluid and it was cloudy. They were unable to do a full therapeutic paracentesis due to the patient's hypotension. He remains hypotensive today. He denies any abdominal pain, nausea, or vomiting. His been afebrile. Today's labs WBC 37.2, hemoglobin 10.5, hematocrit 35, platelets 95, bilirubin 5.7, alkaline phosphatase 426, AST 189, ALT 63, C-reactive protein 158.9. Fluid WBC 90. Fluid culture pending. Objective - Vital Signs Vital signs: Vital Signs Temp 96.6 F L 03/29/20 08:00 Pulse 88 03/29/20 11:54 Resp 18 03/29/20 11:54 BP 77/47 03/29/20 11:54 Pulse Ox 97 03/29/20 03:57 Intake & Output 03/28/20 03/29/20 03/29/20 18:59 06:59 18:59 Intake Total 530 540 125 Output Total 2000 0 Balance -1470 540 125 Weight 127.5 kg Intake: IV 100 cefTRIAXone 1 gm In 100 Sodium Chloride 0.9% 50 ml @ 100 mls/hr IVPB Q24HR [facility] Rx#:[id number] Oral 430 540 125 Output: Urine 0 Hemodialysis 1999 Other: Voiding Method Bedside Commode Urinal # Bowel Movements 1 1 1 - Exam General appearance: The patient is alert, oriented, in no acute distress. Morbidly obese HET: Head is normocephalic and atraumatic. Conjunctiva pink. Sclera anicteric. Neck: Supple without lymphadenopathy. Abdomen: Soft, obese, nontender, nondistended with bowel sounds. No guarding or rigidity. Extremities: Normal skin color and turgor. No pedal edema Neurological: No focal deficits. Alert and oriented 3. - Labs CBC & Chem 7: 03/29/20 07:27 03/29/20 07:36 Labs: Abnormal Lab Results - Last 24 Hours (Table) 03/29/20 03/29/20 Range/Units 07:27 07:36 WBC 37.2 H (3.8-10.6) k/uL RBC 3.25 L (4.30-5.90) m/uL Hgb 10.5 L (13.0-17.5) gm/dL Hct 35.3 L (39.0-53.0) % MCV 108.3 H (80.0-100.0) fL MCHC 29.8 L (31.0-37.0) g/dL RDW 16.7 H (11.5-15.5) % Plt Count 95 L (150-450) k/uL Neutrophils # (Manual) 34.90 H (1.3-7.7) k/uL Monocytes # (Manual) 1.12 H (0-1.0) k/uL Metamyelocytes # (Man) 0.37 H (0) k/uL Myelocytes # (Manual) 0.37 H (0) k/uL Macrocytosis Marked A Sodium 130 L (137-145) mmol/L Chloride 97 L (98-107) mmol/L Carbon Dioxide 19 L (22-30) mmol/L BUN 51 H (9-20) mg/dL Creatinine 6.06 H (0.66-1.25) mg/dL Glucose 163 H (74-99) mg/dL Calcium 8.1 L (8.4-10.2) mg/dL Total Bilirubin 5.7 H (0.2-1.3) mg/dL AST 189 H (17-59) U/L ALT 63 H (4-49) U/L Alkaline Phosphatase 426 H (38-126) U/L C-Reactive Protein 158.9 H (<10.0) mg/L Total Protein 6.0 L (6.3-8.2) g/dL Albumin 2.1 L (3.5-5.0) g/dL Microbiology - Last 24 Hours (Table) 03/26/20 11:46 Blood Culture - Preliminary Blood No Growth after 72 hours 03/28/20 09:46 Gram Stain - Preliminary Paracentesis Fluid Body Fluid Culture - Preliminary 03/27/20 05:17 Blood Culture - Preliminary Blood No Growth after 48 hours 03/27/20 05:17 Blood Culture - Preliminary Blood No Growth after 48 hours 03/28/20 09:46 Anaerobic Culture - Preliminary Paracentesis Fluid Assessment and Plan Assessment: 1. Leukocytosis and hypotension as well as lactic acidosis. Rule out sepsis. Patient had paracentesis done yesterday, Fluid studies showed good color red, cloudy, RBC 2575, WBC 90. The patient did receive antibiotics before paracentesis, Most likely dealing with SBP. The patient has been sta rted on ceftriaxone and vancomycin. Blood cultures pending. Blood cultures pending 2. Cirrhosis of the liver with gradual decompensation 3. Refractory ascites requiring large-volume paracentesis on a weekly basis 4. End-stage renal disease on hemodialysis since October of this year 5. Gastroesophageal reflux disease 6. History of esophageal varices. Last upper endoscopy with esophageal varicea l ligation performed in January 2020 Plan: 1. Supportive care 2. Agree with broad-spectrum antibiotics with vancomycin and ceftriaxone 3. Await blood cultures 4. Hold off on diuretics 5. Gentle hydration 6. Continue lactulose 20 g 3 times daily and titrate so that he has 3-4 bowel movements daily 7. Paracentesis with fluid cell count and culture studies ordered, fluid cultures pending 8. Continue with weekly paracentesis, may need another therapeutic paracentesis by Wednesday if hypotension resolved 9. No plans for any endoscopic intervention at the present time, since his last EGD was done in January 2020. We will plan for a repeat in May 2020. 10. We will follow with you closely The impression and plan of care has been dictated as directed. Dr. Christy Bonds I performed a history and examination of this patient, discussed the same with the dictator. I agree with the dictator's note ,documented as a scribe. Any additional findings or plans will be noted.
--- NOTE | 2020-03-29 19:38 | PN ---
PROGRESS NOTE Patient is seen for followup for end-stage renal disease. He has underlying liver cirrhosis, recurrent ascites, and was admitted to the hospital for significantly low blood pressure, mild metabolic acidosis. He was not able to get his treatment as outpatient secondary to severe hypotension. Patient has been dialyzed in the hospital. He has also had paracentesis. However, he had only one liter of fluid removed on paracentesis yesterday. Patient tolerated his treatment of dialysis fairly well and had about 2 liters of fluid taken off with dialysis yesterday. This morning he denies any significant complaints, although he states he feels very full and uncomfortable from the ascites. PHYSICAL EXAMINATION: On examination today, blood pressure was 92/33, heart rate 94 per minute. He is afebrile. EXAMINATION OF THE HEART: S1 and S2. EXAMINATION OF LUNGS: Bilateral breath sounds are heard. ABDOMEN: Soft, non-tender, distended with ascites. Examination of lower extremities shows chronic skin changes and edema 2+ bilaterally. SWITCH CLEANER exam is grossly intact. LABS: Labs show sodium of 130, potassium 5.1, BUN 51, creatinine 6.0, hemoglobin 10.5 g/dL. ASSESSMENT: 1. End-stage renal disease, on hemodialysis on a Wednesday, , Wednesday schedule. 2. Chronic liver disease secondary to nonalcoholic fatty liver disease with liver cirrhosis and recurrent ascites, needing paracentesis on a weekly basis. 3. Chronic hypotension with normal cortisol levels previously, maintained on midodrine; currently improved. 4. Lactic acidosis associated with hypoperfusion, hypotension; no evidence of ongoing sepsis. Patient is maintained on empiric antibiotics. He is being treated for possible right lower lobe pneumonia as well. 5. Right lower lobe pneumonia, being followed by Infectious Disease, maintained on antibiotics and currently improved. PLAN: Hemodialysis in a.m. Goal UF about 1 to 2 liters. Patient is encouraged to follow up closely at [facility], where he is being considered for double organ transplant, which is liver and kidney. MMODL / IJN: [id number] /
--- NOTE | 2020-03-29 23:08 | PN ---
PROGRESS NOTE DATE OF SERVICE: 03/29/2020 REASON FOR FOLLOWUP: Leukocytosis, possible abdominal source. INTERVAL HISTORY: Patient is currently afebrile. The patient is breathing comfortably. He did have a cough, not bringing up any sputum. No nausea, no vomiting. No abdominal pain or diarrhea. PHYSICAL EXAMINATION: Blood pressure 98/52 with a pulse of 89, temperature 98. He is 98% on room air. General description is a middle-aged male lying in bed in no distress. Respiratory system: Unlabored breathing, clear to auscultation anteriorly. Heart S1, S2. Regular rate and rhythm. ABDOMEN: Soft, mild distended. No guarding. No rigidity. LABS: Hemoglobin is 10.5, white count 7.2 with BUN of 51. Creatinine 6.6, hemoglobin is up to 5.7. DIAGNOSTIC IMPRESSION AND PLAN: Patient with elevated white count which is multifactorial in this patient. Blood culture has been negative. Peritoneal fluid culture so far negative. The patient did have elevated bilirubin with concern for possible and ascending cholangitis. Patient is covered with vancomycin and cefepime. We will discuss further with GI for possible ERCP and monitor clinical course closely. MMODL / IJN: [id number] /
[2020-03-30] MEDS: MIDODRINE 5 MG TAB PO SCH ×3 (06:36→15:59)
[2020-03-30] MEDS: PANTOPRAZOLE 40 MG TABLET PO SCH (06:36)
[2020-03-30 08:13] LABS: Anisocytosis Slight; HGB 10.8 gm/dL (13.0-17.5); Hypochromasia Marked; MCH 32.3 pg (25.0-35.0); MCHC 29.9 g/dL (31.0-37.0); MCV 107.9 fL (80.0-100.0); Macrocytosis Marked; Mean Platelet Volume 10.5; Platelet Count 107 k/uL (150-450); RBC 3.34 m/uL (4.30-5.90); WBC 35.2 k/uL (3.8-10.6)
[2020-03-30 08:21] LABS: Albumin 2.1 g/dL (3.5-5.0); Calcium 7.8 mg/dL (8.4-10.2); Potassium 5.2 mmol/L (3.5-5.1); Total Bilirubin 6.6 mg/dL (0.2-1.3); Total Protein 6.1 g/dL (6.3-8.2)
[2020-03-30] MEDS: CEFEPIME 1 GM in SODIUM CHLORIDE 0.9% 50 ML IVPB SCH (08:24)
[2020-03-30] MEDS: LACTULOSE 20 GM/30 ML CUP PO SCH (08:25)
[2020-03-30] MEDS: THIAMINE 100 MG TAB PO SCH (08:25)
[2020-03-30] MEDS: HEPARIN SODIUM,PORCINE 5,000 UNIT/ML 1 ML VIAL SQ SCH ×2 (08:25→21:33)
[2020-03-30] MEDS: MULTIVITAMINS, THERA 1 EACH TAB PO SCH (08:25)
[2020-03-30] MEDS: FOLIC ACID 1 MG TAB PO SCH (08:25)
[2020-03-30] MEDS: FLUDROCORTISONE 0.1 MG TAB PO SCH ×2 (08:33→21:32)
[2020-03-30 09:03] LABS: Band Neutrophils % 1 %; Lymphocytes # (M) 1.06 k/uL (1.0-4.8); Metamyelocytes % 2 %; Myelocytes % 2 %; Neutrophils % (M) 92 %; Nucleated Red Blood Cells 0 /100 WBC (0-0); Poikilocytosis (M) Present; Total Cells Counted 200; Toxic Granulation Present
--- NOTE | 2020-03-30 10:33 | P.PN ---
Subjective Progress Note Date: 03/30/20 Principal diagnosis: This is a 59-year-old male with ESRD on dialysis Wednesday with a right-sided permacath, and nonalcoholic cirrhosis from possibly fatty liver, history of diabetes and esophageal varices who was admitted with hypotension. He also is getting frequent taps done. Today he feels fairly well no nausea vomiting abdominal pain. He looks fairly weak and tired and may have difficulty remembering with poor short-term memory. He had paracentesis done on 03/28/2028 5.5 L removed Objective - Vital Signs Vital signs: Vital Signs Temp 98.0 F 03/30/20 04:00 Pulse 86 03/30/20 04:00 Resp 18 03/30/20 04:00 BP 90/54 03/30/20 04:00 Pulse Ox 97 03/30/20 04:00 Intake & Output 03/29/20 03/30/20 03/30/20 18:59 06:59 18:59 Intake Total 605 Balance 605 Weight 131.5 kg Intake: Oral 605 Other: Voiding Method Bedside Commode Urinal # Voids 0 # Bowel Movements 1 1 On examination he is awake alert pale and tired looking HEENT exam no JVP neck is supple no facial asymmetry Heart sounds are unremarkable for any murmur rub gallop Lungs are clear to auscultation diminished air entry Abdomen is soft but distended Extremity exam reveals minimal edema Neurologically awake alert oriented but poor short-term memory - Labs CBC & Chem 7: 03/30/20 07:20 03/30/20 07:20 Labs: Abnormal Lab Results - Last 24 Hours (Table) 03/29/20 03/29/20 03/30/20 Range/Units 07:27 07:27 07:20 WBC 37.2 H (3.8-10.6) k/uL RBC (4.30-5.90) m/uL Hgb (13.0-17.5) gm/dL Hct (39.0-53.0) % MCV (80.0-100.0) fL MCHC (31.0-37.0) g/dL RDW (11.5-15.5) % Plt Count (150-450) k/uL Neutrophils # (Manual) 34.90 H (1.3-7.7) k/uL Monocytes # (Manual) 1.12 H (0-1.0) k/uL Metamyelocytes # (Man) 0.37 H (0) k/uL Myelocytes # (Manual) 0.37 H (0) k/uL Macrocytosis Sodium 127 L (137-145) mmol/L Potassium 5.2 H (3.5-5.1) mmol/L Chloride 95 L (98-107) mmol/L Carbon Dioxide 18 L (22-30) mmol/L BUN 58 H (9-20) mg/dL Creatinine 7.11 H* (0.66-1.25) mg/dL Glucose 156 H (74-99) mg/dL Calcium 7.8 L (8.4-10.2) mg/dL Total Bilirubin 6.6 H (0.2-1.3) mg/dL AST 154 H (17-59) U/L ALT 67 H (4-49) U/L Alkaline Phosphatase 463 H (38-126) U/L Total Protein 6.1 L (6.3-8.2) g/dL Albumin 2.1 L (3.5-5.0) g/dL Procalcitonin 5.69 H (0.02-0.09) ng/mL 03/30/20 Range/Units 07:20 WBC 35.2 H (3.8-10.6) k/uL RBC 3.34 L (4.30-5.90) m/uL Hgb 10.8 L (13.0-17.5) gm/dL Hct 36.0 L (39.0-53.0) % MCV 107.9 H (80.0-100.0) fL MCHC 29.9 L (31.0-37.0) g/dL RDW 17.0 H (11.5-15.5) % Plt Count 107 L (150-450) k/uL Neutrophils # (Manual) 32.70 H (1.3-7.7) k/uL Monocytes # (Manual) (0-1.0) k/uL Metamyelocytes # (Man) 0.70 H (0) k/uL Myelocytes # (Manual) 0.70 H (0) k/uL Macrocytosis Marked A Sodium (137-145) mmol/L Potassium (3.5-5.1) mmol/L Chloride (98-107) mmol/L Carbon Dioxide (22-30) mmol/L BUN (9-20) mg/dL Creatinine (0.66-1.25) mg/dL Glucose (74-99) mg/dL Calcium (8.4-10.2) mg/dL Total Bilirubin (0.2-1.3) mg/dL AST (17-59) U/L ALT (4-49) U/L Alkaline Phosphatase (38-126) U/L Total Protein (6.3-8.2) g/dL Albumin (3.5-5.0) g/dL Procalcitonin (0.02-0.09) ng/mL Microbiology - Last 24 Hours (Table) 03/27/20 05:17 Blood Culture - Preliminary Blood No Growth after 72 hours 03/27/20 05:17 Blood Culture - Preliminary Blood No Growth after 72 hours 03/26/20 11:46 Blood Culture - Preliminary Blood No Growth after 72 hours 03/28/20 09:46 Gram Stain - Preliminary Paracentesis Fluid Body Fluid Culture - Preliminary Assessment and Plan Assessment: Impression 1. ESRD on dialysis Wednesday 2. Nonalcoholic cirrhosis, esophageal varices and ascites requiring frequent taps last Pap was on 10:15 5.5 L removed 2 days ago 3. Hypotension secondary to cirrhosis 4. Anemia hemoglobin is 10.8 stable 5. Pneumonia with elevated white count but afebrile Recommendation 1. Continue dialysis as scheduled today. 2. Watch blood pressure, continue Midrin 3.
[2020-03-30 11:40] LABS: Hepatitis A Antibody IgM Non-Reactive (Non-Reactive); Hepatitis B Core IgM Non-Reactive (Non-Reactive); Hepatitis B Surface Antigen Non-Reactive (Non-Reactive); Hepatitis C IgG Antibody Non-Reactive (Non-Reactive)
--- NOTE | 2020-03-30 12:08 | PN ---
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 The patient was started on broad-spectrum antibiotics with ceftriaxone as well as vancomycin for presumed SBP. He underwent large-volume paracentesis 2 days after antibiotics were started and so far the cultures have been negative. The patient complains of mild abdominal tightness. He denies any specific abdominal pain. No fever, chills, night sweats. No nausea, vomiting. He underwent dialysis yesterday for end-stage renal disease. PHYSICAL EXAMINATION: GENERAL: He appears comfortable. No apparent distress. VITAL SIGNS: Stable. Blood pressure is 99/52, pulse rate 92, temperature 97.4. HEENT: Examination unremarkable. Conjunctivae are pink. Sclerae anicteric. Oral cavity no lesions. NECK: No JVD or lymph node enlargement. CHEST: Clear to auscultation. HEART: Regular rate and rhythm. ABDOMEN: Soft. There was mild diffuse tenderness. EXTREMITIES: No pedal edema. SKIN: No rashes. NEURO: He is alert and oriented x3. No focal deficits. LABS: WBC 35.2, hemoglobin 10.8, platelets 107. Sodium 127, potassium 5.2, BUN 58, creatinine 7.11. Bilirubin is 6.6, AST 154, ALT 67, alkaline phosphatase is 463. IMAGING: The patient did have an ultrasound of the abdomen done at the time of admission to the hospital 3 days ago that showed some thickening of the gallbladder wall with internal debris. No evidence of biliary ductal dilation. IMPRESSION: 1. Persistent leukocytosis, possible spontaneous bacterial peritonitis, on broad- spectrum antibiotics with Rocephin and vancomycin, day #4. Infectious Disease is following the patient closely. 2. History of nonalcoholic cirrhosis of the liver with gradual decompensation. The patient noted to have elevated BUN and alkaline phosphatase as well as mild elevation of serum transaminases during this hospitalization. Most likely explained on the basis of liver decompensation rather than biliary obstruction. Ultrasound of the abdomen at the time of admission to the hospital did not show any biliary ductal dilation. However, there was some gallbladder wall thickening noted. 3. Mild diffuse abdominal pain. Cannot rule out acalculous cholecystitis. 4. End-stage renal disease on hemodialysis. 5. Longstanding history of diabetes mellitus. RECOMMENDATIONS: 1. Continue with broad-spectrum antibiotics. 2. Based on the clinical picture, no indication for an ERCP at the present time, as I doubt we are dealing with ascending cholangitis. Of course, possibility of acalculous cholecystitis, given the overall medical condition, cannot be excluded. We will discuss with Dr. Greco today. 3. Repeat labs in the morning. 4. We will follow with you closely. Thank you for this consultation. MMODL / IJN: [id number] /
--- NOTE | 2020-03-30 13:53 | PN ---
PROGRESS NOTE DATE OF SERVICE: 03/30/2020 REASON FOR FOLLOWUP VISIT: Leukocytosis, possible abdominal source. INTERVAL HISTORY: Patient is currently afebrile. Still complaining of abdominal distention. No nausea, vomiting. Did mention bleeding per rectum today. No chest pain shortness of breath. Occasional cough. No sputum. PHYSICAL EXAMINATION: Blood pressure 92/52 with a pulse of 93, temperature 97.4. He is 95% on room air. General description is a middle-aged male lying in bed in no distress. Respiratory system: Unlabored breathing, clear to auscultation anteriorly. Heart S1, S2. Regular rate and rhythm. Abdomen is soft. No tenderness. Mild distention. No guarding or rigidity. LABS: Hemoglobin is 10.8, white count ( ).2, creatinine is 7.11. DIAGNOSTIC IMPRESSION AND PLAN: Patient with elevated white count which is multifactorial. This patient did have elevated liver enzymes and question of chronic cholecystitis versus cholangitis with no clinical response to vancomycin and cefepime. Antibiotic was switched over to Zosyn. Will discuss further with the GI the indication for ERCP or colonoscopy in view of the bleeding per rectum and monitor his clinical course closely. Continue supportive care. MMODL / IJN: [id number] /
[2020-03-30 14:20] LABS: Hemoglobin A1C 4.6 % (4.0-6.0)
--- NOTE | 2020-03-30 15:24 | XR ---
EXAMINATION TYPE: XR chest 1V portable DATE OF EXAM: 03/30/2020 COMPARISON: 03/26/2020 HISTORY: Pneumonia. Short of breath TECHNIQUE: FINDINGS: There is blunting of the right costophrenic angle. There is dual-lumen right central venous catheter with tip in the superior vena cava. There is no heart failure. Left lung is clear. IMPRESSION: Right pleural effusion increased compared to recent exam. No heart failure. Right lower l obe pneumonia not excluded.
--- NOTE | 2020-03-30 15:50 | PN ---
PROGRESS NOTE DATE OF SERVICE: 03/30/2020 This 59-year-old gentleman who was admitted with significant hypotension and also found to have spontaneous bacterial peritonitis. The cultures are negative so far, but the patient is still complaining of diffuse abdominal discomfort. The blood pressure is also still low and the creatinine is 1.11. The most recent lactic acid is not available at this time. Hepatitis panel is nonreactive. The fluid was cloudy and the possibility of spontaneous bacterial peritonitis is being considered at this time. The patient is on Zosyn. Surgical evaluation also has been sought. Past medical history reviewed. REVIEW OF SYSTEMS: CARDIOVASCULAR SYSTEM: No angina. RESPIRATORY: As mentioned earlier. GI: As mentioned earlier. no dysuria. NERVOUS SYSTEM: No numbness or weakness. CURRENT MEDICATIONS: The current medications are reviewed and include: [place] 5 mg, Florinef, folic acid, heparin, Dilaudid, Cephulac, ProAmatine, Narcan, Protonix, Zosyn IV and vitamin B1. PHYSICAL EXAM: Patient is alert, oriented x3. Pulse 93, blood pressure 92/50 respiration 18, temperature 97.4, pulse ox 94% on room air. HEENT: Conjunctivae normal. NECK: No JVD. CARDIOVASCULAR: S1, S2 muffled. RESPIRATORY: Breath sounds diminished in the bases. A few bilateral scattered rhonchi and crackles. ABDOMEN: Soft, obese. Significant ascites present, not very tense. Mild discomfort. No guarding. No rigidity. No mass palpable. Bowel sounds diminished. LEGS are no edema. No swelling. NERVOUS SYSTEM: No focal deficits. LABS: WBC 35.2, hemoglobin 10.8, sodium 127, potassium 5.2, creatinine is 7.11 and bilirubin is 6.6 and AST is 154 and ALT is 67, alkaline phosphatase 463. ASSESSMENT: 1. Hypotension with possible sepsis and spontaneous bacterial peritonitis and right lower pneumonia. 2. History of end-stage renal disease on hemodialysis. 3. Rule out CBD obstruction and cholangitis. 4. Significant ascites, probably secondary to chronic liver disease and cirrhosis of the liver, status post diagnostic paracentesis. 5. Hyponatremia. 6. Hyperkalemia. 7. Elevated lactic acidosis possibly secondary to dehydration, sepsis. 8. Increased WBC, leukemoid reaction, persistent. 9. Anemia macrocytic. 10.Thrombocytopenia. 11.Hyperbilirubinemia. 12.Increased AST. 13.Hypoalbuminemia with mild protein calorie malnutrition. 14.Diabetes mellitus type 2. 15.Gastroesophageal reflux disease. 16.History of gastrointestinal bleed. 17.History of chronic liver disease. 18.History of renal disease. 19.History of multiple abdominal paracentesis. 20.History of gait dysfunction. 21.History of known alcoholic liver cirrhosis and as well as esophageal varices and variceal bleeding. 22.History of degenerative joint disease. 23.Remote history of nicotine dependence. 24.FULL CODE. RECOMMENDATIONS AND DISCUSSION: I recommend to continue current medications, management and symptomatic treatment. Continue with broad-spectrum IV antibiotics. Otherwise Infectious Disease and Gastroenterology notes appreciated. We will repeat the labs tomorrow. We will continue the hemodialysis and once the blood pressure is stabilized, I would strongly recommend abdominal paracentesis. Otherwise, repeat labs as mentioned earlier and CBC and CMP. Acute hepatitis panel is negative and further recommendations to follow. Multiple cultures are negative at this time. See orders for details. MMODL / IJN: [id number] /
[2020-03-30] MEDS: PIPERACILLIN-TAZOBACTAM 3.375 GM in SODIUM CHLORIDE 0.9% 100 ML IVPB SCH ×2 (15:59→21:32)
[2020-03-31] MEDS: MIDODRINE 5 MG TAB PO SCH ×3 (06:31→16:52)
[2020-03-31] MEDS: PANTOPRAZOLE 40 MG TABLET PO SCH (06:32)
[2020-03-31 07:38] LABS: Anisocytosis Slight; HCT 35.4 % (39.0-53.0); HGB 10.7 gm/dL (13.0-17.5); Hypochromasia Marked; MCH 32.2 pg (25.0-35.0); MCHC 30.2 g/dL (31.0-37.0); MCV 106.3 fL (80.0-100.0); Macrocytosis Marked; Mean Platelet Volume 10.4; RBC 3.33 m/uL (4.30-5.90); RDW 17.2 % (11.5-15.5); WBC 33.7 k/uL (3.8-10.6)
[2020-03-31 07:45] LABS: Platelet Count 81 k/uL (150-450)
[2020-03-31 07:56] LABS: Band Neutrophils % 2 %; Lymphocytes # (M) 2.02 k/uL (1.0-4.8); Monocytes # (M) 1.01 k/uL (0-1.0); Neutrophils % (M) 89 %; Nucleated Red Blood Cells 0 /100 WBC (0-0); Poikilocytosis (M) Present; Polychromasia Present; Target Cells Present; Total Cells Counted 100
[2020-03-31 08:01] LABS: Calcium 7.9 mg/dL (8.4-10.2); Potassium 4.9 mmol/L (3.5-5.1); Total Bilirubin 7.1 mg/dL (0.2-1.3); Total Protein 6.1 g/dL (6.3-8.2)
[2020-03-31] MEDS: HEPARIN SODIUM,PORCINE 5,000 UNIT/ML 1 ML VIAL SQ SCH (08:11)
[2020-03-31] MEDS: FLUDROCORTISONE 0.1 MG TAB PO SCH ×2 (08:11→21:57)
[2020-03-31] MEDS: MULTIVITAMINS, THERA 1 EACH TAB PO SCH (08:11)
[2020-03-31] MEDS: LACTULOSE 20 GM/30 ML CUP PO SCH (08:11)
[2020-03-31] MEDS: FOLIC ACID 1 MG TAB PO SCH (08:12)
[2020-03-31] MEDS: PIPERACILLIN-TAZOBACTAM 3.375 GM in SODIUM CHLORIDE 0.9% 100 ML IVPB SCH (08:12)
[2020-03-31] MEDS: THIAMINE 100 MG TAB PO SCH (08:12)
[2020-03-31] MEDS ORDERED: SODIUM CHLORIDE 0.9% 500 ML 250 ML IV ONE (08:59)
[2020-03-31] MEDS ORDERED: IOPAMIDOL CONTRAST (ORAL USE) VIAL PO PRN (11:16)
--- NOTE | 2020-03-31 11:54 | PN ---
PROGRESS NOTE DATE OF SERVICE: 03/31/2020. HISTORY: Patient is a 59-year-old white male with history of nonalcoholic cirrhosis of the liver with portal hypertension, admitted to the hospital with possible spontaneous bacterial peritonitis on broad-spectrum antibiotics. The patient continues to have persistent leukocytosis despite being on antibiotic therapy. Dr. Greco is following the patient closely. He continues to complain of mild abdominal discomfort. No nausea or vomiting. He had 2 small bloody bowel movements yesterday and one today. No fevers, chills or night sweats. PHYSICAL EXAMINATION: He appears comfortable. Vital signs show a blood pressure of 98/55, pulse rate 69, temperature 99. HEENT: Examination unremarkable. Conjunctivae pink. Sclerae anicteric. Oral cavity no lesions. NECK: No JVD or lymph node enlargement. CHEST: Clear to auscultation. HEART: Regular rate and rhythm. ABDOMEN: Distended. There was mild tenderness in the left upper quadrant area and mild tenderness in the left lower quadrant area. No tenderness in the right upper quadrant area. There was no ascites noted. EXTREMITIES: 1+ pedal edema. SKIN: No rashes. NEURO: He is alert and oriented x3. No focal deficits. LABS: From today, WBC 33.7, hemoglobin 10.7, platelets 81, neutrophils 89%. T bilirubin is 7.1, alkaline phosphatase is 424, AST 161, ALT 67. Blood cultures are negative. Paracentesis fluid positive for Serratia Marcescens. IMPRESSION: 1. Spontaneous bacterial peritonitis and paracentesis fluid culture grew Serratia Marcescens. Cultures reveal sensitivity to ceftriaxone. The patient has been on vancomycin and ceftriaxone for [address] Greco is following the patient closely. 2. Persistent leukocytosis. 3. Elevated LFTs with worsening bilirubin and alkaline phosphatase, all probably explained on the basis of intrahepatic cholestasis secondary to ongoing sepsis. Doubt ascending cholangitis. CT scan done on March 27 did not show any evidence of biliary ductal dilation. Possibility of acalculous cholecystitis cannot be excluded. Other etiologies for persistent leukocytosis need to be considered. 4. End-stage renal disease, on hemodialysis. 5. Rectal bleeding for the last 2 days. Last colonoscopy more than 3 or 4 years ago. Hemoglobin currently stable at 10.7 g/dL. RECOMMENDATIONS: 1. Obtain CT of the chest, abdomen and pelvis. 2. Continue with broad-spectrum antibiotics. 3. Will discuss with Dr. Greco. 4. We will consider colonoscopy once his overall condition improves. 5. Agree with surgical consultation. 6. Will follow with you closely. 7. Continue with broad-spectrum antibiotics. 8. Will follow with you closely. Thank you for this consultation. MMJOANL / IJN: [id number] /
--- NOTE | 2020-03-31 11:55 | P.PN ---
Subjective Progress Note Date: 03/31/20 Principal diagnosis: This is a 59-year-old male with ESRD on dialysis Wednesday with a right-sided permacath, and nonalcoholic cirrhosis from possibly fatty liver, history of diabetes and esophageal varices who was admitted with hypotension. He also is getting frequent taps done. His PD fluid cell count was 90 neutrophils and cultures growing Serratia on 03/28/2020. Patient is on Zosyn, and Serratia is sensitive to Today he continues to feel somewhat weak and tired with bloating in his abdomen. He has no rebound tenderness. No nausea vomiting. No fever chills He had paracentesis done on 03/28/2028 5.5 L removed Objective - Vital Signs Vital signs: Vital Signs Temp 97.5 F L 03/31/20 08:17 Pulse 94 03/31/20 08:17 Resp 20 03/31/20 08:17 BP 98/55 03/31/20 11:02 Pulse Ox 92 L 03/31/20 08:17 Intake & Output 03/30/20 03/31/20 03/31/20 18:59 06:59 18:59 Intake Total 240 758 Output Total 1700 Balance -1460 758 Weight 128.9 kg Intake: Intake, IV Titration 100 Amount Piperacillin-Tazobactam 3 100 .375 gm In Sodium Chloride 0.9% 100 ml @ 25 mls/hr IVPB Q12HR [facility] Rx #:[id number] Oral 240 658 Output: Hemodialysis 1700 Other: Voiding Method Bedside Commode Bedside Commode Bedside Commode Urinal Urinal Urinal # Voids 0 1 Exertion awake alert oriented, looks pale and jaundiced HEENT exam no JVP neck is supple no facial asymmetry Lungs are clear to auscultation fair air entry bilaterally Heart sounds are unremarkable for any murmur rub gallop Abdomen slightly distended nontender no rebound Extremity exam was 2+ edema Neurologically awake alert oriented - Labs CBC & Chem 7: 03/31/20 06:33 03/31/20 06:33 Labs: Abnormal Lab Results - Last 24 Hours (Table) 03/31/20 03/31/20 Range/Units 06:33 06:33 WBC 33.7 H (3.8-10.6) k/uL RBC 3.33 L (4.30-5.90) m/uL Hgb 10.7 L (13.0-17.5) gm/dL Hct 35.4 L (39.0-53.0) % MCV 106.3 H (80.0-100.0) fL MCHC 30.2 L (31.0-37.0) g/dL RDW 17.2 H (11.5-15.5) % Plt Count 81 L (150-450) k/uL Neutrophils # (Manual) 30.60 H (1.3-7.7) k/uL Monocytes # (Manual) 1.01 H (0-1.0) k/uL Macrocytosis Marked A Sodium 132 L (137-145) mmol/L Carbon Dioxide 18 L (22-30) mmol/L BUN 44 H (9-20) mg/dL Creatinine 5.64 H (0.66-1.25) mg/dL Glucose 154 H (74-99) mg/dL Calcium 7.9 L (8.4-10.2) mg/dL Total Bilirubin 7.1 H (0.2-1.3) mg/dL AST 161 H (17-59) U/L ALT 67 H (4-49) U/L Alkaline Phosphatase 424 H (38-126) U/L Total Protein 6.1 L (6.3-8.2) g/dL Albumin 2.0 L (3.5-5.0) g/dL Microbiology - Last 24 Hours (Table) 03/28/20 09:46 Gram Stain - Final Paracentesis Fluid Body Fluid Culture - Final Serratia marcescens 03/27/20 05:17 Blood Culture - Preliminary Blood No Growth after 96 hours 03/27/20 05:17 Blood Culture - Preliminary Blood No Growth after 96 hours 03/26/20 11:46 Blood Culture - Preliminary Blood No Growth after 96 hours 03/28/20 09:46 Anaerobic Culture - Preliminary Paracentesis Fluid Assessment and Plan Assessment: Impression 1. ESRD on dialysis Wednesday 2. Nonalcoholic cirrhosis, esophageal varices and ascites requiring frequent taps last Pap was on 03/28/2020, 5.5 L removed 3. Likely peritonitis with Serratia growing with the cell count of 90 polys on the peritoneal. 4. Hypotension secondary to cirrhosis and peritonitis 4. Anemia hemoglobin is 10.7 stable 5. Pneumonia with elevated white count but afebrile Recommendation 1. Continue dialysis as scheduled on Wednesday 2. Watch blood pressure, continue Mid 3. Continue antibiotic coverage
[2020-03-31 13:21] LABS: Glucose,Whole Blood 161 mg/dL (75-99)
[2020-03-31 15:19] LABS: C Reactive Protein 81.4 mg/L (<10.0)
--- NOTE | 2020-03-31 15:39 | PN ---
PROGRESS NOTE DATE OF SERVICE: 03/31/2020 This 59-year-old gentleman who was admitted with hypotension with possible sepsis had persistent hypotension. The patient had significant ascites also. The patient was suspected to have spontaneous bacterial peritonitis, Serratia marcescens grown from the culture. The patient is also being empirically treated with Zosyn IV at this time. The patient has elevated LFTs and alkaline phosphatase. The possibility of ascending cholangitis was suspected by Dr. Greco. I talked to Dr. Bonds, the inset cutter who thinks ERCP is not warranted at this time. We will continue to monitor. Otherwise, the patient has also had hemodialysis. However the massive abdominal paracentesis could not be done because of the relative hypotension. Patient being closely monitored at this time. The patient also has significant right pleural effusion possibly secondary to ascites at this time with atelectasis also. The white count is still elevated 33.7. Past medical history reviewed. REVIEW OF SYSTEMS: CARDIOVASCULAR: No angina or palpitations. RESPIRATORY: As mentioned earlier. GI: As mentioned earlier. : As mentioned earlier. NERVOUS SYSTEM: As mentioned earlier. MEDICATIONS: Prior to admission include: 1. [place] 5 mg q.6 p.r.n. 2. Xanax. 3. Florinef. 4. Dilaudid. 5. Cephulac. 6. ProAmatine. 7. Multivitamins. 8. Narcan. 9. Protonix. 10.Zosyn IV. 11.Vitamin B1. PHYSICAL EXAMINATION: Patient is alert, oriented x2. Pulse 93, blood pressure 86/38, respiration 12, temperature normal, pulse ox 98% on room air. HEENT: Conjunctivae normal. Oral mucosa moist. NECK is no jugular venous distention. No carotid bruit. CARDIOVASCULAR system: S1, S2 muffled. RESPIRATION: Breath sounds diminished in the bases, especially on the right side. A few scattered rhonchi and crackles. ABDOMEN: Soft, obese, not tense, but mild diffuse discomfort. No actual tenderness. No rebound tenderness. Bowel sounds diminished. No mass palpable. LEGS no edema, no swelling. NERVOUS SYSTEM: Higher functions as mentioned earlier. Moves all 4 limbs. No focal motor or sensory deficits. LYMPHATICS: No lymph nodes palpable in the neck, axillae or groin. SKIN: No ulcer. No rash. No bleeding. JOINTS: No active deforming arthropathy. LABS: WBC 33.2, hemoglobin 10.7, sodium 132, potassium 4.9, creatinine 5.6. Accu-Cheks noted. Otherwise cultures noted. Alkaline phosphatase is 424 and bilirubin is 7.1. Hepatitis panel is negative. ASSESSMENT: 1. Acute spontaneous bacterial peritonitis with Serratia marcescens with severe sepsis and severe septic shock and hypotension. 2. Right pleural effusion with possible right lower lobe pneumonia. 3. Intractable ascites. 4. History of end-stage renal disease on hemodialysis. 5. Rule out CBD obstruction or cholangitis. 6. Ascites secondary to chronic liver disease and cirrhosis of the liver, status post diagnostic paracentesis during this admission yielding cloudy fluid. 7. Hyponatremia. 8. Hyperkalemia. 9. Elevated lactic acidosis, possibly secondary to dehydration, sepsis. 10.Increased WBC, leukemoid reaction, persistent. 11.Anemia macrocytic. 12.Thrombocytopenia. 13.Hyperbilirubinemia. 14.Increased AST. 15.Hypoalbuminemia with mild protein calorie malnutrition. 16.Diabetes mellitus type 2. 17.Gastroesophageal reflux disease. 18.History of gastrointestinal bleed. 19.History of chronic liver disease. 20.History of renal disease. 21.Multiple abdominal paracentesis. 22.History of gait dysfunction. 23.History of known alcoholic liver cirrhosis as well as esophageal varices and variceal bleeding. 24.History of degenerative joint disease. 25.Remote history of nicotine dependence. 26.FULL CODE. RECOMMENDATIONS AND DISCUSSION: I recommend to continue current medications. Continue symptomatic treatment. Monitor the patient. ICU. Consult Dr. Bolanos. Monitor fluid and electrolyte balance closely. Continue IV antibiotics. Follow the cultures. Discussed the case at length with Dr. Bonds, who recommended a CT scan of the abdomen and pelvis which will proceed. Otherwise, repeat labs in the morning. Closely follow with Infectious Disease. Guarded prognosis because of multiple complex medical issues. Further recommendations to follow. See orders for details. Cultures have been repeated. We will also obtain a TSH as well and lactic acid also. MMODL / IJN: [id number] /
[2020-03-31] MEDS: CEFEPIME 2 GM in SODIUM CHLORIDE 0.9% 100 ML IVPB SCH (16:50)
[2020-03-31] MEDS: metroNIDAZOLE 500 MG TAB PO SCH ×2 (16:51→22:20)
[2020-03-31 20:28] LABS: Glucose,Whole Blood 217 mg/dL (75-99)
[2020-03-31] MEDS: INSULIN ASPART (NovoLOG) 100 UNIT/ML VIAL SQ SCH (20:37)
--- NOTE | 2020-04-01 01:24 | PN ---
PROGRESS NOTE REASON FOR FOLLOWUP: Sepsis and peritonitis. INTERVAL HISTORY: The patient is currently afebrile. The patient is breathing comfortably. The patient did have persistent low blood pressure for which the patient has been transferred down to the ICU. The patient denies having any chest pain or shortness of breath or cough. Some abdominal discomfort. No vomiting. No diarrhea. Did have some bleeding per rectum yesterday and last night. PHYSICAL EXAMINATION: Blood pressure 110/41 with a pulse of 88, temperature 97.9. He is 95% on 2 L nasal cannula. General description is a middle-aged male lying in bed in no distress. RESPIRATORY SYSTEM: Unlabored breathing, decreased breath sounds at the bases. No wheeze. HEART: S1, S2. Regular rate and rhythm. ABDOMEN: Soft. No guarding, no rigidity. Slight distended. LABS: Hemoglobin is 10.7, white count 33.7, BUN of 44, creatinine 5.64. The peritoneal fluid culture shows Serratia marcescens. Blood culture has been negative. DIAGNOSTIC IMPRESSION AND PLAN: Patient with leukocytosis which is multifactorial in this patient did have evidence of peritonitis with Serratia marcescens. He was on Zosyn antibiotic switched to cefepime for antibiotic coverage for this pathogen. Flagyl will be added as well for any other intraabdominal pathology and we will monitor his clinical course closely. MMODL / IJN: [id number] /
[2020-04-01 03:59] LABS: Anisocytosis Slight; HCT 34.5 % (39.0-53.0); HGB 10.6 gm/dL (13.0-17.5); Hypochromasia Marked; MCH 33.6 pg (25.0-35.0); MCHC 30.8 g/dL (31.0-37.0); MCV 109.1 fL (80.0-100.0); Macrocytosis Marked; Mean Platelet Volume 9.5; RBC 3.16 m/uL (4.30-5.90); RDW 16.9 % (11.5-15.5); WBC 30.9 k/uL (3.8-10.6)
[2020-04-01 04:19] LABS: Calcium 7.8 mg/dL (8.4-10.2); Potassium 4.7 mmol/L (3.5-5.1); Total Bilirubin 7.5 mg/dL (0.2-1.3); Total Protein 6.2 g/dL (6.3-8.2)
[2020-04-01 04:56] LABS: Band Neutrophils % 5 %; Lymphocytes # (M) 2.16 k/uL (1.0-4.8); Monocytes # (M) 1.24 k/uL (0-1.0); Neutrophils % (M) 84 %; Nucleated Red Blood Cells 0 /100 WBC (0-0); Total Cells Counted 100
[2020-04-01 04:57] LABS: Platelet Count 99 k/uL (150-450)
[2020-04-01 06:34] LABS: Glucose,Whole Blood 147 mg/dL (75-99)
[2020-04-01] MEDS: INSULIN ASPART (NovoLOG) 100 UNIT/ML VIAL SQ SCH ×4 (06:36→20:44)
[2020-04-01] MEDS: MIDODRINE 5 MG TAB PO SCH ×3 (06:37→17:01)
[2020-04-01] MEDS: PANTOPRAZOLE 40 MG TABLET PO SCH (06:37)
--- NOTE | 2020-04-01 07:35 | XR ---
EXAMINATION TYPE: XR chest 1V DATE OF EXAM: 04/01/2020 COMPARISON: 03/30/2020 HISTORY: 59-year-old male pneumonia, shortness of breath TECHNIQUE: Single frontal view of the chest is obtained. FINDINGS: Right-sided double-lumen hemodialysis catheter with tips at the lower SVC level. Right heart margin n ow completely obscured by adjacent parenchymal opacity. Increasing, now large right pleural effusion with near complete white out of the right hemithorax. Left lung and pleural space are relatively anthony r. IMPRESSION: Now near complete white out of the right hemithorax likely from enlarging, now large right pleural ef fusion. Underlying consolidation and/or atelectasis.
[2020-04-01] MEDS: LACTULOSE 20 GM/30 ML CUP PO SCH (08:49)
[2020-04-01] MEDS: metroNIDAZOLE 500 MG TAB PO SCH ×3 (08:50→20:36)
[2020-04-01] MEDS: FLUDROCORTISONE 0.1 MG TAB PO SCH ×2 (08:50→20:35)
--- NOTE | 2020-04-01 08:57 | P.PN ---
Subjective Patient is seen in follow-up for end-stage renal disease. He is maintained on hemodialysis on Wednesday schedule. He was transferred to the ICU due to concern for respiratory distress and hypotension. He is currently awake and alert. Denies chest pain or shortness of breath. Blood pressure 90/46. He is maintained on Florinef as well as midodrine. Vital signs are stable. General: The patient appeared well nourished and normally developed. HEENT: Head exam is unremarkable. Neck is without jugular venous distension. LUNGS: Breath sounds decreased. HEART: Rate and Rhythm are regular. ABDOMEN: Soft, nontender. Obese. EXTREMITITES: 1+ edema. Objective - Vital Signs Vital signs: Vital Signs Temp 97.3 F L 04/01/20 04:00 Pulse 87 04/01/20 07:00 Resp 16 04/01/20 07:00 BP 90/46 04/01/20 07:00 Pulse Ox 94 L 04/01/20 07:00 Intake & Output 03/31/20 04/01/20 04/01/20 18:59 06:59 18:59 Intake Total 140 610 10 Output Total 0 0 0 Balance 140 610 10 Weight 134.2 kg Intake: IV 40 130 10 0.9 40 130 10 Intake, IV Titration 100 Amount Cefepime 2 gm In Sodium 100 Chloride 0.9% 100 ml @ 25 mls/hr IVPB Q24H [facility] Rx# :[id number] Blood Product 480 Output: Urine 0 0 0 Other: Voiding Method Bedside Commode Bedside Commode Urinal Urinal # Voids 0 # Bowel Movements 1 1 - Labs CBC & Chem 7: 04/01/20 03:10 04/01/20 03:10 Labs: Abnormal Lab Results - Last 24 Hours (Table) 03/31/20 03/31/20 03/31/20 Range/Units 06:33 13:19 14:37 WBC (3.8-10.6) k/uL RBC (4.30-5.90) m/uL Hgb (13.0-17.5) gm/dL Hct (39.0-53.0) % MCV (80.0-100.0) fL MCHC (31.0-37.0) g/dL RDW (11.5-15.5) % Plt Count (150-450) k/uL Neutrophils # (Manual) (1.3-7.7) k/uL Monocytes # (Manual) (0-1.0) k/uL Macrocytosis ESR 21 H (0-15) mm/hr Sodium (137-145) mmol/L Carbon Dioxide (22-30) mmol/L BUN (9-20) mg/dL Creatinine (0.66-1.25) mg/dL Glucose (74-99) mg/dL POC Glucose (mg/dL) 161 H (75-99) mg/dL Plasma Lactic Acid Chun (0.7-2.0) mmol/L Calcium (8.4-10.2) mg/dL Total Bilirubin (0.2-1.3) mg/dL AST (17-59) U/L ALT (4-49) U/L Alkaline Phosphatase (38-126) U/L C-Reactive Protein 81.4 H (<10.0) mg/L Total Protein (6.3-8.2) g/dL Albumin (3.5-5.0) g/dL 03/31/20 03/31/20 04/01/20 Range/Units 14:37 20:26 03:10 WBC 30.9 H (3.8-10.6) k/uL RBC 3.16 L (4.30-5.90) m/uL Hgb 10.6 L (13.0-17.5) gm/dL Hct 34.5 L (39.0-53.0) % MCV 109.1 H (80.0-100.0) fL MCHC 30.8 L (31.0-37.0) g/dL RDW 16.9 H (11.5-15.5) % Plt Count 99 L (150-450) k/uL Neutrophils # (Manual) 27.50 H (1.3-7.7) k/uL Monocytes # (Manual) 1.24 H (0-1.0) k/uL Macrocytosis Marked A ESR (0-15) mm/hr Sodium (137-145) mmol/L Carbon Dioxide (22-30) mmol/L BUN (9-20) mg/dL Creatinine (0.66-1.25) mg/dL Glucose (74-99) mg/dL POC Glucose (mg/dL) 217 H (75-99) mg/dL Plasma Lactic Acid Chun 4.1 H* (0.7-2.0) mmol/L Calcium (8.4-10.2) mg/dL Total Bilirubin (0.2-1.3) mg/dL AST (17-59) U/L ALT (4-49) U/L Alkaline Phosphatase (38-126) U/L C-Reactive Protein (<10.0) mg/L Total Protein (6.3-8.2) g/dL Albumin (3.5-5.0) g/dL 04/01/20 04/01/20 Range/Units 03:10 06:33 WBC (3.8-10.6) k/uL RBC (4.30-5.90) m/uL Hgb (13.0-17.5) gm/dL Hct (39.0-53.0) % MCV (80.0-100.0) fL MCHC (31.0-37.0) g/dL RDW (11.5-15.5) % Plt Count (150-450) k/uL Neutrophils # (Manual) (1.3-7.7) k/uL Monocytes # (Manual) (0-1.0) k/uL Macrocytosis ESR (0-15) mm/hr Sodium 128 L (137-145) mmol/L Carbon Dioxide 16 L (22-30) mmol/L BUN 50 H (9-20) mg/dL Creatinine 6.64 H (0.66-1.25) mg/dL Glucose 170 H (74-99) mg/dL POC Glucose (mg/dL) 147 H (75-99) mg/dL Plasma Lactic Acid Chun (0.7-2.0) mmol/L Calcium 7.8 L (8.4-10.2) mg/dL Total Bilirubin 7.5 H (0.2-1.3) mg/dL AST 143 H (17-59) U/L ALT 67 H (4-49) U/L Alkaline Phosphatase 465 H (38-126) U/L C-Reactive Protein (<10.0) mg/L Total Protein 6.2 L (6.3-8.2) g/dL Albumin 2.0 L (3.5-5.0) g/dL Microbiology - Last 24 Hours (Table) 03/27/20 05:17 Blood Culture - Preliminary Blood No Growth after 120 hours 03/27/20 05:17 Blood Culture - Preliminary Blood No Growth after 120 hours 03/30/20 12:00 Blood Culture - Preliminary Blood No Growth after 24 hours 03/30/20 11:31 Blood Culture - Preliminary Blood No Growth after 24 hours 03/26/20 11:46 Blood Culture - Preliminary Blood No Growth after 120 hours 03/28/20 09:46 Gram Stain - Final Paracentesis Fluid Body Fluid Culture - Final Serratia marcescens Assessment and Plan Plan: Assessment: 1. End-stage renal disease maintained on hemodialysis on Wednesday schedule. 2. Nonalcoholic liver cirrhosis. Status post paracentesis on March 28 with 5.5 L drained. 3. SBP with peritoneal fluid positive for Serratia maintained on antibiotics. 4. Chronic hypotension maintained on midodrine and Florinef. 5. Anemia of chronic kidney disease. Hemoglobin at goal. 6. Hyponatremia secondary to chronic kidney disease. Hypervolemic. 7. Volume overload. Worsened right pleural effusion. Plan: Hemodialysis today mostly for ultrafiltration. Another treatment tomorrow. Check phosphorus level.
--- NOTE | 2020-04-01 10:14 | P.CNPUL ---
History of Present Illness Consult date: 04/01/20 Reason for consult: dyspnea Chief complaint: Dyspnea History of present illness: 59-year-old white female patient with past medical history of diabetes mellitus type 2, history of chronic liver disease, cirrhosis of the liver related to history of nonalcoholic liver disease, fatty liver, ascites with weekly paracentesis scheduled with interventional radiology, end-stage renal disease on hemodialysis on Wednesday, history of esophageal very sees status post variceal ligation in January 2020, chronic anemia, anasarca, GERD/reflux, gait dysfunction, weakness. Patient is on the transplant list for liver and kidney transplant at the [facility], currently undergoing evaluation. Patient initially came into the hospital on 03/26/2020 on the outpatient hemodialysis center for evaluation of hypotension. Patient apparently had no other specific complaints, no fever no cough, no chest pain he did report abdominal distention and patient was scheduled for paracentesis on the same day. Ultrasound of the gallbladder revealed gallbladder wall thickening with intraluminal debris, hepatic cirrhosis and ascites. On 03/28/2020 patient had ultrasound-guided paracentesis would removal of 5.5 L of clear nhan-colored fluid with debris which was sent for cultures. Ascitic fluid culture showed Serratia marcescens, blood cultures have been negative. Cytology the ascitic fluid is still pending. ID service is following. He continued with the hemodialysis, nephrology is following, patient was transferred to the ICU yesterday on March 31, 2020 related to hypotension and shortness of breath. His chest x-ray on 03/30/2020 showed a right pleural effusion that was increasing compared previous exam, and the chest x-ray today on 04/01/2020 showed near complete white out of the right hemithorax related to enlarging right pleural effusion. On physical exam patient is awake and alert, oriented 3, he is providing history of present illness, he he denies any acute respiratory distress, he is on 1 L of oxygen and pulse ox 94%, blood pressure is 90/46, with a mean of 60, he is in sinus mechanism at a rate of 90 BPM. He is on antibiotics in the form of cefepime and Flagyl, his had no fevers. He was given a liter bolus yesterday, He was started on Florinef and he has early been on Midrin. He had hemodialysis treatment yesterday would removal of 1.7 L. Today's labs have been reviewed, and the white blood cell count is 30.9 which is actually improved from yesterday, as the patient had persistent leukocytosis throughout his admission, hemoglobin is 10.6, sodium is 128, potassium is 4.7, chloride is 99, CO2 16 and the patient is on oral bicarbonate, BUN is 50, and creatinine is 6.64, calcium 7.8, plasma lactic acid was drawn is 4.1, AST is 143, ALT is 67, alkaline phosphatase is 465 TSH was normal at 4.410, cortisol was 43. Currently IV fluids are infusing at a rate of 20 ML per hour, no vasopressors. Review of Systems All systems: negative Constitutional: Denies chills, Denies fever Eyes: denies blurred vision, denies pain Ears, nose, mouth and throat: Denies headache, Denies sore throat Cardiovascular: Denies chest pain, Denies shortness of breath Respiratory: Reports dyspnea, Denies cough Gastrointestinal: Denies abdominal pain, Denies diarrhea, Denies nausea, Denies vomiting Musculoskeletal: Denies myalgias Integumentary: Denies pruritus, Denies rash Neurological: Denies numbness, Denies weakness Psychiatric: Denies anxiety, Denies depression Endocrine: Denies fatigue, Denies weight change Past Medical History Past Medical History: Diabetes Mellitus, GERD/Reflux, GI Bleed, Liver Disease, Osteoarthritis (OA), Renal Disease Additional Past Medical History / Comment(s): ESRD with hemodialysis on //Wed, anasarca, ascities with multiple paracentesis (last time 02/21/20-seven liters removed), pt states he has a current either R shoulder or R clavicle fracture/in sling-pt has been unable to follow up with orthopedic physician, pt is R handed, currently has increased weakness with difficulty rising from chairs/getting into vehicles/showering, fatty liver, nonalcoholic liver cirrhosis, esophageal varicies/variceal bleed, lower GI bleed, DVT L leg, NIDDM type II-diet controlled, arthritis R foot. 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 He works for [employer], [place] but is currently on short term disability. He has worked there for 27yrs. He has had issues with increased weakness in his legs and is having difficulty with rising from chairs/showering and getting in/out vehicles. He also has a R shoulder injury/sling and is R handed. He states he would like PT/OT to evaluate what he may need in the home for medical devices. He has been using a crutch at times. Upon discharge, pt will go stay with his brother for some time. Smoking Status: Never smoker Past Alcohol Use History: Rare Additional Past Alcohol Use History / Comment(s): Pt has a rare cigar at [employer] or [employer]. Past Drug Use History: None Reported - Past Family History Mother Family Medical History: No Reported History Additional Family Medical History / Comment(s): . Father History Unknown: Yes Additional Family Medical History / Comment(s): Pt does not know father's medical history. Father in his 60's. Brother(s) Family Medical History: Cancer Additional Family Medical History / Comment(s): Prostate cancer. Medications and Allergies Home Medications Medication Instructions Recorded Confirmed Type Midodrine HCl [ProAmatine] 10 mg PO TID #90 tab 02/29/20 03/26/20 Rx Lactulose 10 gm PO DAILY 03/26/20 03/26/20 History Allergies Allergy/AdvReac Type Severity Reaction Status Date / Time Sulfa (Sulfonamide Allergy Rash/Hives Verified 03/26/20 10:46 Antibiotics) Physical Exam Vitals: Vital Signs Temp Pulse Pulse Pulse Resp BP BP 04/01/20 07:00 87 16 90/46 04/01/20 06:00 92 12 83/38 04/01/20 05:00 92 24 89/33 04/01/20 04:00 97.3 F L 85 84 14 89/54 04/01/20 03:00 92 15 82/42 04/01/20 02:00 89 14 93/55 04/01/20 01:00 92 14 93/55 04/01/20 00:00 97.8 F 85 84 18 99/54 03/31/20 23:00 89 14 82/49 03/31/20 22:00 92 15 82/49 20 21:00 85 13 84/47 18/20 20:30 97.2 F L 90 16 84/47 03/31/20 20:00 86 13 96/52 18/20 19:30 87 15 96/52 18/20 19:00 81 14 92/57 20 18:00 93 23 110/41 03/31/20 17:30 88 14 110/41 20 16:30 88 12 79/44 20 16:00 97.9 F 90 14 20 15:30 87 13 20 15:00 90 20 95/53 03/31/20 14:00 89 14 94/48 03/31/20 13:30 97.7 F 91 15 90/46 20 12:41 106/48 03/31/20 12:05 93 20 86/38 03/31/20 11:02 98/55 03/31/20 10:35 70/62 Pulse Ox 04/01/20 07:00 94 L 04/01/20 06:00 92 L 04/01/20 05:00 93 L 04/01/20 04:00 95 04/01/20 03:00 93 L 04/01/20 02:00 94 L 04/01/20 01:00 94 L 04/01/20 00:00 94 L 20 23:00 93 L 20 22:00 93 L 20 21:00 95 20 20:30 95 1820 20:00 20 19:30 20 19:00 95 20 18:00 96 20 17:30 95 20 16:30 94 L 20 16:00 92 L 20 15:30 93 L 03/31/20 15:00 94 L 03/31/20 14:00 94 L 03/31/20 13:30 90 L 03/31/20 12:41 03/31/20 12:05 93 L 03/31/20 11:02 03/31/20 10:35 Intake and Output 03/31/20 04/01/20 04/01/20 22:59 06:59 14:59 Intake Total 160 580 10 Output Total 0 0 Balance 160 580 10 Intake: IV 60 100 10 0.9 60 100 10 Intake, IV Titration 100 Amount Cefepime 2 gm In Sodium 100 Chloride 0.9% 100 ml @ 25 mls/hr IVPB Q[facility]H [facility] Rx# :[id number] Blood Product 480 Output: Urine 0 0 Other: Voiding Method Bedside Commode Bedside Commode Urinal Urinal # Voids 0 # Bowel Movements 1 1 Weight 134.2 kg GENERAL EXAM: Alert, very pleasant, 59-year-old white male, on 1 L of oxygen with a pulse ox of 92% resting in bed comfortable in no apparent distress. HEAD: Normocephalic/atraumatic. EYES: Normal reaction of pupils, equal size. Conjunctiva pink, sclera white. NOSE: Clear with pink turbinates. THROAT: No erythema or exudates. NECK: No masses, no JVD, no thyroid enlargement, no adenopathy. CHEST: No chest wall deformity. Symmetrical expansion. LUNGS: Diminished breath sounds on the right, no crackles, wheeze, rhonchi or dullness. CVS: Regular rate and rhythm, normal S1 and S2, no gallops, no murmurs, no rubs ABDOMEN: Soft, obese, distended nontender. No hepatosplenomegaly, normal bowel sounds, no guarding or rigidity. EXTREMITIES: No clubbing, mild pretibial edema, no cyanosis, 2+ pulses and upper and lower extremities. MUSCULOSKELETAL: Muscle strength and tone normal. SPINE: No scoliosis or deformity SKIN: No rashes CENTRAL NERVOUS SYSTEM: Alert and oriented -3. No focal deficits, tone is normal in all 4 extremities. PSYCHIATRIC: Alert and oriented -3. Appropriate affect. Intact judgment and insight. Results - Laboratory Findings CBC and BMP: 04/01/20 03:10 04/01/20 03:10 PT/INR, D-dimer PT 15.0 sec (9.0-12.0) H 03/26/20 10:35 INR 1.5 (<1.2) H 03/26/20 10:35 Abnormal lab findings: Abnormal Labs 03/26/20 03/26/20 03/26/20 10:35 10:35 10:35 WBC 31.0 H RBC 3.38 L Hgb 10.6 L Hct 35.7 L MCV 105.6 H MCHC 29.7 L RDW 16.6 H Plt Count 109 L Neutrophils # (Manual) 29.10 H Lymphocytes # (Manual) 0.93 L Monocytes # (Manual) Metamyelocytes # (Man) 0.31 H Myelocytes # (Manual) 0.62 H Macrocytosis ESR PT 15.0 H INR 1.5 H Sodium 126 L Potassium 5.2 H Chloride 91 L Carbon Dioxide 20 L BUN 60 H Creatinine 6.14 H Glucose 148 H POC Glucose (mg/dL) Plasma Lactic Acid Chun Calcium 8.2 L Phosphorus 6.3 H Magnesium 2.4 H Total Bilirubin 5.3 H AST 121 H ALT Alkaline Phosphatase 264 H C-Reactive Protein Total Protein 5.8 L Albumin 2.2 L Procalcitonin 03/26/20 03/26/20 03/26/20 10:35 13:53 17:01 WBC RBC Hgb Hct MCV MCHC RDW Plt Count Neutrophils # (Manual) Lymphocytes # (Manual) Monocytes # (Manual) Metamyelocytes # (Man) Myelocytes # (Manual) Macrocytosis ESR PT INR Sodium Potassium Chloride Carbon Dioxide BUN Creatinine Glucose POC Glucose (mg/dL) Plasma Lactic Acid Chun 5.8 H* 5.5 H* 4.5 H* Calcium Phosphorus Magnesium Total Bilirubin AST ALT Alkaline Phosphatase C-Reactive Protein Total Protein Albumin Procalcitonin 03/26/20 03/26/20 03/27/20 20:12 23:35 02:31 WBC RBC Hgb Hct MCV MCHC RDW Plt Count Neutrophils # (Manual) Lymphocytes # (Manual) Monocytes # (Manual) Metamyelocytes # (Man) Myelocytes # (Manual) Macrocytosis ESR PT INR Sodium Potassium Chloride Carbon Dioxide BUN Creatinine Glucose POC Glucose (mg/dL) Plasma Lactic Acid Chun 4.7 H* 5.0 H* 4.2 H* Calcium Phosphorus Magnesium Total Bilirubin AST ALT Alkaline Phosphatase C-Reactive Protein Total Protein Albumin Procalcitonin 03/27/20 03/27/20 03/27/20 05:17 05:17 05:17 WBC 28.4 H RBC 3.13 L Hgb 10.3 L Hct 33.2 L MCV 105.9 H MCHC RDW 16.2 H Plt Count 101 L Neutrophils # (Manual) 26.40 H Lymphocytes # (Manual) 0.85 L Monocytes # (Manual) Metamyelocytes # (Man) 0.28 H Myelocytes # (Manual) Macrocytosis ESR PT INR Sodium 125 L Potassium Chloride 91 L Carbon Dioxide 21 L BUN 70 H Creatinine 6.86 H Glucose 187 H POC Glucose (mg/dL) Plasma Lactic Acid Chun 4.1 H* Calcium 8.0 L Phosphorus Magnesium Total Bilirubin 5.0 H AST 116 H ALT Alkaline Phosphatase 288 H C-Reactive Protein Total Protein 5.6 L Albumin 2.1 L Procalcitonin 03/27/20 03/27/20 03/27/20 07:54 12:57 16:27 WBC RBC Hgb Hct MCV MCHC RDW Plt Count Neutrophils # (Manual) Lymphocytes # (Manual) Monocytes # (Manual) Metamyelocytes # (Man) Myelocytes # (Manual) Macrocytosis ESR PT INR Sodium Potassium Chloride Carbon Dioxide BUN Creatinine Glucose POC Glucose (mg/dL) Plasma Lactic Acid Chun 4.7 H* 2.9 H* 4.6 H* Calcium Phosphorus Magnesium Total Bilirubin AST ALT Alkaline Phosphatase C-Reactive Protein Total Protein Albumin Procalcitonin 03/27/20 03/27/20 03/28/20 19:12 22:57 02:11 WBC RBC Hgb Hct MCV MCHC RDW Plt Count Neutrophils # (Manual) Lymphocytes # (Manual) Monocytes # (Manual) Metamyelocytes # (Man) Myelocytes # (Manual) Macrocytosis ESR PT INR Sodium 127 L Potassium Chloride 94 L Carbon Dioxide BUN 58 H Creatinine 6.48 H Glucose 169 H POC Glucose (mg/dL) Plasma Lactic Acid Chun 4.8 H* 4.6 H* Calcium 7.9 L Phosphorus Magnesium Total Bilirubin 4.8 H AST 152 H ALT 51 H Alkaline Phosphatase 365 H C-Reactive Protein Total Protein 5.6 L Albumin 2.0 L Procalcitonin 03/28/20 03/28/20 03/29/20 02:11 02:11 07:27 WBC 33.8 H 37.2 H RBC 3.24 L 3.25 L Hgb 10.8 L 10.5 L Hct 33.9 L 35.3 L MCV 104.8 H 108.3 H MCHC 29.8 L RDW 16.4 H 16.7 H Plt Count 93 L 95 L Neutrophils # (Manual) 29.70 H 34.90 H Lymphocytes # (Manual) Monocytes # (Manual) 1.35 H 1.12 H Metamyelocytes # (Man) 0.34 H 0.37 H Myelocytes # (Manual) 0.34 H 0.37 H Macrocytosis Marked A ESR PT INR Sodium Potassium Chloride Carbon Dioxide BUN Creatinine Glucose POC Glucose (mg/dL) Plasma Lactic Acid Chun 4.1 H* Calcium Phosphorus Magnesium Total Bilirubin AST ALT Alkaline Phosphatase C-Reactive Protein Total Protein Albumin Procalcitonin 03/29/20 03/29/20 03/30/20 07:27 07:36 07:20 WBC RBC Hgb Hct MCV MCHC RDW Plt Count Neutrophils # (Manual) Lymphocytes # (Manual) Monocytes # (Manual) Metamyelocytes # (Man) Myelocytes # (Manual) Macrocytosis ESR PT INR Sodium 130 L 127 L Potassium 5.2 H Chloride 97 L 95 L Carbon Dioxide 19 L 18 L BUN 51 H 58 H Creatinine 6.06 H 7.11 H* Glucose 163 H 156 H POC Glucose (mg/dL) Plasma Lactic Acid Chun Calcium 8.1 L 7.8 L Phosphorus Magnesium Total Bilirubin 5.7 H 6.6 H AST 189 H 154 H ALT 63 H 67 H Alkaline Phosphatase 426 H 463 H C-Reactive Protein 158.9 H Total Protein 6.0 L 6.1 L Albumin 2.1 L 2.1 L Procalcitonin 5.69 H 03/30/20 03/31/20 03/31/20 07:20 06:33 06:33 WBC 35.2 H 33.7 H RBC 3.34 L 3.33 L Hgb 10.8 L 10.7 L Hct 36.0 L 35.4 L MCV 107.9 H 106.3 H MCHC 29.9 L 30.2 L RDW 17.0 H 17.2 H Plt Count 107 L 81 L Neutrophils # (Manual) 32.70 H 30.60 H Lymphocytes # (Manual) Monocytes # (Manual) 1.01 H Metamyelocytes # (Man) 0.70 H Myelocytes # (Manual) 0.70 H Macrocytosis Marked A Marked A ESR PT INR Sodium 132 L Potassium Chloride Carbon Dioxide 18 L BUN 44 H Creatinine 5.64 H Glucose 154 H POC Glucose (mg/dL) Plasma Lactic Acid Chun Calcium 7.9 L Phosphorus Magnesium Total Bilirubin 7.1 H AST 161 H ALT 67 H Alkaline Phosphatase 424 H C-Reactive Protein Total Protein 6.1 L Albumin 2.0 L Procalcitonin 03/31/20 03/31/20 03/31/20 06:33 13:19 14:37 WBC RBC Hgb Hct MCV MCHC RDW Plt Count Neutrophils # (Manual) Lymphocytes # (Manual) Monocytes # (Manual) Metamyelocytes # (Man) Myelocytes # (Manual) Macrocytosis ESR 21 H PT INR Sodium Potassium Chloride Carbon Dioxide BUN Creatinine Glucose POC Glucose (mg/dL) 161 H Plasma Lactic Acid Chun Calcium Phosphorus Magnesium Total Bilirubin AST ALT Alkaline Phosphatase C-Reactive Protein 81.4 H Total Protein Albumin Procalcitonin 03/31/20 03/31/20 04/01/20 14:37 20:26 03:10 WBC 30.9 H RBC 3.16 L Hgb 10.6 L Hct 34.5 L MCV 109.1 H MCHC 30.8 L RDW 16.9 H Plt Count 99 L Neutrophils # (Manual) 27.50 H Lymphocytes # (Manual) Monocytes # (Manual) 1.24 H Metamyelocytes # (Man) Myelocytes # (Manual) Macrocytosis Marked A ESR PT INR Sodium Potassium Chloride Carbon Dioxide BUN Creatinine Glucose POC Glucose (mg/dL) 217 H Plasma Lactic Acid Chun 4.1 H* Calcium Phosphorus Magnesium Total Bilirubin AST ALT Alkaline Phosphatase C-Reactive Protein Total Protein Albumin Procalcitonin 04/01/20 04/01/20 04/01/20 03:10 03:10 06:33 WBC RBC Hgb Hct MCV MCHC RDW Plt Count Neutrophils # (Manual) Lymphocytes # (Manual) Monocytes # (Manual) Metamyelocytes # (Man) Myelocytes # (Manual) Macrocytosis ESR PT INR Sodium 128 L Potassium Chloride Carbon Dioxide 16 L BUN 50 H Creatinine 6.64 H Glucose 170 H POC Glucose (mg/dL) 147 H Plasma Lactic Acid Chun Calcium 7.8 L Phosphorus 8.3 H Magnesium Total Bilirubin 7.5 H AST 143 H ALT 67 H Alkaline Phosphatase 465 H C-Reactive Protein Total Protein 6.2 L Albumin 2.0 L Procalcitonin - Diagnostic Findings Chest x-ray: report reviewed, image reviewed Assessment and Plan Plan: Assessment: #1. Dyspnea related to enlarging right pleural effusion, today's chest x-ray on 04/01/2020 shows near complete white out of the right hemithorax from a large right pleural effusion with underlying consolidation and/or atelectasis. This is related to abdominal ascites, patient has a weekly paracentesis for history of liver cirrhosis related to nonalcoholic liver disease #2. Ascites, status post ultrasound-guided paracentesis on 03/28/2020 with removal of 5.5 L of ascitic fluid, and fluid culture was positive for Serratia marcescens, possibly related to peritonitis, patient is on the pain and Flagyl. gets paracentesis on the weekly basis #3. History of end-stage renal disease on hemodialysis on Wednesday schedule #4. History of nonalcoholic liver disease with liver cirrhosis, on the transplant list at the [facility], and is also being evaluated for renal transplant at the [facility] #5. Hypotension, possibly related to hemodialysis, a component of sepsis is not excluded related to peritonitis, and chronic liver disease with hypoalbuminemia #6. Diabetes mellitus type 2 #7. GERD/reflux #8. Chronic anemia #9. Hypoalbuminemia with mild protein calorie malnutrition #10. General medical debility, gait dysfunction and weakness #11. History of degenerative joint disease #12. Remote history of nicotine dependence Plan: Obtain ultrasound of the abdomen, for possibility of repeat thoracentesis. Patient will likely need right-sided thoracentesis if abdomen doesn't show a lot of ascites. Appears to be in no acute distress, continue with Florinef and Midrin, antibiotics per ID service recommendations, patient is afebrile, blood pressures are on the lower side with systolic in the 80s and 90s however patient states it is not too far off his baseline, he is awake and alert, hemodynamically stable. We'll continue to closely following the patient in the ICU, consultants are on the case, including GI, nephrology, and infectious disease specialist. Cannula GI and DVT prophylaxis. I performed a history & physical examination of the patient and discussed their management with my nurse practitioner, Ruma Carballo. I reviewed the nurse practitioner's note and agree with the documented findings and plan of care. Lung sounds are positive for diminished breath sounds in the right. The findings and the impression was discussed with the patient. I attest to the documentation by the nurse practitioner. Time with Patient: Greater than 30
[2020-04-01] MEDS: FOLIC ACID 1 MG TAB PO SCH (12:36)
[2020-04-01] MEDS: SODIUM BICARBONATE TAB 650 MG TAB PO SCH ×2 (12:36→20:36)
[2020-04-01] MEDS: MULTIVITAMINS, THERA 1 EACH TAB PO SCH (12:36)
[2020-04-01] MEDS: THIAMINE 100 MG TAB PO SCH (12:36)
--- NOTE | 2020-04-01 12:39 | P.PN ---
Subjective Progress Note Date: 04/01/20 Principal diagnosis: History of cirrhosis of the liver and hypotension C 59-year-old white male with a history of nonalcoholic cirrhosis of the liver with portal hypertension admitted to the hospital with possible spontaneous bacterial peritonitis on broad-spectrum antibiotics. The patient continues to have persistent leukocytosis despite pain and antibiotic therapy, however has remained afebrile. The patient was seen and examined at the bedside in the ICU. The patient was transferred to the ICU yesterday for hypotensive episodes, as well as concern for a rectal bleed. The patient states he is feeling overall better. His abdomen is nondistended. He is status post paracentesis this admission. He generally goes weekly. He is getting hemodialysis, Wednesday schedule. He denies any shortness of breath or chest pain. He states that he had bright red bleeding with bowel movement, he did state that he has been straining. The nurse states that there is a sore/wound and they believe is the source of the bleed. Objective - Vital Signs Vital signs: Vital Signs Temp 98.0 F 04/01/20 08:00 Pulse 84 04/01/20 11:28 Resp 26 H 04/01/20 11:28 BP 91/39 04/01/20 11:00 Pulse Ox 92 L 04/01/20 11:00 Intake & Output 03/31/20 04/01/20 04/01/20 18:59 06:59 18:59 Intake Total 140 610 290 Output Total 0 0 0 Balance 140 610 290 Weight 134.2 kg Intake: IV 40 130 50 0.9 40 130 50 Intake, IV Titration 100 Amount Cefepime 2 gm In Sodium 100 Chloride 0.9% 100 ml @ 25 mls/hr IVPB Q24H [facility] Rx# :[id number] Oral 240 Blood Product 480 Output: Urine 0 0 0 Other: Voiding Method Bedside Commode Bedside Commode Bedside Commode Urinal Urinal Urinal # Voids 0 # Bowel Movements 1 1 1 - Exam General appearance: The patient is alert, oriented, in no acute distress. Morbidly obese HET: Head is normocephalic and atraumatic. Conjunctiva pink. Sclera anicteric. Neck: Supple without lymphadenopathy. Abdomen: Soft, obese, nontender, nondistended with bowel sounds. No guarding or rigidity. Extremities: Normal skin color and turgor. Bilateral pedal edema. Neurological: No focal deficits. Alert and oriented 3. - Labs CBC & Chem 7: 04/01/20 03:10 04/01/20 03:10 Labs: Abnormal Lab Results - Last 24 Hours (Table) 03/31/20 03/31/20 03/31/20 Range/Units 06:33 13:19 14:37 WBC (3.8-10.6) k/uL RBC (4.30-5.90) m/uL Hgb (13.0-17.5) gm/dL Hct (39.0-53.0) % MCV (80.0-100.0) fL MCHC (31.0-37.0) g/dL RDW (11.5-15.5) % Plt Count (150-450) k/uL Neutrophils # (Manual) (1.3-7.7) k/uL Monocytes # (Manual) (0-1.0) k/uL Macrocytosis ESR 21 H (0-15) mm/hr Sodium (137-145) mmol/L Carbon Dioxide (22-30) mmol/L BUN (9-20) mg/dL Creatinine (0.66-1.25) mg/dL Glucose (74-99) mg/dL POC Glucose (mg/dL) 161 H (75-99) mg/dL Plasma Lactic Acid Chun (0.7-2.0) mmol/L Calcium (8.4-10.2) mg/dL Phosphorus (2.5-4.5) mg/dL Total Bilirubin (0.2-1.3) mg/dL AST (17-59) U/L ALT (4-49) U/L Alkaline Phosphatase (38-126) U/L C-Reactive Protein 81.4 H (<10.0) mg/L Total Protein (6.3-8.2) g/dL Albumin (3.5-5.0) g/dL 03/31/20 03/31/20 04/01/20 Range/Units 14:37 20:26 03:10 WBC 30.9 H (3.8-10.6) k/uL RBC 3.16 L (4.30-5.90) m/uL Hgb 10.6 L (13.0-17.5) gm/dL Hct 34.5 L (39.0-53.0) % MCV 109.1 H (80.0-100.0) fL MCHC 30.8 L (31.0-37.0) g/dL RDW 16.9 H (11.5-15.5) % Plt Count 99 L (150-450) k/uL Neutrophils # (Manual) 27.50 H (1.3-7.7) k/uL Monocytes # (Manual) 1.24 H (0-1.0) k/uL Macrocytosis Marked A ESR (0-15) mm/hr Sodium (137-145) mmol/L Carbon Dioxide (22-30) mmol/L BUN (9-20) mg/dL Creatinine (0.66-1.25) mg/dL Glucose (74-99) mg/dL POC Glucose (mg/dL) 217 H (75-99) mg/dL Plasma Lactic Acid Chun 4.1 H* (0.7-2.0) mmol/L Calcium (8.4-10.2) mg/dL Phosphorus (2.5-4.5) mg/dL Total Bilirubin (0.2-1.3) mg/dL AST (17-59) U/L ALT (4-49) U/L Alkaline Phosphatase (38-126) U/L C-Reactive Protein (<10.0) mg/L Total Protein (6.3-8.2) g/dL Albumin (3.5-5.0) g/dL 04/01/20 04/01/20 04/01/20 Range/Units 03:10 03:10 06:33 WBC (3.8-10.6) k/uL RBC (4.30-5.90) m/uL Hgb (13.0-17.5) gm/dL Hct (39.0-53.0) % MCV (80.0-100.0) fL MCHC (31.0-37.0) g/dL RDW (11.5-15.5) % Plt Count (150-450) k/uL Neutrophils # (Manual) (1.3-7.7) k/uL Monocytes # (Manual) (0-1.0) k/uL Macrocytosis ESR (0-15) mm/hr Sodium 128 L (137-145) mmol/L Carbon Dioxide 16 L (22-30) mmol/L BUN 50 H (9-20) mg/dL Creatinine 6.64 H (0.66-1.25) mg/dL Glucose 170 H (74-99) mg/dL POC Glucose (mg/dL) 147 H (75-99) mg/dL Plasma Lactic Acid Chun (0.7-2.0) mmol/L Calcium 7.8 L (8.4-10.2) mg/dL Phosphorus 8.3 H (2.5-4.5) mg/dL Total Bilirubin 7.5 H (0.2-1.3) mg/dL AST 143 H (17-59) U/L ALT 67 H (4-49) U/L Alkaline Phosphatase 465 H (38-126) U/L C-Reactive Protein (<10.0) mg/L Total Protein 6.2 L (6.3-8.2) g/dL Albumin 2.0 L (3.5-5.0) g/dL Microbiology - Last 24 Hours (Table) 03/28/20 09:46 Anaerobic Culture - Final Paracentesis Fluid 03/27/20 05:17 Blood Culture - Preliminary Blood No Growth after 120 hours 03/27/20 05:17 Blood Culture - Preliminary Blood No Growth after 120 hours 03/30/20 12:00 Blood Culture - Preliminary Blood No Growth after 24 hours 03/30/20 11:31 Blood Culture - Preliminary Blood No Growth after 24 hours 03/26/20 11:46 Blood Culture - Preliminary Blood No Growth after 120 hours 03/28/20 09:46 Gram Stain - Final Paracentesis Fluid Body Fluid Culture - Final Serratia marcescens Assessment and Plan Assessment: 1. Continuous bacterial peritonitis and paracentesis fluid culture grew Serratia Marcencens. The patient is currently on cefepime and Flagyl.. Cultures reveal sensitivity to cefepime. He has persistent leukocytosis. Dr. Greco with infectious diseases following the patient closely. 2. Cirrhosis of the liver with gradual decompensation 3. Refractory ascites requiring large-volume paracentesis on a weekly basis 4. End-stage renal disease on hemodialysis since October of this year 5. Gastroesophageal reflux disease 6. History of esophageal varices. Last upper endoscopy with esophageal varic eal ligation performed in January 2020 7. Rectal bleeding for the last 2 days, nursing is reporting source is likely coming from a sacral wound. He also reports straining with bowel movements, will add anusol cream to rectum BID. Plan: 1. Supportive care 2. Continue with with broad-spectrum antibiotics per recommendations of infectious disease 3. Obtain CT of the chest, abdomen and pelvis 4. Gentle hydration 5. Continue lactulose 6. Continue with weekly paracentesis, tentatively plan for Wednesday this week I put tension stable 7. No plans for any endoscopic intervention at the present time, since his last EGD was done in January 2020. We will plan for a repeat in May 2020. If recurrent rectal bleeding, may consider colonoscopy. 8. Recommend albumin with hemodialysis 9. Anusol twice a day 10. We will follow with you closely The impression and plan of care has been dictated as directed. Dr. Torres I performed a history and examination of this patient, discussed the same with the dictator. I agree with the dictator's note ,documented as a scribe. Any additional findings or plans will be noted.
--- NOTE | 2020-04-01 13:01 | US ---
EXAMINATION TYPE: US abdomen limited DATE OF EXAM: 04/01/2020 COMPARISON: NONE CLINICAL HISTORY: 59-year-old male ascites check, exam done portable in ICU Technique: The 4 abdominal quadrants were scanned for assessment of ascites fluid. FINDINGS: Steamtable Worker notes: Ascites seen within all 4 quadrants. IMPRESSION: Moderate abdominal ascites noted.
[2020-04-01 14:25] VITALS: BMI 39.0
[2020-04-01 16:57] LABS: Glucose,Whole Blood 172 mg/dL (75-99)
[2020-04-01] MEDS: CEFEPIME 2 GM in SODIUM CHLORIDE 0.9% 100 ML IVPB SCH (17:01)
[2020-04-01] MEDS: HYDROCORTISONE 2.5% RECTAL CREAM 30 GM TUBE RECTAL SCH (20:36)
[2020-04-01 20:40] LABS: Glucose,Whole Blood 199 mg/dL (75-99)
--- NOTE | 2020-04-01 23:35 | PN ---
PROGRESS NOTE DATE OF SERVICE: 04/01/2020 REASON FOR FOLLOWUP: Serratia marcescens peritonitis and elevated white count. INTERVAL HISTORY: The patient is currently afebrile. The patient denies having any chest pain or shortness of breath or cough. Abdominal pain has improved. No vomiting. No diarrhea. PHYSICAL EXAMINATION: Blood pressure is 101/61 with a pulse of 93, temperature is 97.5. He is 93% on 2 L nasal cannula. General description is a middle-aged male lying in bed in no distress. RESPIRATORY SYSTEM: Unlabored breathing, clear to auscultation anteriorly. HEART: S1, S2. Regular rate and rhythm. ABDOMEN: Soft, mildly distended. No guarding or rigidity. LABS: Hemoglobin is 10.6, white count 30.9, BUN of 50, creatinine 6.64. DIAGNOSTIC IMPRESSION AND PLAN: Patient with Serratia marcescens peritonitis. The patient is covered with cefepime to continue. White count did show a somewhat downward trend that will be monitored closely and continue supportive care. MMODL / IJN: [id number] /
--- NOTE | 2020-04-02 02:56 | PN ---
PROGRESS NOTE DATE OF SERVICE: 04/01/2020 This 59-year-old gentleman who was admitted with possible spontaneous bacterial peritonitis, also significant hypotension. The patient also had diagnostic paracentesis. Patient is monitored in ICU at this time. Dialysis has been also carried out. Blood pressure is on the borderline. The patient also had significant right pleural effusion and some shortness of breath also. PAST MEDICAL HISTORY: Reviewed. REVIEW OF SYSTEMS: CARDIOVASCULAR SYSTEM: No angina. RESPIRATORY SYSTEM: As mentioned earlier. GI: As mentioned earlier. : No dysuria. NERVOUS SYSTEM: No numbness or weakness. CURRENT MEDICATIONS: Current medications are reviewed and include: Xanax, [place], cefepime, folic acid, Dilaudid, NovoLog, Cephulac, Flagyl, Protonix, multivitamins, sodium bicarb. PHYSICAL EXAMINATION: The patient is alert and oriented x3. Pulse is 93, blood pressure 101/61, respirations 16, temperature 97.5, pulse ox 93% on 2 L. HEENT: Conjunctivae normal. NECK: No jugular venous distention. CARDIOVASCULAR: S1, S2 muffled. RESPIRATORY: Breath sounds diminished at the bases. A few scattered rhonchi and crackles. ABDOMEN: Soft, obese. Ascites present LEGS: No edema, no swelling. NERVOUS SYSTEM: No focal deficits. LABS: WBC 30.9, hemoglobin 10.6, sodium 128 and cultures are noted Serratia marcescens. ASSESSMENT: 1. Acute spontaneous bacterial peritonitis with Serratia marcescens, severe sepsis, septic shock and hypotension. 2. Right pleural effusion with possible right lower lobe pneumonia with shortness of breath. 3. Intractable ascites. 4. History of end-stage renal disease on hemodialysis. 5. Rule out CBD obstruction or cholangitis. 6. Ascites secondary to chronic liver disease and cirrhosis of liver, status post diagnostic paracentesis during this admission yielding cloudy fluid. 7. Hyponatremia. 8. Hyperkalemia. 9. Elevated lactic acid possibly secondary to dehydration, sepsis. 10.Increased WBC, leukemoid reaction, persistent. 11.Anemia, macrocytic. 12.Thrombocytopenia. 13.Hyperbilirubinemia. 14.Increased AST. 15.Hypoalbuminemia with mild protein calorie malnutrition. 16.Diabetes mellitus type 2. 17.Gastroesophageal reflux disease. 18.History of gastrointestinal bleed. 19.History of chronic liver disease. 20.History of renal disease. 21.History of multiple abdominal paracenteses. 22.History of gait dysfunction. 23.History of non-alcoholic liver cirrhosis as well as esophageal varices and variceal bleeding. 24.History of degenerative joint disease. 25.Remote history of nicotine dependence. 26.FULL CODE. RECOMMENDATIONS AND DISCUSSION: Recommend to continue current medications. Continue symptomatic treatment. Continue with current medications, continue with broad-spectrum IV antibiotics. Patient is on cefepime at this time. Abdominal ultrasound was recommended which showed moderate abdominal ascites. We will continue to closely monitor with Gastroenterology as well as Pulmonology. I would recommend also Interventional Radiology evaluation for further paracentesis also. Surgery has already seen the patient. Prognosis guarded. Further recommendations to follow. MMODL / IJN: [id number] /
[2020-04-02 04:24] LABS: Anisocytosis Slight; HCT 36.9 % (39.0-53.0); HGB 10.8 gm/dL (13.0-17.5); Hypochromasia Marked; MCH 32.5 pg (25.0-35.0); MCHC 29.2 g/dL (31.0-37.0); MCV 111.3 fL (80.0-100.0); Macrocytosis Marked; RBC 3.32 m/uL (4.30-5.90); RDW 17.5 % (11.5-15.5); WBC 32.2 k/uL (3.8-10.6)
[2020-04-02 04:36] LABS: Albumin 2.1 g/dL (3.5-5.0); Calcium 7.9 mg/dL (8.4-10.2); Potassium 4.7 mmol/L (3.5-5.1); Total Bilirubin 7.7 mg/dL (0.2-1.3); Total Protein 6.4 g/dL (6.3-8.2)
[2020-04-02] MEDS ORDERED: IOPAMIDOL CONTRAST (ORAL USE) VIAL PO PRN ×2 (04:48→05:01)
[2020-04-02 05:15] LABS: Platelet Count 75 k/uL (150-450)
[2020-04-02 06:07] LABS: Band Neutrophils % 5 %; Eosinophils # (M) 0.32 k/uL (0-0.7); Lymphocytes # (M) 2.58 k/uL (1.0-4.8); Monocytes # (M) 1.29 k/uL (0-1.0); Neutrophils % (M) 82 %; Nucleated Red Blood Cells 0 /100 WBC (0-0); Total Cells Counted 100
[2020-04-02 06:09] LABS: Polychromasia Present
[2020-04-02 06:10] LABS: Crenated RBC Present; Large Platelets Present
[2020-04-02] MEDS: PANTOPRAZOLE 40 MG TABLET PO SCH (06:35)
[2020-04-02] MEDS: MIDODRINE 5 MG TAB PO SCH (06:35)
[2020-04-02 07:00] LABS: Glucose,Whole Blood 157 mg/dL (75-99)
[2020-04-02] MEDS: INSULIN ASPART (NovoLOG) 100 UNIT/ML VIAL SQ SCH (07:03)
--- NOTE | 2020-04-02 07:37 | XR ---
EXAMINATION TYPE: XR chest 1V portable DATE OF EXAM: 04/02/2020 Comparison: 04/01/2020 Clinical History: 59-year-old male ICU follow-up Findings: Right-sided double-lumen hemodialysis catheter with tips at the lower SVC. Right heart margin remains obscured by adjacent pleural parenchymal opacity. Slight improved aeration within the right upper lo be with continued extensive pleural-parenchymal opacity throughout the right hemithorax. Left lung re jess clear. Impression: Slight improvement in aeration in a portion of the right upper lobe. Extensive pleural-parenchymal op acity otherwise persists throughout the right hemithorax.
[2020-04-02] MEDS: LACTULOSE 20 GM/30 ML CUP PO SCH (08:15)
[2020-04-02] MEDS: metroNIDAZOLE 500 MG TAB PO SCH (08:15)
[2020-04-02] MEDS: FLUDROCORTISONE 0.1 MG TAB PO SCH ×2 (08:15→08:16)
[2020-04-02] MEDS ORDERED: ALBUMIN HUMAN 25% 50 ML in EMPTY BAG 1 BAG IVPB SCH (08:15)
[2020-04-02] MEDS: HYDROCORTISONE 2.5% RECTAL CREAM 30 GM TUBE RECTAL SCH (08:16)
[2020-04-02] MEDS: SODIUM BICARBONATE TAB 650 MG TAB PO SCH (08:16)
[2020-04-02 08:36] VITALS: TEMP 98
--- NOTE | 2020-04-02 09:23 | P.PN ---
Subjective Progress Note Date: 04/02/20 Principal diagnosis: Dyspnea 59-year-old white female patient with past medical history of diabetes mellitus type 2, history of chronic liver disease, cirrhosis of the liver related to history of nonalcoholic liver disease, fatty liver, ascites with weekly paracentesis scheduled with interventional radiology, end-stage renal disease on hemodialysis on Wednesday, history of esophageal very sees status post variceal ligation in January 2020, chronic anemia, anasarca, GERD/reflux, gait dysfunction, weakness. Patient is on the transplant list for liver and kidney transplant at the [facility], currently undergoing evaluation. Patient initially came into the hospital on 03/26/2020 on the outpatient hemodialysis center for evaluation of hypotension. Patient apparently had no other specific complaints, no fever no cough, no chest pain he did report abdominal distention and patient was scheduled for paracentesis on the same day. Ultrasound of the gallbladder revealed gallbladder wall thickening with intraluminal debris, hepatic cirrhosis and ascites. On 03/28/2020 patient had ultrasound-guided paracentesis would removal of 5.5 L of clear nhan-colored fluid with debris which was sent for cultures. Ascitic fluid culture showed Serratia marcescens, blood cultures have been negative. Cytology the ascitic fluid is still pending. ID service is following. He continued with the hemodialysis, nephrology is following, patient was transfer red to the ICU yesterday on March 31, 2020 related to hypotension and shortness of breath. His chest x-ray on 03/30/2020 showed a right pleural effusion that was increasing compared previous exam, and the chest x-ray today on 04/01/2020 showed near complete white out of the right hemithorax related to enlarging right pleural effusion. On physical exam patient is awake and alert, oriented 3, he is providing history of present illness, he he denies any acute respiratory distress, he is on 1 L of oxygen and pulse ox 94%, blood pressure is 90/46, with a mean of 60, he is in sinus mechanism at a rate of 90 BPM. He is on antibiotics in the form of cefepime and Flagyl, his had no fevers. He was given a liter bolus yesterday, He was started on Florinef and he has early been on Midrin. He had hemodialysis treatment yesterday would removal of 1.7 L. Today's labs have been reviewed, and the white blood cell count is 30.9 which is actually improved from yesterday, as the patient had persistent leukocytosis throughout his admission, hemoglobin is 10.6, sodium is 128, potassium is 4.7, chloride is 99, CO2 16 and the patient is on oral bicarbonate, BUN is 50, and creatinine is 6.64, calcium 7.8, plasma lactic acid was drawn is 4.1, AST is 143, ALT is 67, alkaline phosphatase is 465 TSH was normal at 4.410, cortisol was 43. Currently IV fluids are infusing at a rate of 20 ML per hour, no vasopressors. On 04/02/2020 patient seen in follow-up in the intensive care unit, he is awake and alert, in no acute distress, he is oriented 3, he is currently on 2 L of oxygen and his pulse ox is 99%, patient denies any shortness of breath, breathing seems to be quite comfortable, he is on 0.9, sitting at a rate of 10 ML per hour, yesterday's ultrasound of the abdomen showed moderate abdominal ascites. Chest x-ray has been reviewed showing slight improvement in aeration in the midportion of the right upper lobe, and extensive pleural parenchymal opacity throughout the right hemithorax. Patient remains on a combination of cefepime and Flagyl for Serratia marcescens peritonitis, his been afebrile, blood pressure is 89/51, sinus rhythm on the monitor with a rate of 85, no altered mentation, no difficulty breathing, no abdominal pain, no nausea or vomiting. Today's labs have been reviewed showing white blood cell 32.2, hemoglobin is 10.8, sodium is 131, potassium is 4.7, chloride is 101, CO2 16, BUN of 47, creatinine 6.43. Cortisol level is 43, TSH is within normal limits at 4.4. Globin has been stable, no blood in the stool, it is believed the patient had some rectal bleeding a couple days ago that was coming from a sacral wound. He is receiving Anusol cream to the rectum twice daily. he remains on Florinef and midodrine. The plan is for hemodialysis today, nephrology is following. Computed tomography scan of the chest, abdomen and pelvis is pending however we will speak to the transfer team at the [facility] for possibility of transfer to the [facility] patient's liver specialist today and be evaluated by his liver specialist there. Objective - Vital Signs Vital signs: Vital Signs Temp 98.0 F 04/02/20 08:00 Pulse 84 04/02/20 08:00 Resp 18 04/02/20 08:00 BP 80/49 04/02/20 08:00 Pulse Ox 97 04/02/20 08:00 Intake & Output 04/01/20 04/02/20 04/02/20 18:59 06:59 18:59 Intake Total 1060 120 260 Output Total 4000 0 0 Balance -2940 120 260 Weight 134.2 kg 136.9 kg Intake: IV 120 120 20 0.9 120 120 20 Intake, IV Titration 100 Amount Cefepime 2 gm In Sodium 100 Chloride 0.9% 100 ml @ 25 mls/hr IVPB Q24H [facility] Rx# :[id number] Oral 840 240 Output: Urine 0 0 0 Hemodialysis 1999 Other 1999 Other: Voiding Method Bedside Commode Bedside Commode Bedside Commode Urinal Urinal Urinal # Bowel Movements 1 - Exam GENERAL EXAM: Alert, very pleasant, 59-year-old white male, on 2 L of oxygen with a pulse ox of 97% resting in bed comfortable in no apparent distress. HEAD: Normocephalic/atraumatic. EYES: Normal reaction of pupils, equal size. Conjunctiva pink, sclera white. NOSE: Clear with pink turbinates. THROAT: No erythema or exudates. NECK: No masses, no JVD, no thyroid enlargement, no adenopathy. CHEST: No chest wall deformity. Symmetrical expansion. LUNGS: Diminished breath sounds on the right, no crackles, wheeze, rhonchi or dullness. CVS: Regular rate and rhythm, normal S1 and S2, no gallops, no murmurs, no rubs ABDOMEN: Soft, obese, distended nontender. No hepatosplenomegaly, normal bowel sounds, no guarding or rigidity. EXTREMITIES: No clubbing, mild pretibial edema, no cyanosis, 2+ pulses and upper and lower extremities. MUSCULOSKELETAL: Muscle strength and tone normal. SPINE: No scoliosis or deformity SKIN: No rashes CENTRAL NERVOUS SYSTEM: Alert and oriented -3. No focal deficits, tone is normal in all 4 extremities. PSYCHIATRIC: Alert and oriented -3. Appropriate affect. Intact judgment and insight. - Labs CBC & Chem 7: 04/02/20 03:43 04/02/20 03:43 Labs: Abnormal Lab Results - Last 24 Hours (Table) 04/01/20 04/01/20 04/01/20 Range/Units 03:10 16:55 20:39 WBC (3.8-10.6) k/uL RBC (4.30-5.90) m/uL Hgb (13.0-17.5) gm/dL Hct (39.0-53.0) % MCV (80.0-100.0) fL MCHC (31.0-37.0) g/dL RDW (11.5-15.5) % Plt Count (150-450) k/uL Neutrophils # (Manual) (1.3-7.7) k/uL Monocytes # (Manual) (0-1.0) k/uL Macrocytosis Sodium (137-145) mmol/L Carbon Dioxide (22-30) mmol/L BUN (9-20) mg/dL Creatinine (0.66-1.25) mg/dL Glucose (74-99) mg/dL POC Glucose (mg/dL) 172 H 199 H (75-99) mg/dL Calcium (8.4-10.2) mg/dL Phosphorus 8.3 H (2.5-4.5) mg/dL Total Bilirubin (0.2-1.3) mg/dL AST (17-59) U/L ALT (4-49) U/L Alkaline Phosphatase (38-126) U/L Albumin (3.5-5.0) g/dL 04/02/20 04/02/20 04/02/20 Range/Units 03:43 03:43 06:58 WBC 32.2 H (3.8-10.6) k/uL RBC 3.32 L (4.30-5.90) m/uL Hgb 10.8 L (13.0-17.5) gm/dL Hct 36.9 L (39.0-53.0) % MCV 111.3 H (80.0-100.0) fL MCHC 29.2 L (31.0-37.0) g/dL RDW 17.5 H (11.5-15.5) % Plt Count 75 L (150-450) k/uL Neutrophils # (Manual) 28.00 H (1.3-7.7) k/uL Monocytes # (Manual) 1.29 H (0-1.0) k/uL Macrocytosis Marked A Sodium 131 L (137-145) mmol/L Carbon Dioxide 16 L (22-30) mmol/L BUN 47 H (9-20) mg/dL Creatinine 6.43 H (0.66-1.25) mg/dL Glucose 150 H (74-99) mg/dL POC Glucose (mg/dL) 157 H (75-99) mg/dL Calcium 7.9 L (8.4-10.2) mg/dL Phosphorus (2.5-4.5) mg/dL Total Bilirubin 7.7 H (0.2-1.3) mg/dL AST 129 H (17-59) U/L ALT 69 H (4-49) U/L Alkaline Phosphatase 423 H (38-126) U/L Albumin 2.1 L (3.5-5.0) g/dL Microbiology - Last 24 Hours (Table) 03/27/20 05:17 Blood Culture - Final Blood No Growth after 144 hours 03/27/20 05:17 Blood Culture - Final Blood No Growth after 144 hours 03/30/20 12:00 Blood Culture - Preliminary Blood No Growth after 48 hours 03/30/20 11:31 Blood Culture - Preliminary Blood No Growth after 48 hours 03/26/20 11:46 Blood Culture - Final Blood No Growth after 144 hours 03/28/20 09:46 Anaerobic Culture - Final Paracentesis Fluid Assessment and Plan Plan: Assessment: #1. Dyspnea related to enlarging right pleural effusion, today's chest x-ray on 04/01/2020 shows near complete white out of the right hemithorax from a large right pleural effusion with underlying consolidation and/or atelectasis. This is related to abdominal ascites, patient has a weekly paracentesis for history of liver cirrhosis related to nonalcoholic liver disease. On today's chest x- ray on 04/02/2020 there is slightly better aeration of the right upper lobe with persistence of right hemithorax related to large right-sided pleural effusion #2. Ascites, status post ultrasound-guided paracentesis on 03/28/2020 with removal of 5.5 L of ascitic fluid, and fluid culture was positive for Serratia marcescens, possibly related to peritonitis, patient is on the pain and Flagyl. gets paracentesis on the weekly basis. Follow-up ultrasound of the abdomen shows moderate amount of ascites #3. History of end-stage renal disease on hemodialysis on Wednesday schedule #4. History of nonalcoholic liver disease with liver cirrhosis, on the transplant list at the [facility], and is also being evaluated for renal transplant at the [facility] #5. Hypotension, possibly related to hemodialysis, a component of sepsis is not excluded related to peritonitis, and chronic liver disease with hypoalbuminemia #6. Diabetes mellitus type 2 #7. GERD/reflux #8. Chronic anemia #9. Hypoalbuminemia with mild protein calorie malnutrition #10. General medical debility, gait dysfunction and weakness #11. History of degenerative joint disease #12. Remote history of nicotine dependence Plan: We'll hold on the CT of the chest, abdomen and pelvis for now, patient has multiple complex medical issues, patient sees a liver specialist at the [facility], he is mentally and undergoing evaluation for possibility of kidney and liver transplant at the [facility], we will speak to the transfer team for possibility of transfer to the [facility]. Today's chest x-ray has been reviewed still showing large right-sided pleural effusion with some slight better aeration of the right upper lobe, ultrasound abdomen only showed moderate amount of ascites, blood pressure is 80s over 40s however patient is clinically asymptomatic, no altered mentation, no difficulty breathing, he is keeping stable saturations on 2 L of oxygen. He is being followed by multiple consultants on the case, antibiotics per ID service recom mendations, his been afebrile, follow blood cultures have been negative. Continue current medical treatment, the plan on transfer to the tertiary care facility was discussed with the patient was agreeable. I performed a history & physical examination of the patient and discussed their management with my nurse practitioner, Ruma Carballo. I reviewed the nurse practitioner's note and agree with the documented findings and plan of care. Lung sounds are positive for diminished breath sounds in the right. The findings and the impression was discussed with the patient. I attest to the documentation by the nurse practitioner. Time with Patient: Less than 30
--- NOTE | 2020-04-02 09:37 | P.PN ---
Subjective Patient is seen in follow-up for end-stage renal disease. He is maintained on hemodialysis on Wednesday schedule. Had an extra treatment of hemodialysis yesterday for volume overload. He is currently awake and alert. Denies chest pain or shortness of breath. Blood pressure low but stable. He is maintained on Florinef as well as midodrine. Vital signs are stable. General: The patient appeared well nourished and normally developed. HEENT: Head exam is unremarkable. Neck is without jugular venous distension. LUNGS: Breath sounds decreased. HEART: Rate and Rhythm are regular. ABDOMEN: Soft, nontender. Obese. EXTREMITITES: 1+ edema. Generalized jaundice noted. Objective - Vital Signs Vital signs: Vital Signs Temp 98.0 F 04/02/20 08:00 Pulse 84 04/02/20 08:00 Resp 18 04/02/20 08:00 BP 80/49 04/02/20 08:00 Pulse Ox 97 04/02/20 08:00 Intake & Output 04/01/20 04/02/20 04/02/20 18:59 06:59 18:59 Intake Total 1060 120 260 Output Total 4000 0 0 Balance -2940 120 260 Weight 134.2 kg 136.9 kg Intake: IV 120 120 20 0.9 120 120 20 Intake, IV Titration 100 Amount Cefepime 2 gm In Sodium 100 Chloride 0.9% 100 ml @ 25 mls/hr IVPB Q24H [facility] Rx# :[id number] Oral 840 240 Output: Urine 0 0 0 Hemodialysis 2000 Other 1999 Other: Voiding Method Bedside Commode Bedside Commode Bedside Commode Urinal Urinal Urinal # Bowel Movements 1 - Labs CBC & Chem 7: 04/02/20 03:43 04/02/20 03:43 Labs: Abnormal Lab Results - Last 24 Hours (Table) 04/01/20 04/01/20 04/02/20 Range/Units 16:55 20:39 03:43 WBC 32.2 H (3.8-10.6) k/uL RBC 3.32 L (4.30-5.90) m/uL Hgb 10.8 L (13.0-17.5) gm/dL Hct 36.9 L (39.0-53.0) % MCV 111.3 H (80.0-100.0) fL MCHC 29.2 L (31.0-37.0) g/dL RDW 17.5 H (11.5-15.5) % Plt Count 75 L (150-450) k/uL Neutrophils # (Manual) 28.00 H (1.3-7.7) k/uL Monocytes # (Manual) 1.29 H (0-1.0) k/uL Macrocytosis Marked A Sodium (137-145) mmol/L Carbon Dioxide (22-30) mmol/L BUN (9-20) mg/dL Creatinine (0.66-1.25) mg/dL Glucose (74-99) mg/dL POC Glucose (mg/dL) 172 H 199 H (75-99) mg/dL Calcium (8.4-10.2) mg/dL Total Bilirubin (0.2-1.3) mg/dL AST (17-59) U/L ALT (4-49) U/L Alkaline Phosphatase (38-126) U/L Albumin (3.5-5.0) g/dL 04/02/20 04/02/20 Range/Units 03:43 06:58 WBC (3.8-10.6) k/uL RBC (4.30-5.90) m/uL Hgb (13.0-17.5) gm/dL Hct (39.0-53.0) % MCV (80.0-100.0) fL MCHC (31.0-37.0) g/dL RDW (11.5-15.5) % Plt Count (150-450) k/uL Neutrophils # (Manual) (1.3-7.7) k/uL Monocytes # (Manual) (0-1.0) k/uL Macrocytosis Sodium 131 L (137-145) mmol/L Carbon Dioxide 16 L (22-30) mmol/L BUN 47 H (9-20) mg/dL Creatinine 6.43 H (0.66-1.25) mg/dL Glucose 150 H (74-99) mg/dL POC Glucose (mg/dL) 157 H (75-99) mg/dL Calcium 7.9 L (8.4-10.2) mg/dL Total Bilirubin 7.7 H (0.2-1.3) mg/dL AST 129 H (17-59) U/L ALT 69 H (4-49) U/L Alkaline Phosphatase 423 H (38-126) U/L Albumin 2.1 L (3.5-5.0) g/dL Microbiology - Last 24 Hours (Table) 03/27/20 05:17 Blood Culture - Final Blood No Growth after 144 hours 03/27/20 05:17 Blood Culture - Final Blood No Growth after 144 hours 03/30/20 12:00 Blood Culture - Preliminary Blood No Growth after 48 hours 03/30/20 11:31 Blood Culture - Preliminary Blood No Growth after 48 hours 03/26/20 11:46 Blood Culture - Final Blood No Growth after 144 hours 03/28/20 09:46 Anaerobic Culture - Final Paracentesis Fluid Assessment and Plan Plan: Assessment: 1. End-stage renal disease maintained on hemodialysis on Wednesday schedule. 2. Nonalcoholic liver cirrhosis. Status post paracentesis on March 28 with 5.5 L drained. 3. SBP with peritoneal fluid positive for Serratia maintained on antibiotics. 4. Chronic hypotension maintained on midodrine and Florinef. 5. Anemia of chronic kidney disease. Hemoglobin at goal. 6. Hyponatremia secondary to chronic kidney disease. Hypervolemic. 7. Volume overload. Worsened right pleural effusion. Had an x-ray hemodialysis treatment yesterday. 8. Chronic kidney disease mineral bone disease. Phosphorous 8.4. 9. Metabolic acidosis secondary to chronic kidney disease as well as compensation for underlying respiratory alkalosis from cirrhosis. Maintained on oral bicarb. Plan: Hemodialysis today. Add Renvela with meals. Scheduled to receive IV albumin today. Awaits transfer to [facility].
[2020-04-02 10:17] VITALS: BP 73/42; PULSE 88; RESP 13
[2020-04-02] MEDS ORDERED: SEVELAMER 800 MG TAB PO SCH (12:30)
--- NOTE | 2020-04-02 12:38 | P.PN ---
Subjective Progress Note Date: 04/02/20 Principal diagnosis: History of cirrhosis of the liver and hypotension C 59-year-old white male with a history of nonalcoholic cirrhosis of the liver with portal hypertension admitted to the hospital with possible spontaneous bacterial peritonitis on broad-spectrum antibiotics. The patient continues to have persistent leukocytosis despite pain and antibiotic therapy, however has remained afebrile. The patient was seen and examined at the bedside in the ICU. The patient was transferred to the ICU yesterday for hypotensive episodes, as well as concern for a rectal bleed. The rectal bleeding has resolved and was thought to be humming from a sacral wound. His abdomen is nondistended. He is status post paracentesis this admission. He generally goes weekly. He is get ting hemodialysis, Wednesday schedule. He is scheduled to receive hemodialysis today, albumin 50 g will be ordered to be given with dialysis. He denies any shortness of breath or chest pain. Had 4 loose bowel movements between yesterday and today, no blood in stool or bleeding from rectum. There is been arrangements for the patient be transferred to [facility] for higher acuity care. The patient has been accepted and is waiting on a bed. Objective - Vital Signs Vital signs: Vital Signs Temp 98.0 F 04/02/20 08:00 Pulse 88 04/02/20 10:00 Resp 13 04/02/20 10:00 BP 73/42 04/02/20 10:00 Pulse Ox 97 04/02/20 10:00 Intake & Output 04/01/20 04/02/20 04/02/20 18:59 06:59 18:59 Intake Total 1060 120 280 Output Total 4000 0 0 Balance -2940 120 280 Weight 134.2 kg 136.9 kg Intake: IV 120 120 40 0.9 120 120 40 Intake, IV Titration 100 Amount Cefepime 2 gm In Sodium 100 Chloride 0.9% 100 ml @ 25 mls/hr IVPB Q24H [facility] Rx# :[id number] Oral 840 240 Output: Urine 0 0 0 Hemodialysis 1999 Other 1999 Other: Voiding Method Bedside Commode Bedside Commode Bedside Commode Urinal Urinal Urinal # Bowel Movements 1 - Exam General appearance: The patient is alert, oriented, in no acute distress. Morbidly obese HET: Head is normocephalic and atraumatic. Conjunctiva pink. Sclera icteric. Neck: Supple without lymphadenopathy. Abdomen: Soft, obese, nontender, nondistended with bowel sounds. No guarding or rigidity. Extremities: Jaundiced. Bilateral pedal edema. Neurological: No focal deficits. Alert and oriented 3. - Labs CBC & Chem 7: 04/02/20 03:43 04/02/20 03:43 Labs: Abnormal Lab Results - Last 24 Hours (Table) 04/01/20 04/01/20 04/02/20 Range/Units 16:55 20:39 03:43 WBC 32.2 H (3.8-10.6) k/uL RBC 3.32 L (4.30-5.90) m/uL Hgb 10.8 L (13.0-17.5) gm/dL Hct 36.9 L (39.0-53.0) % MCV 111.3 H (80.0-100.0) fL MCHC 29.2 L (31.0-37.0) g/dL RDW 17.5 H (11.5-15.5) % Plt Count 75 L (150-450) k/uL Neutrophils # (Manual) 28.00 H (1.3-7.7) k/uL Monocytes # (Manual) 1.29 H (0-1.0) k/uL Macrocytosis Marked A Sodium (137-145) mmol/L Carbon Dioxide (22-30) mmol/L BUN (9-20) mg/dL Creatinine (0.66-1.25) mg/dL Glucose (74-99) mg/dL POC Glucose (mg/dL) 172 H 199 H (75-99) mg/dL Calcium (8.4-10.2) mg/dL Total Bilirubin (0.2-1.3) mg/dL AST (17-59) U/L ALT (4-49) U/L Alkaline Phosphatase (38-126) U/L Albumin (3.5-5.0) g/dL 04/02/20 04/02/20 Range/Units 03:43 06:58 WBC (3.8-10.6) k/uL RBC (4.30-5.90) m/uL Hgb (13.0-17.5) gm/dL Hct (39.0-53.0) % MCV (80.0-100.0) fL MCHC (31.0-37.0) g/dL RDW (11.5-15.5) % Plt Count (150-450) k/uL Neutrophils # (Manual) (1.3-7.7) k/uL Monocytes # (Manual) (0-1.0) k/uL Macrocytosis Sodium 131 L (137-145) mmol/L Carbon Dioxide 16 L (22-30) mmol/L BUN 47 H (9-20) mg/dL Creatinine 6.43 H (0.66-1.25) mg/dL Glucose 150 H (74-99) mg/dL POC Glucose (mg/dL) 157 H (75-99) mg/dL Calcium 7.9 L (8.4-10.2) mg/dL Total Bilirubin 7.7 H (0.2-1.3) mg/dL AST 129 H (17-59) U/L ALT 69 H (4-49) U/L Alkaline Phosphatase 423 H (38-126) U/L Albumin 2.1 L (3.5-5.0) g/dL Microbiology - Last 24 Hours (Table) 03/27/20 05:17 Blood Culture - Final Blood No Growth after 144 hours 03/27/20 05:17 Blood Culture - Final Blood No Growth after 144 hours 03/30/20 12:00 Blood Culture - Preliminary Blood No Growth after 48 hours 03/30/20 11:31 Blood Culture - Preliminary Blood No Growth after 48 hours 03/26/20 11:46 Blood Culture - Final Blood No Growth after 144 hours 03/28/20 09:46 Anaerobic Culture - Final Paracentesis Fluid Assessment and Plan Assessment: 1. Continuous bacterial peritonitis and paracentesis fluid culture grew Serratia Marcencens. The patient is currently on cefepime and Flagyl.. Cultures reveal sensitivity to cefepime. He has persistent leukocytosis. Dr. Greco with infectious diseases following the patient closely. Should has been transferred to [facility] for higher daily care. Patient is known to [facility] liver transplant team. 2. Cirrhosis of the liver with gradual decompensation 3. Refractory ascites requiring large-volume paracentesis on a weekly basis 4. End-stage renal disease on hemodialysis since October of this year 5. Gastroesophageal reflux disease 6. History of esophageal varices. Last upper endoscopy with esophageal variceal ligation performed in January 2020 7. Rectal bleeding for the last 2 days, nursing is reporting source is likely coming from a sacral wound. He also reports straining with bowel movements, will add anusol cream to rectum BID. Plan: 1. Supportive care 2. Continue with with broad-spectrum antibiotics per recommendations of infectious disease 3. Obtain CT of the chest, abdomen and pelvis 4. Gentle hydration 5. Continue lactulose 6. Continue with weekly paracentesis, tentatively plan for Wednesday this week if hypotension stable 7. No plans for any endoscopic intervention at the present time, since his last EGD was done in January 2020. We will plan for a repeat in May 2020. If recurrent rectal bleeding, may consider colonoscopy. 8. Albumin with hemodialysis today 9. Anusol twice a day 10. We will follow with you closely, agree with transfer to tertiary center. The impression and plan of care has been dictated as directed. Dr. Torres I performed a history and examination of this patient, discussed the same with the dictator. I agree with the dictator's note ,documented as a scribe. Any additional findings or plans will be noted.
--- NOTE | 2020-04-02 23:17 | P.DS ---
Providers Date of admission: 03/26/20 11:11 Attending physician: Cristofer Ochoa MD Consults: 03/26/20 11:12 Consult Physician Routine Consulting Provider: Citlali Fields Consult Reason/Comments: ESRD Do you want consulting provider notified?: Yes 03/26/20 11:22 Consult Physician Routine Consulting Provider: Margie Greco Consult Reason/Comments: Leukocytosis Do you want consulting provider notified?: Yes 03/26/20 14:36 Consult Physician Routine Consulting Provider: Su Bonds Consult Reason/Comments: eso varices Do you want consulting provider notified?: Yes 03/31/20 12:18 Consult Physician Stat Consulting Provider: Patito Bolanos Consult Reason/Comments: Low BP Do you want consulting provider notified?: Already Contacted Primary care physician: Stated None Hospital Course: Diagnoses: Acute spontaneous bacterial peritonitis , serratia marcescens , with hypotension Right pleural effusion with possible right lower lobe pneumonia Intractable ascites end-stage renal disease on hemodialysis Rule out common bile duct obstruction or cholangitis Ascites secondary to chronic liver disease and cirrhosis of the liver Hyponatremia Hyperkalemia due to elevated lactic acidosis on admission Decreased leukocytosis, possible leukemoid reaction, persistent Anemia microcytic Thrombocytopenia Hyperbilirubinemia Increase AST Hypoalbuminemia with mild protein calorie malnutrition Diabetes mellitus type 2 Gastroesophageal reflux disease History of gastrointestinal bleed History of chronic liver disease History of renal disease Multiple abdominal paracentesis History of gait dysfunction History of known alcoholic liver cirrhosis as well as esophageal varices and reversal bleed History of degenerative joint disease Remote history of nicotine dependence Hospital course: Today is my first day I am taking care of this patient. Patient looks tired and unwilling to give detailed history. Information was obtained from patient with the help of staff and medical records This is a pleasant 59 years old male with multiple medical problems as above presents with hypotension, was sent from hemodialysis center on 03/26. Also Patient is on the transplant list for liver and kidney transplant at the [facility]. . On the presentation blood pressure was on the low side, patient had elevated lactic acid. A febrile but significantly elevated white cell count more than 30 days. Patient was treated with antibiotics as per ID team. Workup showed gallbladder wall thickening. And ascites status post paracentesis with a 5.5 L of fluid removed. Culture grew out Serratia marcescens. Patient is currently on Zosyn. And patient was transferred to the ICU yesterday for hypotension and dyspnea. Chest x-ray showing extensive right pleural effusion and possible pneumonia. ICU team recommended the patient to be transferred to [facility] for higher level of care. I discussed with case with the patient and he agreed to be transferred. I called [facility] transfer center and spoke with the physician on-call , accepted the patient under the care of Dr. Micheal Ferguson. Patient is stable for transfer in guarded prognosis. (Please refer to critical care note for more details about critical care management) physical exam Gen: patient is a AAOx3, no distress. Generally weak CVS: S1-S2, RRR, no murmur -Lungs: Decreased breath sounds on the right side, no wheezing. -Abdomen: soft, distention, no tenderness, positive bowel sounds -Extremity: Mild leg edema or induration -Neuro: Cranial nerves are grossly intact. No focal deficits identified Time spent more than 35 minutes Patient Condition at Discharge: Stable Plan - Discharge Summary Discharge Rx Participant: No New Discharge Prescriptions: No Action Midodrine HCl [ProAmatine] 10 mg PO TID #90 tab Lactulose 10 gm PO DAILY Discharge Medication List Midodrine HCl [ProAmatine] 10 mg PO TID #90 tab 02/29/20 [Rx] Lactulose 10 gm PO DAILY 03/26/20 [History] Follow up Appointment(s)/Referral(s): None,Stated [Primary Care Provider] - 1-2 days Discharge Disposition: OTHER INSTITUTION NOT DEFINED
== END 2020-04-02 12:57 | disposition short-term general hospital (02) | DRG 871 ==
LOC: EC 09:16 → 3SCARD 11:11 → 2SICU 03-31 13:18
PROVIDERS: ADMIT Internal Medicine; ATTEND Internal Medicine
PROC: 0W9G3ZX Drainage of Peritoneal Cavity, Percutaneous Approach, Diagnostic (ICD-10-PCS; principal; 2020-03-28)
PROC: 5A1D70Z Performance of Urinary Filtration, Intermittent, Less than 6 Hours Per Day (ICD-10-PCS; 2020-03-28)
DX: A41.53 Sepsis due to Serratia (principal); K65.2 Spontaneous bacterial peritonitis; R65.21 Severe sepsis with septic shock; N18.6 End stage renal disease; J18.9 Pneumonia, unspecified organism; K83.1 Obstruction of bile duct; J98.11 Atelectasis; K76.6 Portal hypertension; E87.1 Hypo-osmolality and hyponatremia; E87.4 Mixed disorder of acid-base balance; I12.0 Hypertensive chronic kidney disease with stage 5 chronic kidney disease or end stage renal disease; E44.1 Mild protein-calorie malnutrition; J90 Pleural effusion, not elsewhere classified; K92.1 Melena; K83.09 Other cholangitis; I85.10 Secondary esophageal varices without bleeding; Z20.828 Contact with and (suspected) exposure to other viral communicable diseases; D63.1 Anemia in chronic kidney disease; D69.6 Thrombocytopenia, unspecified; E11.22 Type 2 diabetes mellitus with diabetic chronic kidney disease; E78.5 Hyperlipidemia, unspecified; K21.9 Gastro-esophageal reflux disease without esophagitis; M19.90 Unspecified osteoarthritis, unspecified site; K70.31 Alcoholic cirrhosis of liver with ascites; E87.5 Hyperkalemia; D53.9 Nutritional anemia, unspecified; D72.823 Leukemoid reaction; R26.9 Unspecified abnormalities of gait and mobility; K76.0 Fatty (change of) liver, not elsewhere classified; E66.9 Obesity, unspecified; E83.89 Other disorders of mineral metabolism; E87.70 Fluid overload, unspecified; R53.81 Other malaise; Z79.899 Other long term (current) drug therapy; Z88.2 Allergy status to sulfonamides; Z99.2 Dependence on renal dialysis; Z98.84 Bariatric surgery status; Z87.891 Personal history of nicotine dependence; Z80.42 Family history of malignant neoplasm of prostate; Z98.890 Other specified postprocedural states; Z68.39 Body mass index [BMI] 39.0-39.9, adult; Z76.82 Awaiting organ transplant status
CPT/HCPCS: 36415; 49083; 71045; 71046; 74176; 76705; 80053; 80074; 80202; 82140; 82533; 83036; 83605; 83735; 84100; 84145; 84443; 84484; 85025; 85610; 85652; 85730; 86140; 87040; 87070; 87075; 87077; 87186; 87205; 87635; 88108; 88305; 89050; 90935; 93005; 96365; 96366; 96367; 99285